=== PATIENT | female | born 1960 | race Caucasian/White ===

== ENCOUNTER 2018-12-15 01:54 | Emergency (ER) | payer MEDICAID ==
[2018-12-15] MEDS ORDERED: oxyCODONE/Acetamin 5/325 MG* TAB PO ONE (02:11)
--- NOTE | 2018-12-15 02:20 | ED ---
Adult Trauma - HPI Summary HPI Summary: A 58 y/o female brought in by [facility] presents to [facility] with a chief complaint of facial injury post fall today. The patient reports that she missed a step when walking with her walker and fell into the gravel. She denies LOC as she was unable to get herself off the ground but able to call for help. At triage she rated her pain as a 9/10 in severity. She notes that her tooth was missing prior to her fall. She takes aspirin and smokes cigarettes. She denies EtOH use. - History of Current Complaint Chief Complaint: EDFacialInjury Stated Complaint: FALL WITH FACIAL INJURIES PER EMS Time Seen by Provider: 12/15/18 02:07 Hx Obtained From: Patient, EMS Mechanism of Injury: Fall Ambulatory at the Scene: No Loss of Consciousness: no loss of consciousness Onset/Duration: Started Minutes Ago, Still Present Onset of Pain: Immediate, Post Accident, Prior to Arrival Onset Severity: Severe Current Severity: Severe Pain Intensity: 9 Pain Scale Used: 0-10 Numeric Location: Head Aggravating Factor(s): Nothing Alleviating Factor(s): Nothing Associated Signs & Symptoms: Negative: Fever, Loss of Consciousness - Additional Pertinent History Primary Care Physician: [id number] - Allergy/Home Medications Allergies/Adverse Reactions: Allergies Allergy/AdvReac Type Severity Reaction Status Date / Time fluphenazine [From Prolixin] Allergy Unknown Verified 12/07/18 09:26 Reaction Details haloperidol [From Haldol] Allergy See Comment Verified 12/07/18 09:26 latex Allergy Rash Verified 12/07/18 09:26 risperidone [From Risperdal] Allergy See Comment Verified 12/07/18 09:26 PMH/Surg Hx/FS Hx/Imm Hx Cardiovascular History: Reports: Hx Cardiomegaly, Hx Hypertension, Other Cardiovascular Problems/Disorders - Valve prolapse Denies: Hx Hypotension Respiratory History: Reports: Hx Chronic Obstructive Pulmonary Disease (COPD) GI History: Reports: Hx Gastroesophageal Reflux Disease Musculoskeletal History: Reports: Hx Back Problems Sensory History: Reports: Hx Contacts or Glasses - Reading glasses Denies: Hx Hearing Aid Opthamlomology History: Reports: Hx Contacts or Glasses - Reading glasses Neurological History: Reports: Other Neuro Impairments/Disorders - Patient reports multiple concussions Psychiatric History: Reports: Hx Anxiety, Hx Attention Deficit Hyperactivity Disorder, Hx Depression, Hx Inpatient Treatment - "Many times", Hx [facility] Pr - Lani Padilla, Hx Schizophrenia, Hx Bipolar Disorder, Hx Suicide Attempt - OD on pills "In the 80's", Hx of Violent Episodes Against Others, Other Psychiatric Issues/Disorders - schizoaffective disorde Denies: Hx Eating Disorder, Hx Panic Disorder, Hx Post Traumatic Stress Disorder, Hx Substance Abuse - Surgical History Surgery Procedure, Year, and Place: Lower back surgery approximately 5 years ago. Laparoscopy Infectious Disease History: Yes Infectious Disease History: Reports: Hx Hepatitis - Hep C "in remission" Denies: Traveled Outside the [place] in Last 30 Days - Family History Known Family History: Negative: Hypertension - Social History Alcohol Use: None Hx Substance Use: No Substance Use Type: Reports: None Substance Use Comment - Amount & Last Used: hx of drug abuse Hx Tobacco Use: Yes Smoking Status (MU): Light Every Day Tobacco Smoker Review of Systems Negative: Fever Skin: Other - positive: facial injury post fall Negative: Syncope All Other Systems Reviewed And Are Negative: Yes Physical Exam - Summary Physical Exam Summary: Appearance: Well-appearing, Well-nourished, lying in bed comfortable Skin: Warm, dry, no obvious rash, face abrasions forehead, abrasions with irregular lacerations on bridge of nose and into the nose itself, dried blood around mouth associated with abrasions and bruising in lower lip. Eyes: sclera anicteric, no conjunctival pallor ENT: mucous membranes moist Neck: deferred Respiratory: No signs of respiratory distress Cardiovascular: Appears well perfused, pulses are nml Abdomen: deferred Musculoskeletal: Moving all 4 extremities without obvious discomfort Neurological: Awake and alert, mentation is normal, speech is fluent and appropriate Psychiatric: affect is normal, does not appear anxious or depressed Triage Information Reviewed: Yes Vital Signs On Initial Exam: Initial Vitals Temp Pulse Resp BP Pulse Ox 97.9 F 89 18 149/98 97 12/15/18 01:59 12/15/18 01:59 12/15/18 01:59 12/15/18 01:59 12/15/18 01:59 Vital Signs Reviewed: Yes Diagnostics - Vital Signs Vital Signs Temp Pulse Resp BP Pulse Ox 12/15/18 01:59 97.9 F 89 18 149/98 97 - Laboratory Lab Statement: Any lab studies that have been ordered have been reviewed, and results considered in the medical decision making process. - CT Maxillofacial CT Interpretation Completed By: Radiologist Summary of CT Findings: Forehead and pre-nasal superficial contusions with upper pre-nasal laceration. No fractures. ED physician has reviewed this imaging report. Adult Trauma Course/Dx - Course Course Of Treatment: A 58 y/o female brought in by [facility] presents to [facility] with a chief complaint of facial injury post fall today. The physical exam revealed face abrasions on forehead, abrasions with irregular lacerations on bridge of nose and into the nose itself, dried blood around mouth associated with abrasions and bruising in lower lip. In the ED course the patient was given Marcaine INJ and Percocet PO. Maxillofacial CT impression: Forehead and pre-nasal superficial contusions with upper pre-nasal laceration. No fractures. Of note, the patient was missing some mandibular teeth prior to this, but appears to have lost a left lower incisor as she has a socket with a fresh clot in it. There is some abrasion and bruising of the lower lip but nothing that requires closing. There is a skin defect on the bridge of the nose with extensive bruising that required lots of cleaning and debridement. I placed two sutures to close the defect; the pt will be put on antibiotic prophylaxis. The patient will be discharged and is agreeable with this plan. - Diagnoses Provider Diagnoses: Facial laceration, Facial abrasion Discharge - Sign-Out/Discharge Documenting (check all that apply): Patient Departure - DC Patient Received Moderate/Deep Sedation with Procedure: No - Discharge Plan Condition: Good Disposition: HOME Prescriptions: Cephalexin CAP* [Keflex CAP*] 500 mg PO QID #28 cap Patient Education Materials: Facial Laceration (ED) Referrals: [facility] [Outside] Additional Instructions: Sutures need to be removed in 5-7 days. Watch for signs of infection. - Billing Disposition and Condition Condition: GOOD Disposition: Home - Attestation Statements Document Initiated by Odalisibe: Yes Documenting Scribe: Amos Alicea Provider For Whom Esteban is Documenting (Include Credential): Tom Eddy MD Scribe Attestation: Amos Asif scribed for Tom Eddy MD on 12/15/18 at 0643. Scribe Documentation Reviewed: Yes Provider Attestation: The documentation as recorded by the scribe, Amos DesRochers accurately reflects the service I personally performed and the decisions made by me, Tom Eddy MD Status of Scribe Document: Viewed
[2018-12-15] MEDS ORDERED: Lidocaine 2% EPI 1:200000 MPF* 10 ML VIAL INJ ONE (02:32)
[2018-12-15] MEDS ORDERED: Bupivacaine 0.5% W/EPI SDV* 10 ML VIAL INJ ONE ×2 (02:32)
[2018-12-15] MEDS ORDERED: BENZOCAINE* 20% LIQUID SWAB 1 EACH MED..SWAB MT ONE (02:48)
[2018-12-15] MEDS ORDERED: Lidocaine 2% EPI 1:200000 MPF*10-20 ML VIAL ONE ×2 (02:54)
[2018-12-15] MEDS ORDERED: Bupivacaine 0.5% W/EPI SDV* 30 ML VIAL ONE ×2 (02:54)
[2018-12-15] MEDS ORDERED: Cephalexin CAP* 500 MG PO ONE (03:48)
[2018-12-15 04:09] VITALS: BP 143/75
== END 2018-12-15 04:08 | disposition home or self-care (01) ==
LOC: ED 01:54
DX: S01.81XA Laceration without foreign body of other part of head, initial encounter (principal); B19.20 Unspecified viral hepatitis C without hepatic coma; F90.9 Attention-deficit hyperactivity disorder, unspecified type; I51.7 Cardiomegaly; I10 Essential (primary) hypertension; K21.9 Gastro-esophageal reflux disease without esophagitis; W19.XXXA Unspecified fall, initial encounter; Y92.9 Unspecified place or not applicable; Z79.82 Long term (current) use of aspirin; F17.210 Nicotine dependence, cigarettes, uncomplicated; F32.9 Major depressive disorder, single episode, unspecified; J44.9 Chronic obstructive pulmonary disease, unspecified
CPT/HCPCS: 12011; 70486; 99283; A9270-GY

== ENCOUNTER 2018-12-20 10:47 | Emergency (ER) | payer MEDICAID ==
[2018-12-20 12:06] VITALS: BP 130/60
--- NOTE | 2018-12-21 10:05 | ED ---
Skin Complaint - HPI Summary HPI Summary: Pt. is a 58 y.o female who presents to the ER for suture removal. Pt. has a hx of schizoaffective d/o and resides at the [facility]. Pt. seen in ED 12/25 after a fall and had 2 sutures placed to nasal bridge. Pt. has no complaints other than stating she has been peeling scabs off of face. On keflex prophylactically. Sxs are mild in severity. No current modifying factors. - History of Current Complaint Chief Complaint: EDLacSutureRecheck Time Seen by Provider: 12/20/18 11:02 Stated Complaint: STITCHES NEED TO BE TAKEN OUT PER PT Hx Obtained From: Patient Pain Intensity: 0 Pain Scale Used: 0-10 Numeric - Additional Pertinent History Primary Care Physician: NATY - Allergy/Home Medications Allergies/Adverse Reactions: Allergies Allergy/AdvReac Type Severity Reaction Status Date / Time black pepper Allergy Eyes Verified 12/20/18 11:02 Itchy/Swollen/Red/Watery fluphenazine [From Prolixin] Allergy Unknown Verified 12/20/18 11:02 Reaction Details haloperidol [From Haldol] Allergy See Comment Verified 12/20/18 11:02 latex Allergy Rash Verified 12/20/18 11:02 risperidone [From Risperdal] Allergy See Comment Verified 12/20/18 11:02 PMH/Surg Hx/FS Hx/Imm Hx Previously Healthy: Yes Cardiovascular History: Reports: Hx Cardiomegaly, Hx Hypertension, Other Cardiovascular Problems/Disorders - Valve prolapse Denies: Hx Hypotension Respiratory History: Reports: Hx Chronic Obstructive Pulmonary Disease (COPD) GI History: Reports: Hx Gastroesophageal Reflux Disease Musculoskeletal History: Reports: Hx Back Problems Sensory History: Reports: Hx Contacts or Glasses - Reading glasses Denies: Hx Hearing Aid Opthamlomology History: Reports: Hx Contacts or Glasses - Reading glasses Neurological History: Reports: Other Neuro Impairments/Disorders - Patient reports multiple concussions Psychiatric History: Reports: Hx Anxiety, Hx Attention Deficit Hyperactivity Disorder, Hx Depression, Hx Inpatient Treatment - "Many times", Hx Community Mental Health Tx - Lani Padilla, Hx Schizophrenia, Hx Bipolar Disorder, Hx Suicide Attempt - OD on pills "In the 80's", Hx of Violent Episodes Against Others, Other Psychiatric Issues/Disorders - schizoaffective disorde Denies: Hx Eating Disorder, Hx Panic Disorder, Hx Post Traumatic Stress Disorder, Hx Substance Abuse - Surgical History Surgery Procedure, Year, and Place: Lower back surgery approximately 5 years ago. Laparoscopy Infectious Disease History: No Infectious Disease History: Reports: Hx Hepatitis - Hep C "in remission" Denies: Traveled Outside the [place] in Last 30 Days - Family History Known Family History: Negative: Hypertension - Social History Occupation: Disabled Lives: Assisted Alcohol Use: None Hx Substance Use: No Substance Use Type: Reports: None Substance Use Comment - Amount & Last Used: hx of drug abuse Hx Tobacco Use: Yes Smoking Status (MU): Light Every Day Tobacco Smoker Review of Systems Positive: Other - Sutures to bridge of nose. All Other Systems Reviewed And Are Negative: Yes Physical Exam Triage Information Reviewed: Yes Vital Signs On Initial Exam: Initial Vitals Temp Pulse Resp BP Pulse Ox 97.7 F 81 16 127/78 99 12/20/18 10:58 12/20/18 10:58 12/20/18 10:58 12/20/18 10:58 12/20/18 10:58 Vital Signs Reviewed: Yes Appearance: Positive: Well-Appearing - Pt. sitting on bed in NAD. Staff member present. Skin: Positive: Warm, Dry Head/Face: Positive: Other - Scabbing noted over mid face. No signs of infection. 2 sutures noted under scabbing to nasal bridge without drainage or redness. Neurological: Positive: Normal, CN Intact II-III Psychiatric: Positive: Anxious Procedures - Procedure Summary Procedure Summary: 2 sutures easily removed from wound to bridge of nose. No signs of infection. Diagnostics - Vital Signs Vital Signs Temp Pulse Resp BP Pulse Ox 12/20/18 12:06 98.3 F 76 16 130/60 98 12/20/18 10:58 97.7 F 81 16 127/78 99 - Laboratory Lab Statement: Any lab studies that have been ordered have been reviewed, and results considered in the medical decision making process. Course/Dx - Course Course Of Treatment: Patient presenting for suture removal. No signs of infection. Continue wound care. Discharged back to [place]. - Differential Diagnoses - Skin Complaint Differential Diagnoses: Abscess, Cellulitis - Diagnoses Provider Diagnoses: Encounter for removal of sutures Discharge - Sign-Out/Discharge Documenting (check all that apply): Patient Departure Patient Received Moderate/Deep Sedation with Procedure: No - Discharge Plan Condition: Good Disposition: HOME Patient Education Materials: Acute Wound Care (ED) Referrals: [facility] [Outside] Additional Instructions: Continue wound care Follow up with PCP Return to ER if symptoms change or worsen - Billing Disposition and Condition Condition: GOOD Disposition: Home
== END 2018-12-20 12:06 | disposition home or self-care (01) ==
LOC: ED 10:47
DX: Z48.02 Encounter for removal of sutures (principal); I11.9 Hypertensive heart disease without heart failure; J44.9 Chronic obstructive pulmonary disease, unspecified; F41.9 Anxiety disorder, unspecified; F32.9 Major depressive disorder, single episode, unspecified; F90.9 Attention-deficit hyperactivity disorder, unspecified type; Z88.8 Allergy status to other drugs, medicaments and biological substances; Z91.040 Latex allergy status; Z86.19 Personal history of other infectious and parasitic diseases
CPT/HCPCS: 99281

== ENCOUNTER 2019-01-13 19:18 | Emergency (ER) | payer BC, MEDICAID ==
--- NOTE | 2019-01-13 19:34 | ED ---
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 The patient states she was walking when her knee buckled and that she believes she might have dislocated her hip and/or broke her leg. She initially rates the pain 10/10 in severity and now rates it 8/10. The patient did not fall and there was no trauma. The patient states she had a cigarette as she waited for EMS. - History of Current Complaint Stated Complaint: LEG PAIN PER EMS Time Seen by Provider: 01/13/19 19:27 Hx Obtained From: Patient Mechanism Of Injury: Twisted Onset/Duration: Minutes Severity Initially: Severe Severity Currently: Moderate Pain Intensity: 8 Pain Scale Used: 0-10 Numeric Timing: Constant Location: Is Diffuse - Allergies/Home Medications Allergies/Adverse Reactions: Allergies Allergy/AdvReac Type Severity Reaction Status Date / Time black pepper Allergy Eyes Verified 12/20/18 11:02 Itchy/Swollen/Red/Watery fluphenazine [From Prolixin] Allergy Unknown Verified 12/20/18 11:02 Reaction Details haloperidol [From Haldol] Allergy See Comment Verified 12/20/18 11:02 latex Allergy Rash Verified 12/20/18 11:02 risperidone [From Risperdal] Allergy See Comment Verified 12/20/18 11:02 Home Medications: Home Medications Tiotropium CAP.INH* [Spiriva CAP.INH*] 2 inh INH Q4H PRN 01/13/19 [History Confirmed 01/13/19] PMH/Surg Hx/FS Hx/Imm Hx Cardiovascular History: Reports: Hx Cardiomegaly, Hx Hypertension, Other Cardiovascular Problems/Disorders - Valve prolapse Denies: Hx Hypotension Respiratory History: Reports: Hx Chronic Obstructive Pulmonary Disease (COPD) GI History: Reports: Hx Gastroesophageal Reflux Disease Musculoskeletal History: Reports: Hx Back Problems Sensory History: Reports: Hx Contacts or Glasses - Reading glasses Denies: Hx Hearing Aid Opthamlomology History: Reports: Hx Contacts or Glasses - Reading glasses Neurological History: Reports: Other Neuro Impairments/Disorders - Patient reports multiple concussions Psychiatric History: Reports: Hx Anxiety, Hx Attention Deficit Hyperactivity Disorder, Hx Depression, Hx Inpatient Treatment - "Many times", Hx Community Mental Health Tx - Lani Padilla, Hx Schizophrenia, Hx Bipolar Disorder, Hx Suicide Attempt - OD on pills "In the 80's", Hx of Violent Episodes Against Others, Other Psychiatric Issues/Disorders - schizoaffective disorde Denies: Hx Eating Disorder, Hx Panic Disorder, Hx Post Traumatic Stress Disorder, Hx Substance Abuse - Surgical History Surgery Procedure, Year, and Place: Lower back surgery approximately 5 years ago. Laparoscopy Infectious Disease History: No Infectious Disease History: Reports: Hx Hepatitis - Hep C "in remission" Denies: Traveled Outside the [place] in Last 30 Days - Family History Known Family History: Negative: Hypertension - Social History Alcohol Use: None Hx Substance Use: No Substance Use Type: Reports: None Substance Use Comment - Amount & Last Used: hx of drug abuse Hx Tobacco Use: Yes Smoking Status (MU): Light Every Day Tobacco Smoker Review of Systems Negative: Fever Positive: Other - RLE pain All Other Systems Reviewed And Are Negative: Yes Physical Exam - Summary Physical Exam Summary: VITAL SIGNS: Reviewed. GENERAL: Patient is a well-developed and nourished FEMALE who is lying comfortable in the stretcher. Patient is not in any acute respiratory distress. HEAD AND FACE: No signs of trauma. No ecchymosis, hematomas or skull depressions. No sinus tenderness. EYES: PERRLA, EOMI x 2, No injected conjunctiva, no nystagmus. EARS: Hearing grossly intact. Ear canals and tympanic membranes are within normal limits. MOUTH: Oropharynx within normal limits. NECK: Supple, trachea is midline, no adenopathy, no JVD, no carotid bruit, no c- spine tenderness, neck with full ROM. CHEST: Symmetric, no tenderness at palpation LUNGS: Clear to auscultation bilaterally. No wheezing or crackles. CVS: Regular rate and rhythm, S1 and S2 present, no murmurs or gallops appreciated. ABDOMEN: Soft, non-tender. No signs of distention. No rebound no guarding, and no masses palpated. Bowel sounds are normal. EXTREMITIES: no edema, no cyanosis or clubbing. Limited ROM in right hip and femur secondary to pain. No DCAPBTLS noted. NEURO: Alert and oriented x 3. No acute neurological deficits. Speech is normal and follows commands. SKIN: Dry and warm IF PSYCHIATRIC/MENTAL HEALTH ADD THE FOLLOWING TO THE GENERAL NML EXAM: PSYCH: Depressed, quiet, and denies any suicidal thoughts or plan. No homicidal thoughts or plan. No signs of psychosis or pressure speech. No tangential speech. Triage Information Reviewed: Yes Vital Signs On Initial Exam: Initial Vitals Temp Pulse Resp BP Pulse Ox 98.6 F 82 16 136/81 91 01/13/19 19:23 01/13/19 19:23 01/13/19 19:23 01/13/19 19:23 01/13/19 19:23 Vital Signs Reviewed: Yes Diagnostics - Vital Signs Vital Signs Temp Pulse Resp BP Pulse Ox 01/13/19 19:23 98.6 F 82 16 136/81 91 - Laboratory Lab Statement: Any lab studies that have been ordered have been reviewed, and results considered in the medical decision making process. - Radiology Femur XR Radiology Interpretation Completed By: ED Physician Summary of Radiographic Findings: No sign of acute dislocation or fracture. Pending official radiologist report. Hip/Pelvis XR Radiology Interpretation Completed By: ED Physician Summary of Radiographic Findings: No sign of acute dislocation or fracture. Pending official radiologist report. Lower Extremity Course/Dx - Course Assessment/Plan: This patient is a 50-year-old female who presents to the emergency department with chief complaint of right hip and right femur pain after the patient twisted . Patient denies any history of trauma or heavy lifting. X-ray of the right femur is negative for acute fracture dislocation. X-ray of the right hip and pelvis negative for acute fracture dislocation. In the ED course the patient was given Toradol for the pain. At this point the patient will be discharged home with follow-up with primary care physician. . I discussed all the findings and test results with the patient. Patient was instructed to return to the emergency room immediately if any of the symptoms return worsens. Plan of care was discussed with the patient and understands and agrees. All questions were answered at patient satisfaction. There were no further complaints or concerns. Lung exam before discharge: CTA B/L. Good air exchange. No wheezing or crackles heard. CVS: S1 and S2 present. No murmurs appreciated. Patient is alert and oriented x 3. Patient is hemodynamically stable. Patient will be discharged home with follow up PCP in the next 2-3 days - Diagnoses Provider Diagnoses: Hip pain, Pain in femur Discharge - Sign-Out/Discharge Documenting (check all that apply): Patient Departure - Discharge Patient Received Moderate/Deep Sedation with Procedure: No - Discharge Plan Condition: Stable Disposition: HOME Patient Education Materials: Hip Pain (ED), Leg Pain (ED) Referrals: [facility] [Outside] Additional Instructions: Return to ED with any new or worsening symptoms. - Billing Disposition and Condition Condition: STABLE Disposition: Home - Attestation Statements Document Initiated by Esteban: Yes Documenting Scribe: Leeroy Milner Provider For Whom Esteban is Documenting (Include Credential): Hussain Rush MD Scribe Attestation: Leeroy Asif, scribed for Hussain Rush MD on 01/13/19 at 2109. Scribe Documentation Reviewed: Yes Provider Attestation: The documentation as recorded by the Leeroy hall accurately reflects the service I personally performed and the decisions made by , Hussain Rush MD Status of Scribe Document: Viewed
[2019-01-13] MEDS ORDERED: Ketorolac INJ* 60 MG/2 ML VIAL IM ONE (20:37)
[2019-01-13 21:21] VITALS: BP 136/88
== END 2019-01-13 21:19 | disposition home or self-care (01) ==
LOC: ED 19:18
DX: M25.551 Pain in right hip (principal); M79.651 Pain in right thigh; I11.9 Hypertensive heart disease without heart failure; J44.9 Chronic obstructive pulmonary disease, unspecified; K21.9 Gastro-esophageal reflux disease without esophagitis; F41.9 Anxiety disorder, unspecified; F32.9 Major depressive disorder, single episode, unspecified; F90.9 Attention-deficit hyperactivity disorder, unspecified type; F17.210 Nicotine dependence, cigarettes, uncomplicated; Z88.8 Allergy status to other drugs, medicaments and biological substances; Z91.040 Latex allergy status; Z91.5 Personal history of self-harm; Z86.19 Personal history of other infectious and parasitic diseases
CPT/HCPCS: 96372; 99282; J1885

== ENCOUNTER 2019-03-06 07:38 | Emergency (ER) | payer BC, MEDICAID ==
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
[2019-03-06 08:23] LABS: ABS Basophils 0.1 10^3/ul (0-0.2); ABS Lymphocytes 1.2 10^3/ul (1.0-4.8); ABS Monocytes 0.6 10^3/ul (0-0.8); ABS Neutrophils 8.2 10^3/ul (1.5-7.7); Eosinophil % 0.3 %; Hematocrit 40 % (35-47); Hemoglobin 13.9 g/dL (12.0-16.0); Lymphocyte % 12.3 %; Mean Corpuscular HGB Conc 35 g/dL (31-36); Mean Corpuscular Hemoglobin 32 pg (27-31); Mean Corpuscular Volume 92 fL (80-97); Mean Platelet Volume 8.4 fL (7.4-10.4); Nucleated Red Blood Cells % 0.1; Platelet Count 255 10^3/uL (150-450); Red Blood Count 4.31 10^6 /uL (3.70-4.87); Red Cell Distribution Width 14 % (10-15); White Blood Count 10.1 10^3/uL (3.5-10.8)
[2019-03-06 08:39] LABS: ALT 15 U/L (7-52); AST 20 U/L (13-39); Albumin 4.5 g/dL (3.2-5.2); Albumin/Globulin Ratio 1.4 (1-3); Alkaline Phosphatase 67 U/L (34-104); Anion Gap 8 mmol/L (2-11); BUN/Creatinine Ratio 18.6 (8-20); Blood Urea Nitrogen 13 mg/dL (6-24); CO2 Carbon Dioxide 32 mmol/L (22-32); Calcium 10.8 mg/dL (8.6-10.3); Chloride 94 mmol/L (101-111); EGFR Non-African American 85.9 (>60); Globulin 3.3 g/dL (2-4); Glucose 143 mg/dL (70-100); Potassium 3.7 mmol/L (3.5-5.0); Sodium 134 mmol/L (135-145); Total Protein 7.8 g/dL (6.4-8.9)
[2019-03-06 09:03] LABS: Urine Benzodiazepine Screen None Detected (None Detect); Urine Opiates Screen None Detected (None Detect)
[2019-03-06 09:10] LABS: Urine Bacteria Absent (Absent); Urine Red Blood Cell Absent (Absent); Urine White Blood Cell Trace(0-5/hpf) (Absent)
[2019-03-06 09:16] LABS: Acetaminophen < 15 mcg/mL; Alcohol < 10 mg/dL (<10); Salicylate < 2.50 mg/dL (<30)
[2019-03-06 09:17] LABS: Urine Appearance Clear; Urine Bilirubin Negative (Negative); Urine Blood Negative (Negative); Urine Color Yellow; Urine Glucose Negative (Negative); Urine Ketones Negative (Negative); Urine Nitrite Negative (Negative); Urine Protein Negative (Negative); Urine Specific Gravity 1.005 (1.010-1.030); Urine Urobilinogen Negative (Negative)
[2019-03-06 09:30] LABS: TSH (Thyroid Stimulating Horm) 0.27 mcIU/mL (0.34-5.60)
[2019-03-06 13:05] VITALS: BP 133/73
== END 2019-03-06 13:09 | disposition home or self-care (01) ==
LOC: ED 07:38
DX: F43.20 Adjustment disorder, unspecified (principal); F17.210 Nicotine dependence, cigarettes, uncomplicated; I10 Essential (primary) hypertension; J44.9 Chronic obstructive pulmonary disease, unspecified; K21.9 Gastro-esophageal reflux disease without esophagitis; Z79.82 Long term (current) use of aspirin; Z79.899 Other long term (current) drug therapy; R45.851 Suicidal ideations
CPT/HCPCS: 36415; 80053; 80307; 80320; 80329; 81003; 84443; 85025; 87086; 99285; G0480

== ENCOUNTER 2019-03-08 18:32 | Inpatient (IN) | payer BC, MEDICAID ==
--- NOTE | 2019-03-08 19:36 | ED ---
Psychiatric Complaint - HPI Summary HPI Summary: This pt is a 58 y/o female presenting to [facility] via assistant chief of police c/o SI thoughts. Pt reports she has been feeling suicidal for the past few days and states she has been wanting to hurt herself. She denies any SI plan. Pt states she is grieving because her godfather . Per triage note, pt "is having visual and auditory hallucinations." Per nurse's note, pt has hx of suicide attempt by overdosing. PMHx includes schizoaffective disorder. - History Of Current Complaint Chief Complaint: EDSuicidal Time Seen by Provider: 03/08/19 19:29 Hx Obtained From: Patient Onset/Duration: Lasting Days, Still Present Timing: Days Severity Currently: Moderate Character: Depressed Aggravating Factor(s): Nothing Alleviating Factor(s): Nothing Associated Signs And Symptoms: Positive: Hallucinating - visual and auditory Related History: Positive For: Prior Psychiatric Issues Has Suicidal: Reports: Thoughts. Denies: With A Plan Has Homicidal: Denies: Thoughts, With A Plan - Allergies/Home Medications Allergies/Adverse Reactions: Allergies Allergy/AdvReac Type Severity Reaction Status Date / Time black pepper Allergy Eyes Verified 12/20/18 11:02 Itchy/Swollen/Red/Watery fluphenazine [From Prolixin] Allergy Unknown Verified 12/20/18 11:02 Reaction Details haloperidol [From Haldol] Allergy See Comment Verified 12/20/18 11:02 latex Allergy Rash Verified 12/20/18 11:02 risperidone [From Risperdal] Allergy See Comment Verified 12/20/18 11:02 Home Medications: Home Medications Duloxetine HCl 60 mg PO BID 03/08/19 [History Confirmed 03/08/19] PMH/Surg Hx/FS Hx/Imm Hx Cardiovascular History: Reports: Hx Cardiomegaly, Hx Hypertension, Other Cardiovascular Problems/Disorders - Valve prolapse Denies: Hx Hypotension Respiratory History: Reports: Hx Chronic Obstructive Pulmonary Disease (COPD) GI History: Reports: Hx Gastroesophageal Reflux Disease Musculoskeletal History: Reports: Hx Back Problems Sensory History: Reports: Hx Contacts or Glasses - Reading glasses Denies: Hx Hearing Aid Opthamlomology History: Reports: Hx Contacts or Glasses - Reading glasses Neurological History: Reports: Other Neuro Impairments/Disorders - Patient reports multiple concussions, myelopathy Psychiatric History: Reports: Hx Anxiety, Hx Attention Deficit Hyperactivity Disorder, Hx Depression, Hx Inpatient Treatment - "Many times", Hx Community Mental Health Tx - Lani Linares, Hx Schizophrenia, Hx Bipolar Disorder, Hx Suicide Attempt - OD on pills "In the 80's", Hx of Violent Episodes Against Others, Other Psychiatric Issues/Disorders - schizoaffective disorde Denies: Hx Eating Disorder, Hx Panic Disorder, Hx Post Traumatic Stress Disorder, Hx Substance Abuse - Surgical History Surgery Procedure, Year, and Place: Lower back surgery approximately 5 years ago. Laparoscopy - Immunization History Date of Tetanus Vaccine: unk Date of Influenza Vaccine: unk Infectious Disease History: No Infectious Disease History: Reports: Hx Hepatitis - Hep C "in remission" Denies: Traveled Outside the [place] in Last 30 Days - Family History Known Family History: Negative: Hypertension - Social History Alcohol Use: None Hx Substance Use: No Substance Use Type: Reports: None Substance Use Comment - Amount & Last Used: hx of drug abuse Hx Tobacco Use: Yes Smoking Status (MU): Light Every Day Tobacco Smoker Review of Systems Negative: Fever Cardiovascular: Negative Respiratory: Negative Gastrointestinal: Negative Psychological: Other - POSITIVE: SI thoughts, visual and auditory hallucinations Positive: Depressed. Negative: Other - NEGATIVE: SI plan All Other Systems Reviewed And Are Negative: Yes Physical Exam - Summary Physical Exam Summary: VITAL SIGNS: Reviewed. GENERAL: Patient is a well-developed and nourished female who is lying comfortable in the stretcher. Patient is not in any acute respiratory distress. HEAD AND FACE: No signs of trauma. No ecchymosis, hematomas or skull depressions. No sinus tenderness. EYES: PERRLA, EOMI x 2, No injected conjunctiva, no nystagmus. EARS: Hearing grossly intact. Ear canals and tympanic membranes are within normal limits. MOUTH: Oropharynx within normal limits. NECK: Supple, trachea is midline, no adenopathy, no JVD, no carotid bruit, no c- spine tenderness, neck with full ROM. CHEST: Symmetric, no tenderness at palpation LUNGS: Clear to auscultation bilaterally. No wheezing or crackles. CVS: Regular rate and rhythm, S1 and S2 present, no murmurs or gallops appreciated. ABDOMEN: Soft, non-tender. No signs of distention. No rebound no guarding, and no masses palpated. Bowel sounds are normal. EXTREMITIES: FROM in all major joints, no edema, no cyanosis or clubbing. NEURO: Alert and oriented x 3. No acute neurological deficits. Speech is normal and follows commands. SKIN: Dry and warm Triage Information Reviewed: Yes Vital Signs On Initial Exam: Initial Vitals Temp Pulse Resp BP Pulse Ox 97.9 F 96 16 146/101 96 03/08/19 18:34 03/08/19 18:34 03/08/19 18:34 03/08/19 18:34 03/08/19 18:34 Vital Signs Reviewed: Yes Diagnostics - Vital Signs Vital Signs Temp Pulse Resp BP Pulse Ox 03/08/19 18:34 97.9 F 96 16 146/101 96 - Laboratory Result Diagrams: 03/08/19 20:12 03/08/19 20:12 Lab Statement: Any lab studies that have been ordered have been reviewed, and results considered in the medical decision making process. Re-Evaluation - Re-Evaluation First Eval Re-Evaluation Time: 21:08 Comment: Pt is medically cleared. Course/Dx - Course Assessment/Plan: Pt is a 58 y/o female presenting to [facility] via assistant chief of police c/ o SI thoughts for the past few days. She denies any SI plan. Pt states she is grieving because her godfather . Per triage note, pt "is having visual and auditory hallucinations.". Pt is medically cleared. She had a mental health evaluation and her case was reviewed by Dr. Bhatia, psychiatrist. Per mental health internet manager, Dr. Bhatia will admit the pt to [facility] psych facility with dx schizoaffective disorder. - Differential Dx/Clinical Impression Provider Diagnosis: Schizoaffective disorder Discharge - Sign-Out/Discharge Documenting (check all that apply): Patient Departure - Admit to [facility] PSYCH Patient Received Moderate/Deep Sedation with Procedure: No - Discharge Plan Condition: Stable Disposition: PSYCHIATRIC FACILITY-[facility] Referrals: Mana PEDRAZA,Hang Brown [Primary Care Provider] - - Attestation Statements Document Initiated by Scribe: Yes Documenting Scribe: Rebecca Alcocer Provider For Whom Scribe is Documenting (Include Credential): Hanna Isbell MD Scribe Attestation: Rebecca Asif, scribed for Hanna Isbell MD on 03/09/19 at 0357. Status of Scribe Document: Ready
[2019-03-08 20:23] LABS: ABS Basophils 0.1 10^3/ul (0-0.2); ABS Eosinophils 0.1 10^3/ul (0-0.6); ABS Lymphocytes 2.3 10^3/ul (1.0-4.8); ABS Monocytes 0.9 10^3/ul (0-0.8); ABS Neutrophils 6.2 10^3/ul (1.5-7.7); Eosinophil % 0.7 %; Hematocrit 36 % (35-47); Hemoglobin 12.7 g/dL (12.0-16.0); Lymphocyte % 24.1 %; Mean Corpuscular HGB Conc 35 g/dL (31-36); Mean Corpuscular Hemoglobin 32 pg (27-31); Mean Corpuscular Volume 93 fL (80-97); Mean Platelet Volume 8.6 fL (7.4-10.4); Nucleated Red Blood Cells % 0.1; Platelet Count 249 10^3/uL (150-450); Red Blood Count 3.92 10^6 /uL (3.70-4.87); Red Cell Distribution Width 13 % (10-15); White Blood Count 9.6 10^3/uL (3.5-10.8)
[2019-03-08 20:39] LABS: ALT 13 U/L (7-52); AST 16 U/L (13-39); Albumin 4.2 g/dL (3.2-5.2); Albumin/Globulin Ratio 1.5 (1-3); Alkaline Phosphatase 58 U/L (34-104); Anion Gap 8 mmol/L (2-11); BUN/Creatinine Ratio 20.8 (8-20); Blood Urea Nitrogen 16 mg/dL (6-24); CO2 Carbon Dioxide 29 mmol/L (22-32); Chloride 95 mmol/L (101-111); EGFR African American 93.2 (>60); Globulin 2.8 g/dL (2-4); Glucose 134 mg/dL (70-100); Potassium 3.8 mmol/L (3.5-5.0); Sodium 132 mmol/L (135-145)
[2019-03-08 20:55] LABS: Acetaminophen < 15 mcg/mL; Alcohol < 10 mg/dL (<10); Salicylate < 2.50 mg/dL (<30)
[2019-03-08 21:18] LABS: TSH (Thyroid Stimulating Horm) 0.87 mcIU/mL (0.34-5.60)
[2019-03-08 22:28] LABS: Urine Appearance Clear; Urine Bacteria Absent (Absent); Urine Bilirubin Negative (Negative); Urine Blood Negative (Negative); Urine Color Yellow; Urine Glucose Negative (Negative); Urine Ketones Negative (Negative); Urine Nitrite Negative (Negative); Urine Protein Negative (Negative); Urine Red Blood Cell Absent (Absent); Urine Specific Gravity 1.005 (1.010-1.030); Urine Squamous Epithelial Cell Present (Absent); Urine Urobilinogen Negative (Negative); Urine White Blood Cell Trace(0-5/hpf) (Absent)
[2019-03-08 22:46] LABS: Urine Benzodiazepine Screen None Detected (None Detect); Urine Opiates Screen None Detected (None Detect)
[2019-03-09] MEDS ORDERED: Al Hydrox/Mg Hydrox/Simet LIQ* 30 ML UDC PO PRN (05:34)
[2019-03-09] MEDS ORDERED: Acetaminophen TAB* 325 MG PO PRN (05:34)
[2019-03-09] MEDS ORDERED: Albuterol HFA INHALER* 8 gm MDI INH PRN (09:42)
[2019-03-09] MEDS ORDERED: TIOTROPIUM RESPIMT 2.5 MCG INH PRN (09:47)
[2019-03-09] MEDS ORDERED: MDI INH PRN (09:47)
[2019-03-09] MEDS: Benztropine TAB* 1 MG PO PRN (10:47)
[2019-03-09] MEDS: Calcium Polycarbophil TAB* 625 MG PO SCH ×2 (10:47→20:37)
[2019-03-09] MEDS: BuPROPion XL* 300 MG TAB.XL PO SCH (10:47)
[2019-03-09] MEDS: Aspirin EC TAB* 81 MG TAB.EC PO SCH (10:47)
[2019-03-09] MEDS: Cholecalciferol TAB* 1000 UNITS PO SCH (10:47)
[2019-03-09] MEDS: DULoxetine DR CAP* 60 MG CAP.DR PO SCH ×2 (10:48→20:37)
[2019-03-09] MEDS: Senna TAB PO SCH ×2 (10:48→20:38)
[2019-03-09] MEDS: LORazepam TAB(*) 0.5 MG PO PRN (10:48)
[2019-03-09] MEDS: Levothyroxine TAB* 75 MCG TAB PO SCH (10:49)
[2019-03-09] MEDS: Gabapentin CAP(*) 300 MG PO SCH ×3 (10:49→20:34)
[2019-03-09] MEDS: Spironolactone TAB* 25 MG PO SCH (10:49)
[2019-03-09] MEDS: Docusate CAP* 100 MG PO SCH ×2 (10:49→20:37)
[2019-03-09] MEDS: Vitamin THERAPEUTIC TAB PO SCH (10:49)
[2019-03-09] MEDS: traMADol TAB* 50 MG PO PRN ×2 (10:50→23:02)
[2019-03-09] MEDS: Polyethylene Glycol 3350* 17 GM PACKET PO SCH (10:51)
[2019-03-09] MEDS: Fluticasone NASAL SPRAY 50MCG* 16 gm SPRAY BTL BOTH NARES SCH (11:28)
[2019-03-09] MEDS: Calcium Carbonate TAB* 1250 MG (CALCIUM 500 MG) PO SCH ×2 (11:28→20:35)
[2019-03-09] MEDS: Diltiazem CD CAP* 240 MG PO SCH (11:28)
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
[2019-03-09] MEDS: Mometasone/Formoter 200/5 MDI INH SCH (20:35)
[2019-03-09] MEDS: Atorvastatin* 40 MG TAB PO SCH (20:36)
[2019-03-09] MEDS: OLANzapine TAB* 10 MG PO SCH (20:38)
[2019-03-09] MEDS: Montelukast Sodium TAB* 10 MG PO SCH (20:39)
[2019-03-09] MEDS: Baclofen TAB* 20 MG PO PRN (20:43)
[2019-03-10 08:15] LABS: HDL Cholesterol 56.2 mg/dL
[2019-03-10] MEDS: Spironolactone TAB* 25 MG PO SCH (08:58)
[2019-03-10] MEDS: Aspirin EC TAB* 81 MG TAB.EC PO SCH (08:58)
[2019-03-10] MEDS: Senna TAB PO SCH ×2 (08:59→20:23)
[2019-03-10] MEDS: Gabapentin CAP(*) 300 MG PO SCH ×3 (08:59→20:21)
[2019-03-10] MEDS: Vitamin THERAPEUTIC TAB PO SCH (08:59)
[2019-03-10] MEDS: Calcium Polycarbophil TAB* 625 MG PO SCH ×2 (09:00→20:25)
[2019-03-10] MEDS: DULoxetine DR CAP* 60 MG CAP.DR PO SCH ×2 (09:00→20:22)
[2019-03-10] MEDS: Diltiazem CD CAP* 240 MG PO SCH (09:00)
[2019-03-10] MEDS: BuPROPion XL* 300 MG TAB.XL PO SCH (09:00)
[2019-03-10] MEDS: Levothyroxine TAB* 75 MCG TAB PO SCH (09:00)
[2019-03-10] MEDS: Docusate CAP* 100 MG PO SCH ×2 (09:00→20:25)
[2019-03-10] MEDS: Cholecalciferol TAB* 1000 UNITS PO SCH (09:01)
[2019-03-10] MEDS: Fluticasone NASAL SPRAY 50MCG* 16 gm SPRAY BTL BOTH NARES SCH (09:02)
[2019-03-10] MEDS: Mometasone/Formoter 200/5 MDI INH SCH ×2 (09:02→20:20)
[2019-03-10] MEDS: Polyethylene Glycol 3350* 17 GM PACKET PO SCH (09:03)
[2019-03-10] MEDS: LORazepam TAB(*) 0.5 MG PO PRN ×2 (11:56→23:59)
[2019-03-10] MEDS: Calcium Carbonate TAB* 1250 MG (CALCIUM 500 MG) PO SCH ×2 (13:06→20:20)
[2019-03-10] MEDS: traMADol TAB* 50 MG PO PRN (20:19)
[2019-03-10] MEDS: Atorvastatin* 40 MG TAB PO SCH (20:21)
[2019-03-10] MEDS: OLANzapine TAB* 10 MG PO SCH (20:21)
[2019-03-10] MEDS: Montelukast Sodium TAB* 10 MG PO SCH (20:22)
[2019-03-11] MEDS: Levothyroxine TAB* 75 MCG TAB PO SCH (05:55)
[2019-03-11] MEDS: Spironolactone TAB* 25 MG PO SCH (10:36)
[2019-03-11] MEDS: Diltiazem CD CAP* 240 MG PO SCH (10:36)
[2019-03-11] MEDS: Senna TAB PO SCH ×2 (10:36→21:19)
[2019-03-11] MEDS: DULoxetine DR CAP* 60 MG CAP.DR PO SCH ×2 (10:36→21:18)
[2019-03-11] MEDS: Gabapentin CAP(*) 300 MG PO SCH ×3 (10:36→21:16)
[2019-03-11] MEDS: Calcium Polycarbophil TAB* 625 MG PO SCH ×2 (10:36→21:18)
[2019-03-11] MEDS: Cholecalciferol TAB* 1000 UNITS PO SCH (10:36)
[2019-03-11] MEDS: Aspirin EC TAB* 81 MG TAB.EC PO SCH (10:37)
[2019-03-11] MEDS: Polyethylene Glycol 3350* 17 GM PACKET PO SCH (10:37)
[2019-03-11] MEDS: BuPROPion XL* 300 MG TAB.XL PO SCH (10:37)
[2019-03-11] MEDS: Vitamin THERAPEUTIC TAB PO SCH (10:37)
[2019-03-11] MEDS: Docusate CAP* 100 MG PO SCH ×2 (10:37→21:18)
[2019-03-11] MEDS: Fluticasone NASAL SPRAY 50MCG* 16 gm SPRAY BTL BOTH NARES SCH (10:37)
[2019-03-11] MEDS: Calcium Carbonate TAB* 1250 MG (CALCIUM 500 MG) PO SCH ×2 (10:55→21:17)
[2019-03-11] MEDS: Mometasone/Formoter 200/5 MDI INH SCH ×2 (10:55→21:20)
--- NOTE | 2019-03-11 12:25 | PN ---
Subjective - Subjective Date of Service: 03/11/19 Service Type: 52518 Hosp care 35 min high complexity Subjective: Patient has had a diminished appetite and did not attend groups. She did attend lunch and was able to get a late tray. Patient seemed slow to respond to questions. She was able to recall the events that led to her admission. Objective - General Observations Appearance: Disheveled Appears Stated Age: Yes Stature: Thin Posture: Slumped Eye Contact: Intense Behavior/Activity: Slowed - Interaction Observations Attitude Towards Examiner: Confused Stated Mood: Dysphoric Affect: Blunted Speech Pattern/Tone: Delayed Thought Process: Impoverished Perception: WNL Thought Content: WNL Thought Process: Lethality: Passive Wish Hallucination Type: None Delusion Type: None - Cognitive Function Orientation: Confused Level of Consciousness: Awake Judgment Within Normal Limits: No Ability to Make Reasonable Decisions: Moderately Impaired - Medication Compliance Cooperative with Inpatient Medication Regimen: Yes - Group Participation Participates in Group Activities: No Assessment - Assessment Merits Inpatient Hospitalization: For Immediate Safety Clinical Impression: 58 year old female with a history of multiple psychiatric hospitalizations was admitted to the [facility] for suicidal ideation Plan - Plan Treatment Plan: Name: SWATI MCDUFFIE Birthdate: 1960 [id number] # Q15 minute observation. # The patient requires psychiatric inpatient admission at this time to assure safety, receive treatment and work toward stabilization. # Collaboration with Power Mule Operator Jas Sanchez #Goals before discharge include: To eliminate/ reduce suicidal ideation. # Hypovolemic Hyponatremia vs. poly-pharmacy will repeat labs Sodium 132 mmol/L (135-145) L 03/08/19 20:12 Potassium 3.8 mmol/L (3.5-5.0) 03/08/19 20:12 BUN 16 mg/dL (6-24) 03/08/19 20:12 Creatinine 0.77 mg/dL (0.51-0.95) 03/08/19 20:12 Hemoglobin A1c 5.6 % (4.0-5.6) 03/10/19 07:28 Calcium 10.0 mg/dL (8.6-10.3) 03/08/19 20:12 AST 16 U/L (13-39) 03/08/19 20:12 ALT 13 U/L (7-52) 03/08/19 20:12 Triglycerides 83 mg/dL 03/10/19 07:28 Cholesterol 136 mg/dL 03/10/19 07:28 LDL Cholesterol 63 mg/dL 03/10/19 07:28 Vital Signs Temp Pulse Resp BP Pulse Ox 98.1 F 76 18 135/77 98 03/09/19 04:05 03/09/19 04:05 03/11/19 13:40 03/09/19 04:05 03/09/19 04:05 Continued Medication Management: Continue Outpt Medication Medications: Current Medications Acetaminophen (Tylenol Tab*) 650 mg PO Q4H PRN PRN Reason: PAIN or TEMP > 101 F Al Hydrox/Mg Hydrox/Simethicone (Maalox Plus*) 30 ml PO Q4H PRN PRN Reason: INDIGESTION Albuterol (Ventolin Hfa Inhaler*) 2 puff INH Q4H PRN PRN Reason: SHORTNESS OF BREATH Aspirin (Aspirin Ec Tab*) 81 mg PO DAILY [facility] Last Admin: 03/11/19 10:37 Dose: 81 mg Atorvastatin Calcium (Lipitor*) 40 mg PO BEDTIME [facility] Last Admin: 03/10/19 20:21 Dose: 40 mg Baclofen (Lioresal Tab*) 20 mg PO QID PRN PRN Reason: SEE COMMENTS Last Admin: 03/09/19 20:43 Dose: 20 mg Benztropine Mesylate (Cogentin Tab*) 1 mg PO DAILY PRN PRN Reason: SEE COMMENTS Last Admin: 03/09/19 10:47 Dose: 1 mg Bupropion HCl (Bupropion Xl*) 300 mg PO DAILY [facility] Last Admin: 03/11/19 10:37 Dose: 300 mg Calcium Carbonate (Calcium Carbonate Tab*) 1,250 mg PO BID [facility] Last Admin: 03/11/19 10:55 Dose: Not Given Calcium Polycarbophil (Fibercon Tab*) 625 mg PO BID [facility] Last Admin: 03/11/19 10:36 Dose: 625 mg Cholecalciferol (Vitamin D Tab*) 2,000 units PO DAILY [facility] Last Admin: 03/11/19 10:36 Dose: 2,000 units Diltiazem HCl (Cardizem Cd Cap*) 240 mg PO DAILY [facility] Last Admin: 03/11/19 10:36 Dose: 240 mg Docusate Sodium (Colace Cap*) 100 mg PO BID [facility] Last Admin: 03/11/19 10:37 Dose: 100 mg Duloxetine HCl (Cymbalta Cap*) 60 mg PO BID [facility] Last Admin: 03/11/19 10:36 Dose: 60 mg Fluticasone Propionate (Flonase Nasal [place] 50mcg*) 2 spray BOTH NARES DAILY [facility] Last Admin: 03/11/19 10:37 Dose: 2 spray Gabapentin (Neurontin Cap(*)) 600 mg PO TID [facility] Last Admin: 03/11/19 10:36 Dose: 600 mg Levothyroxine Sodium (Synthroid Tab*) 75 mcg PO DAILY@0600 [facility] Last Admin: 03/11/19 05:55 Dose: 75 mcg Lorazepam (Ativan Tab(*)) 0.5 mg PO TID PRN PRN Reason: ANXIETY, AGITATION Last Admin: 03/10/19 23:59 Dose: 0.5 mg Mometasone Furoate/Formoterol Fumar (Dulera 200/5 Mdi*) 1 puff INH BID [facility] Last Admin: 03/11/19 10:55 Dose: 1 puff Montelukast Sodium (Singulair Tab*) 10 mg PO BEDTIME [facility] Last Admin: 03/10/19 20:22 Dose: 10 mg Multivitamins (Theragran Tab*) 1 tab PO DAILY [facility] Last Admin: 03/11/19 10:37 Dose: 1 tab Olanzapine (Zyprexa Tab*) 30 mg PO BEDTIME [facility] Last Admin: 03/10/19 20:21 Dose: 30 mg Polyethylene Glycol/Electrolytes (Miralax*) 17 gm PO DAILY [facility] Last Admin: 03/11/19 10:37 Dose: 17 gm Senna (Senokot Tab*) 2 tab PO BID [facility] Last Admin: 03/11/19 10:36 Dose: 2 tab Spironolactone (Aldactone Tab*) 25 mg PO DAILY [facility] Last Admin: 03/11/19 10:36 Dose: 25 mg Tiotropium [place] (Spiriva Respimat 2.5 Mcg(Nf)) 2 puff INH .SEE COMMENTS PRN PRN Reason: SEE COMMENTS Tramadol HCl (Ultram*) 100 mg PO Q6H PRN PRN Reason: PAIN Last Admin: 03/10/19 20:19 Dose: 100 mg - Discharge Plan Discharge Plan: Inpatient Hospitalization
[2019-03-11] MEDS: Atorvastatin* 40 MG TAB PO SCH (21:17)
[2019-03-11] MEDS: Montelukast Sodium TAB* 10 MG PO SCH (21:18)
[2019-03-11] MEDS: OLANzapine TAB* 10 MG PO SCH (21:19)
[2019-03-11] MEDS: traMADol TAB* 50 MG PO PRN (21:22)
[2019-03-12] MEDS: Levothyroxine TAB* 75 MCG TAB PO SCH (06:33)
[2019-03-12 07:40] LABS: Albumin 4.1 g/dL (3.2-5.2); Albumin/Globulin Ratio 1.4 (1-3); BUN/Creatinine Ratio 25.4 (8-20); Calcium 10.1 mg/dL (8.6-10.3); EGFR African American 126.7 (>60); EGFR Non-African American 104.7 (>60); Potassium 4.4 mmol/L (3.5-5.0); Total Bilirubin 0.4 mg/dL (0.2-1.0); Total Protein 7.1 g/dL (6.4-8.9)
[2019-03-12] MEDS: Gabapentin CAP(*) 300 MG PO SCH ×3 (09:20→20:02)
[2019-03-12] MEDS: DULoxetine DR CAP* 60 MG CAP.DR PO SCH ×2 (09:20→20:01)
[2019-03-12] MEDS: Cholecalciferol TAB* 1000 UNITS PO SCH (09:20)
[2019-03-12] MEDS: Calcium Polycarbophil TAB* 625 MG PO SCH ×2 (09:20→20:00)
[2019-03-12] MEDS: BuPROPion XL* 300 MG TAB.XL PO SCH (09:22)
[2019-03-12] MEDS: Senna TAB PO SCH ×2 (09:22→20:01)
[2019-03-12] MEDS: traMADol TAB* 50 MG PO PRN ×2 (09:22→15:28)
[2019-03-12] MEDS: Docusate CAP* 100 MG PO SCH ×2 (09:22→20:03)
[2019-03-12] MEDS: Aspirin EC TAB* 81 MG TAB.EC PO SCH (09:22)
[2019-03-12] MEDS: Vitamin THERAPEUTIC TAB PO SCH (09:23)
[2019-03-12] MEDS: Spironolactone TAB* 25 MG PO SCH (09:23)
[2019-03-12] MEDS: Calcium Carbonate TAB* 1250 MG (CALCIUM 500 MG) PO SCH ×2 (09:24→20:04)
[2019-03-12] MEDS: Diltiazem CD CAP* 240 MG PO SCH (09:24)
[2019-03-12] MEDS: Mometasone/Formoter 200/5 MDI INH SCH ×2 (09:25→20:06)
[2019-03-12] MEDS: Fluticasone NASAL SPRAY 50MCG* 16 gm SPRAY BTL BOTH NARES SCH (09:25)
[2019-03-12] MEDS: Baclofen TAB* 20 MG PO PRN (09:31)
[2019-03-12] MEDS: Benztropine TAB* 1 MG PO PRN (09:31)
[2019-03-12] MEDS: Polyethylene Glycol 3350* 17 GM PACKET PO SCH (09:32)
--- NOTE | 2019-03-12 10:52 | PN ---
Subjective - Subjective Date of Service: 03/12/19 Service Type: 13415 Hosp care 35 min high complexity Subjective: Nursing Report: Patient was visible on unit, no chemical restraints. Slept overnight without incident. Mostly isolates self in room. CC: "I know I am evil Patient was seen and evaluated today in her room. The patient reported that she is the devil and knows it because voices tell her that. She worries throughout the day that she will go to hell if she dies. She expressed that her body changed overnight and that now she is wrinkled and withered. She reported no issues with sleep. She reported drinking fluids but that has no been confirmed. Patient reported that she is tolerating medications without side effects. Objective - General Observations Appearance: Disheveled Appears Stated Age: No - older Stature: Thin Posture: Tense Eye Contact: Avoidant Behavior/Activity: Peculiar - Interaction Observations Attitude Towards Examiner: Mistrustful Stated Mood: Dysphoric Affect: Blunted Speech Pattern/Tone: Perseverating Thought Process: Impoverished Perception: WNL Thought Content: Self-Deprecatory Thought Process: Lethality: Paranoid Ideation Hallucination Type: Auditory Delusion Type: Persecution - Cognitive Function Orientation: A&O x 4 Level of Consciousness: Awake, Responds to Voice - Medication Compliance Cooperative with Inpatient Medication Regimen: Yes - Group Participation Participates in Group Activities: No Assessment - Assessment Merits Inpatient Hospitalization: For Immediate Safety Clinical Impression: 58 year old female with a history of multiple psychiatric hospitalizations was admitted to the [facility] for suicidal ideation Plan - Plan Treatment Plan: Name: SWATI MCDUFFIE Birthdate: 1960 [id number] # Q15 minute observation. # The patient requires psychiatric inpatient admission at this time to assure safety, receive treatment and work toward stabilization. # Collaboration with Physical Scientist Jas Sanchez #Goals before discharge include: To eliminate/ reduce psychotic symptoms # Encourage fluid intake #Ensure with meals #PT consult for gait strengthening # Tardive dyskinesia AIMS unchanged last admission. Will restrict use of first generation anti-psychotic medications # Repeat of sodium levels within normal limits #Patient is not currently at her baseline. She continues to hear voices and is paranoid. No signs of infection. Labs within normal range. Sodium 137 mmol/L (135-145) 03/12/19 07:04 Potassium 4.4 mmol/L (3.5-5.0) 03/12/19 07:04 BUN 15 mg/dL (6-24) 03/12/19 07:04 Creatinine 0.59 mg/dL (0.51-0.95) 03/12/19 07:04 Hemoglobin A1c 5.6 % (4.0-5.6) 03/10/19 07:28 Calcium 10.1 mg/dL (8.6-10.3) 03/12/19 07:04 AST 13 U/L (13-39) 03/12/19 07:04 ALT 11 U/L (7-52) 03/12/19 07:04 Triglycerides 83 mg/dL 03/10/19 07:28 Cholesterol 136 mg/dL 03/10/19 07:28 LDL Cholesterol 63 mg/dL 03/10/19 07:28 Vital Signs Temp Pulse Resp BP Pulse Ox 98.9 F 86 16 131/71 99 03/12/19 08:00 03/12/19 08:00 03/12/19 09:22 03/12/19 08:00 03/12/19 08:00 Continued Medication Management: Continue Outpt Medication Medications: Current Medications Acetaminophen (Tylenol Tab*) 650 mg PO Q4H PRN PRN Reason: PAIN or TEMP > 101 F Al Hydrox/Mg Hydrox/Simethicone (Maalox Plus*) 30 ml PO Q4H PRN PRN Reason: INDIGESTION Albuterol (Ventolin Hfa Inhaler*) 2 puff INH Q4H PRN PRN Reason: SHORTNESS OF BREATH Aspirin (Aspirin Ec Tab*) 81 mg PO DAILY [facility] Last Admin: 03/12/19 09:22 Dose: 81 mg Atorvastatin Calcium (Lipitor*) 40 mg PO BEDTIME [facility] Last Admin: 03/11/19 21:17 Dose: 40 mg Baclofen (Lioresal Tab*) 20 mg PO QID PRN PRN Reason: SEE COMMENTS Last Admin: 03/12/19 09:31 Dose: 20 mg Benztropine Mesylate (Cogentin Tab*) 1 mg PO DAILY PRN PRN Reason: SEE COMMENTS Last Admin: 03/12/19 09:31 Dose: 1 mg Bupropion HCl (Bupropion Xl*) 300 mg PO DAILY [facility] Last Admin: 03/12/19 09:22 Dose: 300 mg Calcium Carbonate (Calcium Carbonate Tab*) 1,250 mg PO BID [facility] Last Admin: 03/12/19 09:24 Dose: 1,250 mg Calcium Polycarbophil (Fibercon Tab*) 625 mg PO BID [facility] Last Admin: 03/12/19 09:20 Dose: 625 mg Cholecalciferol (Vitamin D Tab*) 2,000 units PO DAILY [facility] Last Admin: 03/12/19 09:20 Dose: 2,000 units Diltiazem HCl (Cardizem Cd Cap*) 240 mg PO DAILY [facility] Last Admin: 03/12/19 09:24 Dose: 240 mg Docusate Sodium (Colace Cap*) 100 mg PO BID [facility] Last Admin: 03/12/19 09:22 Dose: 100 mg Duloxetine HCl (Cymbalta Cap*) 60 mg PO BID [facility] Last Admin: 03/12/19 09:20 Dose: 60 mg Fluticasone Propionate (Flonase Nasal [place] 50mcg*) 2 spray BOTH NARES DAILY [facility] Last Admin: 03/12/19 09:25 Dose: 2 spray Gabapentin (Neurontin Cap(*)) 600 mg PO TID [facility] Last Admin: 03/12/19 09:20 Dose: 600 mg Levothyroxine Sodium (Synthroid Tab*) 75 mcg PO DAILY@0600 [facility] Last Admin: 03/12/19 06:33 Dose: 75 mcg Lorazepam (Ativan Tab(*)) 0.5 mg PO TID PRN PRN Reason: ANXIETY, AGITATION Last Admin: 03/10/19 23:59 Dose: 0.5 mg Mometasone Furoate/Formoterol Fumar (Dulera 200/5 Mdi*) 1 puff INH BID [facility] Last Admin: 03/12/19 09:25 Dose: 1 puff Montelukast Sodium (Singulair Tab*) 10 mg PO BEDTIME [facility] Last Admin: 03/11/19 21:18 Dose: 10 mg Multivitamins (Theragran Tab*) 1 tab PO DAILY [facility] Last Admin: 03/12/19 09:23 Dose: 1 tab Olanzapine (Zyprexa Tab*) 30 mg PO BEDTIME [facility] Last Admin: 03/11/19 21:19 Dose: 30 mg Polyethylene Glycol/Electrolytes (Miralax*) 17 gm PO DAILY [facility] Last Admin: 03/12/19 09:32 Dose: Not Given Senna (Senokot Tab*) 2 tab PO BID [facility] Last Admin: 03/12/19 09:22 Dose: 2 tab Spironolactone (Aldactone Tab*) 25 mg PO DAILY [facility] Last Admin: 03/12/19 09:23 Dose: 25 mg Tiotropium [place] (Spiriva Respimat 2.5 Mcg(Nf)) 2 puff INH .SEE COMMENTS PRN PRN Reason: SEE COMMENTS Tramadol HCl (Ultram*) 100 mg PO Q6H PRN PRN Reason: PAIN Last Admin: 03/12/19 09:22 Dose: 100 mg - Discharge Plan Discharge Plan: Inpatient Hospitalization
[2019-03-12] MEDS: LORazepam TAB(*) 0.5 MG PO PRN ×2 (15:28→20:12)
[2019-03-12] MEDS: Montelukast Sodium TAB* 10 MG PO SCH (20:03)
[2019-03-12] MEDS: Atorvastatin* 40 MG TAB PO SCH (20:05)
[2019-03-12] MEDS: OLANzapine TAB* 10 MG PO SCH (20:07)
[2019-03-12] MEDS: Nicotine Patch Removal NOTE FOLLOW UP SCH (22:11)
[2019-03-13] MEDS: traMADol TAB* 50 MG PO PRN (01:55)
[2019-03-13] MEDS: LORazepam TAB(*) 0.5 MG PO PRN (01:55)
[2019-03-13] MEDS: Baclofen TAB* 20 MG PO PRN ×2 (01:55→09:20)
[2019-03-13] MEDS: Levothyroxine TAB* 75 MCG TAB PO SCH (06:25)
[2019-03-13] MEDS: Fluticasone NASAL SPRAY 50MCG* 16 gm SPRAY BTL BOTH NARES SCH (09:14)
[2019-03-13] MEDS: Mometasone/Formoter 200/5 MDI INH SCH ×2 (09:14→20:56)
[2019-03-13] MEDS: Senna TAB PO SCH ×2 (09:15→20:53)
[2019-03-13] MEDS: Calcium Carbonate TAB* 1250 MG (CALCIUM 500 MG) PO SCH ×2 (09:16→22:49)
[2019-03-13] MEDS: Spironolactone TAB* 25 MG PO SCH (09:16)
[2019-03-13] MEDS: Aspirin EC TAB* 81 MG TAB.EC PO SCH (09:16)
[2019-03-13] MEDS: Docusate CAP* 100 MG PO SCH ×2 (09:16→20:54)
[2019-03-13] MEDS: Vitamin THERAPEUTIC TAB PO SCH (09:16)
[2019-03-13] MEDS: Calcium Polycarbophil TAB* 625 MG PO SCH ×2 (09:17→20:53)
[2019-03-13] MEDS: Cholecalciferol TAB* 1000 UNITS PO SCH (09:17)
[2019-03-13] MEDS: DULoxetine DR CAP* 60 MG CAP.DR PO SCH ×2 (09:17→20:54)
[2019-03-13] MEDS: Diltiazem CD CAP* 240 MG PO SCH (09:17)
[2019-03-13] MEDS: BuPROPion XL* 300 MG TAB.XL PO SCH (09:17)
[2019-03-13] MEDS: Nicotine PATCH 14 MG/24 HR* PATCH TRANSDERM SCH ×2 (09:18)
[2019-03-13] MEDS: Polyethylene Glycol 3350* 17 GM PACKET PO SCH (09:22)
[2019-03-13] MEDS: Gabapentin CAP(*) 300 MG PO SCH ×3 (13:17→20:51)
[2019-03-13] MEDS: OLANzapine TAB* 5 MG PO SCH (13:18)
--- NOTE | 2019-03-13 14:52 | PN ---
Subjective - Subjective Date of Service: 03/13/19 Service Type: [id number] Hosp care 35 min high complexity Subjective: Nursing Report: Patient was visible on unit, no chemical restraints. Slept overnight without incident. CC: " Fine Patient was seen and evaluated today in her room. The patient reported that she looks forward to leaving the hospital. She reported getting ensure with meals. She reported no issues with sleep. Patient reported that she is tolerating medications without side effects. Objective - General Observations Appearance: Disheveled Appears Stated Age: Yes Stature: WNL, Thin Posture: WNL Eye Contact: Intense Behavior/Activity: Peculiar - Interaction Observations Attitude Towards Examiner: Cooperative Stated Mood: Anxious Affect: Blunted Speech Pattern/Tone: Clear Thought Process: Loose Associations Perception: WNL Thought Content: Paranoid Hallucination Type: Auditory Delusion Type: Thought Withdrawal - Cognitive Function Orientation: A&O x 4 Level of Consciousness: Awake - Medication Compliance Cooperative with Inpatient Medication Regimen: Yes - Group Participation Participates in Group Activities: No Assessment - Assessment Merits Inpatient Hospitalization: For Immediate Safety Clinical Impression: 58 year old female with a history of multiple psychiatric hospitalizations was admitted to the [facility] for suicidal ideation Plan - Plan Treatment Plan: Name: SWATI MCDUFFIE Birthdate: 1960 [id number] # Q15 minute observation. # The patient requires psychiatric inpatient admission at this time to assure safety, receive treatment and work toward stabilization. # Collaboration with Tub Puller Jas Sanchez #Goals before discharge include: To eliminate/ reduce psychotic symptoms # Encourage fluid intake #Ensure with meals #PT consult for gait strengthening # Tardive dyskinesia AIMS unchanged from last admission. Will restrict use of first generation anti-psychotic medications # Add 5mg zyprexa daily. #Patient is closer to her baseline today. She is less paranoid and thought process is more organized. Tentative Discharge Monday Sodium 137 mmol/L (135-145) 03/12/19 07:04 Potassium 4.4 mmol/L (3.5-5.0) 03/12/19 07:04 BUN 15 mg/dL (6-24) 03/12/19 07:04 Creatinine 0.59 mg/dL (0.51-0.95) 03/12/19 07:04 Hemoglobin A1c 5.6 % (4.0-5.6) 03/10/19 07:28 Calcium 10.1 mg/dL (8.6-10.3) 03/12/19 07:04 AST 13 U/L (13-39) 03/12/19 07:04 ALT 11 U/L (7-52) 03/12/19 07:04 Triglycerides 83 mg/dL 03/10/19 07:28 Cholesterol 136 mg/dL 03/10/19 07:28 LDL Cholesterol 63 mg/dL 03/10/19 07:28 Continued Medication Management: Continue Outpt Medication Medications: Current Medications Acetaminophen (Tylenol Tab*) 650 mg PO Q4H PRN PRN Reason: PAIN or TEMP > 101 F Last Admin: 03/13/19 13:19 Dose: 650 mg Al Hydrox/Mg Hydrox/Simethicone (Maalox Plus*) 30 ml PO Q4H PRN PRN Reason: INDIGESTION Albuterol (Ventolin Hfa Inhaler*) 2 puff INH Q4H PRN PRN Reason: SHORTNESS OF BREATH Aspirin (Aspirin Ec Tab*) 81 mg PO DAILY [facility] Last Admin: 03/13/19 09:16 Dose: 81 mg Atorvastatin Calcium (Lipitor*) 40 mg PO BEDTIME [facility] Last Admin: 03/12/19 20:05 Dose: 40 mg Baclofen (Lioresal Tab*) 20 mg PO QID PRN PRN Reason: SEE COMMENTS Last Admin: 03/13/19 09:20 Dose: 20 mg Benztropine Mesylate (Cogentin Tab*) 1 mg PO DAILY PRN PRN Reason: SEE COMMENTS Last Admin: 03/12/19 09:31 Dose: 1 mg Bupropion HCl (Bupropion Xl*) 300 mg PO DAILY [facility] Last Admin: 03/13/19 09:17 Dose: 300 mg Calcium Carbonate (Calcium Carbonate Tab*) 1,250 mg PO BID [facility] Last Admin: 03/13/19 09:16 Dose: 1,250 mg Calcium Polycarbophil (Fibercon Tab*) 625 mg PO BID [facility] Last Admin: 03/13/19 09:17 Dose: 625 mg Cholecalciferol (Vitamin D Tab*) 2,000 units PO DAILY [facility] Last Admin: 03/13/19 09:17 Dose: 2,000 units Diltiazem HCl (Cardizem Cd Cap*) 240 mg PO DAILY [facility] Last Admin: 03/13/19 09:17 Dose: 240 mg Docusate Sodium (Colace Cap*) 100 mg PO BID [facility] Last Admin: 03/13/19 09:16 Dose: 100 mg Duloxetine HCl (Cymbalta Cap*) 60 mg PO BID [facility] Last Admin: 03/13/19 09:17 Dose: 60 mg Fluticasone Propionate (Flonase Nasal [place] 50mcg*) 2 spray BOTH NARES DAILY [facility] Last Admin: 03/13/19 09:14 Dose: 2 spray Gabapentin (Neurontin Cap(*)) 600 mg PO TID [facility] Last Admin: 03/13/19 13:17 Dose: 600 mg Levothyroxine Sodium (Synthroid Tab*) 75 mcg PO DAILY@0600 [facility] Last Admin: 03/13/19 06:25 Dose: 75 mcg Lorazepam (Ativan Tab(*)) 0.5 mg PO TID PRN PRN Reason: ANXIETY, AGITATION Last Admin: 03/13/19 01:55 Dose: 0.5 mg Mometasone Furoate/Formoterol Fumar (Dulera 200/5 Mdi*) 1 puff INH BID [facility] Last Admin: 03/13/19 09:14 Dose: 1 puff Montelukast Sodium (Singulair Tab*) 10 mg PO BEDTIME [facility] Last Admin: 03/12/19 20:03 Dose: 10 mg Multivitamins (Theragran Tab*) 1 tab PO DAILY [facility] Last Admin: 03/13/19 09:16 Dose: 1 tab Nicotine (Nicotine Patch 14 Mg/24 Hr*) 1 patch TRANSDERM DAILY [facility] Last Admin: 03/13/19 09:18 Dose: 1 patch Olanzapine (Zyprexa Tab*) 30 mg PO BEDTIME [facility] Last Admin: 03/12/19 20:07 Dose: 30 mg Olanzapine (Zyprexa Tab*) 5 mg PO DAILY [facility] Last Admin: 03/13/19 13:18 Dose: 5 mg Pharmacy Profile Note (Nicotine Patch Removal Note*) 1 note FOLLOW UP 2100 [facility] Last Admin: 03/12/19 22:11 Dose: Not Given Polyethylene Glycol/Electrolytes (Miralax*) 17 gm PO DAILY [facility] Last Admin: 03/13/19 09:22 Dose: Not Given Senna (Senokot Tab*) 2 tab PO BID [facility] Last Admin: 03/13/19 09:15 Dose: 2 tab Spironolactone (Aldactone Tab*) 25 mg PO DAILY [facility] Last Admin: 03/13/19 09:16 Dose: 25 mg Tiotropium [place] (Spiriva Respimat 2.5 Mcg(Nf)) 2 puff INH .SEE COMMENTS PRN PRN Reason: SEE COMMENTS Tramadol HCl (Ultram*) 100 mg PO Q6H PRN PRN Reason: PAIN Last Admin: 03/13/19 01:55 Dose: 100 mg - Discharge Plan Discharge Plan: Inpatient Hospitalization
[2019-03-13] MEDS: OLANzapine TAB* 10 MG PO SCH (20:53)
[2019-03-13] MEDS: Montelukast Sodium TAB* 10 MG PO SCH (20:54)
[2019-03-13] MEDS: Atorvastatin* 40 MG TAB PO SCH (20:55)
[2019-03-13] MEDS: Nicotine Patch Removal NOTE FOLLOW UP SCH (21:00)
[2019-03-14] MEDS: LORazepam TAB(*) 0.5 MG PO PRN ×3 (01:38→18:02)
[2019-03-14] MEDS: Baclofen TAB* 20 MG PO PRN ×2 (01:39→09:06)
[2019-03-14 08:56] VITALS: BP 142/59
[2019-03-14] MEDS: Nicotine PATCH 14 MG/24 HR* PATCH TRANSDERM SCH (08:58)
[2019-03-14] MEDS: Polyethylene Glycol 3350* 17 GM PACKET PO SCH (08:59)
[2019-03-14] MEDS: Cholecalciferol TAB* 1000 UNITS PO SCH (09:00)
[2019-03-14] MEDS: Levothyroxine TAB* 75 MCG TAB PO SCH (09:01)
[2019-03-14] MEDS: BuPROPion XL* 300 MG TAB.XL PO SCH (09:01)
[2019-03-14] MEDS: Diltiazem CD CAP* 240 MG PO SCH (09:01)
[2019-03-14] MEDS: Calcium Polycarbophil TAB* 625 MG PO SCH ×2 (09:01→21:05)
[2019-03-14] MEDS: OLANzapine TAB* 5 MG PO SCH (09:02)
[2019-03-14] MEDS: DULoxetine DR CAP* 60 MG CAP.DR PO SCH ×2 (09:02→21:05)
[2019-03-14] MEDS: Docusate CAP* 100 MG PO SCH ×2 (09:02→21:05)
[2019-03-14] MEDS: Senna TAB PO SCH ×2 (09:03→21:04)
[2019-03-14] MEDS: Aspirin EC TAB* 81 MG TAB.EC PO SCH (09:03)
[2019-03-14] MEDS: Vitamin THERAPEUTIC TAB PO SCH (09:03)
[2019-03-14] MEDS: Gabapentin CAP(*) 300 MG PO SCH ×3 (09:04→21:03)
[2019-03-14] MEDS: Spironolactone TAB* 25 MG PO SCH (09:04)
[2019-03-14] MEDS: Calcium Carbonate TAB* 1250 MG (CALCIUM 500 MG) PO SCH ×2 (09:04→21:48)
[2019-03-14] MEDS: Mometasone/Formoter 200/5 MDI INH SCH ×2 (09:05→21:07)
[2019-03-14] MEDS: Fluticasone NASAL SPRAY 50MCG* 16 gm SPRAY BTL BOTH NARES SCH (09:05)
[2019-03-14] MEDS: traMADol TAB* 50 MG PO PRN (12:53)
--- NOTE | 2019-03-14 13:05 | PN ---
Subjective - Subjective Date of Service: 03/14/19 Service Type: [id number] Hosp care 15 min low complexity Subjective: Patient sleeping upon approach in late morning. After lunch, she was sitting on bench near nursing station. She is pleasant upon approach. Patient confused re: medication schedule. She becomes irritable and demanding that she has not been given her morning medications. Nursing notifies her of already receiving them. Patient reports desire to be discharged soon. Objective - General Observations Appearance: Disheveled Appears Stated Age: Yes Stature: WNL, Thin Posture: WNL Eye Contact: Average Behavior/Activity: Peculiar - Interaction Observations Attitude Towards Examiner: Cooperative Stated Mood: Euthymic Affect: Bright Speech Pattern/Tone: Clear Thought Process: Impoverished Perception: WNL Thought Content: Paranoid Hallucination Type: Auditory Delusion Type: Persecution - Cognitive Function Orientation: Person, Place, Situation Level of Consciousness: Alert Cognition: Impaired Attention/Concentration Estimated Intelligence: Normal - Medication Compliance Cooperative with Inpatient Medication Regimen: Yes - Group Participation Participates in Group Activities: Yes Assessment - Assessment Merits Inpatient Hospitalization: For Immediate Safety, For Stabilization, For Discharge Planning Clinical Impression: 58 year old female with a history of multiple psychiatric hospitalizations was admitted to the [facility] for suicidal ideation Plan - Plan Treatment Plan: Name: SWATI MCDUFFIE Birthdate: 1960 [id number] # Q15 minute observation. # The patient requires psychiatric inpatient admission at this time to assure safety, receive treatment and work toward stabilization. # Collaboration with Integrity Analyst aJs Sanchez #Goals before discharge include: To eliminate/ reduce psychotic symptoms # Encourage fluid intake #Ensure with meals #PT consult for gait strengthening # Tardive dyskinesia AIMS unchanged from last admission. Will restrict use of first generation anti-psychotic medications # Add 5mg zyprexa daily. #Patient is closer to her baseline today. She is less paranoid and thought process is more organized. Tentative Discharge Monday Sodium 137 mmol/L (135-145) 03/12/19 07:04 Potassium 4.4 mmol/L (3.5-5.0) 03/12/19 07:04 BUN 15 mg/dL (6-24) 03/12/19 07:04 Creatinine 0.59 mg/dL (0.51-0.95) 03/12/19 07:04 Hemoglobin A1c 5.6 % (4.0-5.6) 03/10/19 07:28 Calcium 10.1 mg/dL (8.6-10.3) 03/12/19 07:04 AST 13 U/L (13-39) 03/12/19 07:04 ALT 11 U/L (7-52) 03/12/19 07:04 Triglycerides 83 mg/dL 03/10/19 07:28 Cholesterol 136 mg/dL 03/10/19 07:28 LDL Cholesterol 63 mg/dL 03/10/19 07:28 Medications: Current Medications Acetaminophen (Tylenol Tab*) 650 mg PO Q4H PRN PRN Reason: PAIN or TEMP > 101 F Last Admin: 03/13/19 13:19 Dose: 650 mg Al Hydrox/Mg Hydrox/Simethicone (Maalox Plus*) 30 ml PO Q4H PRN PRN Reason: INDIGESTION Albuterol (Ventolin Hfa Inhaler*) 2 puff INH Q4H PRN PRN Reason: SHORTNESS OF BREATH Aspirin (Aspirin Ec Tab*) 81 mg PO DAILY [facility] Last Admin: 03/14/19 09:03 Dose: 81 mg Atorvastatin Calcium (Lipitor*) 40 mg PO BEDTIME [facility] Last Admin: 03/13/19 20:55 Dose: 40 mg Baclofen (Lioresal Tab*) 20 mg PO QID PRN PRN Reason: SEE COMMENTS Last Admin: 03/14/19 09:06 Dose: 20 mg Benztropine Mesylate (Cogentin Tab*) 1 mg PO DAILY PRN PRN Reason: SEE COMMENTS Last Admin: 03/12/19 09:31 Dose: 1 mg Bupropion HCl (Bupropion Xl*) 300 mg PO DAILY [facility] Last Admin: 03/14/19 09:01 Dose: 300 mg Calcium Carbonate (Calcium Carbonate Tab*) 1,250 mg PO BID [facility] Last Admin: 03/14/19 09:04 Dose: 1,250 mg Calcium Polycarbophil (Fibercon Tab*) 625 mg PO BID [facility] Last Admin: 03/14/19 09:01 Dose: 625 mg Cholecalciferol (Vitamin D Tab*) 2,000 units PO DAILY [facility] Last Admin: 03/14/19 09:00 Dose: 2,000 units Diltiazem HCl (Cardizem Cd Cap*) 240 mg PO DAILY [facility] Last Admin: 03/14/19 09:01 Dose: 240 mg Docusate Sodium (Colace Cap*) 100 mg PO BID [facility] Last Admin: 03/14/19 09:02 Dose: 100 mg Duloxetine HCl (Cymbalta Cap*) 60 mg PO BID [facility] Last Admin: 03/14/19 09:02 Dose: 60 mg Fluticasone Propionate (Flonase Nasal [place] 50mcg*) 2 spray BOTH NARES DAILY [facility] Last Admin: 03/14/19 09:05 Dose: 2 spray Gabapentin (Neurontin Cap(*)) 600 mg PO TID [facility] Last Admin: 03/14/19 09:04 Dose: 600 mg Levothyroxine Sodium (Synthroid Tab*) 75 mcg PO DAILY@0600 [facility] Last Admin: 03/14/19 09:01 Dose: 75 mcg Lorazepam (Ativan Tab(*)) 0.5 mg PO TID PRN PRN Reason: ANXIETY, AGITATION Last Admin: 03/14/19 01:38 Dose: 0.5 mg Mometasone Furoate/Formoterol Fumar (Dulera 200/5 Mdi*) 1 puff INH BID [facility] Last Admin: 03/14/19 09:05 Dose: 1 puff Montelukast Sodium (Singulair Tab*) 10 mg PO BEDTIME [facility] Last Admin: 03/13/19 20:54 Dose: 10 mg Multivitamins (Theragran Tab*) 1 tab PO DAILY [facility] Last Admin: 03/14/19 09:03 Dose: 1 tab Nicotine (Nicotine Patch 14 Mg/24 Hr*) 1 patch TRANSDERM DAILY [facility] Last Admin: 03/14/19 08:58 Dose: 1 patch Olanzapine (Zyprexa Tab*) 30 mg PO BEDTIME [facility] Last Admin: 03/13/19 20:53 Dose: 30 mg Olanzapine (Zyprexa Tab*) 5 mg PO DAILY [facility] Last Admin: 03/14/19 09:02 Dose: 5 mg Pharmacy Profile Note (Nicotine Patch Removal Note*) 1 note FOLLOW UP 2100 [facility] Last Admin: 03/13/19 21:00 Dose: 1 note Polyethylene Glycol/Electrolytes (Miralax*) 17 gm PO DAILY [facility] Last Admin: 03/14/19 08:59 Dose: Not Given Senna (Senokot Tab*) 2 tab PO BID [facility] Last Admin: 03/14/19 09:03 Dose: 2 tab Spironolactone (Aldactone Tab*) 25 mg PO DAILY [facility] Last Admin: 03/14/19 09:04 Dose: 25 mg Tiotropium [place] (Spiriva Respimat 2.5 Mcg(Nf)) 2 puff INH .SEE COMMENTS PRN PRN Reason: SEE COMMENTS Tramadol HCl (Ultram*) 100 mg PO Q6H PRN PRN Reason: PAIN Last Admin: 03/13/19 01:55 Dose: 100 mg - Discharge Plan Discharge Plan: Inpatient Hospitalization
[2019-03-14] MEDS: OLANzapine TAB* 10 MG PO SCH (21:05)
[2019-03-14] MEDS: Montelukast Sodium TAB* 10 MG PO SCH (21:05)
[2019-03-14] MEDS: Atorvastatin* 40 MG TAB PO SCH (21:06)
[2019-03-14] MEDS: Nicotine Patch Removal NOTE FOLLOW UP SCH (21:48)
[2019-03-15] MEDS: Spironolactone TAB* 25 MG PO SCH (08:34)
[2019-03-15] MEDS: Senna TAB PO SCH (08:34)
[2019-03-15] MEDS: Calcium Polycarbophil TAB* 625 MG PO SCH (08:34)
[2019-03-15] MEDS: BuPROPion XL* 300 MG TAB.XL PO SCH (08:34)
[2019-03-15] MEDS: OLANzapine TAB* 5 MG PO SCH (08:34)
[2019-03-15] MEDS: Cholecalciferol TAB* 1000 UNITS PO SCH (08:34)
[2019-03-15] MEDS: DULoxetine DR CAP* 60 MG CAP.DR PO SCH (08:34)
[2019-03-15] MEDS: Gabapentin CAP(*) 300 MG PO SCH (08:34)
[2019-03-15] MEDS: Aspirin EC TAB* 81 MG TAB.EC PO SCH (08:35)
[2019-03-15] MEDS: Docusate CAP* 100 MG PO SCH (08:35)
[2019-03-15] MEDS: Levothyroxine TAB* 75 MCG TAB PO SCH (08:35)
[2019-03-15] MEDS: Nicotine PATCH 14 MG/24 HR* PATCH TRANSDERM SCH (08:37)
[2019-03-15] MEDS: traMADol TAB* 50 MG PO PRN (08:49)
[2019-03-15] MEDS: Polyethylene Glycol 3350* 17 GM PACKET PO SCH (08:52)
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
[2019-03-15] MEDS: Fluticasone NASAL SPRAY 50MCG* 16 gm SPRAY BTL BOTH NARES SCH (11:12)
[2019-03-15] MEDS: Diltiazem CD CAP* 240 MG PO SCH (11:12)
[2019-03-15] MEDS: Vitamin THERAPEUTIC TAB PO SCH (11:12)
[2019-03-15] MEDS: Mometasone/Formoter 200/5 MDI INH SCH (11:12)
[2019-03-15] MEDS: Calcium Carbonate TAB* 1250 MG (CALCIUM 500 MG) PO SCH (11:12)
[2019-03-15] MEDS ORDERED: BuPROPion XL* 300 MG TAB.XL PO SCH (21:00)
== END 2019-03-15 12:07 | disposition home or self-care (01) | DRG 750 ==
LOC: ED 18:32 → BSU 03-09 03:09
PROVIDERS: ADMIT Psychiatry & Neurology Psychiatry; ATTEND Psychiatry & Neurology Psychiatry
DX: F25.0 Schizoaffective disorder, bipolar type (principal); R45.851 Suicidal ideations; E87.1 Hypo-osmolality and hyponatremia; I10 Essential (primary) hypertension; J44.9 Chronic obstructive pulmonary disease, unspecified; K21.9 Gastro-esophageal reflux disease without esophagitis; F41.9 Anxiety disorder, unspecified; F17.210 Nicotine dependence, cigarettes, uncomplicated; E03.9 Hypothyroidism, unspecified; E78.5 Hyperlipidemia, unspecified; G89.29 Other chronic pain; M54.9 Dorsalgia, unspecified; F60.3 Borderline personality disorder; F90.0 Attention-deficit hyperactivity disorder, predominantly inattentive type; G24.01 Drug induced subacute dyskinesia; T50.995A Adverse effect of other drugs, medicaments and biological substances, initial encounter; Z91.040 Latex allergy status; Z88.8 Allergy status to other drugs, medicaments and biological substances; Z91.018 Allergy to other foods; Z91.5 Personal history of self-harm; Z86.19 Personal history of other infectious and parasitic diseases; Z81.8 Family history of other mental and behavioral disorders; Z81.1 Family history of alcohol abuse and dependence; Y92.009 Unspecified place in unspecified non-institutional (private) residence as the place of occurrence of the external cause
CPT/HCPCS: 36415; 80053; 80061; 80307; 80320; 80329; 81003; 81015; 83036; 84443; 85025; 87086; 99222; 99231; 99233; 99238; 99285; A9270-GY; G0480

== ENCOUNTER 2019-03-24 11:33 | Inpatient (IN) | payer BC, MEDICAID ==
[2019-03-24] MEDS ORDERED: NS 0.9% IV SCH (11:45)
[2019-03-24] MEDS ORDERED: Naloxone* 0.4 MG/ML 1 ML VIAL IV PUSH ONE (11:47)
--- NOTE | 2019-03-24 11:59 | ED ---
Adult Trauma - HPI Summary HPI Summary: LEVEL 5 CAVEAT due to AMS upon arrival. The patient is a 58 y/o F arriving by ambulance to [facility] with a chief complaint of AMS with traumatic bruising occurring all over the body found when she was picked up from the [facility] today 03/24/19. EMS reports vitals en route: HR 100-110, BP 140s/90s, O2 98% on 2L, RR 14 rpm, glucose 177. When being assessed by EMS, the patient was "sluggish but reactive." [facility] reported that the patient seemed to be sick yesterday, but there was no known trauma. EMS additionally reports a "lump" in the LLQ. Medications obtained from records: Olanzapine, Polyethelene glycol, Proair HFA, Racol-rite, Senna, Spiriva hand inhaler, Spironolactone, Tramadol, Vitamin D2. Hx of cardiomegaly, HTN, mitral valve prolapse, COPD, GERD. Surgical hx of lower back surgery. Former smoker, no EtOH, no substance use. Vital signs while in room: HR 107 bpm, BP 154/98, O2 94% breathing on own. Home Medications Medication Instructions Recorded Confirmed Type Aspirin EC TAB* [Ecotrin EC Low 81 mg PO DAILY 12/07/18 03/08/19 History Dose 81 MG*] Baclofen TAB* [Lioresal TAB*] 20 mg PO QID 12/07/18 03/08/19 History Calcium Carbonate [Super Calcium] 600 mg PO BID 12/07/18 03/08/19 History Gabapentin TAB(NF) [Neurontin 600 600 mg PO TID 12/07/18 03/08/19 History mg TAB(NF)] LORazepam TAB(*) [Ativan 0.5 MG 0.5 mg PO QID PRN 12/07/18 03/08/19 History TAB (*)] Levothyroxine TAB* [Synthroid TAB*] 75 mcg PO DAILY 12/07/18 03/08/19 History Mometasone/Formoter 200/5 MDI* 1 puff INH BID 12/07/18 03/08/19 History [Dulera 200/5 MDI*] Tiotropium CAP.INH* [Spiriva 2 inh INH Q4H PRN 01/13/19 03/08/19 History CAP.INH*] Albuterol inh POWDER (NF) [Proair 2 puff INH Q4HR PRN 03/06/19 03/08/19 History Respiclick] Atorvastatin* [Lipitor*] 40 mg PO BEDTIME 03/06/19 03/08/19 History Benztropine TAB* [Cogentin TAB*] 2 mg PO DAILY 03/06/19 03/08/19 History BuPROPion XL* [Bupropion XL*] 300 mg PO DAILY 03/06/19 03/08/19 History Calcium Polycarbophil [Fibercon] 625 mg PO BID 03/06/19 03/08/19 History Docusate CAP* [Colace Cap*] 100 mg PO BID 03/06/19 03/08/19 History Ergocalciferol (Vitamin D2) 2,000 unit PO DAILY 03/06/19 03/08/19 History [Vitamin D2] Fluticasone NASAL SPRAY 50MCG* 2 spray BOTH NARES DAILY 03/06/19 03/08/19 History [Flonase NASAL SPRAY 50MCG*] Montelukast Sodium TAB* [Singulair 10 mg PO BEDTIME 03/06/19 03/08/19 History TAB*] OLANzapine TAB* [Zyprexa 10 MG 30 mg PO BEDTIME 03/06/19 03/08/19 History TAB*] Polyethylene Glycol 3350* 17 gm PO DAILY 03/06/19 03/08/19 History [Miralax*] Senna TAB* [Senokot TAB*] 2 tab PO BID 03/06/19 03/08/19 History Spironolactone TAB* [Aldactone 25 mg PO DAILY 03/06/19 03/08/19 History TAB*] dilTIAZem HCl [Cartia Xt] 240 mg PO DAILY 03/06/19 03/08/19 History traMADol TAB* [Ultram*] 100 mg PO Q6HR 03/06/19 03/08/19 History Duloxetine HCl 60 mg PO BID 03/08/19 03/08/19 History Albuterol HFA INHALER* [Ventolin 2 puff INH Q4H PRN mdi 03/15/19 Rx HFA Inhaler*] Aspirin EC TAB* [Ecotrin EC Low 81 mg PO DAILY tab.ec 03/15/19 Rx Dose 81 MG*] Atorvastatin* [Lipitor 40 MG*] 40 mg PO BEDTIME tab 03/15/19 Rx Baclofen TAB* [Lioresal TAB*] 20 mg PO QID PRN tab 03/15/19 Rx Benztropine TAB* [Cogentin TAB*] 1 mg PO DAILY PRN tab 03/15/19 Rx BuPROPion XL* [Bupropion XL*] 150 mg PO BID 30 Days #60 tab.xl 03/15/19 Rx Calcium Carbonate TAB* 1,250 mg PO BID tab 03/15/19 Rx Calcium Polycarbophil TAB* 625 mg PO BID tab 03/15/19 Rx [Fibercon TAB*] Cholecalciferol TAB* [Vitamin D 2,000 units PO DAILY tab 03/15/19 Rx TAB*] DULoxetine DR CAP* [Cymbalta CAP*] 60 mg PO BID cap.dr 03/15/19 Rx Diltiazem CD CAP* [Cardizem CD 240 mg PO DAILY cap.cd 03/15/19 Rx CAP*] Docusate CAP* [Colace Cap*] 100 mg PO BID cap 03/15/19 Rx Fluticasone NASAL SPRAY 50MCG* 2 spray BOTH NARES DAILY btl 03/15/19 Rx [Flonase NASAL SPRAY 50MCG*] Gabapentin CAP(*) [Neurontin 300 600 mg PO TID cap 03/15/19 Rx CAP(*)] LORazepam TAB(*) [Ativan 0.5 MG 0.5 mg PO TID PRN tab 03/15/19 Rx TAB (*)] Levothyroxine TAB* [Synthroid 75 75 mcg PO DAILY@0600 #30 tab 03/15/19 Rx MCG TAB*] Mometasone/Formoter 200/5 MDI* 1 puff INH BID mdi 03/15/19 Rx [Dulera 200/5 MDI*] Montelukast Sodium TAB* [Singulair 10 mg PO BEDTIME tab 03/15/19 Rx 10 MG TAB*] OLANzapine TAB* [Zyprexa 10 MG 30 mg PO BEDTIME 30 Days #30 tab 03/15/19 Rx TAB*] OLANzapine TAB* [Zyprexa 5 MG TAB*] 5 mg PO DAILY 30 Days #30 tab 03/15/19 Rx Polyethylene Glycol 3350* 17 gm PO DAILY packet 03/15/19 Rx [Miralax*] Senna TAB* [Senokot TAB*] 2 tab PO BID tab 03/15/19 Rx Spironolactone TAB* [Aldactone TAB 25 mg PO DAILY tab 03/15/19 Rx 25 MG*] traMADol TAB* [Ultram*] 100 mg PO Q6H PRN tab 03/15/19 Rx - History of Current Complaint Chief Complaint: EDTraumaMultiple Stated Complaint: "UNRESPONSIVE PER EMS" Hx Obtained From: EMS Hx From Patient Unobtainable Due To: Altered Mental Status - LEVEL 5 CAVEAT Mechanism of Injury: Unknown Onset/Duration: Still Present Pain Intensity: 0 Pain Scale Used: 0-10 Numeric Location: Other - bruising diffusely covering body Associated Signs & Symptoms: Positive: Ecchymosis, Other: - AMS - Additional Pertinent History Primary Care Physician: DANY - Allergy/Home Medications Allergies/Adverse Reactions: Allergies Allergy/AdvReac Type Severity Reaction Status Date / Time black pepper Allergy Eyes Verified 12/20/18 11:02 Itchy/Swollen/Red/Watery fluphenazine [From Prolixin] Allergy Unknown Verified 12/20/18 11:02 Reaction Details haloperidol [From Haldol] Allergy See Comment Verified 12/20/18 11:02 latex Allergy Rash Verified 12/20/18 11:02 risperidone [From Risperdal] Allergy See Comment Verified 12/20/18 11:02 PMH/Surg Hx/FS Hx/Imm Hx Cardiovascular History: Reports: Hx Cardiomegaly, Hx Hypertension, Other Cardiovascular Problems/Disorders - Valve prolapse Denies: Hx Hypotension Respiratory History: Reports: Hx Chronic Obstructive Pulmonary Disease (COPD) GI History: Reports: Hx Gastroesophageal Reflux Disease Musculoskeletal History: Reports: Hx Back Problems Sensory History: Reports: Hx Contacts or Glasses - Reading glasses Denies: Hx Hearing Aid Opthamlomology History: Reports: Hx Contacts or Glasses - Reading glasses Neurological History: Reports: Other Neuro Impairments/Disorders - Patient reports multiple concussions, myelopathy Psychiatric History: Reports: Hx Anxiety, Hx Attention Deficit Hyperactivity Disorder, Hx Depression, Hx Inpatient Treatment - "Many times", Hx Community Mental Health Tx - [facility], Hx Schizophrenia, Hx Bipolar Disorder, Hx Suicide Attempt - OD on pills "In the 80's", Hx of Violent Episodes Against Others, Other Psychiatric Issues/Disorders - schizoaffective disorde Denies: Hx Eating Disorder, Hx Panic Disorder, Hx Post Traumatic Stress Disorder, Hx Substance Abuse - Surgical History Surgery Procedure, Year, and Place: Lower back surgery approximately 5 years ago. Laparoscopy - Immunization History Date of Tetanus Vaccine: unk Date of Influenza Vaccine: unk Infectious Disease History: No Infectious Disease History: Reports: Hx Hepatitis - Hep C "in remission" Denies: Traveled Outside the [place] in Last 30 Days - Family History Known Family History: Negative: Hypertension - Social History Lives: [facility] Alcohol Use: None Hx Substance Use: No Substance Use Type: Reports: None Substance Use Comment - Amount & Last Used: hx of drug abuse Hx Tobacco Use: Yes Smoking Status (MU): Former Smoker Review of Systems Positive: Other - "lump" in LLQ (per EMS) Positive: Bruising - diffusely all over body (per EMS) Neurological: Other - AMS All Other Systems Reviewed And Are Negative: No - Comments Additional Review of Systems Comments: LEVEL 5 CAVEAT Physical Exam - Summary Physical Exam Summary: Appearance: Ill-appearing, moderate pain distress, well-nourished, Moaning incomprehensible sounds Skin: Pale, Cold to touch, Chills with goosebumps, Multiple scratches on the anterior tibia, 5cm bruise on the right anterior shoulder, 10cm hematoma on left lateral flank, 10cm bruise on left lower medial thigh, 7cm bruise below the left patella, Bruises on left sacrum, Bruises on right symphysis pubis, 10cm bruise on right medial ribs, Bruises on anterior and posterior left lower thigh, Large bruise on lower left calf, Bruises on right upper arm, left wrist, and right arch of foot Head: Normal Head/Face inspection, atraumatic Eyes: Conjunctiva clear ENT: Normal inspection Neck: Supple, no nodes, no JVD, Old scars on right neck Respiratory: Lungs clear, normal breath sounds, no respiratory distress Cardio: RRR, No murmur, pulses normal, brisk capillary refill Abdomen: Soft, nontender Bowel sounds: Present, Incontinent with brown stool that is loose and watery Musculoskeletal: Strength Intact/ROM intact, no calf tenderness, 2+ edema on the right leg which is swollen compared to the left Psychological: Normal Neuro: See GCS. Opens eyes to sternal rub. Triage Information Reviewed: Yes Vital Signs On Initial Exam: Initial Vitals Temp Pulse Resp BP Pulse Ox 98.1 F 109 14 154/98 96 03/24/19 11:34 03/24/19 11:34 03/24/19 11:34 03/24/19 11:34 03/24/19 11:34 Vital Signs Reviewed: Yes Completion Of Physical Exam Limited Due To: Level 5 - Ronnie Coma Scale Best Eye Response: 1 - None Best Motor Response: 5 - Purposeful Movement Best Verbal Response: 2 - Incomprehensible Words Coma Scale Total: 8 Diagnostics - Vital Signs Vital Signs Temp Pulse Resp BP Pulse Ox 03/24/19 11:34 98.1 F 109 14 154/98 96 - Laboratory Result Diagrams: 03/24/19 12:05 03/24/19 17:32 Lab Statement: Any lab studies that have been ordered have been reviewed, and results considered in the medical decision making process. - Radiology CXR Radiology Interpretation Completed By: Radiologist Summary of Radiographic Findings: Impression: Elevation of the right hemidiaphragm suggestive of diaphragmatic paralysis. ED physician has reviewed this radiology report. R Humerus XR Radiology Interpretation Completed By: Radiologist Summary of Radiographic Findings: Impression: No acute osseous injury. If symptoms persist, recommend repeat imaging. ED physician has reviewed this radiology report. R Wrist XR Radiology Interpretation Completed By: Radiologist Summary of Radiographic Findings: Impression: No acute osseous injury. If symptoms persist, recommend repeat imaging. ED physician has reviewed this radiology report. R Foot XR Radiology Interpretation Completed By: Radiologist Summary of Radiographic Findings: Impression: No acute osseous injury. If symptoms persist, recommend repeat imaging. ED physician has reviewed this radiology report. - CT Brain CT CT Interpretation Completed By: Radiologist Summary of CT Findings: Impression: No acute intracranial pathology. ED physician has reviewed this radiology report. C-Spine CT CT Interpretation Completed By: Radiologist Summary of CT Findings: Impression: 1. Degenerative disc disease and osteoarthritis. 2. There is moderate narrowing of the central canal at C5-C6 with mild narrowing C4-C5 and C6-C7. 3. There is multilevel neuroforaminal narrowing as described above. 4. Multinodular goiter including a 2.7 cm exophytic nodule of the left inferior thyroid. The [employer] Incidental Thyroid Findings committee recommends thyroid ultrasound for incidental nonsuspicious thyroid nodules greater than or equal to 1.5 cm in size for the patient over the age of 35. 5. No acute osseous injury to the cervical spine. ED physician has reviewed this radiology report. Chest/Abd/Pel CT CT Interpretation Completed By: Radiologist Summary of CT Findings: Impression: 1. Multifocal consolidation involving the dependent lungs bilaterally, greater on the right than on the left. 2. There is distention and mild dilatation of the large bowel with a large amount of solid stool noted within the distal colon and rectum, with large amount of liquid stool noted proximally suggestive of obstipation. 3. Mild biliary dilatation. ED physician has reviewed this radiology report. - EKG 1147 Cardiac Rate: Tachycardia - 106 bpm EKG Rhythm: Sinus Tachycardia Ectopy: None Summary of EKG Findings: Sinus tachycardia at 106 BPM. Nml AV/IV CT. Prolonged QTc (520). Nml axis. Flat STs in II, III, TON, and V4-V6. No ectopy. ST-T wave changes. No previous for comparison. Re-Evaluation - Re-Evaluation First Eval Re-Evaluation Time: 13:10 Comment: Re-examination of the patient: Vital signs of HR 110 bpm, 152/113, O2 95% breathing on own, RR 24 rpm. There is black urine in the schulte bag, but there is yellow urine in the schulte tube; she put out 50ccs of urine. She is still wearing the hard C-spine collar. She flickers her eyes but keeps them closed to sternal rub. Trachea is midline, there are goosebumps on the trunk, she has coughed and sneezed, there is no distension of the abd and the abd is not tympanic. She is crossing her legs with the left over the right; the feet are cold to touch but are normal color, and they are everted. There is a booming femoral pulse bilaterally. She is blinking her eyes on her own and fights when I try to open her eyes; pupils are dilated 5mm. The Zosyn 3.175mg IV bag is hanging. Adult Trauma Course/Dx - Course Course Of Treatment: The patient is a 58 y/o F arriving by ambulance to [facility] with a chief complaint of AMS with traumatic bruising occurring all over the body [facility] Medications obtained from records: Olanzapine, Polyethelene glycol, Proair HFA, Racol-rite, Senna, Spiriva hand inhaler, Spironolactone, Tramadol, Vitamin D2. Hx of cardiomegaly, HTN, mitral valve prolapse, COPD, GERD. Upon physical exam, the patient appears to be pale, cold to touch, chills with goosebumps, multiple scratches on the anterior tibia, 5cm bruise on the right anterior shoulder, 10cm hematoma on left lateral flank, 10cm bruise on left lower medial thigh, 7cm bruise below the left patella, bruises on left sacrum, bruises on right symphysis pubis, 10cm bruise on right medial ribs, bruises on anterior and posterior left lower thigh, large bruise on lower left calf, bruises on right upper arm, left wrist, and right arch of foot. See GCS for neuro exam; opens eyes to sternal rub. Protective hard C-spine collar placed on patient upon arrival. Blood work reveals MCH of 32, abs lymphs of 0.7, abs monos of 1.0, immature gran % of 27.0, band neutrophils of 20.0, metamyelocytes of 7.0, INR of 1.18, chloride of 98, anion gap of 14, BUN of 53, creatinine of 1.17, BUN/ Creatinine of 45.3, glucose of 165, ammonia of 73, lipase of <10. UA reveals trace ketones, 1+ blood, 2+ RBCs, presence of squamous epithelial cells, and presence of hyaline casts. Toxicology reveals presumptive positive amphetamines. At 1249, I was made aware of critical lactic acid of 3.8. EKG reveals sinus tachycardia at 106 BPM, nml AV/IV CT, prolonged QTc (520), nml axis, slat STs in II, III, TON, and V4-V6, no ectopy, ST-T wave changes. CXR Impression: Elevation of the right hemidiaphragm suggestive of diaphragmatic paralysis. R Humerus XR Impression: No acute osseous injury. If symptoms persist , recommend repeat imaging. R Wrist XR Impression: No acute osseous injury. If symptoms persist, recommend repeat imaging. R Foot XR Impression: Osteoarthritis. No acute osseous injury. If symptoms persist, recommend repeat imaging. Brain CT Impression: No acute intracranial pathology. Cervical Spine CT Impression: 1. Degenerative disc disease and osteoarthritis. 2. There is moderate narrowing of the central canal at C5-C6 with mild narrowing C4-C5 and C6-C7. 3. There is multilevel neuroforaminal narrowing as described above. 4. Multinodular goiter including a 2.7 cm exophytic nodule of the left inferior thyroid. The [employer] Incidental Thyroid Findings committee recommends thyroid ultrasound for incidental nonsuspicious thyroid nodules greater than or equal to 1.5 cm in size for the patient over the age of 35. 5. No acute osseous injury to the cervical spine. Chest/Abd/Pel CT Impression: 1. Multifocal consolidation involving the dependent lungs bilaterally, greater on the right than on the left. 2. There is distention and mild dilatation of the large bowel with a large amount of solid stool noted within the distal colon and rectum, with large amount of liquid stool noted proximally suggestive of obstipation. 3. Mild biliary dilatation. In the ED course, the patient was administered NS, Piperacillin Sod/Tazobactam Sod, Narcan , and Visipaque for CTs. At 1300, I discussed the patient's case with Dr. Coley, ICU silk brusher, and he accepts the patient for admission to the ICU. At 1310, I re-evaluated the patient. There is black urine in the schulte bag , but there is yellow urine in the schulte tube; she put out 50ccs of urine. She is still wearing the hard C-spine collar. BP is 152/113. She flickers her eyes but keeps them closed to sternal rub. O2 is at 95%, and she is breathing on her own. HR of 110 bpm. Aspirations of 24. Trachea is midline, there are goosebumps on the trunk, she has coughed and sneezed, there is no distension of the abd and the abd is not tympanic. She is crossing her legs with the left over the right; the feet are cold to touch but are normal color, and they are everted. There is a booming femoral pulse bilaterally. She is blinking her eyes on her own and fights when I try to open her eyes; pupils are dilated 5mm. The Zosyn 3.175mg IV bag is hanging. The patient is diagnosed with AMS and septic shock. - Diagnoses Provider Diagnoses: Altered mental status, Severe sepsis, Pneumonia - Physician Notifications Discussed Care Of Patient With: Patricio Coley - ICU silk brusher Time Discussed With Above Provider: 13:00 Instructed by Provider To: Other - I discussed the patient's case with Dr. Coley; he accepts the patient for admission to the ICU. - Critical Care Time Critical Care Time: 75-104 min - 90 minutes Discharge - Sign-Out/Discharge Documenting (check all that apply): Patient Departure - Patient is accepted for admission to [facility] by Dr. Coley. Patient Received Moderate/Deep Sedation with Procedure: No - Discharge Plan Condition: Stable Disposition: ADMITTED TO [facility] - Billing Disposition and Condition Condition: STABLE Disposition: Admitted to [facility] - Attestation Statements Document Initiated by Scribe: Yes Documenting Scribe: Fabienne Mi Provider For Whom Scribe is Documenting (Include Credential): Dr. Evangelina Steve MD Scribe Attestation: Fabienne Asif, scribed for Dr. Evangelina Steve MD on 03/25/19 at 0128. Status of Scribe Document: Viewed
[2019-03-24] MEDS ORDERED: Iodixanol* (CONTRAST) 320 MG/ML 100 ML SDV IV ONE (12:13)
[2019-03-24 12:15] LABS: Hematocrit 45 % (35-47); Hemoglobin 14.9 g/dL (12.0-16.0); Mean Corpuscular HGB Conc 33 g/dL (31-36); Mean Corpuscular Hemoglobin 32 pg (27-31); Mean Corpuscular Volume 95 fL (80-97); Mean Platelet Volume 8.7 fL (7.4-10.4); Platelet Count 336 10^3/uL (150-450); Red Blood Count 4.71 10^6 /uL (3.70-4.87); Red Cell Distribution Width 14 % (10-15)
[2019-03-24 12:19] LABS: Urine Appearance Clear; Urine Bacteria Absent (Absent); Urine Bilirubin Negative (Negative); Urine Blood 1+ (Negative); Urine Color Amber; Urine Glucose Negative (Negative); Urine Ketones Trace (Negative); Urine Nitrite Negative (Negative); Urine Protein Negative (Negative); Urine Red Blood Cell 2+(6-10/hpf) (Absent); Urine Specific Gravity 1.019 (1.010-1.030); Urine Squamous Epithelial Cell Present (Absent); Urine Urobilinogen Negative (Negative); Urine White Blood Cell Trace(0-5/hpf) (Absent)
[2019-03-24 12:21] LABS: INR 1.18 (0.82-1.09)
[2019-03-24 12:32] LABS: ALT 22 U/L (7-52); AST 21 U/L (13-39); Albumin 3.5 g/dL (3.2-5.2); Albumin/Globulin Ratio 1.1 (1-3); Alkaline Phosphatase 68 U/L (34-104); Amylase 62 U/L (29-103); Anion Gap 14 mmol/L (2-11); BUN/Creatinine Ratio 45.3 (8-20); Blood Urea Nitrogen 53 mg/dL (6-24); CO2 Carbon Dioxide 23 mmol/L (22-32); Calcium 9.6 mg/dL (8.6-10.3); Chloride 98 mmol/L (101-111); Creatine Kinase 121 U/L (10-223); EGFR African American 57.5 (>60); EGFR Non-African American 47.5 (>60); Globulin 3.2 g/dL (2-4); Glucose 165 mg/dL (70-100); Potassium 3.8 mmol/L (3.5-5.0); Sodium 135 mmol/L (135-145); Total Protein 6.7 g/dL (6.4-8.9)
[2019-03-24 12:33] LABS: Troponin I 0.01 ng/mL (<0.04)
[2019-03-24 12:36] LABS: ABS Lymphocytes 0.7 10^3/ul (1.0-4.8); ABS Neutrophils 4.3 10^3/ul (1.5-7.7)
[2019-03-24 12:46] LABS: Urine Benzodiazepine Screen None Detected (None Detect); Urine Opiates Screen None Detected (None Detect)
[2019-03-24 12:47] LABS: Alcohol < 10 mg/dL (<10)
[2019-03-24] MEDS ORDERED: Piperacillin/Tazobac ADVAN(*) 3.375 GM in NS 0.9% 100 ML* 100 ML IVPB ONE (13:01)
[2019-03-24 13:03] LABS: TSH (Thyroid Stimulating Horm) 0.64 mcIU/mL (0.34-5.60)
--- NOTE | 2019-03-24 13:42 | HP ---
History of Present Illness - History of Present Illness Reason for Visit: Found unresponsive per EMS History of Present Illness: Arrives to [facility] via EMS poorly responsive, covered in bruises of varying sizes and ages. Kwon CT in ED with nl Head, no acute cervical abnormality, Chest with pneumonia, abdomen with obstipation. Labs showing lactate at 3.8, heperammonemia and bandemia with EVE. Moans to voice but ROS and further history unobtainable. - Past Medical History Psych: Psychosis - Self harm Review of Systems - Medications/Allergies Allergies/Adverse Reactions: Allergies Allergy/AdvReac Type Severity Reaction Status Date / Time black pepper Allergy Eyes Verified 12/20/18 11:02 Itchy/Swollen/Red/Watery fluphenazine [From Prolixin] Allergy Unknown Verified 12/20/18 11:02 Reaction Details haloperidol [From Haldol] Allergy See Comment Verified 12/20/18 11:02 latex Allergy Rash Verified 12/20/18 11:02 risperidone [From Risperdal] Allergy See Comment Verified 12/20/18 11:02 Medications: Current Medications Sodium Chloride (Ns 0.9% 1000 Ml) 1,837.05 mls @ 0 mls/hr IV WIDE OPEN CHON Last Admin: 03/24/19 11:59 Dose: 999 mls/hr Vancomycin HCl (Vancomycin(*)) 1,000 mg 15 mg/kg (1000 mg) IVPB ONCE CHON; Protocol Exam - Exam Vital Signs: Vital Signs (72 hours) 03/24/19 03/24/19 03/24/19 11:32 11:34 11:46 Temperature 36.7 C Pulse Rate 109 109 108 Respiratory 21 14 12 Rate Blood Pressure 154/98 154/98 (mmHg) O2 Sat by Pulse 91 96 91 Oximetry 03/24/19 03/24/19 03/24/19 11:53 12:00 12:02 Temperature 36.9 C 37.3 C 37.5 C Pulse Rate 104 94 93 Respiratory 13 14 18 Rate Blood Pressure 164/104 156/96 (mmHg) O2 Sat by Pulse 95 96 96 Oximetry 03/24/19 03/24/19 03/24/19 12:50 13:00 13:21 Temperature 37.5 C 37.5 C 37.6 C Pulse Rate 105 108 106 Respiratory 26 30 23 Rate Blood Pressure 152/113 144/86 (mmHg) O2 Sat by Pulse 95 95 92 Oximetry General: Other - Moans to voice, withdraws to pain x 4 HEENT: Mucous membr. 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 CTH OK. CT Neck with no obvious C- spine injury. CT Chest with pneumonia. CT ABD/Pelvis with obstipation. Found to have hyperammonemia, lactic acidosis and bandemia with EVE. I suspect primary self-harm in the bruising, has history of slapping herself. Await LFTs and coags to confirm normal hepatic function. CLearly has pneumonia with infiltrates and bandemia and needs volume for her EVE and lactate which she is receiving though not frankly hypoperfused on exam with solid BP and cap refill. May be under the influence of amphetamines with big pupils and positive urine. Encephalopathy seems to be improving in the last hour. Plan: Encepahlopathy - likley multifactorial but amphetamine and severe sepsis most likely source at current. CTH negative. Neck supple with collar removed but will keep collar until she can participate with exam. Supportive treatment. Severe Sepsis - lactate elevated, pneumonia on CT, bands. Continue Abx, follow cultures. IVF. EVE - follow her CK, may have rhabdo looking at her urine and will then need much more fluid. Psychosis - whether primary or ampetamine induced will need when able to have the discussion Thyroid Nodule - ultrasound ordered Critical care time 60 minutes
[2019-03-24] MEDS ORDERED: Vancomycin(*) 1,000 MG VIAL IVPB SCH (14:00)
[2019-03-24] MEDS ORDERED: Vancomycin per Pharmacy* NOTE FOLLOW UP PRN (14:13)
[2019-03-24] MEDS: NS 0.9% 1000 ML** 1,000 ML IV SCH (16:22)
[2019-03-24] MEDS: Vancomycin(*) 1,000 MG in NS 0.9% 250 ML* 250 ML IVPB SCH ×2 (16:22→23:25)
[2019-03-24] MEDS ORDERED: Piperacillin/Tazobac (*) 3.375 GM BAG IVPB SCH (18:00)
[2019-03-24 18:04] LABS: Albumin 2.9 g/dL (3.2-5.2); Albumin/Globulin Ratio 1.2 (1-3); BUN/Creatinine Ratio 48.8 (8-20); Calcium 8.1 mg/dL (8.6-10.3); EGFR Non-African American 67.8 (>60); Globulin 2.5 g/dL (2-4); Potassium 3.3 mmol/L (3.5-5.0); Total Bilirubin 0.6 mg/dL (0.2-1.0); Total Protein 5.4 g/dL (6.4-8.9)
[2019-03-24 18:05] LABS: Albumin/Globulin Ratio 1.1 (1-3); Globulin 2.7 g/dL (2-4); Indirect Bilirubin 0.3 mg/dL (0.3-1.0); Magnesium 2.3 mg/dL (1.9-2.7); Phosphorus 3.3 mg/dL (2.5-5.0); Total Bilirubin 0.6 mg/dL (0.2-1.0); Total Protein 5.7 g/dL (6.4-8.9)
[2019-03-24] MEDS: ZOSYN 3.375 GM Q6H - Intermittant 30 min Infusion IVPB SCH ×2 (18:18)
[2019-03-24] MEDS ORDERED: Acetaminophen TAB* 325 MG PO PRN (18:43)
[2019-03-24 19:01] LABS: Free T4 0.97 ng/dL (0.61-1.12)
[2019-03-24] MEDS: KCL 20 MEQ/100 ML IVPREMIX* 20 MEQ/100 ML BAG IV SCH (21:50)
[2019-03-25] MEDS: ZOSYN 3.375 GM Q6H - Intermittant 30 min Infusion IVPB SCH ×10 (00:02→23:14)
[2019-03-25] MEDS: NS 0.9% 1000 ML** 1,000 ML IV SCH ×3 (00:13→23:12)
[2019-03-25] MEDS: KCL 20 MEQ/100 ML IVPREMIX* 20 MEQ/100 ML BAG IV SCH (00:48)
[2019-03-25 04:12] LABS: Hematocrit 34 % (35-47); Hemoglobin 11.6 g/dL (12.0-16.0); Mean Corpuscular HGB Conc 35 g/dL (31-36); Mean Corpuscular Hemoglobin 32 pg (27-31); Mean Corpuscular Volume 93 fL (80-97); Mean Platelet Volume 8.7 fL (7.4-10.4); Platelet Count 233 10^3/uL (150-450); Red Blood Count 3.61 10^6 /uL (3.70-4.87); Red Cell Distribution Width 14 % (10-15); White Blood Count 9.9 10^3/uL (3.5-10.8)
[2019-03-25 04:35] LABS: BUN/Creatinine Ratio 58.5 (8-20); Calcium 7.9 mg/dL (8.6-10.3); EGFR African American 113.3 (>60); EGFR Non-African American 93.6 (>60); Magnesium 2.2 mg/dL (1.9-2.7); Potassium 3.6 mmol/L (3.5-5.0)
[2019-03-25 05:12] LABS: ABS Lymphocytes 0.7 10^3/ul (1.0-4.8); ABS Monocytes 0.8 10^3/ul (0-0.8); ABS Neutrophils 8.4 10^3/ul (1.5-7.7); Lymphocyte % 6.9 %
[2019-03-25] MEDS: Vancomycin(*) 1,000 MG in NS 0.9% 250 ML* 250 ML IVPB SCH (08:28)
--- NOTE | 2019-03-25 12:09 | PN ---
Date of Service: 03/25/19 Critical Care Services: Awake and appropriate today. Vital Signs: Temp Pulse Resp BP SpO2 FiO2 38.5 C 116 20 143/100 94 03/25/19 08:00 03/25/19 08:00 03/25/19 08:00 03/25/19 08:00 03/25/19 08:00 Physical Exam: Gen: Disheveled, interactive, asking for orange juice HEENT: NCAT, poor dentition, PERRL and pupils now 3mm from 5 Lungs: decreased basilar entry Cardiac: S1S2 regular Abdomen: full, mildly distended, mildly tender, +BS Extremities: +1 LE edema Neuro: A&O to apparent baseline, C-spine cleared with palpation, passive and active motion and no complaints. Collar removed. Fluid Balance (Past 24 Hours): I= O= Net Intake & Output 03/23/19 03/24/19 03/25/19 03/26/19 06:59 06:59 06:59 06:59 Intake Total 4167 Output Total 3110 Balance 1057 Weight 57 kg Intake: IV Fluids 3562 NS 0.9% 1675 Medicated IV 560 POTASSIUM 200 VANCO 260 ZOSYN 100 Fong Irrigate Amount 45 Output: NG Tube Drainage Amount 100 Fong 3010 Other: Date of Last Bowel 03/24/19 Movement Labs: Laboratory Results - last 24 hr 03/24/19 03/24/19 03/24/19 11:48 11:48 12:05 WBC 6.0 RBC 4.71 Hgb 14.9 Hct 45 MCV 95 MCH 32 H MCHC 33 RDW 14 Plt Count 336 MPV 8.7 Neut % (Auto) 71.6 Lymph % (Auto) 11.0 [place] % (Auto) 17.2 Eos % (Auto) 0.0 Baso % (Auto) 0.2 Absolute Neuts (auto) 4.3 Absolute Lymphs (auto) 0.7 L Absolute Monos (auto) 1.0 H Absolute Eos (auto) 0.0 Absolute Basos (auto) 0.0 Absolute Nucleated RBC 0.0 Immature Gran % 27.0 H Neutrophils % 41.0 Band Neutrophils % 20.0 H Lymphocytes % 15.0 Monocytes % 17.0 Metamyelocytes % 7.0 H Nucleated RBC % 0.0 Toxic Granulation Normal RBC Morphology Normal Hem Pathologist Commnt INR (Anticoag Therapy) VBG pH VBG pCO2 VBG pO2 VBG HCO3 VBG O2 Saturation VBG Base Excess Sodium Potassium Chloride Carbon Dioxide Anion Gap BUN Creatinine Est GFR ( Amer) Est GFR (Non-Af Amer) BUN/Creatinine Ratio Glucose Lactic Acid Calcium Phosphorus Magnesium Total Bilirubin Direct Bilirubin Indirect Bilirubin AST ALT Alkaline Phosphatase Ammonia Total Creatine Kinase Troponin I Total Protein Albumin Globulin Albumin/Globulin Ratio Amylase Lipase TSH Free T4 Urine Color Aleksandra Urine Appearance Clear Urine pH 5.0 Ur Specific [place] 1.019 Urine Protein Negative Urine Ketones Trace A Urine Blood 1+ A Urine Nitrate Negative Urine Bilirubin Negative Urine Urobilinogen Negative Ur Leukocyte Esterase Negative Urine WBC (Auto) Trace(0-5/hpf) Urine RBC (Auto) 2+(6-10/hpf) A Ur Squamous Epith Cells Present A Urine Bacteria Absent Hyaline Casts Present A Urine Glucose Negative Urine Opiates Screen None detected Ur Barbiturates Screen None detected Ur Phencyclidine Scrn None detected Ur Amphetamines Screen Presumptive positive A U Benzodiazepines Scrn None detected Urine Cocaine Screen None detected U Cannabinoids Screen None detected Serum Alcohol Blood Type Antibody Screen 03/24/19 03/24/19 03/24/19 12:05 12:05 12:05 WBC RBC Hgb Hct MCV MCH MCHC RDW Plt Count MPV Neut % (Auto) Lymph % (Auto) [place] % (Auto) Eos % (Auto) Baso % (Auto) Absolute Neuts (auto) Absolute Lymphs (auto) Absolute Monos (auto) Absolute Eos (auto) Absolute Basos (auto) Absolute Nucleated RBC Immature Gran % Neutrophils % Band Neutrophils % Lymphocytes % Monocytes % Metamyelocytes % Nucleated RBC % Toxic Granulation Normal RBC Morphology Hem Pathologist Commnt INR (Anticoag Therapy) 1.18 H VBG pH VBG pCO2 VBG pO2 VBG HCO3 VBG O2 Saturation VBG Base Excess Sodium 135 Potassium 3.8 Chloride 98 L Carbon Dioxide 23 Anion Gap 14 H BUN 53 H Creatinine 1.17 H Est GFR ( Amer) 57.5 Est GFR (Non-Af Amer) 47.5 BUN/Creatinine Ratio 45.3 H Glucose 165 H Lactic Acid 3.8 H* Calcium 9.6 Phosphorus Magnesium Total Bilirubin 0.60 Direct Bilirubin Indirect Bilirubin AST 21 ALT 22 Alkaline Phosphatase 68 Ammonia Total Creatine Kinase 121 Troponin I 0.01 Total Protein 6.7 Albumin 3.5 Globulin 3.2 Albumin/Globulin Ratio 1.1 Amylase 62 Lipase < 10 L TSH Free T4 Urine Color Urine Appearance Urine pH Ur Specific [place] Urine Protein Urine Ketones Urine Blood Urine Nitrate Urine Bilirubin Urine Urobilinogen Ur Leukocyte Esterase Urine WBC (Auto) Urine RBC (Auto) Ur Squamous Epith Cells Urine Bacteria Hyaline Casts Urine Glucose Urine Opiates Screen Ur Barbiturates Screen Ur Phencyclidine Scrn Ur Amphetamines Screen U Benzodiazepines Scrn Urine Cocaine Screen U Cannabinoids Screen Serum Alcohol < 10 Blood Type Antibody Screen 03/24/19 03/24/19 03/24/19 12:05 12:05 12:05 WBC RBC Hgb Hct MCV MCH MCHC RDW Plt Count MPV Neut % (Auto) Lymph % (Auto) [place] % (Auto) Eos % (Auto) Baso % (Auto) Absolute Neuts (auto) Absolute Lymphs (auto) Absolute Monos (auto) Absolute Eos (auto) Absolute Basos (auto) Absolute Nucleated RBC Immature Gran % Neutrophils % Band Neutrophils % Lymphocytes % Monocytes % Metamyelocytes % Nucleated RBC % Toxic Granulation Normal RBC Morphology Hem Pathologist Commnt INR (Anticoag Therapy) VBG pH VBG pCO2 VBG pO2 VBG HCO3 VBG O2 Saturation VBG Base Excess Sodium Potassium Chloride Carbon Dioxide Anion Gap BUN Creatinine Est GFR ( Amer) Est GFR (Non-Af Amer) BUN/Creatinine Ratio Glucose Lactic Acid Calcium Phosphorus Magnesium Total Bilirubin Direct Bilirubin Indirect Bilirubin AST ALT Alkaline Phosphatase Ammonia 73 H Total Creatine Kinase Troponin I Total Protein Albumin Globulin Albumin/Globulin Ratio Amylase Lipase TSH 0.64 Free T4 0.97 Urine Color Urine Appearance Urine pH Ur Specific [place] Urine Protein Urine Ketones Urine Blood Urine Nitrate Urine Bilirubin Urine Urobilinogen Ur Leukocyte Esterase Urine WBC (Auto) Urine RBC (Auto) Ur Squamous Epith Cells Urine Bacteria Hyaline Casts Urine Glucose Urine Opiates Screen Ur Barbiturates Screen Ur Phencyclidine Scrn Ur Amphetamines Screen U Benzodiazepines Scrn Urine Cocaine Screen U Cannabinoids Screen Serum Alcohol Blood Type A Positive Antibody Screen Negative 03/24/19 03/24/19 03/24/19 17:32 17:32 17:32 WBC RBC Hgb Hct MCV MCH MCHC RDW Plt Count MPV Neut % (Auto) Lymph % (Auto) [place] % (Auto) Eos % (Auto) Baso % (Auto) Absolute Neuts (auto) Absolute Lymphs (auto) Absolute Monos (auto) Absolute Eos (auto) Absolute Basos (auto) Absolute Nucleated RBC Immature Gran % Neutrophils % Band Neutrophils % Lymphocytes % Monocytes % Metamyelocytes % Nucleated RBC % Toxic Granulation Normal RBC Morphology Hem Pathologist Commnt INR (Anticoag Therapy) VBG pH 7.31 L VBG pCO2 43 VBG pO2 < 38.0 VBG HCO3 19.9 L VBG O2 Saturation 40.9 L VBG Base Excess -4.5 L Sodium Potassium Chloride Carbon Dioxide Anion Gap BUN Creatinine Est GFR ( Amer) Est GFR (Non-Af Amer) BUN/Creatinine Ratio Glucose Lactic Acid 3.0 H* Calcium Phosphorus 3.3 Magnesium 2.3 Total Bilirubin 0.60 Direct Bilirubin 0.30 H Indirect Bilirubin 0.3 AST 20 ALT 21 Alkaline Phosphatase 53 Ammonia Total Creatine Kinase Troponin I Total Protein 5.7 L Albumin 3.0 L Globulin 2.7 Albumin/Globulin Ratio 1.1 Amylase Lipase TSH Free T4 Cancelled Urine Color Urine Appearance Urine pH Ur Specific [place] Urine Protein Urine Ketones Urine Blood Urine Nitrate Urine Bilirubin Urine Urobilinogen Ur Leukocyte Esterase Urine WBC (Auto) Urine RBC (Auto) Ur Squamous Epith Cells Urine Bacteria Hyaline Casts Urine Glucose Urine Opiates Screen Ur Barbiturates Screen Ur Phencyclidine Scrn Ur Amphetamines Screen U Benzodiazepines Scrn Urine Cocaine Screen U Cannabinoids Screen Serum Alcohol Blood Type Antibody Screen 03/24/19 03/25/19 03/25/19 17:32 04:00 04:00 WBC 9.9 RBC 3.61 L Hgb 11.6 L Hct 34 L MCV 93 MCH 32 H MCHC 35 RDW 14 Plt Count 233 MPV 8.7 Neut % (Auto) 85.2 Lymph % (Auto) 6.9 [place] % (Auto) 7.8 Eos % (Auto) 0.0 Baso % (Auto) 0.1 Absolute Neuts (auto) 8.4 H Absolute Lymphs (auto) 0.7 L Absolute Monos (auto) 0.8 Absolute Eos (auto) 0.0 Absolute Basos (auto) 0.0 Absolute Nucleated RBC 0.0 Immature Gran % 18.0 H Neutrophils % 67.0 Band Neutrophils % 14.0 H Lymphocytes % 9.0 Monocytes % 6.0 Metamyelocytes % 4.0 H Nucleated RBC % 0.0 Toxic Granulation 1+ Normal RBC Morphology Normal Hem Pathologist Commnt INR (Anticoag Therapy) VBG pH VBG pCO2 VBG pO2 VBG HCO3 VBG O2 Saturation VBG Base Excess Sodium 138 140 Potassium 3.3 L 3.6 Chloride 106 112 H Carbon Dioxide 21 L 20 L Anion Gap 11 8 BUN 42 H 38 H Creatinine 0.86 0.65 Est GFR ( Amer) 82.0 113.3 Est GFR (Non-Af Amer) 67.8 93.6 BUN/Creatinine Ratio 48.8 H 58.5 H Glucose 142 H 136 H Lactic Acid Calcium 8.1 L 7.9 L Phosphorus Magnesium 2.2 Total Bilirubin 0.60 Direct Bilirubin Indirect Bilirubin AST 19 ALT 20 Alkaline Phosphatase 49 Ammonia Total Creatine Kinase 90 Troponin I Total Protein 5.4 L Albumin 2.9 L Globulin 2.5 Albumin/Globulin Ratio 1.2 Amylase Lipase TSH Free T4 Urine Color Urine Appearance Urine pH Ur Specific [place] Urine Protein Urine Ketones Urine Blood Urine Nitrate Urine Bilirubin Urine Urobilinogen Ur Leukocyte Esterase Urine WBC (Auto) Urine RBC (Auto) Ur Squamous Epith Cells Urine Bacteria Hyaline Casts Urine Glucose Urine Opiates Screen Ur Barbiturates Screen Ur Phencyclidine Scrn Ur Amphetamines Screen U Benzodiazepines Scrn Urine Cocaine Screen U Cannabinoids Screen Serum Alcohol Blood Type Antibody Screen Nutrition: Regular diet but has some N/V. Impression: Severe sepsis with 2/2 E. COli bacteremia and EVE improving Plan: E. Coli septicemia / Severe Sepsis - metabolic acidosis improved along with renal function with 4 liters of fluid and 3 liters of UO. CXR with right basilar pneumonia. E. Coli not a typical pneumonia bug but patient found lying in her own stool and makes this more plausible. Urine not strongly suggestive of UTI as source. DC Vanco, Continue Zosyn with C&S pending. Bands down from 20 to 14 and WBC apporpriately rising from 6 to 10, which is the pattern of improving sepsis. EVE - improved and resolved with fluid. Obstipation - will prescribe dulcolax NC and will keep NGT for now as she had some N/V with OJ this AM. May yet need some above stim as well but would rather start from below. Medically stable for transfer to the floor. Critical Care Time: 30
[2019-03-25] MEDS ORDERED: Bisacodyl SUPP* 10 MG SUPP PR PRN (13:01)
[2019-03-25] MEDS ORDERED: Vancomycin Trough Check NOTE FOLLOW UP ONE (15:30)
[2019-03-25] MEDS: Acetaminophen TAB* 325 MG PO PRN ×2 (16:45→23:17)
[2019-03-25] MEDS ORDERED: Diltiazem TAB* 30 MG ONE (18:22)
[2019-03-25] MEDS: Diltiazem TAB* 30 MG PO SCH ×2 (18:35→23:14)
[2019-03-26] MEDS: Diltiazem TAB* 30 MG PO SCH ×3 (05:19→17:12)
[2019-03-26] MEDS: ZOSYN 3.375 GM Q6H - Intermittant 30 min Infusion IVPB SCH ×2 (05:20)
[2019-03-26 05:33] LABS: Hematocrit 32 % (35-47); Mean Corpuscular HGB Conc 35 g/dL (31-36); Mean Corpuscular Hemoglobin 32 pg (27-31); Mean Corpuscular Volume 92 fL (80-97); Mean Platelet Volume 8.9 fL (7.4-10.4); Platelet Count 231 10^3/uL (150-450); Red Blood Count 3.47 10^6 /uL (3.70-4.87); Red Cell Distribution Width 14 % (10-15); White Blood Count 6.3 10^3/uL (3.5-10.8)
[2019-03-26 05:46] LABS: Albumin 2.7 g/dL (3.2-5.2); BUN/Creatinine Ratio 44.7 (8-20); Calcium 8.1 mg/dL (8.6-10.3); EGFR African American 164.7 (>60); EGFR Non-African American 136.1 (>60); Globulin 2.6 g/dL (2-4); Total Bilirubin 0.6 mg/dL (0.2-1.0); Total Protein 5.3 g/dL (6.4-8.9)
[2019-03-26 05:52] LABS: Potassium 2.1 mmol/L (3.5-5.0)
[2019-03-26 06:15] LABS: ABS Lymphocytes 0.8 10^3/ul (1.0-4.8); ABS Neutrophils 5.4 10^3/ul (1.5-7.7); Eosinophil % 0.3 %; Lymphocyte % 12.3 %; Nucleated Red Blood Cells % 0.1
[2019-03-26] MEDS: KCL 20 MEQ/100 ML IVPREMIX* 20 MEQ/100 ML BAG IV SCH ×6 (06:15→21:55)
[2019-03-26 07:31] LABS: Magnesium 1.9 mg/dL (1.9-2.7)
[2019-03-26] MEDS ORDERED: Sodium Phosphate ADULT ENEMA* 118 ml bottle PR ONE (07:39)
--- NOTE | 2019-03-26 07:43 | PN ---
Subjective Date of Service: 03/26/19 Interval History: Pt does not initial answer any of my questions. When I am palpating her abdomen she does tell me that it hurts. She then admits to feeling mild nausea. Nursing informs me that the patient continued to have bursts of SVT overnight though sounds to be much less frequent after resuming diltiazem (lower than her home dose). Objective Active Medications: Acetaminophen (Tylenol Tab*) 650 mg PO Q4H PRN PRN Reason: fever >/= to 38C Last Admin: 03/25/19 23:17 Dose: 650 mg Bisacodyl (Dulcolax Supp*) 10 mg MA DAILY PRN PRN Reason: CONSTIPATION Last Admin: 03/25/19 16:45 Dose: 10 mg Diltiazem HCl (Cardizem Tab*) 60 mg PO Q6HR [facility] Heparin Sodium (Porcine) (Heparin Flush Picc/Ml/Cvc(*)) 0 ml FLUSH 0600,1800 [facility] Last Admin: 03/26/19 05:11 Dose: Not Given Sodium Chloride (Ns 0.9% 1000 Ml) 1,000 mls @ 75 mls/hr IV PER RATE [facility] Last Admin: 03/25/19 23:12 Dose: 75 mls/hr Piperacillin Sod/Tazobactam (Sod 3.375 gm/ Sodium Chloride) 100 mls @ 200 mls/ hr IVPB Q6H [facility] Last Admin: 03/26/19 05:20 Dose: 200 mls/hr Potassium Chloride (Potassium Chloride 20 Meq/100 Ml Ivpremix*) 20 meq in 100 mls @ 50 mls/hr IV Q2H [facility] Stop: 03/26/19 11:59 Last Admin: 03/26/19 06:15 Dose: 50 mls/hr Vital Signs - 8 hr 03/26/19 03/26/19 03/26/19 00:00 01:00 02:00 Temperature 100.8 F 100.8 F 100.6 F Pulse Rate 101 100 100 Respiratory 22 27 21 Rate Blood Pressure 147/81 147/83 144/87 (mmHg) O2 Sat by Pulse 94 94 94 Oximetry 03/26/19 03/26/19 03:00 04:00 Temperature 100.2 F 100.2 F Pulse Rate 95 96 Respiratory 20 19 Rate Blood Pressure 145/87 153/93 (mmHg) O2 Sat by Pulse 94 94 Oximetry Oxygen Devices in Use Now: None Appearance: Middle aged female lying in bed awake, initially not answering my questions, NAD Eyes: No Scleral Icterus Ears/Nose/Mouth/Throat: Mucous Membranes Moist Respiratory: Symmetrical Chest Expansion and Respiratory Effort, - - crackles R> L base Cardiovascular: - - slightly tachycardic rate, regular, II/ systolic murmur, tract ankle/foot edema bilaterally Abdominal: - - BS+ soft, mildly distended, mildly tender to palpation periumbilical Extremities: No Clubbing, Cyanosis Skin: No Nodules or Sclerosis Neurological: - - alert Result Diagrams: 03/26/19 05:17 03/26/19 05:17 Microbiology and Other Data: Microbiology 03/25/19 16:45 Stool Occult Blood (MEDARDO) - Final Stool 03/24/19 12:05 Aerobic Blood Culture - Preliminary Blood Venous Escherichia Coli Anaerobic Blood Culture - Preliminary No Growth Day 1 03/24/19 11:48 Urine Culture - Final Urine No Growth (<1,000 CFU/mL) 03/24/19 12:14 Aerobic Blood Culture - Preliminary Blood Venous No Growth Day 1 Anaerobic Blood Culture - Preliminary Escherichia Coli 03/24/19 16:55 Nasal Screen MRSA (PCR) - Final Nasal Mrsa Not Detected Assess/Plan/Problems-Billing Ms Lui is a 58 yo F who has a h/o self injury behaviors, schizoaffective disorder- bipolar type, HTN, hypothyroidism and asthma who was found to be poorly responsive at the [facility] and was brought in to the ER where she was found to be in severe sepsis secondary to pneumonia and now subsequently found to have Ecoli bacteremia. - Patient Problems (1) Severe sepsis Current Visit: Yes Status: Acute Code(s): A41.9 - SEPSIS, UNSPECIFIED ORGANISM; R65.20 - SEVERE SEPSIS WITHOUT SEPTIC SHOCK SNOMED Code(s): 71463352 Comment: Pt remains febrile and tachycardic. Her mental status is improved from admission. She had septic encephalopathy on admission. (2) E. coli pneumonia Current Visit: Yes Status: Acute Code(s): J15.5 - PNEUMONIA DUE TO ESCHERICHIA COLI SNOMED Code(s): 21519890 Comment: Pt remains febrile, she is not needing any supplemental O2. Continue zosyn for now. The patient is also bacteremic with Ecoli. With the persistent fever will repeat blood cultures. Will ask for ID consult. (3) SVT (supraventricular tachycardia) Current Visit: Yes Status: Acute Code(s): I47.1 - SUPRAVENTRICULAR TACHYCARDIA SNOMED Code(s): 9938992 Comment: Since yesterday afternoon the patient has been having bursts of SVT. Restarted diltiazem CD that was held on admission. SVT episodes have decreased. Will resume higher dose of diltiazem. Pt hypokalemic today. IV KCl has been ordered for replacement with follow up BMP at noon today. (4) HTN (hypertension) Current Visit: Yes Status: Acute Code(s): I10 - ESSENTIAL (PRIMARY) HYPERTENSION SNOMED Code(s): 91457270 Comment: BP moderately elevated. Monitor with increased diltiazem dose. (5) Hypothyroidism Current Visit: Yes Status: Acute Code(s): E03.9 - HYPOTHYROIDISM, UNSPECIFIED SNOMED Code(s): 77986673 Comment: Resume home dose of synthroid. (6) Schizoaffective disorder Current Visit: Yes Status: Acute Code(s): F25.9 - SCHIZOAFFECTIVE DISORDER, UNSPECIFIED SNOMED Code(s): 73597717 Comment: Resume home olanzapine, wellbutrin XL, cymbalta. (7) DVT prophylaxis Current Visit: Yes Status: Acute Code(s): Z29.9 - ENCOUNTER FOR PROPHYLACTIC MEASURES, UNSPECIFIED SNOMED Code(s): 210818608 Comment: start SQ heparin (8) Full code status Current Visit: Yes Status: Acute Code(s): Z78.9 - OTHER SPECIFIED HEALTH STATUS SNOMED Code(s): 048744125
[2019-03-26] MEDS ORDERED: Albuterol HFA INHALER* 8 gm MDI INH PRN (08:58)
[2019-03-26] MEDS: Levothyroxine TAB* 75 MCG TAB PO SCH (10:47)
[2019-03-26] MEDS: BuPROPion XL* 150 MG TAB.XL PO SCH ×2 (10:47→21:58)
[2019-03-26] MEDS: Aspirin EC TAB* 81 MG TAB.EC PO SCH (10:47)
[2019-03-26] MEDS: OLANzapine TAB* 5 MG PO SCH (10:47)
[2019-03-26] MEDS: Spironolactone TAB* 25 MG PO SCH (10:47)
[2019-03-26] MEDS: Benztropine TAB* 1 MG PO PRN (10:47)
[2019-03-26] MEDS: Tiotropium CAP.INH* CAP.INH/18 MCG (USE ORDER SET !) INH SCH (11:28)
[2019-03-26] MEDS: Mometasone/Formoter 200/5 MDI INH SCH ×2 (11:28→19:35)
[2019-03-26] MEDS ORDERED: ZOSYN 3.375 GM Q6H - Intermittant 30 min Infusion IVPB SCH ×2 (12:00)
[2019-03-26] MEDS: DULoxetine DR CAP* 60 MG CAP.DR PO SCH ×2 (13:03→21:56)
[2019-03-26] MEDS: Heparin VIAL(*) 5000 UNITS/ML VIAL (FIVE THOUSAND) SUBCUT SCH ×2 (13:03→21:59)
[2019-03-26] MEDS: NS 0.9% 1000 ML** 1,000 ML IV SCH (13:34)
[2019-03-26] MEDS ORDERED: Ondansetron INJ* 2 MG/ML VIAL IV PRN (14:03)
[2019-03-26 14:55] LABS: BUN/Creatinine Ratio 32.2 (8-20); Calcium 8.1 mg/dL (8.6-10.3); EGFR African American 126.7 (>60); EGFR Non-African American 104.7 (>60); Magnesium 1.8 mg/dL (1.9-2.7)
[2019-03-26 14:56] LABS: Potassium 2.3 mmol/L (3.5-5.0)
[2019-03-26] MEDS ORDERED: Potassium Chloride* LIQUID 20 MEQ/15 ML UDC PO ONE (14:58)
[2019-03-26] MEDS: Acetaminophen TAB* 325 MG PO PRN ×2 (17:11→21:58)
[2019-03-26] MEDS: cefTRIAXone(*) 1 GM in NS 0.9% 50 ML* 50 ML IVPB SCH (17:20)
--- NOTE | 2019-03-26 18:01 | CONS ---
CONSULTATION REPORT: DATE OF CONSULT: 03/26/19 REQUESTING PHYSICIAN: Dr. Garcia. CONSULTING SERVICE: Infectious Disease. REASON FOR CONSULTATION: E. coli bacteremia. IMPRESSION: 1. Admitted unresponsive with a small right basilar infiltrate, question of aspiration pneumonia. She had an accompanying acute kidney injury initially, which is improved. Her mental status has resolved. She was found to have E. coli in 2/4 blood culture bottles, with a negative urine culture. She did have a CT chest, abdomen and pelvis, did not show any obstructing stones in the kidneys. So, this seems to be less likely a urinary tract source. She may have an E. coli pneumonia. She does have low-back pain, but that is chronic. So, I think it is less likely that she has a spine infection. She does not have right upper quadrant tenderness and her gallbladder was benign on a CT imaging. 2. Amphetamine use and possible overdose. RECOMMENDATIONS: I will change Zosyn to ceftriaxone 1 g a day. Make sure that her blood cultures have cleared. If not, I would obtain an MRI of the lumbar spine. HISTORY OF PRESENT ILLNESS: This is a 58-year-old woman who arrived unresponsive on 03/24/19. She cannot provide any history of her illness, which was obtained instead from review of the medical record and discussion with Dr. Garcia. Initially she was hodges scanned. CT showed an infiltrate at the right base. She was treated for pneumonia initially with vancomycin and Zosyn. She initially had an acute kidney injury, which has improved. She was found to have amphetamines in the urine. She had a lactic acidosis, which has improved. She has had fever fairly persistently since she has been here, though none this morning or afternoon. She has E. coli in 2/4 bottles that is sensitive to cephalosporins and Zosyn. She has pain in her low back, which she feels she always has it, at the site of her previous spine surgery. She has no weakness or trouble moving her legs. PAST MEDICAL HISTORY: 1. Depression. 2. COPD. 3. Anxiety. 4. Hyperlipidemia. MEDICATIONS: 1. Tylenol. 2. Albuterol inhaler. 3. Aspirin. 4. Lipitor. 5. Benztropine as needed. 6. Bupropion XL. 7. Diltiazem. 8. Duloxetine. 9. Heparin subcutaneous injection. 10. Levothyroxine. 11. Olanzapine. 12. Zosyn 3.375 g every 8 hours. 13. Spiriva. 14. Spironolactone. ALLERGIES: HALDOL, LATEX, RISPERDAL, FLUPHENAZINE. FAMILY HISTORY: No recurrent infections. SOCIAL HISTORY: She lives at [facility]. Does not use injection drugs. Has no travel. REVIEW OF SYSTEMS: All negative, except as noted above, to 12-point review. PHYSICAL EXAM: Vital Signs: Temperature 37.4, heart rate 100, respiratory rate 20, blood pressure 150/90, oxygen saturation 96% on room air. In general, she is awake, not in distress. Neurologic: She is oriented x3. Follows commands, answers questions, moves all extremities. HEENT: There is no conjunctival hemorrhage. Oropharynx without lesions. Neck is supple. Heart is regular and tachycardic, without murmurs. Lungs are clear to auscultation bilaterally. Abdomen: Soft, nontender, nondistended. There are bowel sounds present. Skin: There is no rash or splinter hemorrhage. She has a healed lumbar spine incision scar. Musculoskeletal: There is no spine tenderness to palpation or joint synovitis. LABORATORY DATA: White blood cell count 6, hemoglobin 11, and platelets 231. Creatinine 0.6. Please see impression and recommendations outlined above. Thanks for asking me to see Ms. Lui in consultation. [id number]/MAYTE #: [id number] [place]
[2019-03-26] MEDS: Montelukast Sodium TAB* 10 MG PO SCH (21:58)
[2019-03-26] MEDS: Atorvastatin* 40 MG TAB PO SCH (21:58)
[2019-03-26] MEDS: OLANzapine TAB* 10 MG PO SCH (22:03)
[2019-03-27] MEDS: Diltiazem TAB* 30 MG PO SCH ×3 (00:14→12:34)
[2019-03-27 01:30] LABS: Urine Appearance Clear; Urine Bacteria Absent (Absent); Urine Bilirubin Negative (Negative); Urine Blood 1+ (Negative); Urine Color Amber; Urine Glucose Negative (Negative); Urine Ketones Trace (Negative); Urine Nitrite Negative (Negative); Urine Protein 1+(30 mg/dL) (Negative); Urine Red Blood Cell 1+(3-5/hpf) (Absent); Urine Specific Gravity 1.023 (1.010-1.030); Urine Urobilinogen Negative (Negative); Urine White Blood Cell Trace(0-5/hpf) (Absent)
[2019-03-27] MEDS: Acetaminophen TAB* 325 MG PO PRN ×3 (05:30→22:14)
[2019-03-27] MEDS: Levothyroxine TAB* 75 MCG TAB PO SCH (05:35)
[2019-03-27] MEDS: Heparin VIAL(*) 5000 UNITS/ML VIAL (FIVE THOUSAND) SUBCUT SCH ×3 (05:35→22:14)
[2019-03-27] MEDS: Tiotropium CAP.INH* CAP.INH/18 MCG (USE ORDER SET !) INH SCH (07:37)
[2019-03-27] MEDS: Mometasone/Formoter 200/5 MDI INH SCH ×3 (07:37→19:24)
[2019-03-27] MEDS ORDERED: Spiriva Inhaler DEVICE* 1 EACH DEVICE INH ONE (09:00)
[2019-03-27] MEDS: Aspirin EC TAB* 81 MG TAB.EC PO SCH (09:50)
[2019-03-27] MEDS: Spironolactone TAB* 25 MG PO SCH (09:50)
[2019-03-27] MEDS: OLANzapine TAB* 5 MG PO SCH (09:50)
[2019-03-27] MEDS: DULoxetine DR CAP* 60 MG CAP.DR PO SCH ×2 (09:50→22:13)
[2019-03-27] MEDS: BuPROPion XL* 150 MG TAB.XL PO SCH ×2 (09:50→22:13)
[2019-03-27] MEDS: NS 0.9% 1000 ML** 1,000 ML IV SCH ×2 (10:00→22:05)
[2019-03-27 12:35] LABS: BUN/Creatinine Ratio 35.7 (8-20); Calcium 8.1 mg/dL (8.6-10.3); EGFR African American 187.5 (>60)
[2019-03-27 12:40] LABS: Hematocrit 31 % (35-47); Hemoglobin 10.5 g/dL (12.0-16.0); Mean Corpuscular HGB Conc 34 g/dL (31-36); Mean Corpuscular Hemoglobin 32 pg (27-31); Mean Corpuscular Volume 92 fL (80-97); Mean Platelet Volume 8.6 fL (7.4-10.4); Platelet Count 239 10^3/uL (150-450); Red Blood Count 3.32 10^6 /uL (3.70-4.87); Red Cell Distribution Width 14 % (10-15); White Blood Count 9.2 10^3/uL (3.5-10.8)
[2019-03-27] MEDS ORDERED: Potassium Chloride* LIQUID 20 MEQ/15 ML UDC PO ONE (12:43)
[2019-03-27 13:30] LABS: ABS Eosinophils 0.1 10^3/ul (0-0.6); ABS Lymphocytes 1.3 10^3/ul (1.0-4.8); ABS Monocytes 0.6 10^3/ul (0-0.8); ABS Neutrophils 7.2 10^3/ul (1.5-7.7); Eosinophil % 1.3 %; Lymphocyte % 14.4 %
[2019-03-27] MEDS: KCL 20 MEQ/100 ML IVPREMIX* 20 MEQ/100 ML BAG IV SCH ×3 (13:43→17:40)
[2019-03-27] MEDS: cefTRIAXone(*) 1 GM in NS 0.9% 50 ML* 50 ML IVPB SCH (15:55)
[2019-03-27] MEDS: Diltiazem TAB* 60 MG PO SCH ×2 (17:39→23:07)
[2019-03-27 18:39] LABS: Potassium 2.6 mmol/L (3.5-5.0)
[2019-03-27] MEDS ORDERED: Potassium Chlor TAB* 20 MEQ TAB.ER PO ONE (18:46)
--- NOTE | 2019-03-27 18:57 | PN ---
Subjective Date of Service: 03/27/19 Interval History: Patient lying in bed on assessment. Patient is awake and alert, but not engaging completely in ROS as she will answer some questions, but not others. Patient reports sob and cough. She denies cp, palpitations, nausea, vomiting. Patient answers all questions yes or no and does not provide any more information even when prompted. Objective Active Medications: Acetaminophen (Tylenol Tab*) 650 mg PO Q4H PRN PRN Reason: fever >/= to 38C Last Admin: 03/27/19 16:41 Dose: 650 mg Albuterol (Ventolin Hfa Inhaler*) 2 puff INH Q4H PRN PRN Reason: SHORTNESS OF BREATH Aspirin (Aspirin Ec Tab*) 81 mg PO DAILY [facility] Last Admin: 03/27/19 09:50 Dose: 81 mg Atorvastatin Calcium (Lipitor*) 40 mg PO BEDTIME [facility] Last Admin: 03/26/19 21:58 Dose: 40 mg Benztropine Mesylate (Cogentin Tab*) 1 mg PO DAILY PRN PRN Reason: extrapyrimidal side effects Last Admin: 03/26/19 10:47 Dose: 1 mg Bisacodyl (Dulcolax Supp*) 10 mg MN DAILY PRN PRN Reason: CONSTIPATION Last Admin: 03/25/19 16:45 Dose: 10 mg Bupropion HCl (Wellbutrin Xl *) 150 mg PO BID [facility] Last Admin: 03/27/19 09:50 Dose: 150 mg Diltiazem HCl (Cardizem Tab*) 60 mg PO Q6HR [facility] Last Admin: 03/27/19 17:39 Dose: 60 mg Duloxetine HCl (Cymbalta Cap*) 60 mg PO BID [facility] Last Admin: 03/27/19 09:50 Dose: 60 mg Heparin Sodium (Porcine) (Heparin Flush Picc/Ml/Cvc(*)) 0 ml FLUSH 0600,1800 [facility] Last Admin: 03/27/19 17:53 Dose: Not Given Heparin Sodium (Porcine) (Heparin Vial(*)) 5,000 units SUBCUT Q8HR [facility] Last Admin: 03/27/19 12:35 Dose: 5,000 units Sodium Chloride (Ns 0.9% 1000 Ml) 1,000 mls @ 75 mls/hr IV PER RATE [facility] Last Admin: 03/27/19 10:00 Dose: 75 mls/hr Ceftriaxone Sodium 1 gm/ (Sodium Chloride) 50 mls @ 100 mls/hr IVPB Q24H [facility] Last Admin: 03/27/19 15:55 Dose: 100 mls/hr Potassium Chloride (Potassium Chloride 20 Meq/100 Ml Ivpremix*) 20 meq in 100 mls @ 50 mls/hr IV Q2H CHON Stop: 03/27/19 18:59 Last Admin: 03/27/19 17:40 Dose: 50 mls/hr Potassium Chloride (Potassium Chloride 10 Meq/50 Ml Ivpremix*) 10 meq in 50 mls @ 50 mls/hr IV Q2H [facility] Stop: 03/27/19 21:59 Levothyroxine Sodium (Synthroid Tab*) 75 mcg PO DAILY@0600 [facility] Last Admin: 03/27/19 05:35 Dose: 75 mcg Mometasone Furoate/Formoterol Fumar (Dulera 200/5 Mdi*) 1 puff INH BID [facility] Last Admin: 03/27/19 07:37 Dose: 1 puff Montelukast Sodium (Singulair Tab*) 10 mg PO BEDTIME [facility] Last Admin: 03/26/19 21:58 Dose: 10 mg Olanzapine (Zyprexa Tab*) 5 mg PO DAILY [facility] Last Admin: 03/27/19 09:50 Dose: 5 mg Olanzapine (Zyprexa Tab*) 30 mg PO BEDTIME [facility] Last Admin: 03/26/19 22:03 Dose: 30 mg Ondansetron HCl (Zofran Inj*) 4 mg IV Q6H PRN PRN Reason: NAUSEA Last Admin: 03/26/19 19:45 Dose: 4 mg Potassium Chloride (Klor Con Er Tab*) 40 meq PO ONCE ONE Stop: 03/27/19 18:47 Spironolactone (Aldactone Tab*) 25 mg PO DAILY [facility] Last Admin: 03/27/19 09:50 Dose: 25 mg Tiotropium [place] (Spiriva Cap.Inh*) 1 cap INH DAILY [facility] Last Admin: 03/27/19 07:37 Dose: 1 cap Vital Signs - 8 hr 03/27/19 03/27/19 03/27/19 11:15 16:13 16:45 Temperature 99.7 F 101.1 F Pulse Rate 95 109 84 Respiratory 18 26 21 Rate Blood Pressure 122/70 112/74 (mmHg) O2 Sat by Pulse 94 95 Oximetry Oxygen Devices in Use Now: None Appearance: Comfortable, NAD Eyes: No Scleral Icterus, PERRLA Ears/Nose/Mouth/Throat: Clear Oropharnyx, Mucous Membranes Moist Neck: NL Appearance and Movements; NL JVP Respiratory: Symmetrical Chest Expansion and Respiratory Effort, Clear to Auscultation Cardiovascular: NL Sounds; No Murmurs; No JVD, RRR, No Edema Abdominal: NL Sounds; No Tenderness; No Distention Lymphatic: No Cervical Adenopathy Extremities: No Clubbing, Cyanosis Skin: - - Multiple superficial abrasion to right lower extremity Neurological: - - Alert and oriented to self. Does not answer remainder of orientation questions Nutrition: Taking PO's Result Diagrams: 03/27/19 12:13 03/27/19 17:55 Additional Lab and Data: Laboratory Results - last 24 hr 03/26/19 03/27/19 03/27/19 05:17 01:04 01:10 WBC RBC Hgb Hct MCV MCH MCHC RDW Plt Count MPV Neut % (Auto) Lymph % (Auto) [place] % (Auto) Eos % (Auto) Baso % (Auto) Absolute Neuts (auto) Absolute Lymphs (auto) Absolute Monos (auto) Absolute Eos (auto) Absolute Basos (auto) Absolute Nucleated RBC Immature Gran % Neutrophils % Band Neutrophils % Lymphocytes % Monocytes % Eosinophils % Nucleated RBC % Normal RBC Morphology Hem Pathologist Commnt Sodium Potassium TNP Chloride Carbon Dioxide Anion Gap BUN Creatinine Est GFR ( Amer) Est GFR (Non-Af Amer) BUN/Creatinine Ratio Glucose Lactic Acid Calcium Urine Color Aleksandra Urine Appearance Clear Urine pH 5.0 Ur Specific [place] 1.023 Urine Protein 1+(30 mg/dl) A Urine Ketones Trace A Urine Blood 1+ A Urine Nitrate Negative Urine Bilirubin Negative Urine Urobilinogen Negative Ur Leukocyte Esterase Negative Urine WBC (Auto) Trace(0-5/hpf) Urine RBC (Auto) 1+(3-5/hpf) A Urine Bacteria Absent Urine Glucose Negative 03/27/19 03/27/19 03/27/19 02:00 12:13 12:13 WBC 9.2 RBC 3.32 L Hgb 10.5 L Hct 31 L MCV 92 MCH 32 H MCHC 34 RDW 14 Plt Count 239 MPV 8.6 Neut % (Auto) 77.8 Lymph % (Auto) 14.4 [place] % (Auto) 6.4 Eos % (Auto) 1.3 Baso % (Auto) 0.1 Absolute Neuts (auto) 7.2 Absolute Lymphs (auto) 1.3 Absolute Monos (auto) 0.6 Absolute Eos (auto) 0.1 Absolute Basos (auto) 0.0 Absolute Nucleated RBC 0.0 Immature Gran % 23.0 H Neutrophils % 50.0 Band Neutrophils % 23.0 H Lymphocytes % 18.0 Monocytes % 6.0 Eosinophils % 3.0 Nucleated RBC % 0.0 Normal RBC Morphology Normal Hem Pathologist Commnt Sodium 139 Potassium 3.0 L 2.6 L* Chloride 108 Carbon Dioxide 23 Anion Gap 8 BUN 15 Creatinine 0.42 L Est GFR ( Amer) 187.5 Est GFR (Non-Af Amer) 155.0 BUN/Creatinine Ratio 35.7 H Glucose 130 H Lactic Acid Calcium 8.1 L Urine Color Urine Appearance Urine pH Ur Specific [place] Urine Protein Urine Ketones Urine Blood Urine Nitrate Urine Bilirubin Urine Urobilinogen Ur Leukocyte Esterase Urine WBC (Auto) Urine RBC (Auto) Urine Bacteria Urine Glucose 03/27/19 03/27/19 17:55 17:55 WBC RBC Hgb Hct MCV MCH MCHC RDW Plt Count MPV Neut % (Auto) Lymph % (Auto) [place] % (Auto) Eos % (Auto) Baso % (Auto) Absolute Neuts (auto) Absolute Lymphs (auto) Absolute Monos (auto) Absolute Eos (auto) Absolute Basos (auto) Absolute Nucleated RBC Immature Gran % Neutrophils % Band Neutrophils % Lymphocytes % Monocytes % Eosinophils % Nucleated RBC % Normal RBC Morphology Hem Pathologist Commnt Sodium Potassium TNP Chloride Carbon Dioxide Anion Gap BUN Creatinine Est GFR ( Amer) Est GFR (Non-Af Amer) BUN/Creatinine Ratio Glucose Lactic Acid 2.0 Calcium Urine Color Urine Appearance Urine pH Ur Specific [place] Urine Protein Urine Ketones Urine Blood Urine Nitrate Urine Bilirubin Urine Urobilinogen Ur Leukocyte Esterase Urine WBC (Auto) Urine RBC (Auto) Urine Bacteria Urine Glucose Microbiology and Other Data: Microbiology 03/26/19 14:27 Blood Venous Aerobic Blood Culture - Preliminary No Growth Day 1 03/26/19 14:27 Blood Venous Anaerobic Blood Culture - Preliminary No Growth Day 1 03/24/19 12:14 Blood Venous Aerobic Blood Culture - Preliminary No Growth Day 3 03/24/19 12:14 Blood Venous Anaerobic Blood Culture - Final Escherichia Coli 03/24/19 12:05 Blood Venous Aerobic Blood Culture - Final Escherichia Coli 03/24/19 12:05 Blood Venous Anaerobic Blood Culture - Preliminary No Growth Day 3 03/25/19 16:45 Stool Stool Occult Blood (MEDARDO) - Final 03/24/19 11:48 Urine Urine Culture - Final No Growth (<1,000 CFU/mL) 03/24/19 16:55 Nasal Nasal Screen MRSA (PCR) - Final Mrsa Not Detected Assess/Plan/Problems-Billing Ms Lui is a 58 yo F who has a h/o self injury behaviors, schizoaffective disorder- bipolar type, HTN, hypothyroidism and asthma who was found to be poorly responsive at the [facility] and was brought in to the ER where she was found to be in severe sepsis secondary to pneumonia and now subsequently found to have Ecoli bacteremia. - Patient Problems (1) Hypokalemia Comment: - Noted to be hypokalemic today, therefore, replacement ordered by Dr Garcia. - Recheck at 1999 - Tele (2) E. coli pneumonia Comment: - Had another fever this afternoon of 101.1 and she was noted to be tachycardic therefore lactic acid and blood cultures ordered. - Not needing any supplemental O2. - ID consulting and zosyn changed to Ceftriaxone. (3) Thyroid nodule Comment: - FNA completed of thyroid nodule on 03/25/19 (4) HTN (hypertension) Comment: - Normotensive - BP moderately elevated yesterday and diltiazem dose increased (5) Hypothyroidism Comment: - Cont home dose of synthroid. (6) SVT (supraventricular tachycardia) Comment: - Tele ordered as she is now on medical floor and not in ICU - Yesterday afternoon the patient has been having bursts of SVT. Restarted diltiazem CD that was held on admission. SVT episodes have decreased. Will resume higher dose of diltiazem. (7) Schizoaffective disorder Comment: - Supportive care - Cont home olanzapine, wellbutrin XL, cymbalta. (8) Severe sepsis Comment: - Patient remains intermittently febrile and tachycardic. - Had septic encephalopathy on admission (9) DVT prophylaxis Comment: - SQ heparin (10) Full code status Status and Disposition: Inpatient. Attending: Preston Smith
[2019-03-27] MEDS ORDERED: KCL 10 MEQ/50 ML IVPREMIX* 10 MEQ/50 ML BAG IV SCH (19:00)
[2019-03-27 19:58] LABS: BUN/Creatinine Ratio 34.9 (8-20); Calcium 7.9 mg/dL (8.6-10.3); EGFR African American 182.5 (>60); EGFR Non-African American 150.8 (>60)
[2019-03-27] MEDS: Atorvastatin* 40 MG TAB PO SCH (22:13)
[2019-03-27] MEDS: OLANzapine TAB* 10 MG PO SCH (22:14)
[2019-03-27] MEDS: Montelukast Sodium TAB* 10 MG PO SCH (22:14)
[2019-03-27 23:08] LABS: Urine Appearance Clear; Urine Bacteria Absent (Absent); Urine Bilirubin Negative (Negative); Urine Blood 2+ (Negative); Urine Color Yellow; Urine Glucose Negative (Negative); Urine Ketones Negative (Negative); Urine Nitrite Negative (Negative); Urine Protein 1+(30 mg/dL) (Negative); Urine Red Blood Cell 3+(>10/hpf) (Absent); Urine Specific Gravity 1.018 (1.010-1.030); Urine Urobilinogen Negative (Negative); Urine White Blood Cell Trace(0-5/hpf) (Absent)
[2019-03-28] MEDS: Levothyroxine TAB* 75 MCG TAB PO SCH (05:35)
[2019-03-28] MEDS: Acetaminophen TAB* 325 MG PO PRN ×2 (05:35→16:24)
[2019-03-28] MEDS: Diltiazem TAB* 60 MG PO SCH ×4 (05:36→23:51)
[2019-03-28] MEDS: Heparin VIAL(*) 5000 UNITS/ML VIAL (FIVE THOUSAND) SUBCUT SCH ×3 (05:37→21:31)
[2019-03-28] MEDS: Tiotropium CAP.INH* CAP.INH/18 MCG (USE ORDER SET !) INH SCH (07:38)
[2019-03-28] MEDS: Mometasone/Formoter 200/5 MDI INH SCH ×2 (07:38→19:04)
[2019-03-28 09:01] LABS: Hematocrit 30 % (35-47); Hemoglobin 10.2 g/dL (12.0-16.0); Mean Corpuscular HGB Conc 34 g/dL (31-36); Mean Corpuscular Hemoglobin 32 pg (27-31); Mean Corpuscular Volume 93 fL (80-97); Red Blood Count 3.21 10^6 /uL (3.70-4.87); Red Cell Distribution Width 15 % (10-15); White Blood Count 10.3 10^3/uL (3.5-10.8)
[2019-03-28 09:17] LABS: Albumin 2.4 g/dL (3.2-5.2); BUN/Creatinine Ratio 38.2 (8-20); Calcium 7.7 mg/dL (8.6-10.3); EGFR African American 239.3 (>60); EGFR Non-African American 197.8 (>60); Globulin 2.5 g/dL (2-4); Potassium 3.4 mmol/L (3.5-5.0); Total Bilirubin 0.6 mg/dL (0.2-1.0); Total Protein 4.9 g/dL (6.4-8.9)
[2019-03-28] MEDS: Spironolactone TAB* 25 MG PO SCH (09:56)
[2019-03-28] MEDS: Aspirin EC TAB* 81 MG TAB.EC PO SCH (09:57)
[2019-03-28] MEDS: OLANzapine TAB* 5 MG PO SCH (09:57)
[2019-03-28] MEDS: DULoxetine DR CAP* 60 MG CAP.DR PO SCH ×2 (09:57→21:28)
[2019-03-28] MEDS ORDERED: Potassium Chloride* LIQUID 20 MEQ/15 ML UDC PO ONE (10:03)
[2019-03-28 10:07] LABS: Mean Platelet Volume 9.3 fL (7.4-10.4); Platelet Count 192 10^3/uL (150-450)
--- NOTE | 2019-03-28 10:08 | PN ---
Progress Note - Progress Note Date of Service: 03/28/19 SOAP: Subjective: CC: bacteremia HPI: 58 year old woman with sepsis due to Ecoli bacteremia, had a fever yesterday. Has pain everywhere, worst in low back. No rash or diarrhea. Objective: Vital Signs Temp 37.3 C 03/27/19 23:15 Pulse 92 03/28/19 07:41 Resp 16 03/28/19 07:41 BP 122/64 03/28/19 03:15 Pulse Ox 92 03/28/19 07:41 Intake & Output 03/27/19 03/28/19 03/28/19 18:59 06:59 18:59 Intake Total 2636 1300 Output Total 300 1525 Balance 2336 -225 Intake: IV Fluids 1100 NS 0.9% 1100 IVPB 216 Potassium Chloride 216 Oral 1320 1300 Output: Fong 300 1525 Other: # Bowel Movements 4 1 Estimated Stool Amount Medium Small # Voids 0 Gen:awake, no distress HEENT: no thrush Heart:no murmur Lungs:CTA BL ABD:+bs NTND soft Skin: no rash Laboratory Results - last 24 hr 03/26/19 03/27/19 03/27/19 05:17 12:13 12:13 WBC 9.2 RBC 3.32 L Hgb 10.5 L Hct 31 L MCV 92 MCH 32 H MCHC 34 RDW 14 Plt Count 239 MPV 8.6 Neut % (Auto) 77.8 Lymph % (Auto) 14.4 [place] % (Auto) 6.4 Eos % (Auto) 1.3 Baso % (Auto) 0.1 Absolute Neuts (auto) 7.2 Absolute Lymphs (auto) 1.3 Absolute Monos (auto) 0.6 Absolute Eos (auto) 0.1 Absolute Basos (auto) 0.0 Absolute Nucleated RBC 0.0 Immature Gran % 23.0 H Neutrophils % 50.0 Band Neutrophils % 23.0 H Lymphocytes % 18.0 Monocytes % 6.0 Eosinophils % 3.0 Nucleated RBC % 0.0 Normal RBC Morphology Normal Hem Pathologist Commnt Sodium 139 Potassium 2.6 L* Chloride 108 Carbon Dioxide 23 Anion Gap 8 BUN 15 Creatinine 0.42 L Est GFR ( Amer) 187.5 Est GFR (Non-Af Amer) 155.0 BUN/Creatinine Ratio 35.7 H Glucose 130 H Lactic Acid Calcium 8.1 L Total Bilirubin AST ALT Alkaline Phosphatase Total Protein Albumin Globulin Albumin/Globulin Ratio Urine Color Urine Appearance Urine pH Ur Specific [place] Urine Protein Urine Ketones Urine Blood Urine Nitrate Urine Bilirubin Urine Urobilinogen Ur Leukocyte Esterase Urine WBC (Auto) Urine RBC (Auto) Urine Bacteria Urine Glucose 03/27/19 03/27/19 03/27/19 17:55 17:55 19:30 WBC RBC Hgb Hct MCV MCH MCHC RDW Plt Count MPV Neut % (Auto) Lymph % (Auto) [place] % (Auto) Eos % (Auto) Baso % (Auto) Absolute Neuts (auto) Absolute Lymphs (auto) Absolute Monos (auto) Absolute Eos (auto) Absolute Basos (auto) Absolute Nucleated RBC Immature Gran % Neutrophils % Band Neutrophils % Lymphocytes % Monocytes % Eosinophils % Nucleated RBC % Normal RBC Morphology Hem Pathologist Commnt Sodium Potassium TNP 3.9 Chloride Carbon Dioxide Anion Gap BUN Creatinine Est GFR ( Amer) Est GFR (Non-Af Amer) BUN/Creatinine Ratio Glucose Lactic Acid 2.0 Calcium Total Bilirubin AST ALT Alkaline Phosphatase Total Protein Albumin Globulin Albumin/Globulin Ratio Urine Color Urine Appearance Urine pH Ur Specific [place] Urine Protein Urine Ketones Urine Blood Urine Nitrate Urine Bilirubin Urine Urobilinogen Ur Leukocyte Esterase Urine WBC (Auto) Urine RBC (Auto) Urine Bacteria Urine Glucose 03/27/19 03/27/19 03/28/19 19:30 19:50 08:35 WBC 10.3 RBC 3.21 L Hgb 10.2 L Hct 30 L MCV 93 MCH 32 H MCHC 34 RDW 15 Plt Count MPV Neut % (Auto) Lymph % (Auto) [place] % (Auto) Eos % (Auto) Baso % (Auto) Absolute Neuts (auto) Absolute Lymphs (auto) Absolute Monos (auto) Absolute Eos (auto) Absolute Basos (auto) Absolute Nucleated RBC Immature Gran % Neutrophils % Band Neutrophils % Lymphocytes % Monocytes % Eosinophils % Nucleated RBC % Normal RBC Morphology Hem Pathologist Commnt Sodium 137 Potassium 4.0 Chloride 106 Carbon Dioxide 24 Anion Gap 7 BUN 15 Creatinine 0.43 L Est GFR ( Amer) 182.5 Est GFR (Non-Af Amer) 150.8 BUN/Creatinine Ratio 34.9 H Glucose 154 H Lactic Acid Calcium 7.9 L Total Bilirubin AST ALT Alkaline Phosphatase Total Protein Albumin Globulin Albumin/Globulin Ratio Urine Color Yellow Urine Appearance Clear Urine pH 6.0 Ur Specific [place] 1.018 Urine Protein 1+(30 mg/dl) A Urine Ketones Negative Urine Blood 2+ A Urine Nitrate Negative Urine Bilirubin Negative Urine Urobilinogen Negative Ur Leukocyte Esterase Negative Urine WBC (Auto) Trace(0-5/hpf) Urine RBC (Auto) 3+(>10/hpf) A Urine Bacteria Absent Urine Glucose Negative 03/28/19 08:35 WBC RBC Hgb Hct MCV MCH MCHC RDW Plt Count MPV Neut % (Auto) Lymph % (Auto) [place] % (Auto) Eos % (Auto) Baso % (Auto) Absolute Neuts (auto) Absolute Lymphs (auto) Absolute Monos (auto) Absolute Eos (auto) Absolute Basos (auto) Absolute Nucleated RBC Immature Gran % Neutrophils % Band Neutrophils % Lymphocytes % Monocytes % Eosinophils % Nucleated RBC % Normal RBC Morphology Hem Pathologist Commnt Sodium 138 Potassium 3.4 L Chloride 106 Carbon Dioxide 25 Anion Gap 7 BUN 13 Creatinine 0.34 L Est GFR ( Amer) 239.3 Est GFR (Non-Af Amer) 197.8 BUN/Creatinine Ratio 38.2 H Glucose 108 H Lactic Acid Calcium 7.7 L Total Bilirubin 0.60 AST 50 H ALT 45 Alkaline Phosphatase 79 Total Protein 4.9 L Albumin 2.4 L Globulin 2.5 Albumin/Globulin Ratio 1.0 Urine Color Urine Appearance Urine pH Ur Specific [place] Urine Protein Urine Ketones Urine Blood Urine Nitrate Urine Bilirubin Urine Urobilinogen Ur Leukocyte Esterase Urine WBC (Auto) Urine RBC (Auto) Urine Bacteria Urine Glucose Assessment: 1. Ecoli bacteremia, UC negative, ongoing low back pain, spine infection on differential 2. Depression 3. transaminitis Plan: 1. continue ceftriaxone, MRI L spine with contrast; discussed with Amisha Centeno NP
[2019-03-28 10:14] LABS: ABS Eosinophils 0.1 10^3/ul (0-0.6)
[2019-03-28] MEDS: BuPROPion XL* 150 MG TAB.XL PO SCH ×2 (10:35→21:28)
[2019-03-28] MEDS: NS 0.9% 1000 ML** 1,000 ML IV SCH (11:47)
--- NOTE | 2019-03-28 13:21 | PN ---
Subjective Date of Service: 03/28/19 Interval History: Resting in bed on assessment. More engaging today. Reports she is experiencing low back pain. She denies cp, sob, palpitations, fever, chills. Objective Active Medications: Acetaminophen (Tylenol Tab*) 650 mg PO Q4H PRN PRN Reason: fever >/= to 38C Last Admin: 03/28/19 05:35 Dose: 650 mg Albuterol (Ventolin Hfa Inhaler*) 2 puff INH Q4H PRN PRN Reason: SHORTNESS OF BREATH Aspirin (Aspirin Ec Tab*) 81 mg PO DAILY [facility] Last Admin: 03/28/19 09:57 Dose: 81 mg Atorvastatin Calcium (Lipitor*) 40 mg PO BEDTIME [facility] Last Admin: 03/27/19 22:13 Dose: 40 mg Benztropine Mesylate (Cogentin Tab*) 1 mg PO DAILY PRN PRN Reason: extrapyrimidal side effects Last Admin: 03/26/19 10:47 Dose: 1 mg Bisacodyl (Dulcolax Supp*) 10 mg TN DAILY PRN PRN Reason: CONSTIPATION Last Admin: 03/25/19 16:45 Dose: 10 mg Bupropion HCl (Wellbutrin Xl *) 150 mg PO BID [facility] Last Admin: 03/28/19 10:35 Dose: 150 mg Diltiazem HCl (Cardizem Tab*) 60 mg PO Q6HR [facility] Last Admin: 03/28/19 12:50 Dose: 60 mg Duloxetine HCl (Cymbalta Cap*) 60 mg PO BID [facility] Last Admin: 03/28/19 09:57 Dose: 60 mg Heparin Sodium (Porcine) (Heparin Flush Picc/Ml/Cvc(*)) 0 ml FLUSH 0600,1800 [facility] Last Admin: 03/28/19 05:36 Dose: 5 ml Heparin Sodium (Porcine) (Heparin Vial(*)) 5,000 units SUBCUT Q8HR [facility] Last Admin: 03/28/19 05:37 Dose: 5,000 units Sodium Chloride (Ns 0.9% 1000 Ml) 1,000 mls @ 75 mls/hr IV PER RATE [facility] Last Admin: 03/28/19 11:47 Dose: 75 mls/hr Ceftriaxone Sodium 1 gm/ (Sodium Chloride) 50 mls @ 100 mls/hr IVPB Q24H [facility] Last Admin: 03/27/19 15:55 Dose: 100 mls/hr Levothyroxine Sodium (Synthroid Tab*) 75 mcg PO DAILY@0600 [facility] Last Admin: 03/28/19 05:35 Dose: 75 mcg Mometasone Furoate/Formoterol Fumar (Dulera 200/5 Mdi*) 1 puff INH BID [facility] Last Admin: 03/28/19 07:38 Dose: 1 puff Montelukast Sodium (Singulair Tab*) 10 mg PO BEDTIME [facility] Last Admin: 03/27/19 22:14 Dose: 10 mg Olanzapine (Zyprexa Tab*) 5 mg PO DAILY [facility] Last Admin: 03/28/19 09:57 Dose: 5 mg Olanzapine (Zyprexa Tab*) 30 mg PO BEDTIME [facility] Last Admin: 03/27/19 22:14 Dose: 30 mg Ondansetron HCl (Zofran Inj*) 4 mg IV Q6H PRN PRN Reason: NAUSEA Last Admin: 03/26/19 19:45 Dose: 4 mg Spironolactone (Aldactone Tab*) 25 mg PO DAILY [facility] Last Admin: 03/28/19 09:56 Dose: 25 mg Tiotropium [place] (Spiriva Cap.Inh*) 1 cap INH DAILY [facility] Last Admin: 03/28/19 07:38 Dose: 1 cap Vital Signs - 8 hr 03/28/19 03/28/19 03/28/19 07:15 07:41 11:15 Temperature 98.8 F 99.5 F Pulse Rate 94 92 105 Respiratory 20 16 20 Rate Blood Pressure 123/63 116/59 (mmHg) O2 Sat by Pulse 92 92 94 Oximetry Oxygen Devices in Use Now: None Appearance: Comfortable, NAD Eyes: No Scleral Icterus Ears/Nose/Mouth/Throat: Clear Oropharnyx, Mucous Membranes Moist Neck: NL Appearance and Movements; NL JVP Respiratory: Symmetrical Chest Expansion and Respiratory Effort, Clear to Auscultation Cardiovascular: NL Sounds; No Murmurs; No JVD, RRR, No Edema Abdominal: NL Sounds; No Tenderness; No Distention Lymphatic: No Cervical Adenopathy Extremities: - - Superficial healed abrasion to LLE. RLE cooler to touch compared to LLE Neurological: NL Muscle Strength and Tone, - - Alert to self and place. Strength is equal, but overall weak. Patient takes significant prompting to engage in neuro exam. Nutrition: Taking PO's Result Diagrams: 03/28/19 08:35 03/28/19 08:35 Additional Lab and Data: Laboratory Results - last 24 hr 03/27/19 03/27/19 03/27/19 12:13 12:13 17:55 WBC 9.2 RBC 3.32 L Hgb 10.5 L Hct 31 L MCV 92 MCH 32 H MCHC 34 RDW 14 Plt Count 239 MPV 8.6 Neut % (Auto) 77.8 Lymph % (Auto) 14.4 [place] % (Auto) 6.4 Eos % (Auto) 1.3 Baso % (Auto) 0.1 Absolute Neuts (auto) 7.2 Absolute Lymphs (auto) 1.3 Absolute Monos (auto) 0.6 Absolute Eos (auto) 0.1 Absolute Basos (auto) 0.0 Absolute Nucleated RBC 0.0 Immature Gran % 23.0 H Neutrophils % 50.0 Band Neutrophils % 23.0 H Lymphocytes % 18.0 Monocytes % 6.0 Eosinophils % 3.0 Metamyelocytes % Nucleated RBC % 0.0 Abs Neuts (Manual) Abs Lymphs (Manual) Abs Monocytes (Manual) Absolute Eos (Manual) Normal RBC Morphology Normal Sodium 139 Potassium 2.6 L* TNP Chloride 108 Carbon Dioxide 23 Anion Gap 8 BUN 15 Creatinine 0.42 L Est GFR ( Amer) 187.5 Est GFR (Non-Af Amer) 155.0 BUN/Creatinine Ratio 35.7 H Glucose 130 H Lactic Acid Calcium 8.1 L Total Bilirubin AST ALT Alkaline Phosphatase Total Protein Albumin Globulin Albumin/Globulin Ratio Urine Color Urine Appearance Urine pH Ur Specific [place] Urine Protein Urine Ketones Urine Blood Urine Nitrate Urine Bilirubin Urine Urobilinogen Ur Leukocyte Esterase Urine WBC (Auto) Urine RBC (Auto) Urine Bacteria Urine Glucose 03/27/19 03/27/19 03/27/19 17:55 19:30 19:30 WBC RBC Hgb Hct MCV MCH MCHC RDW Plt Count MPV Neut % (Auto) Lymph % (Auto) [place] % (Auto) Eos % (Auto) Baso % (Auto) Absolute Neuts (auto) Absolute Lymphs (auto) Absolute Monos (auto) Absolute Eos (auto) Absolute Basos (auto) Absolute Nucleated RBC Immature Gran % Neutrophils % Band Neutrophils % Lymphocytes % Monocytes % Eosinophils % Metamyelocytes % Nucleated RBC % Abs Neuts (Manual) Abs Lymphs (Manual) Abs Monocytes (Manual) Absolute Eos (Manual) Normal RBC Morphology Sodium 137 Potassium 3.9 4.0 Chloride 106 Carbon Dioxide 24 Anion Gap 7 BUN 15 Creatinine 0.43 L Est GFR ( Amer) 182.5 Est GFR (Non-Af Amer) 150.8 BUN/Creatinine Ratio 34.9 H Glucose 154 H Lactic Acid 2.0 Calcium 7.9 L Total Bilirubin AST ALT Alkaline Phosphatase Total Protein Albumin Globulin Albumin/Globulin Ratio Urine Color Urine Appearance Urine pH Ur Specific [place] Urine Protein Urine Ketones Urine Blood Urine Nitrate Urine Bilirubin Urine Urobilinogen Ur Leukocyte Esterase Urine WBC (Auto) Urine RBC (Auto) Urine Bacteria Urine Glucose 03/27/19 03/28/19 03/28/19 19:50 08:35 08:35 WBC 10.3 RBC 3.21 L Hgb 10.2 L Hct 30 L MCV 93 MCH 32 H MCHC 34 RDW 15 Plt Count 192 MPV 9.3 Neut % (Auto) Not Reportable Lymph % (Auto) Not Reportable [place] % (Auto) Not Reportable Eos % (Auto) Not Reportable Baso % (Auto) Not Reportable Absolute Neuts (auto) Not Reportable Absolute Lymphs (auto) Not Reportable Absolute Monos (auto) Not Reportable Absolute Eos (auto) Not Reportable Absolute Basos (auto) Not Reportable Absolute Nucleated RBC Not Reportable Immature Gran % 4.0 Neutrophils % 80.0 Band Neutrophils % 3.0 Lymphocytes % 9.0 Monocytes % 6.0 Eosinophils % 1.0 Metamyelocytes % 1.0 Nucleated RBC % Not Reportable Abs Neuts (Manual) 8.7 H Abs Lymphs (Manual) 0.9 L Abs Monocytes (Manual) 0.6 Absolute Eos (Manual) 0.1 Normal RBC Morphology Normal Sodium 138 Potassium 3.4 L Chloride 106 Carbon Dioxide 25 Anion Gap 7 BUN 13 Creatinine 0.34 L Est GFR ( Amer) 239.3 Est GFR (Non-Af Amer) 197.8 BUN/Creatinine Ratio 38.2 H Glucose 108 H Lactic Acid Calcium 7.7 L Total Bilirubin 0.60 AST 50 H ALT 45 Alkaline Phosphatase 79 Total Protein 4.9 L Albumin 2.4 L Globulin 2.5 Albumin/Globulin Ratio 1.0 Urine Color Yellow Urine Appearance Clear Urine pH 6.0 Ur Specific [place] 1.018 Urine Protein 1+(30 mg/dl) A Urine Ketones Negative Urine Blood 2+ A Urine Nitrate Negative Urine Bilirubin Negative Urine Urobilinogen Negative Ur Leukocyte Esterase Negative Urine WBC (Auto) Trace(0-5/hpf) Urine RBC (Auto) 3+(>10/hpf) A Urine Bacteria Absent Urine Glucose Negative Microbiology and Other Data: Microbiology 03/24/19 12:14 Blood Venous Aerobic Blood Culture - Preliminary No Growth Day 4 03/24/19 12:14 Blood Venous Anaerobic Blood Culture - Final Escherichia Coli 03/24/19 12:05 Blood Venous Aerobic Blood Culture - Final Escherichia Coli 03/24/19 12:05 Blood Venous Anaerobic Blood Culture - Preliminary No Growth Day 4 03/27/19 01:04 Urine Urine Culture - Final No Growth (<1,000 CFU/mL) 03/26/19 14:27 Blood Venous Aerobic Blood Culture - Preliminary No Growth Day 1 03/26/19 14:27 Blood Venous Anaerobic Blood Culture - Preliminary No Growth Day 1 03/25/19 16:45 Stool Stool Occult Blood (MEDARDO) - Final 03/24/19 11:48 Urine Urine Culture - Final No Growth (<1,000 CFU/mL) 03/24/19 16:55 Nasal Nasal Screen MRSA (PCR) - Final Mrsa Not Detected Assess/Plan/Problems-Billing Ms Lui is a 58 yo F who has a h/o self injury behaviors, schizoaffective disorder- bipolar type, HTN, hypothyroidism and asthma who was found to be poorly responsive at the [facility] and was brought in to the ER where she was found to be in severe sepsis secondary to pneumonia and now subsequently found to have Ecoli bacteremia. - Patient Problems (1) Bacteremia Comment: - Discussed case with Dr Bravo. Given UC negative and patient's c/o back pain MRI Lumbar Spine with Contrast ordered. - Temp 101.1 and tachycardic yesterday. Repeat Lactic 2.0. Repeat BC pending. - Cont Ceftriaxone. (2) Hypokalemia Comment: - Hypokalemic improved yesterday with replacement. Was 2.6 and today 3.4 - Given 3.4. PO Potassium ordered - Cont Tele - Cont to monitor BMP (3) Thyroid nodule Comment: - FNA completed of thyroid nodule on 03/25/19 - Awaiting results. (4) HTN (hypertension) Comment: - Normotensive - BP moderately elevated earlier on admission and diltiazem dose increased - Cont increased dose (5) Hypothyroidism Comment: - Cont home dose of synthroid. (6) SVT (supraventricular tachycardia) Comment: - Patient has been sinus to sinus tach on tele. No episodes of SVT - 03/25 patient reported to have bursts of SVT. Restarted diltiazem CD that was held on admission. SVT episodes have decreased, therefore, higher dose of diltiazem ordered. - Cont tele - Cont to monitor vital signs (7) Schizoaffective disorder Comment: - Supportive care - Cont home olanzapine, wellbutrin XL, cymbalta. (8) Severe sepsis Comment: - Last fever yesterday - Continues to be intermittently tachycardic. - Had septic encephalopathy on admission (9) DVT prophylaxis Comment: - SQ heparin (10) Full code status Status and Disposition: Inpatient. Will most likely need TEE when medically stable. Attending: Preston Smith
[2019-03-28] MEDS: cefTRIAXone(*) 1 GM in NS 0.9% 50 ML* 50 ML IVPB SCH (16:24)
[2019-03-28] MEDS ORDERED: Gadoteridol* (CONTRAST) 279.3 MG/ML 10 ML IV ONE (20:21)
[2019-03-28] MEDS: Montelukast Sodium TAB* 10 MG PO SCH (21:28)
[2019-03-28] MEDS: Atorvastatin* 40 MG TAB PO SCH (21:28)
[2019-03-28] MEDS: OLANzapine TAB* 10 MG PO SCH (21:29)
[2019-03-29] MEDS: Heparin VIAL(*) 5000 UNITS/ML VIAL (FIVE THOUSAND) SUBCUT SCH ×3 (06:15→22:34)
[2019-03-29] MEDS: Diltiazem TAB* 60 MG PO SCH ×4 (06:15→22:33)
[2019-03-29] MEDS: Levothyroxine TAB* 75 MCG TAB PO SCH (06:15)
[2019-03-29] MEDS: Mometasone/Formoter 200/5 MDI INH SCH ×2 (07:18→19:27)
[2019-03-29] MEDS: Tiotropium CAP.INH* CAP.INH/18 MCG (USE ORDER SET !) INH SCH (07:18)
[2019-03-29] MEDS: Aspirin EC TAB* 81 MG TAB.EC PO SCH ×2 (08:46→09:58)
[2019-03-29] MEDS: OLANzapine TAB* 5 MG PO SCH ×2 (08:46→09:57)
[2019-03-29] MEDS: Spironolactone TAB* 25 MG PO SCH ×3 (08:46→11:53)
[2019-03-29] MEDS: DULoxetine DR CAP* 60 MG CAP.DR PO SCH ×3 (08:47→22:33)
[2019-03-29] MEDS: BuPROPion XL* 150 MG TAB.XL PO SCH ×2 (08:47→09:57)
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
--- NOTE | 2019-03-29 09:51 | PN ---
Progress Note - Progress Note Date of Service: 03/29/19 SOAP: Subjective: CC: bacteremia HPI: 58 year old woman with sepsis due to Ecoli bacteremia. She has long standing lower extemity disability requiring a walker to walk. No fever, rash, or diarrhea, ongoing low back pain. Objective: Vital Signs Temp 37.8 C 03/29/19 04:02 Pulse 105 03/29/19 07:20 Resp 16 03/29/19 07:20 BP 130/68 03/29/19 04:02 Pulse Ox 94 03/29/19 07:20 Intake & Output 03/28/19 03/29/19 03/29/19 18:59 06:59 18:59 Intake Total 920 0 Output Total 2200 3500 Balance -1280 -3500 Weight 132 lb 15.02 oz Intake: Oral 920 0 Output: Fong 2200 3500 Other: Date of Last Bowel [id number] Movement # Bowel Movements 1 1 Estimated Stool Amount Medium Large Gen:awake, no distress HEENT: no thrush Heart:no murmur Lungs:CTA BL ABD:+bs NTND soft Skin: no rash MSK: L spine tender to palpation Laboratory Results - last 24 hr 03/28/19 08:35 WBC 10.3 RBC 3.21 L Hgb 10.2 L Hct 30 L MCV 93 MCH 32 H MCHC 34 RDW 15 Plt Count 192 MPV 9.3 Neut % (Auto) Not Reportable Lymph % (Auto) Not Reportable [place] % (Auto) Not Reportable Eos % (Auto) Not Reportable Baso % (Auto) Not Reportable Absolute Neuts (auto) Not Reportable Absolute Lymphs (auto) Not Reportable Absolute Monos (auto) Not Reportable Absolute Eos (auto) Not Reportable Absolute Basos (auto) Not Reportable Absolute Nucleated RBC Not Reportable Immature Gran % 4.0 Neutrophils % 80.0 Band Neutrophils % 3.0 Lymphocytes % 9.0 Monocytes % 6.0 Eosinophils % 1.0 Metamyelocytes % 1.0 Nucleated RBC % Not Reportable Abs Neuts (Manual) 8.7 H Abs Lymphs (Manual) 0.9 L Abs Monocytes (Manual) 0.6 Absolute Eos (Manual) 0.1 Normal RBC Morphology Normal Assessment: 1. Ecoli bacteremia, UC negative, ongoing low back pain due to vertebral osteodiskitis L spine, no epidural abscess 2. Depression 3. transaminitis Plan: 1. continue ceftriaxone 1 gm daily, day 5/56 w weekly cbc, cmp, crp, PICC when able Discussed bee Centeno NP
--- NOTE | 2019-03-29 15:56 | PN ---
Subjective Date of Service: 03/29/19 Interval History: Received call from RN that patient was refusing medications, kicked physical therapy out of her room, threatening to pull out central line, and demanding to leave. Later when checking back with RN she reports patient did take her medications and is more cooperative then previously. Given outbursts, concern for safety (patient pulling out central line or leaving), and hx of psychosis; consult requested from psych. On assessment patient is lying in bed. She has just had ADLs completed with RN and aide. She reports she continues to have low back pain, but it is tolerable. Denies fever, chills, cp, sob. Objective Active Medications: Acetaminophen (Tylenol Tab*) 650 mg PO Q4H PRN PRN Reason: fever >/= to 38C Last Admin: 03/28/19 16:24 Dose: 650 mg Albuterol (Ventolin Hfa Inhaler*) 2 puff INH Q4H PRN PRN Reason: SHORTNESS OF BREATH Aspirin (Aspirin Ec Tab*) 81 mg PO DAILY [facility] Last Admin: 03/29/19 09:58 Dose: Not Given Atorvastatin Calcium (Lipitor*) 40 mg PO BEDTIME [facility] Last Admin: 03/28/19 21:28 Dose: 40 mg Benztropine Mesylate (Cogentin Tab*) 1 mg PO DAILY PRN PRN Reason: extrapyrimidal side effects Last Admin: 03/26/19 10:47 Dose: 1 mg Bisacodyl (Dulcolax Supp*) 10 mg [place] DAILY PRN PRN Reason: CONSTIPATION Last Admin: 03/25/19 16:45 Dose: 10 mg Diltiazem HCl (Cardizem Tab*) 60 mg PO Q6HR [facility] Last Admin: 03/29/19 11:53 Dose: 60 mg Duloxetine HCl (Cymbalta Cap*) 60 mg PO BID [facility] Last Admin: 03/29/19 09:57 Dose: Not Given Heparin Sodium (Porcine) (Heparin Flush Picc/Ml/Cvc(*)) 0 ml FLUSH 0600,1800 [facility] Last Admin: 03/29/19 06:15 Dose: 1 ml Heparin Sodium (Porcine) (Heparin Vial(*)) 5,000 units SUBCUT Q8HR [facility] Last Admin: 03/29/19 13:44 Dose: Not Given Sodium Chloride (Ns 0.9% 1000 Ml) 1,000 mls @ 75 mls/hr IV PER RATE [facility] Last Admin: 03/28/19 11:47 Dose: 75 mls/hr Ceftriaxone Sodium 1 gm/ (Sodium Chloride) 50 mls @ 100 mls/hr IVPB Q24H [facility] Last Admin: 03/28/19 16:24 Dose: 100 mls/hr Levothyroxine Sodium (Synthroid Tab*) 75 mcg PO DAILY@0600 [facility] Last Admin: 03/29/19 06:15 Dose: 75 mcg Mometasone Furoate/Formoterol Fumar (Dulera 200/5 Mdi*) 1 puff INH BID [facility] Last Admin: 03/29/19 07:18 Dose: 1 puff Montelukast Sodium (Singulair Tab*) 10 mg PO BEDTIME [facility] Last Admin: 03/28/19 21:28 Dose: 10 mg Olanzapine (Zyprexa Tab*) 5 mg PO DAILY [facility] Last Admin: 03/29/19 09:57 Dose: Not Given Olanzapine (Zyprexa Tab*) 30 mg PO BEDTIME [facility] Last Admin: 03/28/19 21:29 Dose: 20 mg Ondansetron HCl (Zofran Inj*) 4 mg IV Q6H PRN PRN Reason: NAUSEA Last Admin: 03/26/19 19:45 Dose: 4 mg Spironolactone (Aldactone Tab*) 25 mg PO DAILY [facility] Last Admin: 03/29/19 11:53 Dose: 25 mg Tiotropium [place] (Spiriva Cap.Inh*) 1 cap INH DAILY [facility] Last Admin: 03/29/19 07:18 Dose: 1 cap Vital Signs - 8 hr 03/29/19 03/29/19 08:00 11:15 Temperature 98.4 F Pulse Rate 97 Respiratory 18 19 Rate Blood Pressure 126/66 (mmHg) O2 Sat by Pulse 96 Oximetry Oxygen Devices in Use Now: None Appearance: Comfortable, NAD Eyes: No Scleral Icterus Ears/Nose/Mouth/Throat: Clear Oropharnyx, Mucous Membranes Moist Neck: NL Appearance and Movements; NL JVP Respiratory: Symmetrical Chest Expansion and Respiratory Effort, Clear to Auscultation Cardiovascular: NL Sounds; No Murmurs; No JVD, RRR, No Edema Lymphatic: No Cervical Adenopathy Extremities: No Clubbing, Cyanosis Skin: - - Superficial abrasion to lle. Neurological: - - Alert to self and place. UE and LE strength equal, but overall weak Nutrition: Taking PO's Result Diagrams: 03/28/19 08:35 03/28/19 08:35 Additional Lab and Data: Refused lab draw today. Microbiology and Other Data: Microbiology 03/26/19 14:27 Aerobic Blood Culture - Preliminary Blood Venous No Growth Day 3 Anaerobic Blood Culture - Preliminary No Growth Day 3 03/24/19 12:14 Aerobic Blood Culture - Final Blood Venous No Growth Day 5 Anaerobic Blood Culture - Final Escherichia Coli 03/24/19 12:05 Aerobic Blood Culture - Final Blood Venous Escherichia Coli Anaerobic Blood Culture - Final No Growth Day 5 03/27/19 19:30 Aerobic Blood Culture - Preliminary Blood Venous No Growth Day 1 Anaerobic Blood Culture - Preliminary No Growth Day 1 03/27/19 17:55 Aerobic Blood Culture - Preliminary Blood Venous No Growth Day 1 Anaerobic Blood Culture - Preliminary No Growth Day 1 03/27/19 01:04 Urine Culture - Final Urine No Growth (<1,000 CFU/mL) 03/25/19 16:45 Stool Occult Blood (MEDARDO) - Final Stool 03/24/19 11:48 Urine Culture - Final Urine No Growth (<1,000 CFU/mL) 03/24/19 16:55 Nasal Screen MRSA (PCR) - Final Nasal Mrsa Not Detected Assess/Plan/Problems-Billing Ms Lui is a 58 yo F who has a h/o self injury behaviors, schizoaffective disorder- bipolar type, HTN, hypothyroidism and asthma who was found to be poorly responsive at the [facility] and was brought in to the ER where she was found to be in severe sepsis secondary to pneumonia and now subsequently found to have Ecoli bacteremia. 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 No epidural abscess - Per ID plan for Ceftraixone 1 gram daily for 56 days. Today . Will also need weekly cbc, cmp, crp. - PICC ordered. (2) Hypokalemia Comment: - No labs today as patient refused. - On admission K was 2.6 and replacement given. - Yesterday 3.4 and PO replacement ordered - Patient also on Aldactone - Cont Tele - Cont to monitor BMP (3) Thyroid nodule Comment: - FNA completed of thyroid nodule on 03/25/19 - Awaiting results. (4) HTN (hypertension) Comment: - Normotensive - Cont Cardizem and Aldactone (5) Hypothyroidism Comment: - Cont home dose of synthroid. (6) SVT (supraventricular tachycardia) Comment: - Patient has been sinus to sinus tach on tele. No episodes of SVT - 03/25 patient reported to have bursts of SVT and patient was restarted on diltiazem CD that was held on admission. - Cont tele - Cont to monitor vital signs (7) Schizoaffective disorder Comment: - Psych consulting and we appreciate their assistance - Wellbutrin discontinued by psych - Psych also recommends avoiding anti-cholinergic medications and benzos - Patient does not have capacity per psych - Supportive care - Cont home olanzapine and cymbalta. (8) Severe sepsis Comment: - Last fever 03/27 - Continues to be intermittently tachycardic. - Had septic encephalopathy on admission (9) DVT prophylaxis Comment: - SQ heparin (10) Full code status Status and Disposition: Inpatient. Will most likely need TEE when medically stable. Does not have capacity per psych Attending: Preston Smith
[2019-03-29] MEDS: cefTRIAXone(*) 1 GM in NS 0.9% 50 ML* 50 ML IVPB SCH (16:51)
[2019-03-29] MEDS: Montelukast Sodium TAB* 10 MG PO SCH (22:33)
[2019-03-29] MEDS: OLANzapine TAB* 10 MG PO SCH (22:33)
[2019-03-29] MEDS: Atorvastatin* 40 MG TAB PO SCH (22:33)
[2019-03-30] MEDS: Diltiazem TAB* 60 MG PO SCH ×3 (06:52→17:27)
[2019-03-30] MEDS: Levothyroxine TAB* 75 MCG TAB PO SCH (06:52)
[2019-03-30] MEDS: Heparin VIAL(*) 5000 UNITS/ML VIAL (FIVE THOUSAND) SUBCUT SCH ×3 (06:53→21:37)
[2019-03-30 07:13] LABS: Hematocrit 27 % (35-47); Hemoglobin 9.5 g/dL (12.0-16.0); Mean Corpuscular HGB Conc 35 g/dL (31-36); Mean Corpuscular Hemoglobin 32 pg (27-31); Mean Corpuscular Volume 91 fL (80-97); Mean Platelet Volume 8.2 fL (7.4-10.4); Platelet Count 298 10^3/uL (150-450); Red Blood Count 2.96 10^6 /uL (3.70-4.87); Red Cell Distribution Width 14 % (10-15); White Blood Count 8.6 10^3/uL (3.5-10.8)
[2019-03-30 07:29] LABS: Calcium 7.3 mg/dL (8.6-10.3); EGFR Non-African American 179.4 (>60); Magnesium 1.7 mg/dL (1.9-2.7); Potassium 3.1 mmol/L (3.5-5.0)
[2019-03-30] MEDS: Tiotropium CAP.INH* CAP.INH/18 MCG (USE ORDER SET !) INH SCH (07:54)
[2019-03-30] MEDS: Mometasone/Formoter 200/5 MDI INH SCH ×2 (07:54→19:15)
[2019-03-30 08:03] LABS: ABS Eosinophils 0.1 10^3/ul (0-0.6); ABS Lymphocytes 1.5 10^3/ul (1.0-4.8); ABS Monocytes 1.1 10^3/ul (0-0.8); ABS Neutrophils 5.8 10^3/ul (1.5-7.7); Eosinophil % 1.7 %; Lymphocyte % 17.9 %; Nucleated Red Blood Cells % 0.1
[2019-03-30] MEDS: DULoxetine DR CAP* 60 MG CAP.DR PO SCH ×2 (08:42→21:38)
[2019-03-30] MEDS: Aspirin EC TAB* 81 MG TAB.EC PO SCH (08:42)
[2019-03-30] MEDS: OLANzapine TAB* 5 MG PO SCH (08:43)
[2019-03-30] MEDS: Spironolactone TAB* 25 MG PO SCH (08:43)
[2019-03-30] MEDS ORDERED: KCL 10 MEQ/50 ML IVPREMIX* 10 MEQ/50 ML BAG IV ONE (09:11)
[2019-03-30] MEDS ORDERED: Potassium Chlor TAB* 20 MEQ TAB.ER PO ONE ×2 (09:11→09:51)
[2019-03-30] MEDS ORDERED: Magnesium Sulfate 2 GM IV* 2 GM/50 ML BAG IVPB ONE (09:12)
[2019-03-30] MEDS ORDERED: Magnesium Oxide TAB* 400 MG PO SCH (10:00)
--- NOTE | 2019-03-30 11:55 | PN ---
Subjective Date of Service: 03/30/19 Interval History: Resting in recliner on assessment. Patient is more alert and conversing more today. Reports concern that her feet are "puffy". Continues to have low back pain. Denies cp, sob, palpitations, fever, chills. Objective Active Medications: Acetaminophen (Tylenol Tab*) 650 mg PO Q4H PRN PRN Reason: fever >/= to 38C Last Admin: 03/28/19 16:24 Dose: 650 mg Albuterol (Ventolin Hfa Inhaler*) 2 puff INH Q4H PRN PRN Reason: SHORTNESS OF BREATH Aspirin (Aspirin Ec Tab*) 81 mg PO DAILY [facility] Last Admin: 03/30/19 08:42 Dose: 81 mg Atorvastatin Calcium (Lipitor*) 40 mg PO BEDTIME [facility] Last Admin: 03/29/19 22:33 Dose: 40 mg Benztropine Mesylate (Cogentin Tab*) 1 mg PO DAILY PRN PRN Reason: extrapyrimidal side effects Last Admin: 03/26/19 10:47 Dose: 1 mg Bisacodyl (Dulcolax Supp*) 10 mg [place] DAILY PRN PRN Reason: CONSTIPATION Last Admin: 03/25/19 16:45 Dose: 10 mg Diltiazem HCl (Cardizem Tab*) 60 mg PO Q6HR [facility] Last Admin: 03/30/19 06:52 Dose: 60 mg Duloxetine HCl (Cymbalta Cap*) 60 mg PO BID [facility] Last Admin: 03/30/19 08:42 Dose: 60 mg Heparin Sodium (Porcine) (Heparin Flush Picc/Ml/Cvc(*)) 0 ml FLUSH 0600,1800 [facility] Last Admin: 03/30/19 06:53 Dose: 1 ml Heparin Sodium (Porcine) (Heparin Vial(*)) 5,000 units SUBCUT Q8HR [facility] Last Admin: 03/30/19 06:53 Dose: 5,000 units Ceftriaxone Sodium 1 gm/ (Sodium Chloride) 50 mls @ 100 mls/hr IVPB Q24H [facility] Last Admin: 03/29/19 16:51 Dose: 100 mls/hr Levothyroxine Sodium (Synthroid Tab*) 75 mcg PO DAILY@0600 [facility] Last Admin: 03/30/19 06:52 Dose: 75 mcg Magnesium Oxide (Magox 400 Tab*) 400 mg PO DAILY [facility] Mometasone Furoate/Formoterol Fumar (Dulera 200/5 Mdi*) 1 puff INH BID [facility] Last Admin: 03/30/19 07:54 Dose: 1 puff Montelukast Sodium (Singulair Tab*) 10 mg PO BEDTIME [facility] Last Admin: 03/29/19 22:33 Dose: 10 mg Olanzapine (Zyprexa Tab*) 5 mg PO DAILY [facility] Last Admin: 03/30/19 08:43 Dose: 5 mg Olanzapine (Zyprexa Tab*) 30 mg PO BEDTIME [facility] Last Admin: 03/29/19 22:33 Dose: 30 mg Ondansetron HCl (Zofran Inj*) 4 mg IV Q6H PRN PRN Reason: NAUSEA Last Admin: 03/26/19 19:45 Dose: 4 mg Spironolactone (Aldactone Tab*) 25 mg PO DAILY [facility] Last Admin: 03/30/19 08:43 Dose: 25 mg Tiotropium [place] (Spiriva Cap.Inh*) 1 cap INH DAILY [facility] Last Admin: 03/30/19 07:54 Dose: 1 cap Vital Signs - 8 hr 03/30/19 03/30/19 03/30/19 07:09 07:29 07:57 Temperature 98.8 F 98.8 F Pulse Rate 92 92 64 Respiratory 18 18 18 Rate Blood Pressure 132/71 132/71 (mmHg) O2 Sat by Pulse 97 97 99 Oximetry 03/30/19 10:43 Temperature 99 F Pulse Rate 86 Respiratory 18 Rate Blood Pressure 133/69 (mmHg) O2 Sat by Pulse 96 Oximetry Oxygen Devices in Use Now: None Appearance: Comfortable, NAD Eyes: No Scleral Icterus Ears/Nose/Mouth/Throat: Clear Oropharnyx, Mucous Membranes Moist Neck: NL Appearance and Movements; NL JVP Respiratory: Symmetrical Chest Expansion and Respiratory Effort, Clear to Auscultation Cardiovascular: NL Sounds; No Murmurs; No JVD, RRR, - - Bilateral +1 pedal edema Abdominal: NL Sounds; No Tenderness; No Distention Lymphatic: No Cervical Adenopathy Extremities: No Clubbing, Cyanosis Skin: - - Healed superficial abrasion to RLE Neurological: - - Alert to self. Initially thought she was in ED but was easily reoriented. Generalized weakness, but equal Nutrition: Taking PO's Result Diagrams: 03/30/19 06:50 03/30/19 06:50 Additional Lab and Data: Laboratory Results - last 24 hr 03/30/19 03/30/19 06:50 06:50 WBC 8.6 RBC 2.96 L Hgb 9.5 L Hct 27 L MCV 91 MCH 32 H MCHC 35 RDW 14 Plt Count 298 MPV 8.2 Neut % (Auto) 67.7 Lymph % (Auto) 17.9 [place] % (Auto) 12.4 Eos % (Auto) 1.7 Baso % (Auto) 0.3 Absolute Neuts (auto) 5.8 Absolute Lymphs (auto) 1.5 Absolute Monos (auto) 1.1 H Absolute Eos (auto) 0.1 Absolute Basos (auto) 0.0 Absolute Nucleated RBC 0.0 Immature Gran % 9.0 Neutrophils % 59.0 Band Neutrophils % 7.0 Lymphocytes % 23.0 Monocytes % 7.0 Eosinophils % 2.0 Metamyelocytes % 2.0 Nucleated RBC % 0.1 Normal RBC Morphology Normal Sodium 136 Potassium 3.1 L Chloride 103 Carbon Dioxide 27 Anion Gap 6 BUN 10 Creatinine 0.37 L Est GFR ( Amer) 217.0 Est GFR (Non-Af Amer) 179.4 BUN/Creatinine Ratio 27.0 H Glucose 90 Calcium 7.3 L Magnesium 1.7 L Microbiology and Other Data: Microbiology 03/27/19 19:30 Blood Venous Aerobic Blood Culture - Preliminary No Growth Day 2 03/27/19 19:30 Blood Venous Anaerobic Blood Culture - Preliminary No Growth Day 2 03/27/19 17:55 Blood Venous Aerobic Blood Culture - Preliminary No Growth Day 2 03/27/19 17:55 Blood Venous Anaerobic Blood Culture - Preliminary No Growth Day 2 03/26/19 14:27 Blood Venous Aerobic Blood Culture - Preliminary No Growth Day 3 03/26/19 14:27 Blood Venous Anaerobic Blood Culture - Preliminary No Growth Day 3 03/24/19 12:14 Blood Venous Aerobic Blood Culture - Final No Growth Day 5 03/24/19 12:14 Blood Venous Anaerobic Blood Culture - Final Escherichia Coli 03/24/19 12:05 Blood Venous Aerobic Blood Culture - Final Escherichia Coli 03/24/19 12:05 Blood Venous Anaerobic Blood Culture - Final No Growth Day 5 03/27/19 01:04 Urine Urine Culture - Final No Growth (<1,000 CFU/mL) 03/25/19 16:45 Stool Stool Occult Blood (MEDARDO) - Final 03/24/19 11:48 Urine Urine Culture - Final No Growth (<1,000 CFU/mL) 03/24/19 16:55 Nasal Nasal Screen MRSA (PCR) - Final Mrsa Not Detected Assess/Plan/Problems-Billing Ms Lui is a 58 yo F who has a h/o self injury behaviors, schizoaffective disorder- bipolar type, HTN, hypothyroidism and asthma who was found to be poorly responsive at the [facility] and was brought in to the ER where she was found to be in severe sepsis secondary to pneumonia and now subsequently found to have Ecoli bacteremia. - Patient Problems (1) Bacteremia Comment: - Per ID plan for Ceftraixone 1 gram daily for 56 days. Today . 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 No epidural abscess - Weekly cbc, cmp, crp. - PICC ordered. (2) Hypokalemia Comment: - K 3.1 today - On admission K was 2.6 and replacement given. - PO replacement ordered - Patient also on Aldactone - Cont Tele - Cont to monitor BMP (3) Thyroid nodule Comment: - Thyroid nodule found and recommend FNA be completed. - Has NOT been completed during this visit. (4) HTN (hypertension) Comment: - Normotensive - Cont Cardizem and Aldactone (5) Hypothyroidism Comment: - Cont home dose of synthroid. (6) SVT (supraventricular tachycardia) Comment: - Patient has been sinus to sinus tach on tele. No episodes of SVT - 03/25 patient reported to have bursts of SVT and patient was restarted on diltiazem CD that was held on admission. - Cont tele - Cont to monitor vital signs (7) Schizoaffective disorder Comment: - Psych consulting and we appreciate their assistance - Wellbutrin discontinued by psych - Psych also recommends avoiding anti-cholinergic medications and benzos - Patient does not have capacity per psych - Supportive care - Cont home olanzapine and cymbalta. (8) Severe sepsis Comment: - Last fever 03/27 - Continues to be intermittently tachycardic. - Had septic encephalopathy on admission (9) DVT prophylaxis Comment: - SQ heparin (10) Full code status Status and Disposition: Inpatient. Will most likely need TEE when medically stable. Does not have capacity per psych Attending: Preston Smith
[2019-03-30] MEDS: cefTRIAXone(*) 1 GM in NS 0.9% 50 ML* 50 ML IVPB SCH (17:27)
[2019-03-30] MEDS: Acetaminophen TAB* 325 MG PO PRN (17:32)
[2019-03-30] MEDS: Atorvastatin* 40 MG TAB PO SCH (21:38)
[2019-03-30] MEDS: OLANzapine TAB* 10 MG PO SCH (21:38)
[2019-03-30] MEDS: Montelukast Sodium TAB* 10 MG PO SCH (21:39)
[2019-03-31] MEDS: Diltiazem TAB* 60 MG PO SCH ×4 (01:06→17:34)
[2019-03-31] MEDS: Heparin VIAL(*) 5000 UNITS/ML VIAL (FIVE THOUSAND) SUBCUT SCH ×3 (06:22→21:24)
[2019-03-31] MEDS: Levothyroxine TAB* 75 MCG TAB PO SCH (06:26)
[2019-03-31 06:45] LABS: Hematocrit 27 % (35-47); Hemoglobin 9.4 g/dL (12.0-16.0); Mean Corpuscular HGB Conc 35 g/dL (31-36); Mean Corpuscular Hemoglobin 32 pg (27-31); Mean Corpuscular Volume 92 fL (80-97); Platelet Count 376 10^3/uL (150-450); Red Blood Count 2.94 10^6 /uL (3.70-4.87); Red Cell Distribution Width 14 % (10-15); White Blood Count 10.5 10^3/uL (3.5-10.8)
[2019-03-31 06:59] LABS: BUN/Creatinine Ratio 26.3 (8-20); Calcium 7.8 mg/dL (8.6-10.3); EGFR African American 210.5 (>60); EGFR Non-African American 173.9 (>60); Magnesium 1.9 mg/dL (1.9-2.7); Potassium 3.2 mmol/L (3.5-5.0)
[2019-03-31 07:36] LABS: ABS Eosinophils 0.1 10^3/ul (0-0.6); ABS Lymphocytes 1.6 10^3/ul (1.0-4.8); ABS Monocytes 1.3 10^3/ul (0-0.8); ABS Neutrophils 7.4 10^3/ul (1.5-7.7); Eosinophil % 1.1 %; Lymphocyte % 15.4 %
[2019-03-31] MEDS: Mometasone/Formoter 200/5 MDI INH SCH ×2 (08:15→19:12)
[2019-03-31] MEDS: Tiotropium CAP.INH* CAP.INH/18 MCG (USE ORDER SET !) INH SCH (08:15)
[2019-03-31] MEDS: Spironolactone TAB* 25 MG PO SCH (08:46)
[2019-03-31] MEDS: Magnesium Oxide TAB* 400 MG PO SCH (08:46)
[2019-03-31] MEDS: DULoxetine DR CAP* 60 MG CAP.DR PO SCH ×2 (08:47→21:21)
[2019-03-31] MEDS: Aspirin EC TAB* 81 MG TAB.EC PO SCH (08:47)
[2019-03-31] MEDS: OLANzapine TAB* 5 MG PO SCH (08:47)
[2019-03-31] MEDS: Acetaminophen TAB* 325 MG PO PRN ×2 (08:47→18:49)
[2019-03-31] MEDS: Potassium Chlor TAB* 20 MEQ TAB.ER PO SCH ×4 (10:08→16:29)
[2019-03-31] MEDS: cefTRIAXone(*) 1 GM in NS 0.9% 50 ML* 50 ML IVPB SCH (16:28)
--- NOTE | 2019-03-31 16:36 | CONSULT ---
Identification - Patient Identification Reason for Psychiatric Consultation: Patient Distress -: Patient is a 58 year old, F admitted on 03/24/19. - MHU Identification Employment Status: Disabled Hx Psychiatric Hospitalization: Yes Prior Psychiatric Diagnosis: Schizoaffectve D/O, Bipolar type. Arrived to Hospital Via: Ambulatory History - Objective HPI: Patient is admitted to medical floor due to pneumonia and possible delirium. Please see Dr. Reyna's consult note for details. Today patient at first didn't want to talk because she feels upset. Says someone stole her walker and she now has to use the hospital provided walker. Also want to go home. She need lot of prompting to talk but when did she appeared to be illogical as she doesn't know why she needed to be in the hospital as if no one ever told her why. She reported of hearing voices but wouldn't describe any further and gets irritated. Denies paranoia. Also denies SI and HI. She was alwrt and oriented to day, time year but thought the month was FEBRUARY. Exam Appearance: Thin Framed Hygiene: Normal Grooming: Fairly Well Kept Psychomotor Activities: Normal Exhibits Abnormal Movement: No Attitude and Relatedness: Superficially Cooperative Eye Contact: Poor - Speech Quality: Unpressured Latencies: Normal Quantity: Appropriate Patient's Decription of Mood: "Terrible" Observed Affect: Tense Patient's Thought Process: Coherent, Circumstantial Thought Content: No Passive Wish, No Suicidal Planning, No Homicidal Ideation, No Paranoid Ideation Experiencing Hallucinations: Yes Type of Hallucinations: Visual: No, Auditory: Yes, Command: No Level of Consciousness: Alert Orientation: Yes Orientated to Time - Except for month, Yes Orientated to Place , Yes Orientated to Person Impulse Control: Tenuous Insight and Judgement: Impaired Impression - Impression Merits Inpatient Hospitalization: No Plan - Treatment Plan Continued Medication Management: Continue Outpt Medication Medications: Current Medications Acetaminophen (Tylenol Tab*) 650 mg PO Q4H PRN PRN Reason: fever >/= to 38C Last Admin: 03/31/19 08:47 Dose: 650 mg Albuterol (Ventolin Hfa Inhaler*) 2 puff INH Q4H PRN PRN Reason: SHORTNESS OF BREATH Aspirin (Aspirin Ec Tab*) 81 mg PO DAILY [facility] Last Admin: 03/31/19 08:47 Dose: 81 mg Atorvastatin Calcium (Lipitor*) 40 mg PO BEDTIME [facility] Last Admin: 03/30/19 21:38 Dose: 40 mg Benztropine Mesylate (Cogentin Tab*) 1 mg PO DAILY PRN PRN Reason: extrapyrimidal side effects Last Admin: 03/26/19 10:47 Dose: 1 mg Bisacodyl (Dulcolax Supp*) 10 mg [place] DAILY PRN PRN Reason: CONSTIPATION Last Admin: 03/25/19 16:45 Dose: 10 mg Cholecalciferol (Vitamin D Tab*) 2,000 units PO DAILY [facility] Diltiazem HCl (Cardizem Tab*) 60 mg PO Q6HR [facility] Last Admin: 03/31/19 12:25 Dose: 60 mg Duloxetine HCl (Cymbalta Cap*) 60 mg PO BID [facility] Last Admin: 03/31/19 08:47 Dose: 60 mg Heparin Sodium (Porcine) (Heparin Flush Picc/Ml/Cvc(*)) 0 ml FLUSH 0600,1800 [facility] Last Admin: 03/31/19 06:21 Dose: Not Given Heparin Sodium (Porcine) (Heparin Vial(*)) 5,000 units SUBCUT Q8HR [facility] Last Admin: 03/31/19 15:21 Dose: Not Given Ceftriaxone Sodium 1 gm/ (Sodium Chloride) 50 mls @ 100 mls/hr IVPB Q24H [facility] Last Admin: 03/30/19 17:27 Dose: 100 mls/hr Levothyroxine Sodium (Synthroid Tab*) 75 mcg PO DAILY@0600 [facility] Last Admin: 03/31/19 06:26 Dose: 75 mcg Magnesium Oxide (Magox 400 Tab*) 400 mg PO DAILY [facility] Last Admin: 03/31/19 08:46 Dose: 400 mg Mometasone Furoate/Formoterol Fumar (Dulera 200/5 Mdi*) 1 puff INH BID [facility] Last Admin: 03/31/19 08:15 Dose: 1 puff Montelukast Sodium (Singulair Tab*) 10 mg PO BEDTIME [facility] Last Admin: 03/30/19 21:39 Dose: 10 mg Olanzapine (Zyprexa Tab*) 5 mg PO DAILY [facility] Last Admin: 03/31/19 08:47 Dose: 5 mg Olanzapine (Zyprexa Tab*) 30 mg PO BEDTIME [facility] Last Admin: 03/30/19 21:38 Dose: 30 mg Ondansetron HCl (Zofran Inj*) 4 mg IV Q6H PRN PRN Reason: NAUSEA Last Admin: 03/26/19 19:45 Dose: 4 mg Spironolactone (Aldactone Tab*) 25 mg PO DAILY [facility] Last Admin: 03/31/19 08:46 Dose: 25 mg Tiotropium [place] (Spiriva Cap.Inh*) 1 cap INH DAILY [facility] Last Admin: 03/31/19 08:15 Dose: 1 cap - Discharge Plan Discharge Plan: Outpatient Follow Up - I don't think patient will need inpatient psychiatric care at this time rather [facility]
--- NOTE | 2019-03-31 17:31 | PN ---
Subjective Date of Service: 03/31/19 Interval History: Pt states she doesn't feel good, but is unable to be more specific. She states she is anxious. She denies fever, chills, sweats, cough, SOB, abd pain, n/v/d. She notes that she feels bloated, but denies pain in the abdomen. She appears agitated and is disinterested in talking with me today. Objective Active Medications: Acetaminophen (Tylenol Tab*) 650 mg PO Q4H PRN Albuterol (Ventolin Hfa Inhaler*) 2 puff INH Q4H PRN Aspirin (Aspirin Ec Tab*) 81 mg PO DAILY CHON Atorvastatin Calcium (Lipitor*) 40 mg PO BEDTIME CHON Benztropine Mesylate (Cogentin Tab*) 1 mg PO DAILY PRN Bisacodyl (Dulcolax Supp*) 10 mg NE DAILY PRN Cholecalciferol (Vitamin D Tab*) 2,000 units PO DAILY CHON Diltiazem HCl (Cardizem Tab*) 60 mg PO Q6HR CHON Duloxetine HCl (Cymbalta Cap*) 60 mg PO BID CHON Heparin Sodium (Porcine) (Heparin Flush Picc/Ml/Cvc(*)) 0 ml FLUSH 0600,1800 CHON Heparin Sodium (Porcine) (Heparin Vial(*)) 5,000 units SUBCUT Q8HR CHON Ceftriaxone Sodium 1 gm/ (Sodium Chloride) 50 mls @ 100 mls/hr IVPB Q24H CHON Levothyroxine Sodium (Synthroid Tab*) 75 mcg PO DAILY@0600 CHON Magnesium Oxide (Magox 400 Tab*) 400 mg PO DAILY CHON Mometasone Furoate/Formoterol Fumar (Dulera 200/5 Mdi*) 1 puff INH BID CHON Montelukast Sodium (Singulair Tab*) 10 mg PO BEDTIME CHON Olanzapine (Zyprexa Tab*) 5 mg PO DAILY CHON Olanzapine (Zyprexa Tab*) 30 mg PO BEDTIME CHON Ondansetron HCl (Zofran Inj*) 4 mg IV Q6H PRN Spironolactone (Aldactone Tab*) 25 mg PO DAILY CHON Tiotropium [place] (Spiriva Cap.Inh*) 1 cap INH DAILY CHON Vital Signs: Temp Pulse Resp BP Pulse Ox 99.1 F 91 20 109/65 97 03/31/19 11:07 03/31/19 11:07 03/31/19 11:07 03/31/19 11:07 03/31/19 11:07 Oxygen Devices in Use Now: None Appearance: Pt is sitting up in bed, grimacing. She appears agitated. She is a difficult historian, short in responses, disinterested in talking, and unable to provide details when asked questions. Eyes: No Scleral Icterus Ears/Nose/Mouth/Throat: Clear Oropharnyx, Mucous Membranes Moist Neck: NL Appearance and Movements; NL JVP, Trachea Midline, - - Palpable thyroid without nodules Respiratory: Symmetrical Chest Expansion and Respiratory Effort, Clear to Auscultation Cardiovascular: NL Sounds; No Murmurs; No JVD, RRR Abdominal: No Hepatosplenomegaly, - - BS in all quadrants; TTP Extremities: No Clubbing, Cyanosis Skin: - - RLE with multiple linear scratches anteriorly; small chronic wound anterolateral on RLE without drainage, erythema, signs of infection. B/l pedal edema. Neurological: Alert and Oriented x 3 Result Diagrams: 03/31/19 06:23 03/31/19 06:23 Additional Lab and Data: Laboratory Results - last 24 hr 03/30/19 03/30/19 06:50 06:50 WBC 8.6 RBC 2.96 L Hgb 9.5 L Hct 27 L MCV 91 MCH 32 H MCHC 35 RDW 14 Plt Count 298 MPV 8.2 Neut % (Auto) 67.7 Lymph % (Auto) 17.9 [place] % (Auto) 12.4 Eos % (Auto) 1.7 Baso % (Auto) 0.3 Absolute Neuts (auto) 5.8 Absolute Lymphs (auto) 1.5 Absolute Monos (auto) 1.1 H Absolute Eos (auto) 0.1 Absolute Basos (auto) 0.0 Absolute Nucleated RBC 0.0 Immature Gran % 9.0 Neutrophils % 59.0 Band Neutrophils % 7.0 Lymphocytes % 23.0 Monocytes % 7.0 Eosinophils % 2.0 Metamyelocytes % 2.0 Nucleated RBC % 0.1 Normal RBC Morphology Normal Sodium 136 Potassium 3.1 L Chloride 103 Carbon Dioxide 27 Anion Gap 6 BUN 10 Creatinine 0.37 L Est GFR ( Amer) 217.0 Est GFR (Non-Af Amer) 179.4 BUN/Creatinine Ratio 27.0 H Glucose 90 Calcium 7.3 L Magnesium 1.7 L Microbiology and Other Data: Microbiology 03/27/19 19:30 Blood Venous Aerobic Blood Culture - Preliminary No Growth Day 2 03/27/19 19:30 Blood Venous Anaerobic Blood Culture - Preliminary No Growth Day 2 03/27/19 17:55 Blood Venous Aerobic Blood Culture - Preliminary No Growth Day 2 03/27/19 17:55 Blood Venous Anaerobic Blood Culture - Preliminary No Growth Day 2 03/26/19 14:27 Blood Venous Aerobic Blood Culture - Preliminary No Growth Day 3 03/26/19 14:27 Blood Venous Anaerobic Blood Culture - Preliminary No Growth Day 3 03/24/19 12:14 Blood Venous Aerobic Blood Culture - Final No Growth Day 5 03/24/19 12:14 Blood Venous Anaerobic Blood Culture - Final Escherichia Coli 03/24/19 12:05 Blood Venous Aerobic Blood Culture - Final Escherichia Coli 03/24/19 12:05 Blood Venous Anaerobic Blood Culture - Final No Growth Day 5 03/27/19 01:04 Urine Urine Culture - Final No Growth (<1,000 CFU/mL) 03/25/19 16:45 Stool Stool Occult Blood (MEDARDO) - Final 03/24/19 11:48 Urine Urine Culture - Final No Growth (<1,000 CFU/mL) 03/24/19 16:55 Nasal Nasal Screen MRSA (PCR) - Final Mrsa Not Detected Assess/Plan/Problems-Billing Ms Lui is a 58 yo F who has a h/o self injury behaviors, schizoaffective disorder- bipolar type, HTN, hypothyroidism and asthma who was found to be poorly responsive at the [facility] and was brought in to the ER where she was found to be in severe sepsis secondary to pneumonia and now subsequently found to have Ecoli bacteremia. - Patient Problems (1) Bacteremia Comment: - Per ID plan for Ceftraixone 1 gram daily for 56 days. Today . 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 No epidural abscess - Weekly cbc, cmp, crp. - PICC ordered. (2) Hypokalemia Comment: - K 3.2 today - On admission K was 2.6 and replacement given. - PO replacement ordered - Patient also on Aldactone - Cont Tele - Cont to monitor BMP (3) Severe sepsis Comment: - Last fever 7/17 - Continues to be intermittently tachycardic. - Had septic encephalopathy on admission (4) Thyroid nodule Comment: - Thyroid nodule found and recommend FNA be completed. - Has NOT been completed during this visit. (5) SVT (supraventricular tachycardia) Comment: - Patient has been sinus to sinus tach on tele. No episodes of SVT. - 03/25 patient reported to have bursts of SVT and patient was restarted on diltiazem CD that was held on admission. - Cont tele - Cont to monitor vital signs (6) Schizoaffective disorder Comment: - Psych consulting and we appreciate their assistance - Wellbutrin discontinued by psych - Psych also recommends avoiding anti-cholinergic medications and benzos - Patient does not have capacity per psych - Supportive care - Cont home olanzapine and cymbalta. (7) HTN (hypertension) Comment: - Normotensive - Cont Cardizem and Aldactone (8) Hypothyroidism Comment: - Cont home dose of synthroid. (9) DVT prophylaxis Comment: - SQ heparin (10) Full code status Status and Disposition: Inpatient. Will most likely need TEE when medically stable. Does not have capacity per psych.
[2019-03-31] MEDS: Montelukast Sodium TAB* 10 MG PO SCH (21:22)
[2019-03-31] MEDS: Atorvastatin* 40 MG TAB PO SCH (21:22)
[2019-03-31] MEDS: OLANzapine TAB* 10 MG PO SCH (21:23)
[2019-04-01] MEDS: Diltiazem TAB* 60 MG PO SCH ×5 (00:17→23:33)
[2019-04-01] MEDS ORDERED: traMADol TAB* 50 MG PO ONE (01:30)
[2019-04-01] MEDS ORDERED: LORazepam TAB(*) 0.5 MG PO ONE (01:30)
[2019-04-01] MEDS: Levothyroxine TAB* 75 MCG TAB PO SCH (07:25)
[2019-04-01] MEDS: Heparin VIAL(*) 5000 UNITS/ML VIAL (FIVE THOUSAND) SUBCUT SCH ×3 (07:26→21:36)
[2019-04-01] MEDS: Tiotropium CAP.INH* CAP.INH/18 MCG (USE ORDER SET !) INH SCH (07:30)
[2019-04-01] MEDS: Mometasone/Formoter 200/5 MDI INH SCH ×2 (07:30→19:06)
[2019-04-01] MEDS: Cholecalciferol TAB* 1000 UNITS PO SCH (08:25)
[2019-04-01] MEDS: OLANzapine TAB* 5 MG PO SCH (08:26)
[2019-04-01] MEDS: Aspirin EC TAB* 81 MG TAB.EC PO SCH (08:26)
[2019-04-01] MEDS: Spironolactone TAB* 25 MG PO SCH (08:26)
[2019-04-01] MEDS: DULoxetine DR CAP* 60 MG CAP.DR PO SCH ×2 (08:26→20:18)
[2019-04-01] MEDS: Magnesium Oxide TAB* 400 MG PO SCH (08:26)
--- NOTE | 2019-04-01 10:46 | CONSULT ---
Consult Consult: MIGNON " I am alright" The patient reported improvement of sleep over the weekend. She was observed talking to herself before the encounter. Patient apologized about being upset with this fiction writer on Monday. Patient is looking forward to returning home and hanging a picture on her wall in her room. She denied access to firearms or stockpiles of medications. The patient denied suicidal and or homicidal ideation intent or plan. The patient reported hearing voices of her friend telling her about her day and how things have been going. Mental Status Exam on Admission APPEARANCE : 58 year old who appears stated age. She appears to have poor dentition and fair hygiene and grooming. BEHAVIOR: cooperative EYE CONTACT: Fair PSYCHOMOTOR ACTIVITY: No psychomotor agitation or retardation. MOVEMENTS: No abnormal movements observed. SPEECH : normal volume MOOD : "okay " AFFECT : blunted THOUGHT PROCESS: somewhat linear in direction THOUGHT CONTENT: paranoid delusions PERCEPTION: current auditory hallucinations. SUICIDALITY Denied suicidal ideation, intent or plan. HOMICIDALITY Denied homicidal ideation, intent or plan. Insight/judgment: Poor insight and judgment ORIENTATION: Oriented to self, location, month, day, season. ( Referenced the patient information board) Diagnosis: Delirium. Schizoaffective disorder, bipolar type. Borderline personality disorder. Tobacco use disorder. Tardive Dyskinesia Assessment: 58 year old female with history of Schizoaffective disorder, bipolar type. Borderline personality disorder. Tobacco use disorder. came to the hospital and was admitted to the medical unit for stabilization. Plan # Psychiatry will sign off. The patient appears closer to her baseline. She is less agitated and more lucid. # The patient doesn't require admission to the psychiatric unit at this time. # Patient lacks the capacity to make medical decisions on her own behalf. She can not leave AMA. She is unable to make a choice, and lacks the ability to appreciate the benefits and or risks of making medical related decisions on her own behalf. # Discontinue wellbutrin as this can cause mild agitation and weight loss. # Continue cymbalta 60mg BID and zyprexa 5mg daily and 30mg at night. # Medical stabilization per primary team. # Delirium - Treatment of infection and correction of electrolyses. Limit anti- anticholinergic medications and benzodiazepines as these can be precipitants # Implement fall precautions. # Continue PT per primary team recommendations # Recommendations communicated with primary team. Please contact the Psychiatry unit for any questions. Terry Reyna MD # [id number] VBG pH 7.31 (7.32-7.43) L 03/24/19 17:32 Sodium 135 mmol/L (135-145) 03/31/19 06:23 Potassium 3.2 mmol/L (3.5-5.0) L 03/31/19 06:23 BUN 10 mg/dL (6-24) 03/31/19 06:23 Creatinine 0.38 mg/dL (0.51-0.95) L 03/31/19 06:23 Calcium 7.8 mg/dL (8.6-10.3) L 03/31/19 06:23 Magnesium 1.9 mg/dL (1.9-2.7) 03/31/19 06:23 AST 50 U/L (13-39) H 03/28/19 08:35 ALT 45 U/L (7-52) 03/28/19 08:35 Vital Signs Temp Pulse Resp BP Pulse Ox 98.3 F 94 18 134/71 98 04/01/19 07:52 04/01/19 07:52 04/01/19 08:20 04/01/19 07:52 04/01/19 07:52
--- NOTE | 2019-04-01 11:44 | PN ---
Subjective Date of Service: 04/01/19 Interval History: Pt states she is feeling better today. She states she is hearing voices, but denies visual hallucinations, HI/SI. She c/o slight cough. She notes she has been up and OOB today, which she is pleased about. She c/o lower abd pain, but notes that this is chronic and has not changed. Denies n/v, had 1 episode of loose stools today. Pt is asking for ativan, which was recommended to be avoided by psych. This was discussed with patient, and she is agreeable. She is asking for continuation of home medication tramadol, due to low back pain. She has no other complaints today. Objective Active Medications: Acetaminophen (Tylenol Tab*) 650 mg PO Q4H PRN Albuterol (Ventolin Hfa Inhaler*) 2 puff INH Q4H PRN Aspirin (Aspirin Ec Tab*) 81 mg PO DAILY CHON Atorvastatin Calcium (Lipitor*) 40 mg PO BEDTIME CHON Benztropine Mesylate (Cogentin Tab*) 1 mg PO DAILY PRN Bisacodyl (Dulcolax Supp*) 10 mg [place] DAILY PRN Cholecalciferol (Vitamin D Tab*) 2,000 units PO DAILY CHON Diltiazem HCl (Cardizem Tab*) 60 mg PO Q6HR CHON Duloxetine HCl (Cymbalta Cap*) 60 mg PO BID CHON Heparin Sodium (Porcine) (Heparin Flush Picc/Ml/Cvc(*)) 0 ml FLUSH 0600,1800 CHON Heparin Sodium (Porcine) (Heparin Vial(*)) 5,000 units SUBCUT Q8HR CHON Ceftriaxone Sodium 1 gm/ (Sodium Chloride) 50 mls @ 100 mls/hr IVPB Q24H CHON Levothyroxine Sodium (Synthroid Tab*) 75 mcg PO DAILY@0600 CHON Magnesium Oxide (Magox 400 Tab*) 400 mg PO DAILY CHON Mometasone Furoate/Formoterol Fumar (Dulera 200/5 Mdi*) 1 puff INH BID CHON Montelukast Sodium (Singulair Tab*) 10 mg PO BEDTIME CHON Olanzapine (Zyprexa Tab*) 5 mg PO DAILY CHON Olanzapine (Zyprexa Tab*) 30 mg PO BEDTIME CHON Ondansetron HCl (Zofran Inj*) 4 mg IV Q6H PRN Spironolactone (Aldactone Tab*) 25 mg PO DAILY CHON Tiotropium [place] (Spiriva Cap.Inh*) 1 cap INH DAILY CHON Vital Signs: Temp Pulse Resp BP Pulse Ox 97.2 F 98 19 124/66 95 04/01/19 19:14 04/01/19 19:14 04/01/19 19:42 04/01/19 19:14 04/01/19 19:14 Oxygen Devices in Use Now: None Appearance: Pt is sitting up in bed. She appears comfortable; she is pleasant, cooperative, soft spoken. She is in no acute distress. Appears somewhat unkempt. Eyes: No Scleral Icterus, PERRLA Ears/Nose/Mouth/Throat: NL Teeth, Lips, Gums, Clear Oropharnyx Neck: NL Appearance and Movements; NL JVP, Trachea Midline Respiratory: Symmetrical Chest Expansion and Respiratory Effort, Clear to Auscultation Cardiovascular: NL Sounds; No Murmurs; No JVD, RRR Abdominal: No Hepatosplenomegaly, - - TTP mild Extremities: No Clubbing, Cyanosis, - - Multiple healing liner scratch to RLE with small chronic unopened wound to ant brooks without erythema, exudate. B/l pedal edema Neurological: Alert and Oriented x 3 Result Diagrams: 03/31/19 06:23 03/31/19 06:23 Additional Lab and Data: Laboratory Results - last 24 hr 03/30/19 03/30/19 06:50 06:50 WBC 8.6 RBC 2.96 L Hgb 9.5 L Hct 27 L MCV 91 MCH 32 H MCHC 35 RDW 14 Plt Count 298 MPV 8.2 Neut % (Auto) 67.7 Lymph % (Auto) 17.9 [place] % (Auto) 12.4 Eos % (Auto) 1.7 Baso % (Auto) 0.3 Absolute Neuts (auto) 5.8 Absolute Lymphs (auto) 1.5 Absolute Monos (auto) 1.1 H Absolute Eos (auto) 0.1 Absolute Basos (auto) 0.0 Absolute Nucleated RBC 0.0 Immature Gran % 9.0 Neutrophils % 59.0 Band Neutrophils % 7.0 Lymphocytes % 23.0 Monocytes % 7.0 Eosinophils % 2.0 Metamyelocytes % 2.0 Nucleated RBC % 0.1 Normal RBC Morphology Normal Sodium 136 Potassium 3.1 L Chloride 103 Carbon Dioxide 27 Anion Gap 6 BUN 10 Creatinine 0.37 L Est GFR ( Amer) 217.0 Est GFR (Non-Af Amer) 179.4 BUN/Creatinine Ratio 27.0 H Glucose 90 Calcium 7.3 L Magnesium 1.7 L Microbiology and Other Data: Microbiology 03/27/19 19:30 Blood Venous Aerobic Blood Culture - Preliminary No Growth Day 2 03/27/19 19:30 Blood Venous Anaerobic Blood Culture - Preliminary No Growth Day 2 03/27/19 17:55 Blood Venous Aerobic Blood Culture - Preliminary No Growth Day 2 03/27/19 17:55 Blood Venous Anaerobic Blood Culture - Preliminary No Growth Day 2 03/26/19 14:27 Blood Venous Aerobic Blood Culture - Preliminary No Growth Day 3 03/26/19 14:27 Blood Venous Anaerobic Blood Culture - Preliminary No Growth Day 3 03/24/19 12:14 Blood Venous Aerobic Blood Culture - Final No Growth Day 5 03/24/19 12:14 Blood Venous Anaerobic Blood Culture - Final Escherichia Coli 03/24/19 12:05 Blood Venous Aerobic Blood Culture - Final Escherichia Coli 03/24/19 12:05 Blood Venous Anaerobic Blood Culture - Final No Growth Day 5 03/27/19 01:04 Urine Urine Culture - Final No Growth (<1,000 CFU/mL) 03/25/19 16:45 Stool Stool Occult Blood (MEDARDO) - Final 03/24/19 11:48 Urine Urine Culture - Final No Growth (<1,000 CFU/mL) 03/24/19 16:55 Nasal Nasal Screen MRSA (PCR) - Final Mrsa Not Detected Assess/Plan/Problems-Billing Ms Lui is a 58 yo F who has a h/o self injury behaviors, schizoaffective disorder- bipolar type, HTN, hypothyroidism and asthma who was found to be poorly responsive at the [facility] and was brought in to the ER where she was found to be in severe sepsis secondary to pneumonia and now subsequently found to have Ecoli bacteremia. - Patient Problems (1) Bacteremia Comment: - Per ID plan for Ceftraixone 1 gram daily for 56 days. Today . 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 - PICC ordered; will order IR PICC in hopes of placement before Monday (2) Hypokalemia Comment: - Patient refused blood draw today - On admission K was 2.6 and replacement given. - PO replacement ordered - Patient also on Aldactone - Cont Tele - Cont to monitor BMP (3) Severe sepsis Comment: - Last fever 03/27 - Continues to be intermittently tachycardic. - Had septic encephalopathy on admission (4) Thyroid nodule Comment: - Thyroid nodule found and recommend FNA be completed. - Has NOT been completed during this visit. (5) SVT (supraventricular tachycardia) Comment: - Patient has been sinus to sinus tach on tele. No episodes of SVT. - 03/25 patient reported to have bursts of SVT and patient was restarted on diltiazem CD that was held on admission. - Cont tele - Cont to monitor vital signs (6) Schizoaffective disorder Comment: - Psych consulting and we appreciate their assistance - Wellbutrin discontinued by psych - Psych also recommends avoiding anti-cholinergic medications and benzos - Patient does not have capacity per psych - Supportive care - Cont home olanzapine and cymbalta. (7) HTN (hypertension) Comment: - Normotensive - Cont Cardizem and Aldactone (8) Hypothyroidism Comment: - Cont home dose of synthroid. (9) DVT prophylaxis Comment: - SQ heparin (10) Full code status Status and Disposition: Inpatient. Will most likely need TEE when medically stable. Does not have capacity per psych.
[2019-04-01] MEDS: cefTRIAXone(*) 1 GM in NS 0.9% 50 ML* 50 ML IVPB SCH (15:54)
[2019-04-01] MEDS: OLANzapine TAB* 10 MG PO SCH (20:18)
[2019-04-01] MEDS: Montelukast Sodium TAB* 10 MG PO SCH (20:18)
[2019-04-01] MEDS: Atorvastatin* 40 MG TAB PO SCH (20:18)
[2019-04-02] MEDS: Acetaminophen TAB* 325 MG PO PRN ×2 (01:06→08:05)
[2019-04-02] MEDS: Diltiazem TAB* 60 MG PO SCH ×3 (05:32→18:33)
[2019-04-02] MEDS: Levothyroxine TAB* 75 MCG TAB PO SCH (05:32)
[2019-04-02] MEDS: Heparin VIAL(*) 5000 UNITS/ML VIAL (FIVE THOUSAND) SUBCUT SCH ×3 (05:33→21:19)
[2019-04-02 06:06] LABS: BUN/Creatinine Ratio 21.3 (8-20); C Reactive Protein 39.17 mg/L (<8.01); Calcium 8.9 mg/dL (8.6-10.3); EGFR African American 164.7 (>60); EGFR Non-African American 136.1 (>60); Potassium 4.3 mmol/L (3.5-5.0)
[2019-04-02 06:30] LABS: ABS Eosinophils 0.1 10^3/ul (0-0.6); ABS Monocytes 1.3 10^3/ul (0-0.8); ABS Neutrophils 11.2 10^3/ul (1.5-7.7); Eosinophil % 0.7 %
[2019-04-02] MEDS: OLANzapine TAB* 5 MG PO SCH (07:59)
[2019-04-02] MEDS: Spironolactone TAB* 25 MG PO SCH (07:59)
[2019-04-02] MEDS: Aspirin EC TAB* 81 MG TAB.EC PO SCH (07:59)
[2019-04-02] MEDS: Cholecalciferol TAB* 1000 UNITS PO SCH (07:59)
[2019-04-02] MEDS: Magnesium Oxide TAB* 400 MG PO SCH (07:59)
[2019-04-02] MEDS: DULoxetine DR CAP* 60 MG CAP.DR PO SCH ×2 (07:59→19:54)
[2019-04-02] MEDS: Mometasone/Formoter 200/5 MDI INH SCH ×2 (07:59→19:10)
[2019-04-02] MEDS: Tiotropium CAP.INH* CAP.INH/18 MCG (USE ORDER SET !) INH SCH (08:00)
[2019-04-02 08:27] LABS: Hematocrit 32 % (35-47); Hemoglobin 10.6 g/dL (12.0-16.0); Mean Corpuscular HGB Conc 33 g/dL (31-36); Mean Corpuscular Hemoglobin 32 pg (27-31); Mean Corpuscular Volume 95 fL (80-97); Mean Platelet Volume 7.9 fL (7.4-10.4); Platelet Count 631 10^3/uL (150-450); Red Blood Count 3.36 10^6 /uL (3.70-4.87); Red Cell Distribution Width 15 % (10-15); White Blood Count 14.9 10^3/uL (3.5-10.8)
--- NOTE | 2019-04-02 10:29 | PN ---
Subjective Date of Service: 04/02/19 Interval History: Patient states she is doing well today. She continues to have low back pain and states she is anxious. She denies CP, SOB, but notes she has occasional cough. She is eager to take a shower today. Nursing reports that patient is pleasant, cooperative during day, but agitated overnight. Objective Active Medications: Acetaminophen (Tylenol Tab*) 650 mg PO Q4H PRN Albuterol (Ventolin Hfa Inhaler*) 2 puff INH Q4H PRN Aspirin (Aspirin Ec Tab*) 81 mg PO DAILY CHON Atorvastatin Calcium (Lipitor*) 40 mg PO BEDTIME CHON Benztropine Mesylate (Cogentin Tab*) 1 mg PO DAILY PRN Bisacodyl (Dulcolax Supp*) 10 mg [place] DAILY PRN Cholecalciferol (Vitamin D Tab*) 2,000 units PO DAILY CHON Diltiazem HCl (Cardizem Tab*) 60 mg PO Q6HR CHON Duloxetine HCl (Cymbalta Cap*) 60 mg PO BID CHON Heparin Sodium (Porcine) (Heparin Flush Picc/Ml/Cvc(*)) 0 ml FLUSH 0600,1800 CHON Heparin Sodium (Porcine) (Heparin Vial(*)) 5,000 units SUBCUT Q8HR CHON Heparin Sodium (Porcine) (Heparin Flush Picc/Ml/Cvc(*)) 0 ml FLUSH 0600,1800 CHON; Protocol Ceftriaxone Sodium 1 gm/ (Sodium Chloride) 50 mls @ 100 mls/hr IVPB Q24H CHON Levothyroxine Sodium (Synthroid Tab*) 75 mcg PO DAILY@0600 CHON Magnesium Oxide (Magox 400 Tab*) 400 mg PO DAILY CHON Mometasone Furoate/Formoterol Fumar (Dulera 200/5 Mdi*) 1 puff INH BID CHON Montelukast Sodium (Singulair Tab*) 10 mg PO BEDTIME CHON Olanzapine (Zyprexa Tab*) 5 mg PO DAILY CHON Olanzapine (Zyprexa Tab*) 30 mg PO BEDTIME CHON Ondansetron HCl (Zofran Inj*) 4 mg IV Q6H PRN Spironolactone (Aldactone Tab*) 25 mg PO DAILY CHON Tiotropium [place] (Spiriva Cap.Inh*) 1 cap INH DAILY CHON Tramadol HCl (Ultram*) 50 mg PO Q8H PRN Vital Signs: Temp Pulse Resp BP Pulse Ox 97.5 F 89 15 112/73 98 04/02/19 07:59 04/02/19 08:00 04/02/19 08:00 04/02/19 07:59 04/02/19 08:00 Oxygen Devices in Use Now: None Appearance: Pt is layin in bed on R side. She wakes easily, is talkative, cooperative. She is somewhat dissheveled. She is in no acute distress. Eyes: No Scleral Icterus, PERRLA Ears/Nose/Mouth/Throat: Clear Oropharnyx, - - Somewhat dry mucous membranes Neck: NL Appearance and Movements; NL JVP, Trachea Midline Respiratory: Symmetrical Chest Expansion and Respiratory Effort, Clear to Auscultation Cardiovascular: NL Sounds; No Murmurs; No JVD, RRR, - - b/l pedal edema, nonpitting Abdominal: NL Sounds; No Tenderness; No Distention, No Hepatosplenomegaly Extremities: No Clubbing, Cyanosis, - - Linear scratches on anterior R brooks with chronic unopened wound. Neurological: Alert and Oriented x 3 Result Diagrams: 04/02/19 05:30 04/02/19 06:00 Additional Lab and Data: Laboratory Results - last 24 hr 03/30/19 03/30/19 06:50 06:50 WBC 8.6 RBC 2.96 L Hgb 9.5 L Hct 27 L MCV 91 MCH 32 H MCHC 35 RDW 14 Plt Count 298 MPV 8.2 Neut % (Auto) 67.7 Lymph % (Auto) 17.9 [place] % (Auto) 12.4 Eos % (Auto) 1.7 Baso % (Auto) 0.3 Absolute Neuts (auto) 5.8 Absolute Lymphs (auto) 1.5 Absolute Monos (auto) 1.1 H Absolute Eos (auto) 0.1 Absolute Basos (auto) 0.0 Absolute Nucleated RBC 0.0 Immature Gran % 9.0 Neutrophils % 59.0 Band Neutrophils % 7.0 Lymphocytes % 23.0 Monocytes % 7.0 Eosinophils % 2.0 Metamyelocytes % 2.0 Nucleated RBC % 0.1 Normal RBC Morphology Normal Sodium 136 Potassium 3.1 L Chloride 103 Carbon Dioxide 27 Anion Gap 6 BUN 10 Creatinine 0.37 L Est GFR ( Amer) 217.0 Est GFR (Non-Af Amer) 179.4 BUN/Creatinine Ratio 27.0 H Glucose 90 Calcium 7.3 L Magnesium 1.7 L Microbiology and Other Data: Microbiology 03/27/19 19:30 Blood Venous Aerobic Blood Culture - Preliminary No Growth Day 2 03/27/19 19:30 Blood Venous Anaerobic Blood Culture - Preliminary No Growth Day 2 03/27/19 17:55 Blood Venous Aerobic Blood Culture - Preliminary No Growth Day 2 03/27/19 17:55 Blood Venous Anaerobic Blood Culture - Preliminary No Growth Day 2 03/26/19 14:27 Blood Venous Aerobic Blood Culture - Preliminary No Growth Day 3 03/26/19 14:27 Blood Venous Anaerobic Blood Culture - Preliminary No Growth Day 3 03/24/19 12:14 Blood Venous Aerobic Blood Culture - Final No Growth Day 5 03/24/19 12:14 Blood Venous Anaerobic Blood Culture - Final Escherichia Coli 03/24/19 12:05 Blood Venous Aerobic Blood Culture - Final Escherichia Coli 03/24/19 12:05 Blood Venous Anaerobic Blood Culture - Final No Growth Day 5 03/27/19 01:04 Urine Urine Culture - Final No Growth (<1,000 CFU/mL) 03/25/19 16:45 Stool Stool Occult Blood (MEDARDO) - Final 03/24/19 11:48 Urine Urine Culture - Final No Growth (<1,000 CFU/mL) 03/24/19 16:55 Nasal Nasal Screen MRSA (PCR) - Final Mrsa Not Detected Assess/Plan/Problems-Billing Ms Lui is a 58 yo F who has a h/o self injury behaviors, schizoaffective disorder- bipolar type, HTN, hypothyroidism and asthma who was found to be poorly responsive at the [facility] and was brought in to the ER where she was found to be in severe sepsis secondary to pneumonia and now subsequently found to have Ecoli bacteremia. - Patient Problems (1) Bacteremia Comment: - Per ID plan for Ceftraixone 1 gram daily for 56 days; today . 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 No episodes of SVT. - 03/25 patient reported to have bursts of SVT and patient was restarted on diltiazem CD that was held on admission. - Patient will be transition from diltiazem 60mg q6 to home diltiazem dose of 240mg qd in a.m. - Cont tele - Cont to monitor vital signs (3) Hypokalemia Comment: - K WNL today - On admission K was 2.6 and replacement given. - Patient also on Aldactone - Cont Tele - Cont to monitor BMP (4) Severe sepsis Comment: - Last fever 03/27 - Continues to be intermittently tachycardic. - Had septic encephalopathy on admission - Continue ceftriaxone (5) Thyroid nodule Comment: - Thyroid nodule found and recommend FNA be completed. - Has NOT been completed during this visit. (6) Schizoaffective disorder Comment: - Psych consulting and we appreciate their assistance - Wellbutrin discontinued by psych - Psych also recommends avoiding anti-cholinergic medications and benzos - Patient does not have capacity per psych - Supportive care - Cont home olanzapine and cymbalta. (7) HTN (hypertension) Comment: - Normotensive - Cont Cardizem and Aldactone (8) Hypothyroidism Comment: - Cont home dose of synthroid. (9) DVT prophylaxis Comment: - SQ heparin (10) Full code status Status and Disposition: Inpatient. Will most likely need TEE when medically stable. Does not have capacity per psych.
[2019-04-02] MEDS: cefTRIAXone(*) 1 GM in NS 0.9% 50 ML* 50 ML IVPB SCH (16:31)
[2019-04-02] MEDS: Montelukast Sodium TAB* 10 MG PO SCH (19:53)
[2019-04-02] MEDS: traMADol TAB* 50 MG PO PRN (19:53)
[2019-04-02] MEDS: Atorvastatin* 40 MG TAB PO SCH (19:53)
[2019-04-02] MEDS: OLANzapine TAB* 10 MG PO SCH (19:53)
[2019-04-03] MEDS: Diltiazem TAB* 60 MG PO SCH (00:11)
[2019-04-03] MEDS: traMADol TAB* 50 MG PO PRN ×2 (04:38→12:38)
[2019-04-03 04:51] LABS: Hematocrit 31 % (35-47); Hemoglobin 10.7 g/dL (12.0-16.0); Mean Corpuscular HGB Conc 35 g/dL (31-36); Mean Corpuscular Hemoglobin 32 pg (27-31); Mean Corpuscular Volume 93 fL (80-97); Platelet Count 735 10^3/uL (150-450); Red Blood Count 3.34 10^6 /uL (3.70-4.87); Red Cell Distribution Width 14 % (10-15); White Blood Count 14.5 10^3/uL (3.5-10.8)
[2019-04-03 05:27] LABS: BUN/Creatinine Ratio 22.4 (8-20); Calcium 8.8 mg/dL (8.6-10.3); EGFR Non-African American 129.7 (>60); Potassium 4.6 mmol/L (3.5-5.0)
[2019-04-03] MEDS: Heparin VIAL(*) 5000 UNITS/ML VIAL (FIVE THOUSAND) SUBCUT SCH ×3 (05:34→21:50)
[2019-04-03 05:35] LABS: ABS Basophils 0.1 10^3/ul (0-0.2); ABS Eosinophils 0.1 10^3/ul (0-0.6); ABS Lymphocytes 2.1 10^3/ul (1.0-4.8); ABS Monocytes 1.3 10^3/ul (0-0.8); ABS Neutrophils 10.8 10^3/ul (1.5-7.7); Eosinophil % 0.8 %; Lymphocyte % 14.5 %; Nucleated Red Blood Cells % 0.1
[2019-04-03] MEDS: Levothyroxine TAB* 75 MCG TAB PO SCH (05:37)
[2019-04-03] MEDS: Tiotropium CAP.INH* CAP.INH/18 MCG (USE ORDER SET !) INH SCH (08:02)
[2019-04-03] MEDS: Mometasone/Formoter 200/5 MDI INH SCH ×2 (08:02→19:34)
[2019-04-03] MEDS: Magnesium Oxide TAB* 400 MG PO SCH (08:13)
[2019-04-03] MEDS: Acetaminophen TAB* 325 MG PO PRN ×3 (08:13→21:48)
[2019-04-03] MEDS: OLANzapine TAB* 5 MG PO SCH (08:14)
[2019-04-03] MEDS: Cholecalciferol TAB* 1000 UNITS PO SCH (08:14)
[2019-04-03] MEDS: Aspirin EC TAB* 81 MG TAB.EC PO SCH (08:14)
[2019-04-03] MEDS: Spironolactone TAB* 25 MG PO SCH (08:14)
[2019-04-03] MEDS: Diltiazem CD CAP* 240 MG PO SCH (08:14)
[2019-04-03] MEDS: DULoxetine DR CAP* 60 MG CAP.DR PO SCH ×2 (08:14→21:48)
[2019-04-03] MEDS: NS 0.9% 1000 ML** 1,000 ML IV SCH (09:30)
--- NOTE | 2019-04-03 09:36 | PN ---
Progress Note - Progress Note Date of Service: 04/03/19 SOAP: Subjective: CC: E coli bactermia and osteodiskitis. HPI: Ms. Lui is a 58 yo female with PMH significant for depression, history of self harm, COPD, anxiety, and HLD; who presented to the hospital unresponsive. Denies fever, chills, urinary symptoms, ABD pain. Reports lower back pain. Unwilling to answer anymore questions. Objective: Vital Signs 04/03/19 04/03/19 08:03 08:30 Temperature 99.4 F Pulse Rate 100 95 Respiratory 20 16 Rate Blood Pressure 102/62 (mmHg) O2 Sat by Pulse 98 96 Oximetry Physical Exam: General: NAD, laying in bed Neurological: Alert and Oriented HEENT: Moist MM, no thrush Cardiovascular: Heart rate regular Respiratory: Lung sound clear bilateral Abdominal: Bowel sounds present; ABD soft, non tender and non distended MSK: No tenderness with palpation of the neck, back or spine. No LE neurological deficits Skin: No rash Laboratory Results - last 24 hr 04/03/19 04/03/19 04:42 04:42 WBC 14.5 H RBC 3.34 L Hgb 10.7 L Hct 31 L MCV 93 MCH 32 H MCHC 35 RDW 14 Plt Count 735 H D MPV 7.0 L Neut % (Auto) 74.6 Lymph % (Auto) 14.5 [place] % (Auto) 9.2 Eos % (Auto) 0.8 Baso % (Auto) 0.9 Absolute Neuts (auto) 10.8 H Absolute Lymphs (auto) 2.1 Absolute Monos (auto) 1.3 H Absolute Eos (auto) 0.1 Absolute Basos (auto) 0.1 Absolute Nucleated RBC 0.0 Nucleated RBC % 0.1 Sodium 132 L Potassium 4.6 Chloride 99 L Carbon Dioxide 25 Anion Gap 8 BUN 11 Creatinine 0.49 L Est GFR ( Amer) 157.0 Est GFR (Non-Af Amer) 129.7 BUN/Creatinine Ratio 22.4 H Glucose 120 H Calcium 8.8 Microbiology 03/27/19 19:30 Aerobic Blood Culture - Final Blood Venous No Growth Day 5 Anaerobic Blood Culture - Final No Growth Day 5 03/27/19 17:55 Aerobic Blood Culture - Final Blood Venous No Growth Day 5 Anaerobic Blood Culture - Final No Growth Day 5 03/26/19 14:27 Aerobic Blood Culture - Final Blood Venous No Growth Day 5 Anaerobic Blood Culture - Final No Growth Day 5 03/24/19 12:14 Aerobic Blood Culture - Final Blood Venous No Growth Day 5 Anaerobic Blood Culture - Final Escherichia Coli 03/24/19 12:05 Aerobic Blood Culture - Final Blood Venous Escherichia Coli Anaerobic Blood Culture - Final No Growth Day 5 03/27/19 01:04 Urine Culture - Final Urine No Growth (<1,000 CFU/mL) 03/25/19 16:45 Stool Occult Blood (MEDARDO) - Final Stool 03/24/19 11:48 Urine Culture - Final Urine No Growth (<1,000 CFU/mL) 03/24/19 16:55 Nasal Screen MRSA (PCR) - Final Nasal Mrsa Not Detected Assessment: 1. Ecoli bacteremia. Urine culture with no growth. Repeat blood cultures with no growth on day 5. 2. Vertebral osteodiskitis of the lumbar spine. No epidural abscess seen on imaging. Continues to have low back pain, no LE neurological deficits. Afebrile. Leukocytosis. 3. Leukocytosis while on ABX. Denies fever, chills, ABD pain, urinary symptoms or diarrhea. Diff Dx: C-diff, worsening infection, new infection. Unclear cause at this time. Plan: Continue ceftriaxone, will increase to 2 gm daily, day . Recheck CBC in AM. PICC line has been placed. Weekly labs while on ABX: CMP, CBC, and CRP.
--- NOTE | 2019-04-03 12:04 | PN ---
Subjective Date of Service: 04/03/19 Interval History: Pt is very irritable today. She states she is agitated. She denies cough, SOB. She has loose stools x1 daily for 3 days without melena or hematochezia. She denies urinary symptoms. She has a catheter in place. She c/o sweats, stating she is hot, denies chills, fever. She is refusing physical exam at this time. Seen later in the afternoon, and patient is more agitated, and disinterested in talking. She is continuing to refuse physical exam. Psych recommends Zyprexa 5 PO x1 dose and continue to avoid benzos. Objective Active Medications: Acetaminophen (Tylenol Tab*) 650 mg PO Q4H PRN Albuterol (Ventolin Hfa Inhaler*) 2 puff INH Q4H PRN Aspirin (Aspirin Ec Tab*) 81 mg PO DAILY [facility] Atorvastatin Calcium (Lipitor*) 40 mg PO BEDTIME [facility] Benztropine Mesylate (Cogentin Tab*) 1 mg PO DAILY PRN Bisacodyl (Dulcolax Supp*) 10 mg OK DAILY PRN Cholecalciferol (Vitamin D Tab*) 2,000 units PO DAILY [facility] Diltiazem HCl (Cardizem Cd Cap*) 240 mg PO DAILY [facility] Duloxetine HCl (Cymbalta Cap*) 60 mg PO BID [facility] Heparin Sodium (Porcine) (Heparin Flush Picc/Ml/Cvc(*)) 0 ml FLUSH 0600,1800 [facility] Heparin Sodium (Porcine) (Heparin Vial(*)) 5,000 units SUBCUT Q8HR [facility] Ceftriaxone Sodium 1 gm/ (Sodium Chloride) 50 mls @ 100 mls/hr IVPB Q24H [facility] Sodium Chloride (Ns 0.9% 1000 Ml) 1,000 mls @ 125 mls/hr IV PER RATE [facility] Levothyroxine Sodium (Synthroid Tab*) 75 mcg PO DAILY@0600 [facility] Magnesium Oxide (Magox 400 Tab*) 400 mg PO DAILY [facility] Mometasone Furoate/Formoterol Fumar (Dulera 200/5 Mdi*) 1 puff INH BID [facility] Montelukast Sodium (Singulair Tab*) 10 mg PO BEDTIME [facility] Olanzapine (Zyprexa Tab*) 5 mg PO DAILY [facility] Olanzapine (Zyprexa Tab*) 30 mg PO BEDTIME [facility] Ondansetron HCl (Zofran Inj*) 4 mg IV Q6H PRN Spironolactone (Aldactone Tab*) 25 mg PO DAILY [facility] Tiotropium [place] (Spiriva Cap.Inh*) 1 cap INH DAILY [facility] Tramadol HCl (Ultram*) 50 mg PO Q8H PRN Vital Signs: Temp Pulse Resp BP Pulse Ox 98.5 F 94 20 100/49 97 04/03/19 15:15 04/03/19 15:15 04/03/19 15:15 04/03/19 15:15 04/03/19 15:15 Oxygen Devices in Use Now: None Appearance: Patient is laying on R side in bed. She is awake and responds to questioning, but refused physical exam. She appears agitated. Eyes: No Scleral Icterus Ears/Nose/Mouth/Throat: Mucous Membranes Moist Neck: Trachea Midline Respiratory: Symmetrical Chest Expansion and Respiratory Effort, - - Refusing auscultation Cardiovascular: - - Refused exam Abdominal: - - Refused exam Extremities: No Clubbing, Cyanosis Neurological: Alert and Oriented x 3 Result Diagrams: 04/03/19 04:42 04/03/19 04:42 Additional Lab and Data: Laboratory Results - last 24 hr 03/30/19 03/30/19 06:50 06:50 WBC 8.6 RBC 2.96 L Hgb 9.5 L Hct 27 L MCV 91 MCH 32 H MCHC 35 RDW 14 Plt Count 298 MPV 8.2 Neut % (Auto) 67.7 Lymph % (Auto) 17.9 [place] % (Auto) 12.4 Eos % (Auto) 1.7 Baso % (Auto) 0.3 Absolute Neuts (auto) 5.8 Absolute Lymphs (auto) 1.5 Absolute Monos (auto) 1.1 H Absolute Eos (auto) 0.1 Absolute Basos (auto) 0.0 Absolute Nucleated RBC 0.0 Immature Gran % 9.0 Neutrophils % 59.0 Band Neutrophils % 7.0 Lymphocytes % 23.0 Monocytes % 7.0 Eosinophils % 2.0 Metamyelocytes % 2.0 Nucleated RBC % 0.1 Normal RBC Morphology Normal Sodium 136 Potassium 3.1 L Chloride 103 Carbon Dioxide 27 Anion Gap 6 BUN 10 Creatinine 0.37 L Est GFR ( Amer) 217.0 Est GFR (Non-Af Amer) 179.4 BUN/Creatinine Ratio 27.0 H Glucose 90 Calcium 7.3 L Magnesium 1.7 L Microbiology and Other Data: Microbiology 03/27/19 19:30 Blood Venous Aerobic Blood Culture - Preliminary No Growth Day 2 03/27/19 19:30 Blood Venous Anaerobic Blood Culture - Preliminary No Growth Day 2 03/27/19 17:55 Blood Venous Aerobic Blood Culture - Preliminary No Growth Day 2 03/27/19 17:55 Blood Venous Anaerobic Blood Culture - Preliminary No Growth Day 2 03/26/19 14:27 Blood Venous Aerobic Blood Culture - Preliminary No Growth Day 3 03/26/19 14:27 Blood Venous Anaerobic Blood Culture - Preliminary No Growth Day 3 03/24/19 12:14 Blood Venous Aerobic Blood Culture - Final No Growth Day 5 03/24/19 12:14 Blood Venous Anaerobic Blood Culture - Final Escherichia Coli 03/24/19 12:05 Blood Venous Aerobic Blood Culture - Final Escherichia Coli 03/24/19 12:05 Blood Venous Anaerobic Blood Culture - Final No Growth Day 5 03/27/19 01:04 Urine Urine Culture - Final No Growth (<1,000 CFU/mL) 03/25/19 16:45 Stool Stool Occult Blood (MEDARDO) - Final 03/24/19 11:48 Urine Urine Culture - Final No Growth (<1,000 CFU/mL) 03/24/19 16:55 Nasal Nasal Screen MRSA (PCR) - Final Mrsa Not Detected Assess/Plan/Problems-Billing Ms Lui is a 58 yo F who has a h/o self injury behaviors, schizoaffective disorder- bipolar type, HTN, hypothyroidism and asthma who was found to be poorly responsive at the [facility] and was brought in to the ER where she was found to be in severe sepsis secondary to pneumonia and now subsequently found to have Ecoli bacteremia. - Patient Problems (1) Bacteremia Comment: - Per ID plan for Ceftraixone 1 gram daily for 56 days; today . - Ecoli Bacteremia - Lumbar spine MRI consistent with vertebral osteodiskitis; no epidural abscess - CBC shows leukocytosis, thrombocytosis; CRP elevated; continue to monitor - PICC in place 03/24 (2) Leukocytosis Comment: -Leukocytosis despite treatment with IV ceftriaxone -UA, CXR ordered; awaiting results -Pt with chronic abd pain, 1 loose stool daily- not concerned for C. diff at this point -Continue ceftriaxone -Continue to monitor (3) SVT (supraventricular tachycardia) Comment: - Patient has been sinus to sinus tach on tele. No episodes of SVT. - 03/25 patient reported to have bursts of SVT and patient was restarted on diltiazem CD that was held on admission. - Patient transitioned from diltiazem 60mg q6 to home diltiazem dose of 240mg qd 04/03 - Cont tele - Cont to monitor vital signs (4) HTN (hypertension) Comment: - Low normal - Cont Cardizem and Aldactone - 1L IVF today (5) Hypokalemia Comment: - K WNL today - On admission K was 2.6 and replacement given. - Patient also on Aldactone - Cont Tele - Cont to monitor BMP (6) Severe sepsis Comment: - Last fever 03/27 - Continues to be intermittently tachycardic. - Had septic encephalopathy on admission - Continue ceftriaxone (7) Thyroid nodule Comment: - Thyroid nodule found and recommend FNA be completed. - Has NOT been completed during this visit. (8) Schizoaffective disorder Comment: - Psych consulting and we appreciate their assistance - Wellbutrin discontinued by psych - Psych also recommends avoiding anti-cholinergic medications and benzos - Patient does not have capacity per psych - Supportive care - Cont home olanzapine and cymbalta. (9) Hypothyroidism Comment: - Cont home dose of synthroid. (10) DVT prophylaxis Comment: - SQ heparin (11) Full code status Status and Disposition: Inpatient. Will most likely need TEE when medically stable. Does not have capacity per psych.
[2019-04-03] MEDS ORDERED: OLANzapine TAB* 5 MG PO ONE (14:44)
[2019-04-03] MEDS: cefTRIAXone(*) 2 GM in NS 0.9% 100 ML* 100 ML IVPB SCH (16:17)
[2019-04-03 18:31] LABS: Urine Appearance Cloudy; Urine Bacteria Absent (Absent); Urine Bilirubin Negative (Negative); Urine Blood 1+ (Negative); Urine Color Yellow; Urine Glucose Negative (Negative); Urine Ketones Negative (Negative); Urine Nitrite Negative (Negative); Urine Protein Negative (Negative); Urine Red Blood Cell 1+(3-5/hpf) (Absent); Urine Specific Gravity 1.009 (1.010-1.030); Urine Urobilinogen Negative (Negative); Urine White Blood Cell 1+(6-10/hpf) (Absent)
[2019-04-03] MEDS: OLANzapine TAB* 10 MG PO SCH (21:48)
[2019-04-03] MEDS: Atorvastatin* 40 MG TAB PO SCH (21:48)
[2019-04-03] MEDS: Montelukast Sodium TAB* 10 MG PO SCH (21:48)
[2019-04-04] MEDS: NS 0.9% 1000 ML** 1,000 ML IV SCH ×2 (02:38→11:26)
[2019-04-04] MEDS: traMADol TAB* 50 MG PO PRN ×2 (06:03→16:27)
[2019-04-04] MEDS: Levothyroxine TAB* 75 MCG TAB PO SCH (06:03)
[2019-04-04] MEDS: Heparin VIAL(*) 5000 UNITS/ML VIAL (FIVE THOUSAND) SUBCUT SCH ×3 (06:04→20:51)
[2019-04-04 08:18] LABS: Hematocrit 30 % (35-47); Hemoglobin 10.4 g/dL (12.0-16.0); Mean Corpuscular HGB Conc 34 g/dL (31-36); Mean Corpuscular Hemoglobin 32 pg (27-31); Mean Corpuscular Volume 95 fL (80-97); Platelet Count 778 10^3/uL (150-450); Red Blood Count 3.21 10^6 /uL (3.70-4.87); Red Cell Distribution Width 15 % (10-15); White Blood Count 13.9 10^3/uL (3.5-10.8)
[2019-04-04 08:25] LABS: Albumin 2.8 g/dL (3.2-5.2); Albumin/Globulin Ratio 0.8 (1-3); Calcium 8.6 mg/dL (8.6-10.3); EGFR African American 153.3 (>60); EGFR Non-African American 126.7 (>60); Globulin 3.5 g/dL (2-4); Potassium 4.7 mmol/L (3.5-5.0); Total Bilirubin 0.3 mg/dL (0.2-1.0); Total Protein 6.3 g/dL (6.4-8.9)
[2019-04-04] MEDS: DULoxetine DR CAP* 60 MG CAP.DR PO SCH ×2 (08:26→20:47)
[2019-04-04] MEDS: Magnesium Oxide TAB* 400 MG PO SCH (08:26)
[2019-04-04] MEDS: Cholecalciferol TAB* 1000 UNITS PO SCH (08:26)
[2019-04-04] MEDS: OLANzapine TAB* 5 MG PO SCH (08:26)
[2019-04-04] MEDS: Diltiazem CD CAP* 240 MG PO SCH (08:26)
[2019-04-04] MEDS: Spironolactone TAB* 25 MG PO SCH (08:26)
[2019-04-04] MEDS: Aspirin EC TAB* 81 MG TAB.EC PO SCH (08:26)
[2019-04-04] MEDS: Mometasone/Formoter 200/5 MDI INH SCH ×2 (08:32→20:04)
[2019-04-04] MEDS: Tiotropium CAP.INH* CAP.INH/18 MCG (USE ORDER SET !) INH SCH (08:33)
[2019-04-04 10:59] LABS: ABS Basophils 0.1 10^3/ul (0-0.2); ABS Eosinophils 0.1 10^3/ul (0-0.6); ABS Lymphocytes 1.8 10^3/ul (1.0-4.8); ABS Monocytes 1.3 10^3/ul (0-0.8); ABS Neutrophils 10.6 10^3/ul (1.5-7.7); Eosinophil % 0.5 %; Lymphocyte % 13.3 %
--- NOTE | 2019-04-04 12:18 | PN ---
Subjective Date of Service: 04/04/19 Interval History: Resting in bed on assessment. Reports she continues to have "pain all over", but specifically in her back. Reports Tramadol is helping. Remainder of 14 point ROS negative. Patient irritable as evidence by stating she is sick of being in the hospital and everyone coming and and "doing the same". Objective Active Medications: Acetaminophen (Tylenol Tab*) 650 mg PO Q4H PRN PRN Reason: fever >/= to 38C Last Admin: 04/03/19 21:48 Dose: 650 mg Albuterol (Ventolin Hfa Inhaler*) 2 puff INH Q4H PRN PRN Reason: SHORTNESS OF BREATH Aspirin (Aspirin Ec Tab*) 81 mg PO DAILY [facility] Last Admin: 04/04/19 08:26 Dose: 81 mg Atorvastatin Calcium (Lipitor*) 40 mg PO BEDTIME [facility] Last Admin: 04/03/19 21:48 Dose: 40 mg Benztropine Mesylate (Cogentin Tab*) 1 mg PO DAILY PRN PRN Reason: extrapyrimidal side effects Last Admin: 03/26/19 10:47 Dose: 1 mg Bisacodyl (Dulcolax Supp*) 10 mg ND DAILY PRN PRN Reason: CONSTIPATION Last Admin: 03/25/19 16:45 Dose: 10 mg Cholecalciferol (Vitamin D Tab*) 2,000 units PO DAILY [facility] Last Admin: 04/04/19 08:26 Dose: 2,000 units Diltiazem HCl (Cardizem Cd Cap*) 240 mg PO DAILY [facility] Last Admin: 04/04/19 08:26 Dose: 240 mg Duloxetine HCl (Cymbalta Cap*) 60 mg PO BID [facility] Last Admin: 04/04/19 08:26 Dose: 60 mg Heparin Sodium (Porcine) (Heparin Flush Picc/Ml/Cvc(*)) 0 ml FLUSH 0600,1800 [facility] Last Admin: 04/04/19 06:32 Dose: Not Given Heparin Sodium (Porcine) (Heparin Vial(*)) 5,000 units SUBCUT Q8HR [facility] Last Admin: 04/04/19 06:04 Dose: 5,000 units Ceftriaxone Sodium 2 gm/ (Sodium Chloride) 100 mls @ 200 mls/hr IVPB Q24H [facility] Last Admin: 04/03/19 16:17 Dose: 200 mls/hr Levothyroxine Sodium (Synthroid Tab*) 75 mcg PO DAILY@0600 [facility] Last Admin: 04/04/19 06:03 Dose: 75 mcg Magnesium Oxide (Magox 400 Tab*) 400 mg PO DAILY [facility] Last Admin: 04/04/19 08:26 Dose: 400 mg Mometasone Furoate/Formoterol Fumar (Dulera 200/5 Mdi*) 1 puff INH BID [facility] Last Admin: 04/04/19 08:32 Dose: 1 puff Montelukast Sodium (Singulair Tab*) 10 mg PO BEDTIME [facility] Last Admin: 04/03/19 21:48 Dose: 10 mg Olanzapine (Zyprexa Tab*) 5 mg PO DAILY [facility] Last Admin: 04/04/19 08:26 Dose: 5 mg Olanzapine (Zyprexa Tab*) 30 mg PO BEDTIME [facility] Last Admin: 04/03/19 21:48 Dose: 30 mg Ondansetron HCl (Zofran Inj*) 4 mg IV Q6H PRN PRN Reason: NAUSEA Last Admin: 03/26/19 19:45 Dose: 4 mg Spironolactone (Aldactone Tab*) 25 mg PO DAILY [facility] Last Admin: 04/04/19 08:26 Dose: 25 mg Tiotropium [place] (Spiriva Cap.Inh*) 1 cap INH DAILY [facility] Last Admin: 04/04/19 08:33 Dose: 1 cap Tramadol HCl (Ultram*) 50 mg PO Q8H PRN PRN Reason: PAIN Last Admin: 04/04/19 06:03 Dose: 50 mg Vital Signs - 8 hr 04/04/19 04/04/19 04/04/19 06:03 07:15 08:00 Temperature 98.2 F Pulse Rate 94 Respiratory 20 16 16 Rate Blood Pressure 112/61 (mmHg) O2 Sat by Pulse 98 Oximetry 04/04/19 04/04/19 08:31 08:35 Temperature Pulse Rate 104 Respiratory 16 16 Rate Blood Pressure (mmHg) O2 Sat by Pulse 98 Oximetry Oxygen Devices in Use Now: None Appearance: Comfortable, NAD Eyes: No Scleral Icterus Ears/Nose/Mouth/Throat: Clear Oropharnyx, Mucous Membranes Moist Neck: NL Appearance and Movements; NL JVP Respiratory: Symmetrical Chest Expansion and Respiratory Effort, Clear to Auscultation Cardiovascular: NL Sounds; No Murmurs; No JVD, RRR, No Edema Abdominal: - - Refused abd exam Lymphatic: No Cervical Adenopathy Extremities: No Edema Neurological: - - Alert to self, place and situation Nutrition: Taking PO's Result Diagrams: 04/04/19 07:55 04/04/19 07:55 Additional Lab and Data: Laboratory Results - last 24 hr 04/03/19 04/04/19 04/04/19 18:05 07:55 07:55 WBC 13.9 H RBC 3.21 L Hgb 10.4 L Hct 30 L MCV 95 MCH 32 H MCHC 34 RDW 15 Plt Count 778 H MPV 7.0 L Neut % (Auto) 76.4 Lymph % (Auto) 13.3 [place] % (Auto) 9.1 Eos % (Auto) 0.5 Baso % (Auto) 0.7 Absolute Neuts (auto) 10.6 H Absolute Lymphs (auto) 1.8 Absolute Monos (auto) 1.3 H Absolute Eos (auto) 0.1 Absolute Basos (auto) 0.1 Absolute Nucleated RBC 0.0 Immature Gran % 7.0 Neutrophils % 64.0 Band Neutrophils % 4.0 Lymphocytes % 14.0 Monocytes % 13.0 Eosinophils % 1.0 Basophils % 1.0 Metamyelocytes % 1.0 Myelocytes % 2.0 H Nucleated RBC % 0.0 Normal RBC Morphology Normal Sodium 134 L Potassium 4.7 Chloride 102 Carbon Dioxide 27 Anion Gap 5 BUN 10 Creatinine 0.50 L Est GFR ( Amer) 153.3 Est GFR (Non-Af Amer) 126.7 BUN/Creatinine Ratio 20.0 Glucose 94 Calcium 8.6 Total Bilirubin 0.30 AST 21 ALT 41 Alkaline Phosphatase 131 H Total Protein 6.3 L Albumin 2.8 L Globulin 3.5 Albumin/Globulin Ratio 0.8 L Urine Color Yellow Urine Appearance Cloudy Urine pH 7.0 Ur Specific [place] 1.009 L Urine Protein Negative Urine Ketones Negative Urine Blood 1+ A Urine Nitrate Negative Urine Bilirubin Negative Urine Urobilinogen Negative Ur Leukocyte Esterase Negative Urine WBC (Auto) 1+(6-10/hpf) A Urine RBC (Auto) 1+(3-5/hpf) A Urine Bacteria Absent Urine Yeast Present A Urine Glucose Negative Urine Ascorbic Acid * A Microbiology and Other Data: Microbiology 04/03/19 18:05 Urine Culture - Preliminary Urine Enterococcus Faecalis 03/27/19 19:30 Aerobic Blood Culture - Final Blood Venous No Growth Day 5 Anaerobic Blood Culture - Final No Growth Day 5 03/27/19 17:55 Aerobic Blood Culture - Final Blood Venous No Growth Day 5 Anaerobic Blood Culture - Final No Growth Day 5 03/26/19 14:27 Aerobic Blood Culture - Final Blood Venous No Growth Day 5 Anaerobic Blood Culture - Final No Growth Day 5 03/24/19 12:14 Aerobic Blood Culture - Final Blood Venous No Growth Day 5 Anaerobic Blood Culture - Final Escherichia Coli 03/24/19 12:05 Aerobic Blood Culture - Final Blood Venous Escherichia Coli Anaerobic Blood Culture - Final No Growth Day 5 03/27/19 01:04 Urine Culture - Final Urine No Growth (<1,000 CFU/mL) 03/25/19 16:45 Stool Occult Blood (MEDARDO) - Final Stool 03/24/19 11:48 Urine Culture - Final Urine No Growth (<1,000 CFU/mL) 03/24/19 16:55 Nasal Screen MRSA (PCR) - Final Nasal Mrsa Not Detected Assess/Plan/Problems-Billing Ms Lui is a 58 yo F who has a h/o self injury behaviors, schizoaffective disorder- bipolar type, HTN, hypothyroidism and asthma who was found to be poorly responsive at the [facility] and was brought in to the ER where she was found to be in severe sepsis secondary to pneumonia and now subsequently found to have Ecoli bacteremia. - Patient Problems (1) Chest x-ray abnormality Comment: - Chest xray obtained yesterday afternoon revealed patchy density in right upper and right lower lobes and radiology reports differentials include multifocal pneumonia, pulmonary edema, or early ARDS. - Patient wbc is trending down and she is afebrile. She also does not c/o of respiratory symptoms. No coughing or issues eating noted. - Cont Rocephin - Cont to monitor (2) Back pain Comment: - Reports improvement in back pain with addition of Tramadol to medication regime (3) Urine culture positive Comment: - Enterococcus Faecalis > 100,000 noted in urine culture. - Patient has had schulte since admission therefore order placed to remove. - Could be colonization on schulte? - Cont to monitor (4) Bacteremia Comment: - Per ID plan for Ceftraixone 1 gram daily for 56 days; today . - Ecoli Bacteremia - Lumbar spine MRI consistent with vertebral osteodiskitis; no epidural abscess - CBC shows leukocytosis, thrombocytosis; CRP elevated; continue to monitor - PICC in place 03/24 (5) Hypokalemia Comment: - K WNL today - On admission K was 2.6 and replacement given. - Patient also on Aldactone - Cont Tele - Cont to monitor BMP (6) Thyroid nodule Comment: - Thyroid nodule found and recommend FNA be completed. - Has NOT been completed during this visit. (7) HTN (hypertension) Comment: - Cont Cardizem and Aldactone (8) Hypothyroidism Comment: - Cont home dose of synthroid. (9) SVT (supraventricular tachycardia) Comment: - Patient has been sinus to sinus tach on tele. No episodes of SVT. - 03/25 patient reported to have bursts of SVT and patient was restarted on diltiazem CD that was held on admission. - Patient transitioned from diltiazem 60mg q6 to home diltiazem dose of 240mg qd 04/03 - Cont tele - Cont to monitor vital signs (10) Schizoaffective disorder Comment: - Psych consulting and we appreciate their assistance - Wellbutrin discontinued by psych - Psych also recommends avoiding anti-cholinergic medications and benzos - Patient does not have capacity per psych - Supportive care - Cont home olanzapine and cymbalta. (11) Severe sepsis Comment: - Last fever 03/27 - Continues to be intermittently tachycardic. - Had septic encephalopathy on admission - Continue ceftriaxone (12) DVT prophylaxis Comment: - SQ heparin (13) Full code status Status and Disposition: Inpatient. Will most likely need TEE when medically stable. Does not have capacity per psych. Attending: Shonda Ku
[2019-04-04] MEDS: cefTRIAXone(*) 2 GM in NS 0.9% 100 ML* 100 ML IVPB SCH (16:28)
[2019-04-04] MEDS: Montelukast Sodium TAB* 10 MG PO SCH (20:47)
[2019-04-04] MEDS: OLANzapine TAB* 10 MG PO SCH (20:47)
[2019-04-04] MEDS: Atorvastatin* 40 MG TAB PO SCH (20:47)
[2019-04-05] MEDS: traMADol TAB* 50 MG PO PRN ×3 (01:53→19:56)
[2019-04-05] MEDS: Heparin VIAL(*) 5000 UNITS/ML VIAL (FIVE THOUSAND) SUBCUT SCH ×3 (06:23→23:11)
[2019-04-05] MEDS: Levothyroxine TAB* 75 MCG TAB PO SCH (06:24)
[2019-04-05] MEDS: OLANzapine TAB* 5 MG PO SCH (08:54)
[2019-04-05] MEDS: Aspirin EC TAB* 81 MG TAB.EC PO SCH (08:54)
[2019-04-05] MEDS: Magnesium Oxide TAB* 400 MG PO SCH (08:54)
[2019-04-05] MEDS: Spironolactone TAB* 25 MG PO SCH (08:54)
[2019-04-05] MEDS: Cholecalciferol TAB* 1000 UNITS PO SCH (08:54)
[2019-04-05] MEDS: DULoxetine DR CAP* 60 MG CAP.DR PO SCH ×2 (08:54→22:40)
[2019-04-05] MEDS: Diltiazem CD CAP* 240 MG PO SCH (08:54)
[2019-04-05] MEDS: Acetaminophen TAB* 325 MG PO PRN ×2 (08:56→22:43)
[2019-04-05] MEDS: Mometasone/Formoter 200/5 MDI INH SCH ×2 (11:10→19:51)
[2019-04-05] MEDS: Tiotropium CAP.INH* CAP.INH/18 MCG (USE ORDER SET !) INH SCH (11:10)
[2019-04-05 11:14] LABS: Hematocrit 32 % (35-47); Hemoglobin 10.8 g/dL (12.0-16.0); Mean Corpuscular HGB Conc 34 g/dL (31-36); Mean Corpuscular Hemoglobin 32 pg (27-31); Mean Corpuscular Volume 94 fL (80-97); Mean Platelet Volume 6.7 fL (7.4-10.4); Platelet Count 871 10^3/uL (150-450); Red Blood Count 3.37 10^6 /uL (3.70-4.87); Red Cell Distribution Width 15 % (10-15)
[2019-04-05 11:32] LABS: Albumin/Globulin Ratio 0.8 (1-3); BUN/Creatinine Ratio 23.9 (8-20); Calcium 9.2 mg/dL (8.6-10.3); EGFR African American 168.8 (>60); EGFR Non-African American 139.5 (>60); Globulin 3.7 g/dL (2-4); Potassium 4.3 mmol/L (3.5-5.0); Total Bilirubin 0.2 mg/dL (0.2-1.0); Total Protein 6.7 g/dL (6.4-8.9)
[2019-04-05 12:15] LABS: ABS Basophils 0.1 10^3/ul (0-0.2); ABS Eosinophils 0.1 10^3/ul (0-0.6); ABS Lymphocytes 2.4 10^3/ul (1.0-4.8); ABS Monocytes 1.4 10^3/ul (0-0.8); ABS Neutrophils 9.1 10^3/ul (1.5-7.7); Eosinophil % 0.4 %; Lymphocyte % 18.5 %
[2019-04-05] MEDS: cefTRIAXone(*) 2 GM in NS 0.9% 100 ML* 100 ML IVPB SCH (16:24)
--- NOTE | 2019-04-05 16:28 | PN ---
Subjective Date of Service: 04/05/19 Interval History: Patient refused assessment by this singer songwriter twice today demanding that I leave the room because she is watching TV Objective Active Medications: Acetaminophen (Tylenol Tab*) 650 mg PO Q4H PRN PRN Reason: fever >/= to 38C Last Admin: 04/05/19 08:56 Dose: 650 mg Albuterol (Ventolin Hfa Inhaler*) 2 puff INH Q4H PRN PRN Reason: SHORTNESS OF BREATH Aspirin (Aspirin Ec Tab*) 81 mg PO DAILY [facility] Last Admin: 04/05/19 08:54 Dose: 81 mg Atorvastatin Calcium (Lipitor*) 40 mg PO BEDTIME [facility] Last Admin: 04/04/19 20:47 Dose: 40 mg Benztropine Mesylate (Cogentin Tab*) 1 mg PO DAILY PRN PRN Reason: extrapyrimidal side effects Last Admin: 03/26/19 10:47 Dose: 1 mg Bisacodyl (Dulcolax Supp*) 10 mg PA DAILY PRN PRN Reason: CONSTIPATION Last Admin: 03/25/19 16:45 Dose: 10 mg Cholecalciferol (Vitamin D Tab*) 2,000 units PO DAILY [facility] Last Admin: 04/05/19 08:54 Dose: 2,000 units Diltiazem HCl (Cardizem Cd Cap*) 240 mg PO DAILY [facility] Last Admin: 04/05/19 08:54 Dose: 240 mg Duloxetine HCl (Cymbalta Cap*) 60 mg PO BID [facility] Last Admin: 04/05/19 08:54 Dose: 60 mg Heparin Sodium (Porcine) (Heparin Flush Picc/Ml/Cvc(*)) 0 ml FLUSH 0600,1800 [facility] Last Admin: 04/05/19 06:24 Dose: 1 ml Heparin Sodium (Porcine) (Heparin Vial(*)) 5,000 units SUBCUT Q8HR [facility] Last Admin: 04/05/19 15:10 Dose: 5,000 units Ceftriaxone Sodium 2 gm/ (Sodium Chloride) 100 mls @ 200 mls/hr IVPB Q24H [facility] Last Admin: 04/04/19 16:28 Dose: 200 mls/hr Levothyroxine Sodium (Synthroid Tab*) 75 mcg PO DAILY@0600 [facility] Last Admin: 04/05/19 06:24 Dose: 75 mcg Magnesium Oxide (Magox 400 Tab*) 400 mg PO DAILY [facility] Last Admin: 04/05/19 08:54 Dose: 400 mg Mometasone Furoate/Formoterol Fumar (Dulera 200/5 Mdi*) 1 puff INH BID [facility] Last Admin: 04/05/19 11:10 Dose: 1 puff Montelukast Sodium (Singulair Tab*) 10 mg PO BEDTIME [facility] Last Admin: 04/04/19 20:47 Dose: 10 mg Olanzapine (Zyprexa Tab*) 5 mg PO DAILY [facility] Last Admin: 04/05/19 08:54 Dose: 5 mg Olanzapine (Zyprexa Tab*) 30 mg PO BEDTIME [facility] Last Admin: 04/04/19 20:47 Dose: 30 mg Ondansetron HCl (Zofran Inj*) 4 mg IV Q6H PRN PRN Reason: NAUSEA Last Admin: 03/26/19 19:45 Dose: 4 mg Spironolactone (Aldactone Tab*) 25 mg PO DAILY [facility] Last Admin: 04/05/19 08:54 Dose: 25 mg Tiotropium [place] (Spiriva Cap.Inh*) 1 cap INH DAILY [facility] Last Admin: 04/05/19 11:10 Dose: 1 cap Tramadol HCl (Ultram*) 50 mg PO Q8H PRN PRN Reason: PAIN Last Admin: 04/05/19 11:23 Dose: 50 mg Vital Signs - 8 hr 04/05/19 04/05/19 04/05/19 11:02 11:13 11:23 Temperature 98.4 F Pulse Rate 98 99 Respiratory 16 13 15 Rate Blood Pressure 109/70 (mmHg) O2 Sat by Pulse 98 99 Oximetry 04/05/19 13:20 Temperature Pulse Rate Respiratory 15 Rate Blood Pressure (mmHg) O2 Sat by Pulse Oximetry Oxygen Devices in Use Now: None Result Diagrams: 04/05/19 10:50 04/05/19 10:50 Additional Lab and Data: Laboratory Results - last 24 hr 04/05/19 04/05/19 10:50 10:50 WBC 13.0 H RBC 3.37 L Hgb 10.8 L Hct 32 L MCV 94 MCH 32 H MCHC 34 RDW 15 Plt Count 871 H D MPV 6.7 L Neut % (Auto) 70.2 Lymph % (Auto) 18.5 [place] % (Auto) 10.4 Eos % (Auto) 0.4 Baso % (Auto) 0.5 Absolute Neuts (auto) 9.1 H Absolute Lymphs (auto) 2.4 Absolute Monos (auto) 1.4 H Absolute Eos (auto) 0.1 Absolute Basos (auto) 0.1 Absolute Nucleated RBC 0.0 Nucleated RBC % 0.0 Sodium 134 L Potassium 4.3 Chloride 98 L Carbon Dioxide 29 Anion Gap 7 BUN 11 Creatinine 0.46 L Est GFR ( Amer) 168.8 Est GFR (Non-Af Amer) 139.5 BUN/Creatinine Ratio 23.9 H Glucose 126 H Calcium 9.2 Total Bilirubin 0.20 AST 17 ALT 34 Alkaline Phosphatase 117 H Total Protein 6.7 Albumin 3.0 L Globulin 3.7 Albumin/Globulin Ratio 0.8 L Microbiology and Other Data: Microbiology 04/03/19 18:05 Urine Culture - Preliminary Urine Venecia Tropicalis Enterococcus Faecalis 03/27/19 19:30 Aerobic Blood Culture - Final Blood Venous No Growth Day 5 Anaerobic Blood Culture - Final No Growth Day 5 03/27/19 17:55 Aerobic Blood Culture - Final Blood Venous No Growth Day 5 Anaerobic Blood Culture - Final No Growth Day 5 03/26/19 14:27 Aerobic Blood Culture - Final Blood Venous No Growth Day 5 Anaerobic Blood Culture - Final No Growth Day 5 03/24/19 12:14 Aerobic Blood Culture - Final Blood Venous No Growth Day 5 Anaerobic Blood Culture - Final Escherichia Coli 03/24/19 12:05 Aerobic Blood Culture - Final Blood Venous Escherichia Coli Anaerobic Blood Culture - Final No Growth Day 5 03/27/19 01:04 Urine Culture - Final Urine No Growth (<1,000 CFU/mL) 03/25/19 16:45 Stool Occult Blood (MEDARDO) - Final Stool 03/24/19 11:48 Urine Culture - Final Urine No Growth (<1,000 CFU/mL) 03/24/19 16:55 Nasal Screen MRSA (PCR) - Final Nasal Mrsa Not Detected Assess/Plan/Problems-Billing Ms Lui is a 58 yo F who has a h/o self injury behaviors, schizoaffective disorder- bipolar type, HTN, hypothyroidism and asthma who was found to be poorly responsive at the [facility] and was brought in to the ER where she was found to be in severe sepsis secondary to pneumonia and now subsequently found to have Ecoli bacteremia. - Patient Problems (1) Thrombocytosis Comment: - PLT elevated - Iron studies ordered as patient is mildly anemic - Could also be secondary to infection and/or side affect of medication? - Cont to monitor. (2) Chest x-ray abnormality Comment: - Cont to have no s/s of resp infection - Chest xray obtained yesterday afternoon revealed patchy density in right upper and right lower lobes and radiology reports differentials include multifocal pneumonia, pulmonary edema, or early ARDS. - Patient wbc is trending down and she is afebrile. She also does not c/o of respiratory symptoms. No coughing or issues eating noted. - Cont Rocephin - Cont to monitor (3) Back pain Comment: - Cont Tramadol (4) Urine culture positive Comment: - Voiding without difficulty. No reports of urinary symptoms - Enterococcus Faecalis > 100,000 noted in urine culture. - Patient has had schulte since admission therefore order placed to remove. - Could be colonization on schulte? - Cont to monitor (5) Bacteremia Comment: - Per ID plan for Ceftraixone 1 gram daily for 56 days; today . - Ecoli Bacteremia - Lumbar spine MRI consistent with vertebral osteodiskitis; no epidural abscess - CBC shows leukocytosis, thrombocytosis; CRP elevated; continue to monitor - PICC in place 03/24 (6) Hypokalemia Comment: - K WNL today - On admission K was 2.6 and replacement given. - Patient also on Aldactone - Cont Tele - Cont to monitor BMP (7) Thyroid nodule Comment: - Thyroid nodule found and recommend FNA be completed. - Has NOT been completed during this visit. (8) HTN (hypertension) Comment: - Cont Cardizem and Aldactone (9) Hypothyroidism Comment: - Cont home dose of synthroid. (10) SVT (supraventricular tachycardia) Comment: - Patient has been sinus to sinus tach on tele. No episodes of SVT. - 03/25 patient reported to have bursts of SVT and patient was restarted on diltiazem CD that was held on admission. - Patient transitioned from diltiazem 60mg q6 to home diltiazem dose of 240mg qd 04/03 - Cont tele - Cont to monitor vital signs (11) Schizoaffective disorder Comment: - Psych consulted and has signed off. We appreciate their assistance - Wellbutrin discontinued by psych - Psych also recommends avoiding anti-cholinergic medications and benzos - Patient does not have capacity per psych - Supportive care - Cont home olanzapine and cymbalta. (12) Severe sepsis Comment: - Resolved - Last fever 03/27 - Continues to be intermittently tachycardic. - Had septic encephalopathy on admission - Continue ceftriaxone (13) DVT prophylaxis Comment: - SQ heparin (14) Full code status Status and Disposition: Inpatient. Will most likely need TEE when medically stable. Does not have capacity per psych. Attending: Alden Sanchez
[2019-04-05] MEDS: Atorvastatin* 40 MG TAB PO SCH (22:40)
[2019-04-05] MEDS: OLANzapine TAB* 10 MG PO SCH (22:40)
[2019-04-05] MEDS: Montelukast Sodium TAB* 10 MG PO SCH (22:40)
[2019-04-06] MEDS: Levothyroxine TAB* 75 MCG TAB PO SCH (05:31)
[2019-04-06] MEDS: traMADol TAB* 50 MG PO PRN ×3 (05:34→23:05)
[2019-04-06] MEDS: Heparin VIAL(*) 5000 UNITS/ML VIAL (FIVE THOUSAND) SUBCUT SCH ×3 (05:34→21:04)
[2019-04-06 06:31] LABS: Total Iron Binding Capacity 337 mcg/dL (250-450); Transferrin 241 mg/dL (203-362)
[2019-04-06 06:50] LABS: Ferritin 60.9 ng/mL (11-307)
[2019-04-06 06:54] LABS: Folate > 20.00 ng/mL (>3.99)
[2019-04-06 07:09] LABS: % Iron Saturation 14 % (15-55); Iron 46 ug/dL (50-212)
[2019-04-06] MEDS: Tiotropium CAP.INH* CAP.INH/18 MCG (USE ORDER SET !) INH SCH (07:57)
[2019-04-06] MEDS: Mometasone/Formoter 200/5 MDI INH SCH ×2 (07:57→19:11)
[2019-04-06] MEDS: OLANzapine TAB* 5 MG PO SCH (09:14)
[2019-04-06] MEDS: Aspirin EC TAB* 81 MG TAB.EC PO SCH (09:14)
[2019-04-06] MEDS: Diltiazem CD CAP* 240 MG PO SCH (09:14)
[2019-04-06] MEDS: Spironolactone TAB* 25 MG PO SCH (09:14)
[2019-04-06] MEDS: Cholecalciferol TAB* 1000 UNITS PO SCH (09:14)
[2019-04-06] MEDS: DULoxetine DR CAP* 60 MG CAP.DR PO SCH ×2 (09:14→21:03)
[2019-04-06] MEDS: Magnesium Oxide TAB* 400 MG PO SCH (09:14)
--- NOTE | 2019-04-06 12:45 | PN ---
Subjective Date of Service: 04/06/19 Interval History: Pt is feeling ok today. She does c/o pain in her back but it is no worse than usual. She denies any diarrhea. No SOB. Objective Active Medications: Acetaminophen (Tylenol Tab*) 650 mg PO Q4H PRN PRN Reason: fever >/= to 38C Last Admin: 04/05/19 22:43 Dose: 650 mg Albuterol (Ventolin Hfa Inhaler*) 2 puff INH Q4H PRN PRN Reason: SHORTNESS OF BREATH Aspirin (Aspirin Ec Tab*) 81 mg PO DAILY [facility] Last Admin: 04/06/19 09:14 Dose: 81 mg Atorvastatin Calcium (Lipitor*) 40 mg PO BEDTIME [facility] Last Admin: 04/05/19 22:40 Dose: 40 mg Benztropine Mesylate (Cogentin Tab*) 1 mg PO DAILY PRN PRN Reason: extrapyrimidal side effects Last Admin: 03/26/19 10:47 Dose: 1 mg Bisacodyl (Dulcolax Supp*) 10 mg IN DAILY PRN PRN Reason: CONSTIPATION Last Admin: 03/25/19 16:45 Dose: 10 mg Cholecalciferol (Vitamin D Tab*) 2,000 units PO DAILY [facility] Last Admin: 04/06/19 09:14 Dose: 2,000 units Diltiazem HCl (Cardizem Cd Cap*) 240 mg PO DAILY [facility] Last Admin: 04/06/19 09:14 Dose: 240 mg Duloxetine HCl (Cymbalta Cap*) 60 mg PO BID [facility] Last Admin: 04/06/19 09:14 Dose: 60 mg Heparin Sodium (Porcine) (Heparin Flush Picc/Ml/Cvc(*)) 0 ml FLUSH 0600,1800 [facility] Last Admin: 04/06/19 05:45 Dose: 1 ml Heparin Sodium (Porcine) (Heparin Vial(*)) 5,000 units SUBCUT Q8HR [facility] Last Admin: 04/06/19 05:34 Dose: 5,000 units Ceftriaxone Sodium 2 gm/ (Sodium Chloride) 100 mls @ 200 mls/hr IVPB Q24H [facility] Last Admin: 04/05/19 16:24 Dose: 200 mls/hr Levothyroxine Sodium (Synthroid Tab*) 75 mcg PO DAILY@0600 [facility] Last Admin: 04/06/19 05:31 Dose: 75 mcg Magnesium Oxide (Magox 400 Tab*) 400 mg PO DAILY [facility] Last Admin: 04/06/19 09:14 Dose: 400 mg Mometasone Furoate/Formoterol Fumar (Dulera 200/5 Mdi*) 1 puff INH BID [facility] Last Admin: 04/06/19 07:57 Dose: 1 puff Montelukast Sodium (Singulair Tab*) 10 mg PO BEDTIME [facility] Last Admin: 04/05/19 22:40 Dose: 10 mg Olanzapine (Zyprexa Tab*) 5 mg PO DAILY [facility] Last Admin: 04/06/19 09:14 Dose: 5 mg Olanzapine (Zyprexa Tab*) 30 mg PO BEDTIME [facility] Last Admin: 04/05/19 22:40 Dose: 30 mg Ondansetron HCl (Zofran Inj*) 4 mg IV Q6H PRN PRN Reason: NAUSEA Last Admin: 03/26/19 19:45 Dose: 4 mg Spironolactone (Aldactone Tab*) 25 mg PO DAILY [facility] Last Admin: 04/06/19 09:14 Dose: 25 mg Tiotropium [place] (Spiriva Cap.Inh*) 1 cap INH DAILY [facility] Last Admin: 04/06/19 07:57 Dose: 1 cap Tramadol HCl (Ultram*) 50 mg PO Q8H PRN PRN Reason: PAIN Last Admin: 04/06/19 05:34 Dose: 50 mg Vital Signs - 8 hr 04/06/19 04/06/19 04/06/19 05:34 07:09 07:35 Temperature 98.4 F Pulse Rate 99 Respiratory 16 16 16 Rate Blood Pressure 122/75 (mmHg) O2 Sat by Pulse 97 Oximetry 04/06/19 04/06/19 04/06/19 07:58 08:00 11:17 Temperature Pulse Rate 91 100 Respiratory 16 16 18 Rate Blood Pressure 101/58 (mmHg) O2 Sat by Pulse 95 99 Oximetry Oxygen Devices in Use Now: None Appearance: Middle aged female lying in bed, NAD Eyes: No Scleral Icterus Ears/Nose/Mouth/Throat: Mucous Membranes Moist Respiratory: Symmetrical Chest Expansion and Respiratory Effort, Clear to Auscultation Cardiovascular: NL Sounds; No Murmurs; No JVD, RRR, No Edema Abdominal: NL Sounds; No Tenderness; No Distention Extremities: No Clubbing, Cyanosis Skin: No Nodules or Sclerosis Neurological: Alert and Oriented x 3 Result Diagrams: 04/05/19 10:50 04/05/19 10:50 Additional Lab and Data: Laboratory Results - last 24 hr 04/05/19 04/05/19 10:50 10:50 WBC 13.0 H RBC 3.37 L Hgb 10.8 L Hct 32 L MCV 94 MCH 32 H MCHC 34 RDW 15 Plt Count 871 H D MPV 6.7 L Neut % (Auto) 70.2 Lymph % (Auto) 18.5 [place] % (Auto) 10.4 Eos % (Auto) 0.4 Baso % (Auto) 0.5 Absolute Neuts (auto) 9.1 H Absolute Lymphs (auto) 2.4 Absolute Monos (auto) 1.4 H Absolute Eos (auto) 0.1 Absolute Basos (auto) 0.1 Absolute Nucleated RBC 0.0 Nucleated RBC % 0.0 Sodium 134 L Potassium 4.3 Chloride 98 L Carbon Dioxide 29 Anion Gap 7 BUN 11 Creatinine 0.46 L Est GFR ( Amer) 168.8 Est GFR (Non-Af Amer) 139.5 BUN/Creatinine Ratio 23.9 H Glucose 126 H Calcium 9.2 Total Bilirubin 0.20 AST 17 ALT 34 Alkaline Phosphatase 117 H Total Protein 6.7 Albumin 3.0 L Globulin 3.7 Albumin/Globulin Ratio 0.8 L Microbiology and Other Data: Microbiology 04/03/19 18:05 Urine Culture - Preliminary Urine Venecia Tropicalis Enterococcus Faecalis 03/27/19 19:30 Aerobic Blood Culture - Final Blood Venous No Growth Day 5 Anaerobic Blood Culture - Final No Growth Day 5 03/27/19 17:55 Aerobic Blood Culture - Final Blood Venous No Growth Day 5 Anaerobic Blood Culture - Final No Growth Day 5 03/26/19 14:27 Aerobic Blood Culture - Final Blood Venous No Growth Day 5 Anaerobic Blood Culture - Final No Growth Day 5 03/24/19 12:14 Aerobic Blood Culture - Final Blood Venous No Growth Day 5 Anaerobic Blood Culture - Final Escherichia Coli 03/24/19 12:05 Aerobic Blood Culture - Final Blood Venous Escherichia Coli Anaerobic Blood Culture - Final No Growth Day 5 03/27/19 01:04 Urine Culture - Final Urine No Growth (<1,000 CFU/mL) 03/25/19 16:45 Stool Occult Blood (MEDARDO) - Final Stool 03/24/19 11:48 Urine Culture - Final Urine No Growth (<1,000 CFU/mL) 03/24/19 16:55 Nasal Screen MRSA (PCR) - Final Nasal Mrsa Not Detected Assess/Plan/Problems-Billing Ms Lui is a 58 yo F who has a h/o self injury behaviors, schizoaffective disorder- bipolar type, HTN, hypothyroidism and asthma who was found to be poorly responsive at the [facility] and was brought in to the ER where she was found to be in severe sepsis secondary to pneumonia and now subsequently found to have Ecoli bacteremia. - Patient Problems (1) Bacteremia Current Visit: Yes Status: Acute Code(s): R78.81 - BACTEREMIA SNOMED Code( s): 5440893 Comment: Pt with Ecoli bacteremia and resultant osteodiskitis, needs 8 weeks of IV Abx. Today is D#13/56. (2) Thrombocytosis Current Visit: Yes Status: Acute Comment: Likely reactive related to her underlying infection. Continue to monitor. (3) Severe sepsis Current Visit: Yes Status: Acute Code(s): A41.9 - SEPSIS, UNSPECIFIED ORGANISM; R65.20 - SEVERE SEPSIS WITHOUT SEPTIC SHOCK SNOMED Code(s): 91468051 Comment: Resolved. (4) E. coli pneumonia Current Visit: Yes Status: Acute Code(s): J15.5 - PNEUMONIA DUE TO ESCHERICHIA COLI SNOMED Code(s): 84765302 Comment: Resolved. (5) Thyroid nodule Current Visit: Yes Status: Acute Code(s): E04.1 - NONTOXIC SINGLE THYROID NODULE SNOMED Code(s): 668621274 Comment: Pt with large thyroid nodule. FNA recommended. (6) SVT (supraventricular tachycardia) Current Visit: Yes Status: Acute Code(s): I47.1 - SUPRAVENTRICULAR TACHYCARDIA SNOMED Code(s): 7499455 Comment: Resolved. (7) HTN (hypertension) Current Visit: Yes Status: Acute Code(s): I10 - ESSENTIAL (PRIMARY) HYPERTENSION SNOMED Code(s): 22346809 Comment: Under very good control on cardizem and spironolactone. (8) Hypothyroidism Current Visit: Yes Status: Acute Code(s): E03.9 - HYPOTHYROIDISM, UNSPECIFIED SNOMED Code(s): 25915495 Comment: Continue home dose of synthroid. (9) Schizoaffective disorder Current Visit: Yes Status: Acute Code(s): F25.9 - SCHIZOAFFECTIVE DISORDER, UNSPECIFIED SNOMED Code(s): 36791748 Comment: Continue cymbalta and olanzapine. (10) DVT prophylaxis Current Visit: Yes Status: Acute Code(s): Z29.9 - ENCOUNTER FOR PROPHYLACTIC MEASURES, UNSPECIFIED SNOMED Code(s): 641302625 Comment: SQ heparin (11) Full code status Current Visit: Yes Status: Acute Code(s): Z78.9 - OTHER SPECIFIED HEALTH STATUS SNOMED Code(s): 479597196 Status and Disposition: .
[2019-04-06] MEDS: cefTRIAXone(*) 2 GM in NS 0.9% 100 ML* 100 ML IVPB SCH (16:23)
[2019-04-06] MEDS: Atorvastatin* 40 MG TAB PO SCH (21:03)
[2019-04-06] MEDS: OLANzapine TAB* 10 MG PO SCH (21:04)
[2019-04-06] MEDS: Montelukast Sodium TAB* 10 MG PO SCH (21:04)
[2019-04-07] MEDS: Heparin VIAL(*) 5000 UNITS/ML VIAL (FIVE THOUSAND) SUBCUT SCH ×3 (05:33→21:00)
[2019-04-07] MEDS: Levothyroxine TAB* 75 MCG TAB PO SCH (05:33)
[2019-04-07] MEDS: Tiotropium CAP.INH* CAP.INH/18 MCG (USE ORDER SET !) INH SCH (08:42)
[2019-04-07] MEDS: Mometasone/Formoter 200/5 MDI INH SCH ×2 (08:43→21:59)
[2019-04-07] MEDS: Diltiazem CD CAP* 240 MG PO SCH (10:01)
[2019-04-07] MEDS: Aspirin EC TAB* 81 MG TAB.EC PO SCH (10:01)
[2019-04-07] MEDS: DULoxetine DR CAP* 60 MG CAP.DR PO SCH ×2 (10:01→20:49)
[2019-04-07] MEDS: traMADol TAB* 50 MG PO PRN ×2 (10:01→20:49)
[2019-04-07] MEDS: Cholecalciferol TAB* 1000 UNITS PO SCH (10:01)
[2019-04-07] MEDS: OLANzapine TAB* 5 MG PO SCH (10:02)
[2019-04-07] MEDS: Spironolactone TAB* 25 MG PO SCH (10:02)
[2019-04-07] MEDS: Magnesium Oxide TAB* 400 MG PO SCH (10:02)
--- NOTE | 2019-04-07 11:08 | PN ---
Subjective Date of Service: 04/07/19 Interval History: Patient states she is doing ok today. She states she has a cough, but that it is chronic and there is no change. She denies abdominal pain, n/v/d; denies fevers/chills/sweats. She denies changes in urination. She has no complaints today. Objective Active Medications: Acetaminophen (Tylenol Tab*) 650 mg PO Q4H PRN Albuterol (Ventolin Hfa Inhaler*) 2 puff INH Q4H PRN Aspirin (Aspirin Ec Tab*) 81 mg PO DAILY [facility] Atorvastatin Calcium (Lipitor*) 40 mg PO BEDTIME [facility] Benztropine Mesylate (Cogentin Tab*) 1 mg PO DAILY PRN Bisacodyl (Dulcolax Supp*) 10 mg ND DAILY PRN Cholecalciferol (Vitamin D Tab*) 2,000 units PO DAILY [facility] Diltiazem HCl (Cardizem Cd Cap*) 240 mg PO DAILY [facility] Duloxetine HCl (Cymbalta Cap*) 60 mg PO BID [facility] Heparin Sodium (Porcine) (Heparin Flush Picc/Ml/Cvc(*)) 0 ml FLUSH 0600,1800 [facility] Heparin Sodium (Porcine) (Heparin Vial(*)) 5,000 units SUBCUT Q8HR [facility] Ceftriaxone Sodium 2 gm/ (Sodium Chloride) 100 mls @ 200 mls/hr IVPB Q24H [facility] Levothyroxine Sodium (Synthroid Tab*) 75 mcg PO DAILY@0600 [facility] Magnesium Oxide (Magox 400 Tab*) 400 mg PO DAILY [facility] Mometasone Furoate/Formoterol Fumar (Dulera 200/5 Mdi*) 1 puff INH BID [facility] Montelukast Sodium (Singulair Tab*) 10 mg PO BEDTIME [facility] Olanzapine (Zyprexa Tab*) 5 mg PO DAILY [facility] Olanzapine (Zyprexa Tab*) 30 mg PO BEDTIME [facility] Ondansetron HCl (Zofran Inj*) 4 mg IV Q6H PRN Spironolactone (Aldactone Tab*) 25 mg PO DAILY [facility] Tiotropium [place] (Spiriva Cap.Inh*) 1 cap INH DAILY [facility] Tramadol HCl (Ultram*) 50 mg PO Q8H PRN Vital Signs: Temp Pulse Resp BP Pulse Ox 97.6 F 64 12 116/68 98 04/07/19 07:30 07/28/19 08:45 04/07/19 10:01 04/07/19 07:30 04/07/19 08:45 Oxygen Devices in Use Now: None Appearance: Pt is laying lfat in bed. She is in no acute distress. She is cooperative and appropriate. Eyes: PERRLA Neck: NL Appearance and Movements; NL JVP, Trachea Midline Respiratory: Symmetrical Chest Expansion and Respiratory Effort, Clear to Auscultation Cardiovascular: NL Sounds; No Murmurs; No JVD, RRR, No Edema Abdominal: NL Sounds; No Tenderness; No Distention, No Hepatosplenomegaly Extremities: No Edema, No Clubbing, Cyanosis, - - Chronic scratches to anterior RLE without erythema, discharge. Result Diagrams: 04/05/19 10:50 04/05/19 10:50 Additional Lab and Data: Laboratory Results - last 24 hr 04/05/19 04/05/19 10:50 10:50 WBC 13.0 H RBC 3.37 L Hgb 10.8 L Hct 32 L MCV 94 MCH 32 H MCHC 34 RDW 15 Plt Count 871 H D MPV 6.7 L Neut % (Auto) 70.2 Lymph % (Auto) 18.5 [place] % (Auto) 10.4 Eos % (Auto) 0.4 Baso % (Auto) 0.5 Absolute Neuts (auto) 9.1 H Absolute Lymphs (auto) 2.4 Absolute Monos (auto) 1.4 H Absolute Eos (auto) 0.1 Absolute Basos (auto) 0.1 Absolute Nucleated RBC 0.0 Nucleated RBC % 0.0 Sodium 134 L Potassium 4.3 Chloride 98 L Carbon Dioxide 29 Anion Gap 7 BUN 11 Creatinine 0.46 L Est GFR ( Amer) 168.8 Est GFR (Non-Af Amer) 139.5 BUN/Creatinine Ratio 23.9 H Glucose 126 H Calcium 9.2 Total Bilirubin 0.20 AST 17 ALT 34 Alkaline Phosphatase 117 H Total Protein 6.7 Albumin 3.0 L Globulin 3.7 Albumin/Globulin Ratio 0.8 L Microbiology and Other Data: Microbiology 04/03/19 18:05 Urine Culture - Preliminary Urine Venecia Tropicalis Enterococcus Faecalis 03/27/19 19:30 Aerobic Blood Culture - Final Blood Venous No Growth Day 5 Anaerobic Blood Culture - Final No Growth Day 5 03/27/19 17:55 Aerobic Blood Culture - Final Blood Venous No Growth Day 5 Anaerobic Blood Culture - Final No Growth Day 5 03/26/19 14:27 Aerobic Blood Culture - Final Blood Venous No Growth Day 5 Anaerobic Blood Culture - Final No Growth Day 5 03/24/19 12:14 Aerobic Blood Culture - Final Blood Venous No Growth Day 5 Anaerobic Blood Culture - Final Escherichia Coli 03/24/19 12:05 Aerobic Blood Culture - Final Blood Venous Escherichia Coli Anaerobic Blood Culture - Final No Growth Day 5 03/27/19 01:04 Urine Culture - Final Urine No Growth (<1,000 CFU/mL) 03/25/19 16:45 Stool Occult Blood (MEDARDO) - Final Stool 03/24/19 11:48 Urine Culture - Final Urine No Growth (<1,000 CFU/mL) 03/24/19 16:55 Nasal Screen MRSA (PCR) - Final Nasal Mrsa Not Detected Assess/Plan/Problems-Billing Ms Lui is a 58 yo F who has a h/o self injury behaviors, schizoaffective disorder- bipolar type, HTN, hypothyroidism and asthma who was found to be poorly responsive at the [facility] and was brought in to the ER where she was found to be in severe sepsis secondary to pneumonia and now subsequently found to have Ecoli bacteremia. - Patient Problems (1) Bacteremia Comment: Pt with Ecoli bacteremia and resultant osteodiskitis, needs 8 weeks of IV Abx. Today is D#14/56 Ceftriaxone. (2) Thrombocytosis Comment: Likely reactive related to her underlying infection. Continue to monitor. (3) HTN (hypertension) Comment: Under very good control on cardizem and spironolactone. (4) Thyroid nodule Comment: Pt with large thyroid nodule. FNA recommended. (5) Schizoaffective disorder Comment: Continue cymbalta and olanzapine. (6) Hypothyroidism Comment: Continue home dose of synthroid. (7) Severe sepsis Comment: Resolved. (8) E. coli pneumonia Current Visit: Yes Status: Acute Code(s): J15.5 - PNEUMONIA DUE TO ESCHERICHIA COLI SNOMED Code(s): 30106652 Comment: Resolved. (9) SVT (supraventricular tachycardia) Comment: Resolved. (10) DVT prophylaxis Comment: SQ heparin (11) Full code status Status and Disposition: .
[2019-04-07] MEDS: cefTRIAXone(*) 2 GM in NS 0.9% 100 ML* 100 ML IVPB SCH (17:10)
[2019-04-07] MEDS: OLANzapine TAB* 10 MG PO SCH (20:48)
[2019-04-07] MEDS: Atorvastatin* 40 MG TAB PO SCH (20:48)
[2019-04-07] MEDS: Montelukast Sodium TAB* 10 MG PO SCH (20:49)
[2019-04-07] MEDS: Benztropine TAB* 1 MG PO PRN (20:59)
[2019-04-08] MEDS: Levothyroxine TAB* 75 MCG TAB PO SCH (06:10)
[2019-04-08] MEDS: Heparin VIAL(*) 5000 UNITS/ML VIAL (FIVE THOUSAND) SUBCUT SCH ×3 (06:12→21:29)
[2019-04-08 06:36] LABS: Hematocrit 33 % (35-47); Mean Corpuscular HGB Conc 34 g/dL (31-36); Mean Corpuscular Hemoglobin 32 pg (27-31); Mean Corpuscular Volume 95 fL (80-97); Mean Platelet Volume 6.5 fL (7.4-10.4); Platelet Count 905 10^3/uL (150-450); Red Blood Count 3.45 10^6 /uL (3.70-4.87); Red Cell Distribution Width 15 % (10-15); White Blood Count 11.3 10^3/uL (3.5-10.8)
[2019-04-08 06:42] LABS: ABS Basophils 0.1 10^3/ul (0-0.2); ABS Eosinophils 0.1 10^3/ul (0-0.6); ABS Lymphocytes 2.2 10^3/ul (1.0-4.8); ABS Monocytes 1.1 10^3/ul (0-0.8); ABS Neutrophils 7.8 10^3/ul (1.5-7.7); Eosinophil % 0.7 %; Lymphocyte % 19.5 %
[2019-04-08 06:58] LABS: Albumin 3.2 g/dL (3.2-5.2); Albumin/Globulin Ratio 0.8 (1-3); BUN/Creatinine Ratio 18.9 (8-20); Calcium 9.5 mg/dL (8.6-10.3); EGFR African American 143.4 (>60); EGFR Non-African American 118.5 (>60); Globulin 3.8 g/dL (2-4); Potassium 4.7 mmol/L (3.5-5.0); Total Bilirubin 0.2 mg/dL (0.2-1.0)
[2019-04-08] MEDS: Tiotropium CAP.INH* CAP.INH/18 MCG (USE ORDER SET !) INH SCH (07:40)
[2019-04-08] MEDS: Mometasone/Formoter 200/5 MDI INH SCH ×2 (07:40→20:36)
[2019-04-08] MEDS: Aspirin EC TAB* 81 MG TAB.EC PO SCH (08:50)
[2019-04-08] MEDS: Cholecalciferol TAB* 1000 UNITS PO SCH (08:51)
[2019-04-08] MEDS: DULoxetine DR CAP* 60 MG CAP.DR PO SCH ×2 (08:51→20:18)
[2019-04-08] MEDS: Diltiazem CD CAP* 240 MG PO SCH (08:51)
[2019-04-08] MEDS: OLANzapine TAB* 5 MG PO SCH (08:51)
[2019-04-08] MEDS: Magnesium Oxide TAB* 400 MG PO SCH (08:51)
[2019-04-08] MEDS: Spironolactone TAB* 25 MG PO SCH (08:51)
[2019-04-08] MEDS: traMADol TAB* 50 MG PO PRN ×2 (09:02→20:18)
--- NOTE | 2019-04-08 10:41 | PN ---
Subjective Date of Service: 04/08/19 Interval History: Pt c/o chronic cough, without fever/chills/sweats. She denies abd pain, n/v/d. She denies CP, SOB. She is not very talkative this morning, but responds to yes/no questions and is appropriate, cooperative. Objective Active Medications: Acetaminophen (Tylenol Tab*) 650 mg PO Q4H PRN Albuterol (Ventolin Hfa Inhaler*) 2 puff INH Q4H PRN Aspirin (Aspirin Ec Tab*) 81 mg PO DAILY [facility] Atorvastatin Calcium (Lipitor*) 40 mg PO BEDTIME [facility] Benztropine Mesylate (Cogentin Tab*) 1 mg PO DAILY PRN Bisacodyl (Dulcolax Supp*) [address] DAILY PRN Cholecalciferol (Vitamin D Tab*) 2,000 units PO DAILY [facility] Diltiazem HCl (Cardizem Cd Cap*) 240 mg PO DAILY [facility] Duloxetine HCl (Cymbalta Cap*) 60 mg PO BID [facility] Heparin Sodium (Porcine) (Heparin Flush Picc/Ml/Cvc(*)) 0 ml FLUSH 0600,1800 [facility] Heparin Sodium (Porcine) (Heparin Vial(*)) 5,000 units SUBCUT Q8HR [facility] Ceftriaxone Sodium 2 gm/ (Sodium Chloride) 100 mls @ 200 mls/hr IVPB Q24H [facility] Levothyroxine Sodium (Synthroid Tab*) 75 mcg PO DAILY@0600 [facility] Magnesium Oxide (Magox 400 Tab*) 400 mg PO DAILY [facility] Mometasone Furoate/Formoterol Fumar (Dulera 200/5 Mdi*) 1 puff INH BID [facility] Montelukast Sodium (Singulair Tab*) 10 mg PO BEDTIME [facility] Olanzapine (Zyprexa Tab*) 5 mg PO DAILY [facility] Olanzapine (Zyprexa Tab*) 30 mg PO BEDTIME [facility] Ondansetron HCl (Zofran Inj*) 4 mg IV Q6H PRN Spironolactone (Aldactone Tab*) 25 mg PO DAILY [facility] Tiotropium [place] (Spiriva Cap.Inh*) 1 cap INH DAILY [facility] Tramadol HCl (Ultram*) 50 mg PO Q8H PRN Vital Signs: Temp Pulse Resp BP Pulse Ox 98.0 F 104 16 115/77 98 04/08/19 07:15 04/08/19 07:40 04/08/19 09:02 04/08/19 07:15 04/08/19 07:40 Oxygen Devices in Use Now: None Appearance: Pt is laying flat in bed, asleep upon entering. She wakes easily, answers yes/no questions. She is in no acute distress. Neck: NL Appearance and Movements; NL JVP, Trachea Midline Respiratory: Symmetrical Chest Expansion and Respiratory Effort, Clear to Auscultation - Anteriorly; pt refused position change for posterior auscultation. Cardiovascular: NL Sounds; No Murmurs; No JVD, RRR, No Edema Abdominal: NL Sounds; No Tenderness; No Distention, No Hepatosplenomegaly Extremities: No Edema, No Clubbing, Cyanosis Neurological: Alert and Oriented x 3 Result Diagrams: 04/08/19 06:16 04/08/19 06:16 Additional Lab and Data: Laboratory Results - last 24 hr 04/05/19 04/05/19 10:50 10:50 WBC 13.0 H RBC 3.37 L Hgb 10.8 L Hct 32 L MCV 94 MCH 32 H MCHC 34 RDW 15 Plt Count 871 H D MPV 6.7 L Neut % (Auto) 70.2 Lymph % (Auto) 18.5 [place] % (Auto) 10.4 Eos % (Auto) 0.4 Baso % (Auto) 0.5 Absolute Neuts (auto) 9.1 H Absolute Lymphs (auto) 2.4 Absolute Monos (auto) 1.4 H Absolute Eos (auto) 0.1 Absolute Basos (auto) 0.1 Absolute Nucleated RBC 0.0 Nucleated RBC % 0.0 Sodium 134 L Potassium 4.3 Chloride 98 L Carbon Dioxide 29 Anion Gap 7 BUN 11 Creatinine 0.46 L Est GFR ( Amer) 168.8 Est GFR (Non-Af Amer) 139.5 BUN/Creatinine Ratio 23.9 H Glucose 126 H Calcium 9.2 Total Bilirubin 0.20 AST 17 ALT 34 Alkaline Phosphatase 117 H Total Protein 6.7 Albumin 3.0 L Globulin 3.7 Albumin/Globulin Ratio 0.8 L Microbiology and Other Data: Microbiology 04/03/19 18:05 Urine Culture - Preliminary Urine Venecia Tropicalis Enterococcus Faecalis 03/27/19 19:30 Aerobic Blood Culture - Final Blood Venous No Growth Day 5 Anaerobic Blood Culture - Final No Growth Day 5 03/27/19 17:55 Aerobic Blood Culture - Final Blood Venous No Growth Day 5 Anaerobic Blood Culture - Final No Growth Day 5 03/26/19 14:27 Aerobic Blood Culture - Final Blood Venous No Growth Day 5 Anaerobic Blood Culture - Final No Growth Day 5 03/24/19 12:14 Aerobic Blood Culture - Final Blood Venous No Growth Day 5 Anaerobic Blood Culture - Final Escherichia Coli 03/24/19 12:05 Aerobic Blood Culture - Final Blood Venous Escherichia Coli Anaerobic Blood Culture - Final No Growth Day 5 03/27/19 01:04 Urine Culture - Final Urine No Growth (<1,000 CFU/mL) 03/25/19 16:45 Stool Occult Blood (MEDARDO) - Final Stool 03/24/19 11:48 Urine Culture - Final Urine No Growth (<1,000 CFU/mL) 03/24/19 16:55 Nasal Screen MRSA (PCR) - Final Nasal Mrsa Not Detected Assess/Plan/Problems-Billing Ms Lui is a 58 yo F who has a h/o self injury behaviors, schizoaffective disorder- bipolar type, HTN, hypothyroidism and asthma who was found to be poorly responsive at the [facility] and was brought in to the ER where she was found to be in severe sepsis secondary to pneumonia and now subsequently found to have Ecoli bacteremia. - Patient Problems (1) Bacteremia Comment: Pt with Ecoli bacteremia and resultant osteodiskitis, needs 8 weeks of IV Abx. Today is D#15/56 Ceftriaxone. (2) Thrombocytosis Comment: Likely reactive related to her underlying infection. Continue to monitor. (3) HTN (hypertension) Comment: Under very good control on cardizem and spironolactone. (4) Thyroid nodule Comment: Pt with large thyroid nodule. FNA recommended. (5) Schizoaffective disorder Comment: Continue cymbalta and olanzapine. (6) Hypothyroidism Comment: Continue home dose of synthroid. (7) Severe sepsis Comment: Resolved. (8) E. coli pneumonia Current Visit: Yes Status: Acute Code(s): J15.5 - PNEUMONIA DUE TO ESCHERICHIA COLI SNOMED Code(s): 55160391 Comment: Resolved. (9) SVT (supraventricular tachycardia) Comment: Resolved. (10) DVT prophylaxis Comment: SQ heparin (11) Full code status Status and Disposition: .
[2019-04-08] MEDS: cefTRIAXone(*) 2 GM in NS 0.9% 100 ML* 100 ML IVPB SCH (16:13)
[2019-04-08] MEDS: Montelukast Sodium TAB* 10 MG PO SCH (20:18)
[2019-04-08] MEDS: OLANzapine TAB* 10 MG PO SCH (20:18)
[2019-04-08] MEDS: Atorvastatin* 40 MG TAB PO SCH (20:18)
[2019-04-09] MEDS: Heparin VIAL(*) 5000 UNITS/ML VIAL (FIVE THOUSAND) SUBCUT SCH ×3 (05:10→21:07)
[2019-04-09] MEDS: Levothyroxine TAB* 75 MCG TAB PO SCH (05:11)
[2019-04-09] MEDS: Mometasone/Formoter 200/5 MDI INH SCH ×2 (07:32→20:58)
[2019-04-09] MEDS: Tiotropium CAP.INH* CAP.INH/18 MCG (USE ORDER SET !) INH SCH (07:32)
[2019-04-09] MEDS: Cholecalciferol TAB* 1000 UNITS PO SCH (08:45)
[2019-04-09] MEDS: DULoxetine DR CAP* 60 MG CAP.DR PO SCH ×2 (08:45→21:08)
[2019-04-09] MEDS: Ferrous Sulfate TAB* 325 MG PO SCH (08:45)
[2019-04-09] MEDS: Aspirin EC TAB* 81 MG TAB.EC PO SCH (08:45)
[2019-04-09] MEDS: Magnesium Oxide TAB* 400 MG PO SCH (08:45)
[2019-04-09] MEDS: Spironolactone TAB* 25 MG PO SCH (08:45)
[2019-04-09] MEDS: OLANzapine TAB* 5 MG PO SCH (08:45)
[2019-04-09] MEDS: Diltiazem CD CAP* 240 MG PO SCH (08:45)
--- NOTE | 2019-04-09 10:06 | PN ---
Subjective Date of Service: 04/09/19 Interval History: Lying in bed on exam. Patient upset that people keep waking her and she is trying to sleep. Patient reports back pain. Denies cp, sob, abd pain, urinary symptoms, fever, chills Objective Active Medications: Acetaminophen (Tylenol Tab*) 650 mg PO Q4H PRN PRN Reason: fever >/= to 38C Last Admin: 04/05/19 22:43 Dose: 650 mg Albuterol (Ventolin Hfa Inhaler*) 2 puff INH Q4H PRN PRN Reason: SHORTNESS OF BREATH Aspirin (Aspirin Ec Tab*) 81 mg PO DAILY [facility] Last Admin: 04/09/19 08:45 Dose: 81 mg Atorvastatin Calcium (Lipitor*) 40 mg PO BEDTIME [facility] Last Admin: 04/08/19 20:18 Dose: 40 mg Benztropine Mesylate (Cogentin Tab*) 1 mg PO DAILY PRN PRN Reason: extrapyrimidal side effects Last Admin: 04/07/19 20:59 Dose: 1 mg Bisacodyl (Dulcolax Supp*) 10 mg [place] DAILY PRN PRN Reason: CONSTIPATION Last Admin: 03/25/19 16:45 Dose: 10 mg Cholecalciferol (Vitamin D Tab*) 2,000 units PO DAILY [facility] Last Admin: 04/09/19 08:45 Dose: 2,000 units Diltiazem HCl (Cardizem Cd Cap*) 240 mg PO DAILY [facility] Last Admin: 04/09/19 08:45 Dose: 240 mg Duloxetine HCl (Cymbalta Cap*) 60 mg PO BID [facility] Last Admin: 04/09/19 08:45 Dose: 60 mg Ferrous Sulfate (Ferrous Sulfate Tab*) 325 mg PO DAILY [facility] Last Admin: 04/09/19 08:45 Dose: 325 mg Heparin Sodium (Porcine) (Heparin Flush Picc/Ml/Cvc(*)) 0 ml FLUSH 0600,1800 [facility] Last Admin: 04/09/19 05:11 Dose: 1 ml Heparin Sodium (Porcine) (Heparin Vial(*)) 5,000 units SUBCUT Q8HR [facility] Last Admin: 04/09/19 05:10 Dose: 5,000 units Ceftriaxone Sodium 2 gm/ (Sodium Chloride) 100 mls @ 200 mls/hr IVPB Q24H [facility] Last Admin: 04/08/19 16:13 Dose: 200 mls/hr Levothyroxine Sodium (Synthroid Tab*) 75 mcg PO DAILY@0600 [facility] Last Admin: 04/09/19 05:11 Dose: 75 mcg Magnesium Oxide (Magox 400 Tab*) 400 mg PO DAILY [facility] Last Admin: 04/09/19 08:45 Dose: 400 mg Mometasone Furoate/Formoterol Fumar (Dulera 200/5 Mdi*) 1 puff INH BID [facility] Last Admin: 04/09/19 07:32 Dose: 1 puff Montelukast Sodium (Singulair Tab*) 10 mg PO BEDTIME [facility] Last Admin: 04/08/19 20:18 Dose: 10 mg Olanzapine (Zyprexa Tab*) 5 mg PO DAILY [facility] Last Admin: 04/09/19 08:45 Dose: 5 mg Olanzapine (Zyprexa Tab*) 30 mg PO BEDTIME [facility] Last Admin: 04/08/19 20:18 Dose: 30 mg Ondansetron HCl (Zofran Inj*) 4 mg IV Q6H PRN PRN Reason: NAUSEA Last Admin: 03/26/19 19:45 Dose: 4 mg Spironolactone (Aldactone Tab*) 25 mg PO DAILY [facility] Last Admin: 04/09/19 08:45 Dose: 25 mg Tiotropium [place] (Spiriva Cap.Inh*) 1 cap INH DAILY [facility] Last Admin: 04/09/19 07:32 Dose: 1 cap Vital Signs - 8 hr 04/09/19 04/09/19 04/09/19 03:15 07:15 07:35 Temperature 98.5 F 98.4 F Pulse Rate 94 96 89 Respiratory 16 16 18 Rate Blood Pressure 124/68 103/74 (mmHg) O2 Sat by Pulse 98 99 96 Oximetry Oxygen Devices in Use Now: None Appearance: Comfortable, NAD Eyes: No Scleral Icterus Ears/Nose/Mouth/Throat: Clear Oropharnyx, Mucous Membranes Moist Neck: NL Appearance and Movements; NL JVP Respiratory: Symmetrical Chest Expansion and Respiratory Effort, Clear to Auscultation Cardiovascular: NL Sounds; No Murmurs; No JVD, RRR, No Edema Abdominal: NL Sounds; No Tenderness; No Distention Lymphatic: No Cervical Adenopathy Extremities: No Clubbing, Cyanosis Skin: No Rash or Ulcers Neurological: Alert and Oriented x 3 Nutrition: Taking PO's Result Diagrams: 04/08/19 06:16 04/08/19 06:16 Additional Lab and Data: . Microbiology and Other Data: Microbiology 04/03/19 18:05 Urine Urine Culture - Final Venecia Tropicalis Enterococcus Faecalis 03/27/19 19:30 Blood Venous Aerobic Blood Culture - Final No Growth Day 5 03/27/19 19:30 Blood Venous Anaerobic Blood Culture - Final No Growth Day 5 03/27/19 17:55 Blood Venous Aerobic Blood Culture - Final No Growth Day 5 03/27/19 17:55 Blood Venous Anaerobic Blood Culture - Final No Growth Day 5 03/26/19 14:27 Blood Venous Aerobic Blood Culture - Final No Growth Day 5 03/26/19 14:27 Blood Venous Anaerobic Blood Culture - Final No Growth Day 5 03/24/19 12:14 Blood Venous Aerobic Blood Culture - Final No Growth Day 5 03/24/19 12:14 Blood Venous Anaerobic Blood Culture - Final Escherichia Coli 03/24/19 12:05 Blood Venous Aerobic Blood Culture - Final Escherichia Coli 03/24/19 12:05 Blood Venous Anaerobic Blood Culture - Final No Growth Day 5 03/27/19 01:04 Urine Urine Culture - Final No Growth (<1,000 CFU/mL) 03/25/19 16:45 Stool Stool Occult Blood (MEDARDO) - Final 03/24/19 11:48 Urine Urine Culture - Final No Growth (<1,000 CFU/mL) 03/24/19 16:55 Nasal Nasal Screen MRSA (PCR) - Final Mrsa Not Detected Assess/Plan/Problems-Billing Ms Lui is a 58 yo F who has a h/o self injury behaviors, schizoaffective disorder- bipolar type, HTN, hypothyroidism and asthma who was found to be poorly responsive at the [facility] and was brought in to the ER where she was found to be in severe sepsis secondary to pneumonia and now subsequently found to have Ecoli bacteremia. - Patient Problems (1) Bacteremia Comment: - ID consulting - Awaiting placement for exterminator helper antibiotic administration - Pt with Ecoli bacteremia and resultant osteodiskitis, needs 8 weeks of IV Abx. - Today is D#16/56 Ceftriaxone. (2) Thrombocytosis Comment: - Did not have lab work today as trying to reduce frequency. Recheck PLTs tomorrow - Likely reactive related to her underlying infection, but if increased on tomorrows labs I will be contacting hematology - Continue to monitor. (3) HTN (hypertension) Comment: - Normotensivie - Cont cardizem and spironolactone. (4) Thyroid nodule Comment: - Will need outpatient referral to thyroid clinic upon discharge - Large thyroid nodule found on imaging - FNA recommended. (5) Schizoaffective disorder Comment: - Continue cymbalta and olanzapine. (6) Hypothyroidism Comment: Continue home dose of synthroid. (7) SVT (supraventricular tachycardia) Comment: - Resolved - Sinus to Sinus Tach on tele (8) Severe sepsis Comment: - Resolved. (9) E. coli pneumonia Comment: - Resolved. (10) DVT prophylaxis Comment: - SQ heparin (11) Full code status Status and Disposition: Inpatient. Awaiting placement. Attending: Preston Smith
[2019-04-09] MEDS: traMADol TAB* 50 MG PO PRN ×2 (16:06→23:00)
[2019-04-09] MEDS: cefTRIAXone(*) 2 GM in NS 0.9% 100 ML* 100 ML IVPB SCH (16:06)
[2019-04-09] MEDS: Atorvastatin* 40 MG TAB PO SCH (21:07)
[2019-04-09] MEDS: OLANzapine TAB* 10 MG PO SCH (21:08)
[2019-04-09] MEDS: Montelukast Sodium TAB* 10 MG PO SCH (21:08)
[2019-04-10] MEDS: Heparin VIAL(*) 5000 UNITS/ML VIAL (FIVE THOUSAND) SUBCUT SCH ×3 (05:30→22:40)
[2019-04-10] MEDS: Levothyroxine TAB* 75 MCG TAB PO SCH (05:32)
[2019-04-10] MEDS: traMADol TAB* 50 MG PO PRN ×2 (08:14→19:50)
[2019-04-10] MEDS: Magnesium Oxide TAB* 400 MG PO SCH (08:15)
[2019-04-10] MEDS: Spironolactone TAB* 25 MG PO SCH (08:15)
[2019-04-10] MEDS: Aspirin EC TAB* 81 MG TAB.EC PO SCH (08:15)
[2019-04-10] MEDS: OLANzapine TAB* 5 MG PO SCH (08:15)
[2019-04-10] MEDS: DULoxetine DR CAP* 60 MG CAP.DR PO SCH ×2 (08:15→19:49)
[2019-04-10] MEDS: Cholecalciferol TAB* 1000 UNITS PO SCH (08:15)
[2019-04-10] MEDS: Ferrous Sulfate TAB* 325 MG PO SCH (08:15)
[2019-04-10] MEDS: Diltiazem CD CAP* 240 MG PO SCH (08:15)
[2019-04-10] MEDS: Tiotropium CAP.INH* CAP.INH/18 MCG (USE ORDER SET !) INH SCH (08:22)
[2019-04-10] MEDS: Mometasone/Formoter 200/5 MDI INH SCH ×2 (08:22→19:26)
[2019-04-10 09:10] LABS: Hematocrit 35 % (35-47); Hemoglobin 11.9 g/dL (12.0-16.0); Mean Corpuscular HGB Conc 34 g/dL (31-36); Mean Corpuscular Hemoglobin 32 pg (27-31); Mean Corpuscular Volume 94 fL (80-97); Mean Platelet Volume 6.2 fL (7.4-10.4); Platelet Count 815 10^3/uL (150-450); Red Cell Distribution Width 15 % (10-15); White Blood Count 12.3 10^3/uL (3.5-10.8)
[2019-04-10 09:31] LABS: BUN/Creatinine Ratio 29.5 (8-20); Calcium 10.2 mg/dL (8.6-10.3); EGFR African American 177.7 (>60); EGFR Non-African American 146.9 (>60); Potassium 4.6 mmol/L (3.5-5.0)
[2019-04-10 09:56] LABS: ABS Basophils 0.1 10^3/ul (0-0.2); ABS Lymphocytes 2.2 10^3/ul (1.0-4.8); ABS Monocytes 1.2 10^3/ul (0-0.8); ABS Neutrophils 8.8 10^3/ul (1.5-7.7); Eosinophil % 0.4 %
--- NOTE | 2019-04-10 15:12 | PN ---
Subjective Date of Service: 04/10/19 Interval History: Patient refused to participate in ROS or allow assessment today. Reports she is "tired of being woken up". Objective Active Medications: Acetaminophen (Tylenol Tab*) 650 mg PO Q4H PRN PRN Reason: fever >/= to 38C Last Admin: 04/05/19 22:43 Dose: 650 mg Albuterol (Ventolin Hfa Inhaler*) 2 puff INH Q4H PRN PRN Reason: SHORTNESS OF BREATH Aspirin (Aspirin Ec Tab*) 81 mg PO DAILY [facility] Last Admin: 04/10/19 08:15 Dose: 81 mg Atorvastatin Calcium (Lipitor*) 40 mg PO BEDTIME [facility] Last Admin: 04/09/19 21:07 Dose: 40 mg Benztropine Mesylate (Cogentin Tab*) 1 mg PO DAILY PRN PRN Reason: extrapyrimidal side effects Last Admin: 04/07/19 20:59 Dose: 1 mg Bisacodyl (Dulcolax Supp*) 10 mg [place] DAILY PRN PRN Reason: CONSTIPATION Last Admin: 03/25/19 16:45 Dose: 10 mg Cholecalciferol (Vitamin D Tab*) 2,000 units PO DAILY [facility] Last Admin: 04/10/19 08:15 Dose: 2,000 units Diltiazem HCl (Cardizem Cd Cap*) 240 mg PO DAILY [facility] Last Admin: 04/10/19 08:15 Dose: 240 mg Duloxetine HCl (Cymbalta Cap*) 60 mg PO BID [facility] Last Admin: 04/10/19 08:15 Dose: 60 mg Ferrous Sulfate (Ferrous Sulfate Tab*) 325 mg PO DAILY [facility] Last Admin: 04/10/19 08:15 Dose: 325 mg Heparin Sodium (Porcine) (Heparin Flush Picc/Ml/Cvc(*)) 0 ml FLUSH 0600,1800 [facility] Last Admin: 04/10/19 05:31 Dose: 1 ml Heparin Sodium (Porcine) (Heparin Vial(*)) 5,000 units SUBCUT Q8HR [facility] Last Admin: 04/10/19 13:22 Dose: 5,000 units Ceftriaxone Sodium 2 gm/ (Sodium Chloride) 100 mls @ 200 mls/hr IVPB Q24H [facility] Last Admin: 04/09/19 16:06 Dose: 200 mls/hr Levothyroxine Sodium (Synthroid Tab*) 75 mcg PO DAILY@0600 [facility] Last Admin: 04/10/19 05:32 Dose: 75 mcg Magnesium Oxide (Magox 400 Tab*) 400 mg PO DAILY [facility] Last Admin: 04/10/19 08:15 Dose: 400 mg Mometasone Furoate/Formoterol Fumar (Dulera 200/5 Mdi*) 1 puff INH BID [facility] Last Admin: 04/10/19 08:22 Dose: 1 puff Montelukast Sodium (Singulair Tab*) 10 mg PO BEDTIME [facility] Last Admin: 04/09/19 21:08 Dose: 10 mg Olanzapine (Zyprexa Tab*) 5 mg PO DAILY [facility] Last Admin: 04/10/19 08:15 Dose: 5 mg Olanzapine (Zyprexa Tab*) 30 mg PO BEDTIME [facility] Last Admin: 04/09/19 21:08 Dose: 30 mg Ondansetron HCl (Zofran Inj*) 4 mg IV Q6H PRN PRN Reason: NAUSEA Last Admin: 03/26/19 19:45 Dose: 4 mg Spironolactone (Aldactone Tab*) 25 mg PO DAILY [facility] Last Admin: 04/10/19 08:15 Dose: 25 mg Tiotropium [place] (Spiriva Cap.Inh*) 1 cap INH DAILY [facility] Last Admin: 04/10/19 08:22 Dose: 1 cap Tramadol HCl (Ultram*) 50 mg PO Q8H PRN PRN Reason: PAIN Last Admin: 04/10/19 08:14 Dose: 50 mg Vital Signs - 8 hr 04/10/19 04/10/19 04/10/19 07:30 08:14 08:22 Temperature 97.9 F Pulse Rate 96 97 Respiratory 16 18 16 Rate Blood Pressure 119/77 (mmHg) O2 Sat by Pulse 97 96 Oximetry 04/10/19 04/10/19 04/10/19 09:12 10:54 11:15 Temperature 97.2 F Pulse Rate 109 Respiratory 16 18 20 Rate Blood Pressure 109/63 (mmHg) O2 Sat by Pulse 98 Oximetry Oxygen Devices in Use Now: None Result Diagrams: 04/10/19 08:47 04/10/19 08:47 Additional Lab and Data: Laboratory Results - last 24 hr 04/10/19 04/10/19 08:47 08:47 WBC 12.3 H RBC 3.70 Hgb 11.9 L Hct 35 MCV 94 MCH 32 H MCHC 34 RDW 15 Plt Count 815 H D MPV 6.2 L Neut % (Auto) 71.6 Lymph % (Auto) 18.0 [place] % (Auto) 9.5 Eos % (Auto) 0.4 Baso % (Auto) 0.5 Absolute Neuts (auto) 8.8 H Absolute Lymphs (auto) 2.2 Absolute Monos (auto) 1.2 H Absolute Eos (auto) 0.0 Absolute Basos (auto) 0.1 Absolute Nucleated RBC 0.0 Nucleated RBC % 0.0 Sodium 132 L Potassium 4.6 Chloride 97 L Carbon Dioxide 24 Anion Gap 11 BUN 13 Creatinine 0.44 L Est GFR ( Amer) 177.7 Est GFR (Non-Af Amer) 146.9 BUN/Creatinine Ratio 29.5 H Glucose 122 H Calcium 10.2 Microbiology and Other Data: Microbiology 04/03/19 18:05 Urine Urine Culture - Final Venecia Tropicalis Enterococcus Faecalis 03/27/19 19:30 Blood Venous Aerobic Blood Culture - Final No Growth Day 5 03/27/19 19:30 Blood Venous Anaerobic Blood Culture - Final No Growth Day 5 03/27/19 17:55 Blood Venous Aerobic Blood Culture - Final No Growth Day 5 03/27/19 17:55 Blood Venous Anaerobic Blood Culture - Final No Growth Day 5 03/26/19 14:27 Blood Venous Aerobic Blood Culture - Final No Growth Day 5 03/26/19 14:27 Blood Venous Anaerobic Blood Culture - Final No Growth Day 5 03/24/19 12:14 Blood Venous Aerobic Blood Culture - Final No Growth Day 5 03/24/19 12:14 Blood Venous Anaerobic Blood Culture - Final Escherichia Coli 03/24/19 12:05 Blood Venous Aerobic Blood Culture - Final Escherichia Coli 03/24/19 12:05 Blood Venous Anaerobic Blood Culture - Final No Growth Day 5 03/27/19 01:04 Urine Urine Culture - Final No Growth (<1,000 CFU/mL) 03/25/19 16:45 Stool Stool Occult Blood (MEDARDO) - Final 03/24/19 11:48 Urine Urine Culture - Final No Growth (<1,000 CFU/mL) 03/24/19 16:55 Nasal Nasal Screen MRSA (PCR) - Final Mrsa Not Detected Assess/Plan/Problems-Billing Ms Lui is a 58 yo F who has a h/o self injury behaviors, schizoaffective disorder- bipolar type, HTN, hypothyroidism and asthma who was found to be poorly responsive at the [facility] and was brought in to the ER where she was found to be in severe sepsis secondary to pneumonia and now subsequently found to have Ecoli bacteremia. - Patient Problems (1) Bacteremia Comment: - ID consulting - Awaiting placement for superintendent terminal antibiotic administration - Pt with Ecoli bacteremia and resultant osteodiskitis, needs 8 weeks of IV Abx. - Today is D#17/56 Ceftriaxone. (2) Thrombocytosis Comment: - PLTs trending down slightly today - Likely reactive related to her underlying infection, but PLTs start to increase again I will be contacting hematology - Continue to monitor. (3) HTN (hypertension) Comment: - Normotensivie - Cont cardizem and spironolactone. (4) Thyroid nodule Comment: - Will need outpatient referral to thyroid clinic upon discharge - Large thyroid nodule found on imaging - FNA recommended. (5) Schizoaffective disorder Comment: - Continue cymbalta and olanzapine. (6) Hypothyroidism Comment: Continue home dose of synthroid. (7) SVT (supraventricular tachycardia) Comment: - Resolved - Sinus to Sinus Tach on tele (8) Severe sepsis Comment: - Resolved. (9) E. coli pneumonia Comment: - Resolved. (10) DVT prophylaxis Comment: - SQ heparin (11) Full code status Status and Disposition: Inpatient. Awaiting placement. Attending: Preston Smith
[2019-04-10] MEDS: cefTRIAXone(*) 2 GM in NS 0.9% 100 ML* 100 ML IVPB SCH (16:42)
[2019-04-10] MEDS ORDERED: Magnesium Hydroxide LIQ* 30 ML UDC PO PRN (19:06)
[2019-04-10] MEDS ORDERED: Docusate CAP* 100 MG PO PRN (19:06)
[2019-04-10] MEDS ORDERED: Senna TAB 8.6 mg* TAB PO PRN (19:06)
[2019-04-10] MEDS: Atorvastatin* 40 MG TAB PO SCH (19:48)
[2019-04-10] MEDS: Montelukast Sodium TAB* 10 MG PO SCH (19:49)
[2019-04-10] MEDS: OLANzapine TAB* 10 MG PO SCH (19:49)
[2019-04-11] MEDS: Heparin VIAL(*) 5000 UNITS/ML VIAL (FIVE THOUSAND) SUBCUT SCH ×3 (06:39→20:25)
[2019-04-11] MEDS: Levothyroxine TAB* 75 MCG TAB PO SCH (06:42)
[2019-04-11] MEDS: traMADol TAB* 50 MG PO PRN ×2 (06:43→20:29)
[2019-04-11] MEDS: Tiotropium CAP.INH* CAP.INH/18 MCG (USE ORDER SET !) INH SCH (07:29)
[2019-04-11] MEDS: Mometasone/Formoter 200/5 MDI INH SCH ×2 (07:30→19:55)
[2019-04-11] MEDS: Spironolactone TAB* 25 MG PO SCH (08:09)
[2019-04-11] MEDS: DULoxetine DR CAP* 60 MG CAP.DR PO SCH ×2 (08:10→20:25)
[2019-04-11] MEDS: Cholecalciferol TAB* 1000 UNITS PO SCH (08:10)
[2019-04-11] MEDS: Diltiazem CD CAP* 240 MG PO SCH (08:10)
[2019-04-11] MEDS: Aspirin EC TAB* 81 MG TAB.EC PO SCH (08:10)
[2019-04-11] MEDS: Magnesium Oxide TAB* 400 MG PO SCH (08:11)
[2019-04-11] MEDS: OLANzapine TAB* 5 MG PO SCH (08:11)
[2019-04-11] MEDS: Ferrous Sulfate TAB* 325 MG PO SCH (08:11)
[2019-04-11] MEDS: cefTRIAXone(*) 2 GM in NS 0.9% 100 ML* 100 ML IVPB SCH (16:24)
--- NOTE | 2019-04-11 19:04 | PN ---
Subjective Date of Service: 04/11/19 Interval History: Patient continues to refuse assessment by this contract technical writer. Attempted x 3 today. Was willing to engage in ROS. Reports back pain has mildly improved. Reports she occasionally feels "achy all over". Denies cp, sob, fever, chills, nausea, vomiting, diarrhea, urinary symptoms. Objective Active Medications: Acetaminophen (Tylenol Tab*) 650 mg PO Q4H PRN PRN Reason: fever >/= to 38C Last Admin: 04/05/19 22:43 Dose: 650 mg Albuterol (Ventolin Hfa Inhaler*) 2 puff INH Q4H PRN PRN Reason: SHORTNESS OF BREATH Aspirin (Aspirin Ec Tab*) 81 mg PO DAILY [facility] Last Admin: 04/11/19 08:10 Dose: 81 mg Atorvastatin Calcium (Lipitor*) 40 mg PO BEDTIME [facility] Last Admin: 04/10/19 19:48 Dose: 40 mg Benztropine Mesylate (Cogentin Tab*) 1 mg PO DAILY PRN PRN Reason: extrapyrimidal side effects Last Admin: 04/07/19 20:59 Dose: 1 mg Bisacodyl (Dulcolax Supp*) 10 mg SD DAILY PRN PRN Reason: CONSTIPATION Last Admin: 03/25/19 16:45 Dose: 10 mg Cholecalciferol (Vitamin D Tab*) 2,000 units PO DAILY [facility] Last Admin: 04/11/19 08:10 Dose: 2,000 units Diltiazem HCl (Cardizem Cd Cap*) 240 mg PO DAILY [facility] Last Admin: 04/11/19 08:10 Dose: 240 mg Docusate Sodium (Colace Cap*) 200 mg PO DAILY PRN PRN Reason: CONSTIPATION Duloxetine HCl (Cymbalta Cap*) 60 mg PO BID [facility] Last Admin: 04/11/19 08:10 Dose: 60 mg Ferrous Sulfate (Ferrous Sulfate Tab*) 325 mg PO DAILY [facility] Last Admin: 04/11/19 08:11 Dose: 325 mg Heparin Sodium (Porcine) (Heparin Flush Picc/Ml/Cvc(*)) 0 ml FLUSH 0600,1800 [facility] Last Admin: 04/11/19 17:54 Dose: 1 ml Heparin Sodium (Porcine) (Heparin Vial(*)) 5,000 units SUBCUT Q8HR [facility] Last Admin: 04/11/19 15:00 Dose: 5,000 units Ceftriaxone Sodium 2 gm/ (Sodium Chloride) 100 mls @ 200 mls/hr IVPB Q24H [facility] Last Admin: 04/11/19 16:24 Dose: 200 mls/hr Levothyroxine Sodium (Synthroid Tab*) 75 mcg PO DAILY@0600 [facility] Last Admin: 04/11/19 06:42 Dose: 75 mcg Magnesium Hydroxide (Milk Of Magnesia Liq*) 30 ml PO Q6H PRN PRN Reason: CONSTIPATION Magnesium Oxide (Magox 400 Tab*) 400 mg PO DAILY [facility] Last Admin: 04/11/19 08:11 Dose: 400 mg Mometasone Furoate/Formoterol Fumar (Dulera 200/5 Mdi*) 1 puff INH BID [facility] Last Admin: 04/11/19 07:30 Dose: 1 puff Montelukast Sodium (Singulair Tab*) 10 mg PO BEDTIME [facility] Last Admin: 04/10/19 19:49 Dose: 10 mg Olanzapine (Zyprexa Tab*) 5 mg PO DAILY [facility] Last Admin: 04/11/19 08:11 Dose: 5 mg Olanzapine (Zyprexa Tab*) 30 mg PO BEDTIME [facility] Last Admin: 04/10/19 19:49 Dose: 30 mg Ondansetron HCl (Zofran Inj*) 4 mg IV Q6H PRN PRN Reason: NAUSEA Last Admin: 03/26/19 19:45 Dose: 4 mg Senna (Senokot Tab*) 2 tab PO BEDTIME PRN PRN Reason: CONSTIPATION Last Admin: 04/10/19 19:51 Dose: 2 tab Spironolactone (Aldactone Tab*) 25 mg PO DAILY [facility] Last Admin: 04/11/19 08:09 Dose: 25 mg Tiotropium Elizabeth (Spiriva Cap.Inh*) 1 cap INH DAILY [facility] Last Admin: 04/11/19 07:29 Dose: 1 cap Tramadol HCl (Ultram*) 50 mg PO Q8H PRN PRN Reason: PAIN Last Admin: 04/11/19 06:43 Dose: 50 mg Vital Signs - 8 hr 04/11/19 04/11/19 11:15 15:15 Temperature 98.1 F 98.2 F Pulse Rate 106 92 Respiratory 16 16 Rate Blood Pressure 114/79 115/71 (mmHg) O2 Sat by Pulse 97 98 Oximetry Oxygen Devices in Use Now: None Appearance: Comfortable, NAD Result Diagrams: 04/10/19 08:47 04/10/19 08:47 Additional Lab and Data: Laboratory Results - last 24 hr 04/10/19 04/10/19 08:47 08:47 WBC 12.3 H RBC 3.70 Hgb 11.9 L Hct 35 MCV 94 MCH 32 H MCHC 34 RDW 15 Plt Count 815 H D MPV 6.2 L Neut % (Auto) 71.6 Lymph % (Auto) 18.0 [place] % (Auto) 9.5 Eos % (Auto) 0.4 Baso % (Auto) 0.5 Absolute Neuts (auto) 8.8 H Absolute Lymphs (auto) 2.2 Absolute Monos (auto) 1.2 H Absolute Eos (auto) 0.0 Absolute Basos (auto) 0.1 Absolute Nucleated RBC 0.0 Nucleated RBC % 0.0 Sodium 132 L Potassium 4.6 Chloride 97 L Carbon Dioxide 24 Anion Gap 11 BUN 13 Creatinine 0.44 L Est GFR ( Amer) 177.7 Est GFR (Non-Af Amer) 146.9 BUN/Creatinine Ratio 29.5 H Glucose 122 H Calcium 10.2 Microbiology and Other Data: Microbiology 04/03/19 18:05 Urine Urine Culture - Final Venecia Tropicalis Enterococcus Faecalis 03/27/19 19:30 Blood Venous Aerobic Blood Culture - Final No Growth Day 03/27/19 19:30 Blood Venous Anaerobic Blood Culture - Final No Growth Day 03/27/19 17:55 Blood Venous Aerobic Blood Culture - Final No Growth Day 03/27/19 17:55 Blood Venous Anaerobic Blood Culture - Final No Growth Day 03/26/19 14:27 Blood Venous Aerobic Blood Culture - Final No Growth Day 03/26/19 14:27 Blood Venous Anaerobic Blood Culture - Final No Growth Day 03/24/19 12:14 Blood Venous Aerobic Blood Culture - Final No Growth Day 03/24/19 12:14 Blood Venous Anaerobic Blood Culture - Final Escherichia Coli 03/24/19 12:05 Blood Venous Aerobic Blood Culture - Final Escherichia Coli 03/24/19 12:05 Blood Venous Anaerobic Blood Culture - Final No Growth Day 03/27/19 01:04 Urine Urine Culture - Final No Growth (<1,000 CFU/mL) 03/25/19 16:45 Stool Stool Occult Blood (MEDARDO) - Final 03/24/19 11:48 Urine Urine Culture - Final No Growth (<1,000 CFU/mL) 03/24/19 16:55 Nasal Nasal Screen MRSA (PCR) - Final Mrsa Not Detected Assess/Plan/Problems-Billing Ms Lui is a 58 yo F who has a h/o self injury behaviors, schizoaffective disorder- bipolar type, HTN, hypothyroidism and asthma who was found to be poorly responsive at the [facility] and was brought in to the ER where she was found to be in severe sepsis secondary to pneumonia and now subsequently found to have Ecoli bacteremia. - Patient Problems (1) Bacteremia Comment: - ID consulting - Awaiting placement for skilled nursing antibiotic administration - Pt with Ecoli bacteremia and resultant osteodiskitis, needs 8 weeks of IV Abx. - Today is D#18/ Ceftriaxone. (2) Thrombocytosis Comment: - Gave patient a break from lab draws today, but will repeat PLTs tomorrow - PLTs trending down slightly on last check - Likely reactive related to her underlying infection, but PLTs start to increase again I will be contacting hematology - Continue to monitor. (3) HTN (hypertension) Comment: - Normotensivie - Cont cardizem and spironolactone. (4) Thyroid nodule Comment: - Will need outpatient referral to thyroid clinic upon discharge - Large thyroid nodule found on imaging - FNA recommended. (5) Schizoaffective disorder Comment: - Continue cymbalta and olanzapine. (6) Hypothyroidism Comment: Continue home dose of synthroid. (7) SVT (supraventricular tachycardia) Comment: - Remainded in sinus to sinus Tach on tele, therefore, tele discontinued yesterday (8) Severe sepsis Comment: - Resolved. (9) E. coli pneumonia Comment: - Resolved. (10) DVT prophylaxis Comment: - SQ heparin (11) Full code status Status and Disposition: Inpatient. Awaiting placement. Attending: Preston Smith
[2019-04-11] MEDS: OLANzapine TAB* 10 MG PO SCH (20:24)
[2019-04-11] MEDS: Atorvastatin* 40 MG TAB PO SCH (20:25)
[2019-04-11] MEDS: Montelukast Sodium TAB* 10 MG PO SCH (20:25)
[2019-04-12 04:26] VITALS: BP 106/62
[2019-04-12] MEDS: Heparin VIAL(*) 5000 UNITS/ML VIAL (FIVE THOUSAND) SUBCUT SCH ×2 (04:43→14:44)
[2019-04-12] MEDS: Levothyroxine TAB* 75 MCG TAB PO SCH (04:43)
[2019-04-12] MEDS: traMADol TAB* 50 MG PO PRN (06:51)
[2019-04-12] MEDS: Mometasone/Formoter 200/5 MDI INH SCH (07:54)
[2019-04-12] MEDS: Tiotropium CAP.INH* CAP.INH/18 MCG (USE ORDER SET !) INH SCH (07:54)
[2019-04-12 08:51] LABS: Hematocrit 34 % (35-47); Mean Corpuscular HGB Conc 35 g/dL (31-36); Mean Corpuscular Hemoglobin 33 pg (27-31); Mean Corpuscular Volume 94 fL (80-97); Mean Platelet Volume 6.3 fL (7.4-10.4); Platelet Count 636 10^3/uL (150-450); Red Blood Count 3.66 10^6 /uL (3.70-4.87); Red Cell Distribution Width 15 % (10-15); White Blood Count 8.8 10^3/uL (3.5-10.8)
[2019-04-12 09:00] LABS: BUN/Creatinine Ratio 20.4 (8-20); Calcium 10.1 mg/dL (8.6-10.3); EGFR Non-African American 129.7 (>60); Potassium 4.5 mmol/L (3.5-5.0)
[2019-04-12 09:20] LABS: ABS Basophils 0.1 10^3/ul (0-0.2); ABS Eosinophils 0.1 10^3/ul (0-0.6); ABS Lymphocytes 1.8 10^3/ul (1.0-4.8); ABS Monocytes 1.1 10^3/ul (0-0.8); ABS Neutrophils 5.8 10^3/ul (1.5-7.7); Eosinophil % 0.7 %; Lymphocyte % 20.8 %; Nucleated Red Blood Cells % 0.1
[2019-04-12] MEDS: Spironolactone TAB* 25 MG PO SCH (09:33)
[2019-04-12] MEDS: Cholecalciferol TAB* 1000 UNITS PO SCH (09:33)
[2019-04-12] MEDS: Magnesium Oxide TAB* 400 MG PO SCH (09:33)
[2019-04-12] MEDS: Diltiazem CD CAP* 240 MG PO SCH (09:33)
[2019-04-12] MEDS: DULoxetine DR CAP* 60 MG CAP.DR PO SCH (09:33)
[2019-04-12] MEDS: OLANzapine TAB* 5 MG PO SCH (09:33)
[2019-04-12] MEDS: Aspirin EC TAB* 81 MG TAB.EC PO SCH (09:33)
[2019-04-12] MEDS: Ferrous Sulfate TAB* 325 MG PO SCH (09:33)
--- NOTE | 2019-04-12 11:04 | PN ---
Progress Note - Progress Note Date of Service: 04/12/19 SOAP: Subjective: CC: E coli bactermia and osteodiskitis. HPI: Ms. Lui is a 58 yo female with PMH significant for depression, history of self harm, COPD, anxiety, and HLD; who presented to the hospital unresponsive. Uncooperative for ROS. Reports lower back pain. Unwilling to answer anymore questions. Objective: Vital Signs - 8 hr 04/12/19 04/12/19 04/12/19 04:07 06:51 07:55 Temperature 98.4 F Pulse Rate 93 90 Respiratory 20 16 16 Rate Blood Pressure 106/62 (mmHg) O2 Sat by Pulse 96 96 Oximetry Physical Exam: Patient declined most of the physical exam MSK: No tenderness with palpation of the neck, spine or back. Able to move bilateral legs Laboratory Results - last 24 hr 04/12/19 04/12/19 08:35 08:35 WBC 8.8 RBC 3.66 L Hgb 12.0 Hct 34 L MCV 94 MCH 33 H MCHC 35 RDW 15 Plt Count 636 H D MPV 6.3 L Neut % (Auto) 65.7 Lymph % (Auto) 20.8 [place] % (Auto) 12.2 Eos % (Auto) 0.7 Baso % (Auto) 0.6 Absolute Neuts (auto) 5.8 Absolute Lymphs (auto) 1.8 Absolute Monos (auto) 1.1 H Absolute Eos (auto) 0.1 Absolute Basos (auto) 0.1 Absolute Nucleated RBC 0.0 Nucleated RBC % 0.1 Sodium 131 L Potassium 4.5 Chloride 96 L Carbon Dioxide 26 Anion Gap 9 BUN 10 Creatinine 0.49 L Est GFR ( Amer) 157.0 Est GFR (Non-Af Amer) 129.7 BUN/Creatinine Ratio 20.4 H Glucose 146 H Calcium 10.1 Microbiology 04/03/19 18:05 Urine Culture - Final Urine Venecia Tropicalis Enterococcus Faecalis 03/27/19 19:30 Aerobic Blood Culture - Final Blood Venous No Growth Day 5 Anaerobic Blood Culture - Final No Growth Day 5 03/27/19 17:55 Aerobic Blood Culture - Final Blood Venous No Growth Day 5 Anaerobic Blood Culture - Final No Growth Day 5 03/26/19 14:27 Aerobic Blood Culture - Final Blood Venous No Growth Day 5 Anaerobic Blood Culture - Final No Growth Day 5 03/24/19 12:14 Aerobic Blood Culture - Final Blood Venous No Growth Day 5 Anaerobic Blood Culture - Final Escherichia Coli 03/24/19 12:05 Aerobic Blood Culture - Final Blood Venous Escherichia Coli Anaerobic Blood Culture - Final No Growth Day 5 03/27/19 01:04 Urine Culture - Final Urine No Growth (<1,000 CFU/mL) 03/25/19 16:45 Stool Occult Blood (MEDARDO) - Final Stool 03/24/19 11:48 Urine Culture - Final Urine No Growth (<1,000 CFU/mL) 03/24/19 16:55 Nasal Screen MRSA (PCR) - Final Nasal Mrsa Not Detected Assessment: 1. Ecoli bacteremia. Inital urine culture with no growth. Repeat urine culture with Enterococcus Faecalis and Venecia Tropicalis. Repeat blood cultures with no growth on day 5. 2. Vertebral osteodiskitis of the lumbar spine. No epidural abscess seen on imaging. Continues to have low back pain, no LE neurological deficits. Afebrile and no leukocytosis. CRP is trending down. 3. Leukocytosis while on ABX. Resolved Plan: Continue ceftriaxone 2 gm daily, day . PICC line has been placed. Weekly labs while on ABX: CMP, CBC, and CRP.
[2019-04-12] MEDS ORDERED: traMADol TAB* 50 MG PO PRN (12:58)
[2019-04-12] MEDS: cefTRIAXone(*) 2 GM in NS 0.9% 100 ML* 100 ML IVPB SCH (16:19)
--- NOTE | 2019-04-12 21:28 | DS ---
CC: Dr. Hang Adair * DISCHARGE SUMMARY/HISTORY AND PHYSICAL: DATE OF ADMISSION: 03/24/19 DATE OF DISCHARGE: To swing status, 04/12/19. PRIMARY CARE PROVIDER: Dr. Hang Adair. ATTENDING PHYSICIAN: Dr. Smith.* (DICTATED BY MALORIE MAURICE NP) PRIMARY DIAGNOSES: 1. Bacteremia. 2. Thrombocytosis. 3. Hypertension. 4. Thyroid nodule. 5. Schizoaffective disorder. 6. Hypothyroidism. 7. Supraventricular tachycardia. 8. Severe sepsis. 9. Escherichia coli pneumonia. SECONDARY DIAGNOSES: Psychosis/self-harm. PROCEDURES WHILE IN THE HOSPITAL: No procedures. STUDIES WHILE IN THE HOSPITAL: 1. Brain CT, impression: No acute intracranial pathology. 2. Cervical spine CT, impression: Degenerative disk disease and osteoarthritis. There is moderate narrowing of the central canal at C5 through C6 with mild narrowing at C4 through C5 and C6 through C7. There is multilevel neural foraminal narrowing as described above. Multinodular goiter including a 2.7 cm exophytic nodule of the left inferior thyroid. 3. Chest/abdomen/pelvis CT, impression: Multifocal consolidation involving the dependent lungs bilaterally, greater on the right than left. There is distention and mild dilatation of the large bowel with a large amount of stool noted within the distal colon and rectum, with large amount of liquid stool noted proximal suggestive of obstipation. Mild biliary distention. 4. EKG, impression: Sinus tachycardia. 5. Chest x-ray, impression: Elevation of right hemidiaphragm suggestive of diaphragmatic paralysis. 6. Humerus x-ray, impression: No acute osseous injury of right humerus. 7. Wrist x-ray, left, impression: No acute osseous injury. 8. Foot x-ray, impression: Osteoarthritis. No acute osseous injury of right foot. 9. Chest x-ray: Status post nasogastric tube placement. Low lung volumes, small right basilar infiltrate. 10. Thyroid ultrasound: Ultrasound-guided fine needle aspiration of the exophytic 0.6 cm maximum dimension intermediate suspicion nodule at the inferior aspect of the left thyroid lobe suggested for pathological assessment. None of the remaining identified nodules warrant tissue sampling. 11. Abdominal x-ray, impression: Persistent severe rectal distention with stool. 12. Extremity arterial study: Unremarkable ankle-brachial indexes. 13. MRI, lumbar spine, impression: Disk edema involving L1 through L3, L3 through L5, L4 through L5 with associated endplate edema predominantly at L2- L3. Consider degenerative disk disease with inflammatory response versus diskitis/osteomyelitis. 14. Chest x-ray: Interval appearance of patchy densities overlying the right lower and upper lobes posteriorly. Multifocal pneumonia, pulmonary edema or early stages of ARDS are diagnostic considerations. 15. Bladder ultrasound, impression: Normal study of the urinary bladder with catheter in place. DISCHARGE MEDICATIONS: The patient is being discharged to [facility] status and should continue the following medications: 1. Tylenol 650 mg p.o. q.4 hours p.r.n. 2. Albuterol HFA 2 puffs inhalation q.4 hours p.r.n. 3. Aspirin 81 mg p.o. daily. 4. Lipitor 40 mg p.o. at 2100. 5. Cogentin 1 mg p.o. daily p.r.n. 6. Dulcolax suppository 10 mg p.r. daily p.r.n. 7. Rocephin 2 g q.24 hours IV. 8. Vitamin D 2000 units p.o. daily. 9. Diltiazem CD cap 240 mg p.o. daily. 10. Colace 200 mg p.o. daily p.r.n. 11. Duloxetine 60 mg p.o. b.i.d. 12. Ferrous sulfate 325 mg p.o. daily. 13. Heparin flush for PICC. 14. Heparin vial subcu 5000 units q.8 hours DVT prophylaxis. 15. Levothyroxine 75 mcg p.o. daily. 16. Magnesium hydroxide 30 mL p.o. q.6 hours p.r.n. 17. Magnesium oxide 400 mg p.o. daily. 18. Dulera 200/5 MDI 2 puffs inhalation b.i.d. 19. Singulair 10 mg p.o. at bedtime. 20. Zyprexa 5 mg p.o. daily. 21. Zyprexa 30 mg p.o. at bedtime. 22. Zofran 4 mg IV q.6 hours p.r.n. 23. Senna 2 tabs p.o. at bedtime p.r.n. 24. Spiriva 1 inhalation daily. 25. Spironolactone 25 mg p.o. daily. 26. Tramadol 50 mg p.o. q.8 hours p.r.n. pain. HISTORY OF PRESENT ILLNESS/HOSPITAL COURSE: Ms. Lui is a 58-year-old female with a past medical history significant for psychosis, hypertension, hypothyroid ; who presented to the emergency room via EMS due to being poorly responsive, covered in bruises of varying sizes and stages. Please see history and physical dictated by Patricio Coley MD, for complete summary of events leading up to hospitalization, but in short, the patient was picked up from the [facility] where she resides, due to unresponsiveness. While in the emergency room, the patient was noted to have altered mental status, meeting criteria for severe sepsis and suspected to have pneumonia. Given these findings and the patient's level of consciousness, the patient was admitted to the ICU by Dr. Coley for further evaluation and treatment. While in the ICU, the patient received antibiotics and IV fluids. She also had further evaluation as she was pancultured. The patient was found to have E. coli septicemia with severe sepsis in addition to metabolic acidosis. It was suspected that the patient's right basilar pneumonia and E. coli septicemia were correlated given she was found lying in her own stool. The patient's urine was not strongly suggestive of UTI; therefore, she was continued on Zosyn. The patient did require an NG tube temporarily given obstipation and required p.r.n. bowel regimen. The patient was then stabilized and transferred to the medical floor. Given her severe sepsis and bacteremia in addition to septic encephalopathy, Dr. Lyle Bravo was consulted. The patient's hospital stay was further complicated as she did have a short burst of SVT and we suspect that this was secondary to holding her diltiazem given her septic state. Her diltiazem was restarted and she has been free from any SVT. Dr. Bravo consulted and recommended changing Zosyn to ceftriaxone and repeating blood cultures. MRI was recommended given her bacteremia and complaints of low back pain. MRI revealed osteodiskitis, but no epidural abscess. Decision was made to continue ceftriaxone 1 g daily. Rocephin 2 g daily recommended. Given the findings of osteodiskitis, Dr. Bravo recommended a total of 56 days of antibiotics with weekly CMP, CBC, and CRPs. The patient has been stable while on the medical floor. Given her history of psychosis and concern for the patient's safety, Dr. Reyna from Psychology was consulted. Dr. Reyna is familiar with this patient and determined that she does not have capacity to make her medical decisions. He also discontinued her Wellbutrin as this could cause mild agitation and weight loss. He continued the patient's other medications and recommended that we limit anticholinergic medications and benzodiazepines. As of today, the patient has received 18 of 56 days of ceftriaxone. It was determined that the patient was not safe for discharge home and we continue to await placement; therefore, the patient will be placed on swing status here at [facility]. The patient is stable to be discharged to swing status. REVIEW OF SYSTEMS: The patient reports back pain. The patient denies fever, chills, nausea, vomiting, chest pain, shortness of breath. A 14-point review of systems was completed and all others were negative. PHYSICAL EXAMINATION: Vital Signs: Temp 97.7, HR 98, RR 20, O2 saturation 100 % on room air, BP 115/72. General: Ms. Lui is a 58-year-old female, who is lying in bed. Appears to be in no acute distress. Appears stated age. HEENT: EOMs intact. PERRLA. Oral mucosa is moist without lesion. Posterior pharynx is clear. Neck: Supple. No lymphadenopathy. Respiratory: Lungs are clear to auscultation. No wheezes, rhonchi, or rales. No accessory muscle use. Cardiac: S1, S2 present. Regular rate and rhythm. No murmurs, rubs, or gallops. Abdomen: Soft, nontender. Bowel sounds normoactive. Extremities: No edema. No clubbing or cyanosis. Pedal pulses 2+ bilaterally. Musculoskeletal: No pain or deformities. Skin: The patient has superficial abrasions to lower extremities. Otherwise, skin is clean, dry, and intact. Neuro: Neuro exam is grossly intact. The patient's affect is flat. LABORATORY DATA: WBC 8.8, hemoglobin 12, hematocrit 34, platelets 636. Sodium 131, potassium 4.5, chloride 96, carbon dioxide 26, BUN 10, creatinine 0.49, glucose 146. DISCHARGE PLAN/FOLLOWUP: The patient will be discharged to swing status. 1. Bacteremia: Per ID's recommendation, the patient will complete 56 days of ceftriaxone 2 g IV q.24 hours. The patient has a PICC in place for antibiotic administration. The patient's initial blood cultures grew E. coli and repeat blood cultures have been clear. The patient was noted to have osteodiskitis on MRI. While on antibiotics, the patient should have weekly CMP, CBC, CRP. 2. Thrombocytosis: It should be noted that during this hospital stay, the patient's platelets did trend up significantly and peak at 905. The patient's platelets have been trended back down and are currently 636. We suspect this is secondary to reactive process given her bacteremia and osteodiskitis. I would encourage a repeat lab work weekly as recommended by Dr. Bravo. 3. Hypertension: The patient is currently normotensive. She will continue her home medications of Cardizem and spironolactone. 4. Thyroid nodule: As mentioned above, the patient did have an incidental finding on her imaging of a thyroid nodule that is recommended to have an FNA. An FNA has not been completed while she has been inpatient. I would recommend that the patient is referred as an outpatient for this procedure. 5. Schizoaffective disorder: The patient was seen by Dr. Reyna while inpatient. The patient's Wellbutrin was stopped as this can cause agitation and weight loss. The patient will be continued on her home medications of Cymbalta and Zyprexa. 6. Hypothyroidism. The patient's TSH during her admission was 0.64. The patient should continue her Synthroid. 7. SVT: The patient's hospitalization was complicated as she did have a short run of SVT. The patient remained on tele for several days and was noted to be in sinus to sinus tachycardia. Given the patient was stable with no other arrhythmias and/or repeat of SVT, tele was discontinued. 8. Severe sepsis: The patient met severe sepsis on her admission to the hospital given elevated temp of 102, elevated heart rate greater than 90, elevated respiratory rate greater than 20, and end organ dysfunction with an elevated creatinine at 1.17. In addition, the patient was noted to have a source. The patient was pancultured, received IV fluids and antibiotics. The patient's severe sepsis has resolved. 9. E. coli pneumonia: As mentioned in HPI, during the patient's stay in the ICU, it was suspected given imaging and severe sepsis that the patient's source was E. coli pneumonia. The patient was treated with antibiotics. This has since resolved. 10. DVT prophylaxis: Given the patient is staying inpatient and will be swing status, we will continue subcu heparin. 11. Physical therapy/occupational therapy: Given the patient's significant deconditioning, I have reordered physical therapy and occupational therapy to occur while she is swing status as I believe she would very much benefit from this. 12. Code status: The patient is a full code. 13. Disposition: The patient will be placed on swing status awaiting further placement. The patient is being placed on swing status to receive IV antibiotics for bacteremia. This is a summarized report of a complex medical history and hospital stay. For further details, please see entire medical record. TIME SPENT: Approximately 45 minutes was spent on this discharge/transfer to swing status, greater than half that time was spent [id number] with the patient discussing discharge plans and instructions. Plan: This plan was discussed with my attending, Dr. Smith, who is in agreement with my plan of care. MALORIE MAURICE, GAL [id number]/CPS #: [id number] [place]
== END 2019-04-12 16:16 | disposition swing bed (61) | DRG 720 ==
LOC: ED 11:33 → ICU 13:31 → MED 03-26 16:39
PROVIDERS: ADMIT Internal Medicine Critical Care Medicine; ATTEND Internal Medicine
DX: A41.51 Sepsis due to Escherichia coli [E. coli] (principal); J15.5 Pneumonia due to Escherichia coli; R40.2222 Coma scale, best verbal response, incomprehensible words, at arrival to emergency department; R40.2112 Coma scale, eyes open, never, at arrival to emergency department; G93.41 Metabolic encephalopathy; I47.1 Supraventricular tachycardia; N17.9 Acute kidney failure, unspecified; J44.0 Chronic obstructive pulmonary disease with (acute) lower respiratory infection; E72.20 Disorder of urea cycle metabolism, unspecified; E87.2 Acidosis; R65.20 Severe sepsis without septic shock; D47.3 Essential (hemorrhagic) thrombocythemia; I10 Essential (primary) hypertension; E03.9 Hypothyroidism, unspecified; E04.1 Nontoxic single thyroid nodule; F25.9 Schizoaffective disorder, unspecified; K21.9 Gastro-esophageal reflux disease without esophagitis; F41.9 Anxiety disorder, unspecified; F90.9 Attention-deficit hyperactivity disorder, unspecified type; R40.2432 Glasgow coma scale score 3-8, at arrival to emergency department; E87.6 Hypokalemia; M46.46 Discitis, unspecified, lumbar region; Z79.82 Long term (current) use of aspirin; Z79.01 Long term (current) use of anticoagulants; Z91.040 Latex allergy status; Z91.018 Allergy to other foods; Z88.8 Allergy status to other drugs, medicaments and biological substances; Z91.5 Personal history of self-harm; Z86.19 Personal history of other infectious and parasitic diseases; Z87.891 Personal history of nicotine dependence
CPT/HCPCS: 36415; 70450; 71045; 71046; 71260; 72125; 72158; 74018; 74177; 76536; 76857; 80048; 80053; 80076; 80307; 80320; 81003; 81015; 82140; 82150; 82272; 82550; 82607; 82728; 82746; 82803; 83540; 83550; 83605; 83690; 83735; 84100; 84439; 84443; 84484; 85025; 85060; 85610; 86140; 86850; 86900; 86901; 87040; 87077; 87086; 87106; 87186; 87205; 87641; 93005; 93922; 94640; 99285; A9270-GY; A9579; G0480; G8978-GP-CK; G8979-GP-CI; J0696; J1644; J2310; J2405; J2543; J3370; J3475; J3480; Q9967

== ENCOUNTER 2019-04-12 16:17 | Inpatient (IN) | payer BC, MEDICAID ==
[2019-04-12] MEDS ORDERED: Spiriva HANDIHALER DEVICE (NF) 1 EACH DEVICE INH SCH (17:00)
[2019-04-12] MEDS ORDERED: Benztropine TAB* 1 MG PO PRN (17:02)
[2019-04-12] MEDS ORDERED: Bisacodyl SUPP* 10 MG SUPP PR PRN (17:02)
[2019-04-12] MEDS ORDERED: Albuterol HFA INHALER* 8 gm MDI INH PRN (17:05)
[2019-04-12] MEDS ORDERED: Magnesium Hydroxide LIQ* 30 ML UDC PO PRN (17:05)
[2019-04-12] MEDS ORDERED: Ondansetron INJ* 2 MG/ML VIAL IV PRN (17:05)
[2019-04-12] MEDS ORDERED: Senna TAB 8.6 mg* TAB PO PRN (17:05)
[2019-04-12] MEDS ORDERED: traMADol TAB* 50 MG PO PRN (17:05)
[2019-04-12] MEDS ORDERED: cefTRIAXone(*) 2 GM in NS 0.9% 100 ML* 100 ML IVPB SCH (18:00)
[2019-04-12] MEDS: Mometasone/Formoter 200/5 MDI INH SCH (20:12)
[2019-04-12] MEDS: Atorvastatin* 40 MG TAB PO SCH (20:21)
[2019-04-12] MEDS: DULoxetine DR CAP* 60 MG CAP.DR PO SCH (20:21)
[2019-04-12] MEDS: Montelukast Sodium TAB* 10 MG PO SCH (20:21)
[2019-04-12] MEDS: OLANzapine TAB* 10 MG PO SCH (20:21)
[2019-04-12] MEDS: Docusate CAP* 100 MG PO PRN (20:21)
[2019-04-12] MEDS: Heparin VIAL(*) 5000 UNITS/ML VIAL (FIVE THOUSAND) SUBCUT SCH (21:31)
[2019-04-13] MEDS: Levothyroxine TAB* 75 MCG TAB PO SCH (06:00)
[2019-04-13] MEDS: Heparin VIAL(*) 5000 UNITS/ML VIAL (FIVE THOUSAND) SUBCUT SCH ×3 (06:00→23:30)
[2019-04-13] MEDS: Mometasone/Formoter 200/5 MDI INH SCH ×2 (07:08→20:27)
[2019-04-13] MEDS: TIOTROPIUM 18 MCG INH SCH (07:08)
[2019-04-13] MEDS: traMADol TAB* 50 MG PO PRN ×2 (07:56→19:45)
[2019-04-13] MEDS: Diltiazem CD CAP* 240 MG PO SCH (07:57)
[2019-04-13] MEDS: OLANzapine TAB* 5 MG PO SCH (07:57)
[2019-04-13] MEDS: Docusate CAP* 100 MG PO PRN (07:57)
[2019-04-13] MEDS: Aspirin EC TAB* 81 MG TAB.EC PO SCH (07:57)
[2019-04-13] MEDS: Ferrous Sulfate TAB* 325 MG PO SCH (07:57)
[2019-04-13] MEDS: DULoxetine DR CAP* 60 MG CAP.DR PO SCH ×2 (07:57→19:46)
[2019-04-13] MEDS: Spironolactone TAB* 25 MG PO SCH (07:57)
[2019-04-13] MEDS: Cholecalciferol TAB* 1000 UNITS PO SCH (07:57)
[2019-04-13] MEDS: Magnesium Oxide TAB* 400 MG PO SCH (08:09)
[2019-04-13] MEDS: cefTRIAXone(*) 2 GM in NS 0.9% 100 ML* 100 ML IVPB SCH (16:34)
[2019-04-13] MEDS: Atorvastatin* 40 MG TAB PO SCH (19:46)
[2019-04-13] MEDS: OLANzapine TAB* 10 MG PO SCH (19:46)
[2019-04-13] MEDS: Montelukast Sodium TAB* 10 MG PO SCH (19:46)
[2019-04-14] MEDS: traMADol TAB* 50 MG PO PRN ×2 (06:00→15:10)
[2019-04-14] MEDS: Levothyroxine TAB* 75 MCG TAB PO SCH (06:00)
[2019-04-14] MEDS: Heparin VIAL(*) 5000 UNITS/ML VIAL (FIVE THOUSAND) SUBCUT SCH ×2 (06:04→15:06)
[2019-04-14] MEDS: TIOTROPIUM 18 MCG INH SCH (07:09)
[2019-04-14] MEDS: Mometasone/Formoter 200/5 MDI INH SCH ×2 (07:11→20:29)
[2019-04-14] MEDS: DULoxetine DR CAP* 60 MG CAP.DR PO SCH (07:32)
[2019-04-14] MEDS: Aspirin EC TAB* 81 MG TAB.EC PO SCH (07:32)
[2019-04-14] MEDS: Ferrous Sulfate TAB* 325 MG PO SCH (07:32)
[2019-04-14] MEDS: Cholecalciferol TAB* 1000 UNITS PO SCH (07:32)
[2019-04-14] MEDS: Diltiazem CD CAP* 240 MG PO SCH (07:32)
[2019-04-14] MEDS: Spironolactone TAB* 25 MG PO SCH (07:32)
[2019-04-14] MEDS: Magnesium Oxide TAB* 400 MG PO SCH (07:32)
[2019-04-14] MEDS: OLANzapine TAB* 5 MG PO SCH (07:32)
[2019-04-14] MEDS: cefTRIAXone(*) 2 GM in NS 0.9% 100 ML* 100 ML IVPB SCH (16:02)
[2019-04-15] MEDS: Montelukast Sodium TAB* 10 MG PO SCH ×2 (00:17→21:02)
[2019-04-15] MEDS: DULoxetine DR CAP* 60 MG CAP.DR PO SCH ×3 (00:17→21:02)
[2019-04-15] MEDS: Atorvastatin* 40 MG TAB PO SCH ×2 (00:17→21:02)
[2019-04-15] MEDS: traMADol TAB* 50 MG PO PRN ×3 (00:18→21:01)
[2019-04-15] MEDS: OLANzapine TAB* 10 MG PO SCH ×2 (00:18→21:03)
[2019-04-15] MEDS: Heparin VIAL(*) 5000 UNITS/ML VIAL (FIVE THOUSAND) SUBCUT SCH ×4 (00:18→21:07)
[2019-04-15] MEDS: Levothyroxine TAB* 75 MCG TAB PO SCH (05:31)
[2019-04-15] MEDS: Mometasone/Formoter 200/5 MDI INH SCH ×2 (07:49→19:16)
[2019-04-15] MEDS: TIOTROPIUM 18 MCG INH SCH (07:49)
[2019-04-15] MEDS: Ferrous Sulfate TAB* 325 MG PO SCH (09:45)
[2019-04-15] MEDS: Aspirin EC TAB* 81 MG TAB.EC PO SCH (09:45)
[2019-04-15] MEDS: Cholecalciferol TAB* 1000 UNITS PO SCH (09:45)
[2019-04-15] MEDS: Diltiazem CD CAP* 240 MG PO SCH (09:45)
[2019-04-15] MEDS: Magnesium Oxide TAB* 400 MG PO SCH (09:45)
[2019-04-15] MEDS: Spironolactone TAB* 25 MG PO SCH (09:45)
[2019-04-15] MEDS: OLANzapine TAB* 5 MG PO SCH (09:46)
[2019-04-15] MEDS: cefTRIAXone(*) 2 GM in NS 0.9% 100 ML* 100 ML IVPB SCH (15:14)
[2019-04-16] MEDS: Levothyroxine TAB* 75 MCG TAB PO SCH (05:37)
[2019-04-16] MEDS: Heparin VIAL(*) 5000 UNITS/ML VIAL (FIVE THOUSAND) SUBCUT SCH ×3 (05:41→20:53)
[2019-04-16] MEDS: TIOTROPIUM 18 MCG INH SCH (08:37)
[2019-04-16] MEDS: Mometasone/Formoter 200/5 MDI INH SCH ×2 (08:38→20:40)
[2019-04-16] MEDS: Magnesium Oxide TAB* 400 MG PO SCH (09:50)
[2019-04-16] MEDS: Diltiazem CD CAP* 240 MG PO SCH (09:50)
[2019-04-16] MEDS: Ferrous Sulfate TAB* 325 MG PO SCH (09:50)
[2019-04-16] MEDS: Spironolactone TAB* 25 MG PO SCH (09:51)
[2019-04-16] MEDS: Aspirin EC TAB* 81 MG TAB.EC PO SCH (09:51)
[2019-04-16] MEDS: traMADol TAB* 50 MG PO PRN ×2 (09:51→18:31)
[2019-04-16] MEDS: OLANzapine TAB* 5 MG PO SCH (09:52)
[2019-04-16] MEDS: DULoxetine DR CAP* 60 MG CAP.DR PO SCH ×2 (09:56→20:34)
[2019-04-16] MEDS: Cholecalciferol TAB* 1000 UNITS PO SCH (11:32)
[2019-04-16] MEDS: cefTRIAXone(*) 2 GM in NS 0.9% 100 ML* 100 ML IVPB SCH (16:32)
[2019-04-16] MEDS: OLANzapine TAB* 10 MG PO SCH (20:33)
[2019-04-16] MEDS: Montelukast Sodium TAB* 10 MG PO SCH (20:34)
[2019-04-16] MEDS: Atorvastatin* 40 MG TAB PO SCH (20:34)
[2019-04-17] MEDS: Heparin VIAL(*) 5000 UNITS/ML VIAL (FIVE THOUSAND) SUBCUT SCH ×3 (05:42→22:03)
[2019-04-17] MEDS: Levothyroxine TAB* 75 MCG TAB PO SCH (06:19)
[2019-04-17] MEDS: TIOTROPIUM 18 MCG INH SCH (07:36)
[2019-04-17] MEDS: Mometasone/Formoter 200/5 MDI INH SCH ×2 (07:36→19:03)
[2019-04-17] MEDS: Magnesium Oxide TAB* 400 MG PO SCH (10:11)
[2019-04-17] MEDS: traMADol TAB* 50 MG PO PRN ×2 (10:11→21:52)
[2019-04-17] MEDS: Diltiazem CD CAP* 240 MG PO SCH (10:11)
[2019-04-17] MEDS: DULoxetine DR CAP* 60 MG CAP.DR PO SCH ×2 (10:11→21:44)
[2019-04-17] MEDS: Cholecalciferol TAB* 1000 UNITS PO SCH (10:12)
[2019-04-17] MEDS: OLANzapine TAB* 5 MG PO SCH (10:12)
[2019-04-17] MEDS: Aspirin EC TAB* 81 MG TAB.EC PO SCH (10:12)
[2019-04-17] MEDS: Ferrous Sulfate TAB* 325 MG PO SCH (10:12)
[2019-04-17] MEDS: Spironolactone TAB* 25 MG PO SCH (10:12)
[2019-04-17] MEDS: cefTRIAXone(*) 2 GM in NS 0.9% 100 ML* 100 ML IVPB SCH (16:11)
[2019-04-17] MEDS: Montelukast Sodium TAB* 10 MG PO SCH (21:44)
[2019-04-17] MEDS: OLANzapine TAB* 10 MG PO SCH (21:44)
[2019-04-17] MEDS: Atorvastatin* 40 MG TAB PO SCH (21:44)
[2019-04-18] MEDS: Heparin VIAL(*) 5000 UNITS/ML VIAL (FIVE THOUSAND) SUBCUT SCH ×3 (05:43→22:00)
[2019-04-18] MEDS: Levothyroxine TAB* 75 MCG TAB PO SCH (05:54)
[2019-04-18] MEDS: Diltiazem CD CAP* 240 MG PO SCH (08:35)
[2019-04-18] MEDS: Spironolactone TAB* 25 MG PO SCH (08:35)
[2019-04-18] MEDS: Ferrous Sulfate TAB* 325 MG PO SCH (08:35)
[2019-04-18] MEDS: Magnesium Oxide TAB* 400 MG PO SCH (08:36)
[2019-04-18] MEDS: Cholecalciferol TAB* 1000 UNITS PO SCH (08:36)
[2019-04-18] MEDS: OLANzapine TAB* 5 MG PO SCH (08:36)
[2019-04-18] MEDS: Aspirin EC TAB* 81 MG TAB.EC PO SCH (08:36)
[2019-04-18] MEDS: traMADol TAB* 50 MG PO PRN ×2 (08:36→19:57)
[2019-04-18] MEDS: DULoxetine DR CAP* 60 MG CAP.DR PO SCH ×2 (08:36→21:00)
[2019-04-18] MEDS: TIOTROPIUM 18 MCG INH SCH (09:24)
[2019-04-18] MEDS: Mometasone/Formoter 200/5 MDI INH SCH ×2 (09:24→19:27)
[2019-04-18] MEDS: cefTRIAXone(*) 2 GM in NS 0.9% 100 ML* 100 ML IVPB SCH (16:16)
[2019-04-18] MEDS: Montelukast Sodium TAB* 10 MG PO SCH (21:00)
[2019-04-18] MEDS: OLANzapine TAB* 10 MG PO SCH (21:00)
[2019-04-18] MEDS: Atorvastatin* 40 MG TAB PO SCH (21:00)
[2019-04-19] MEDS: Levothyroxine TAB* 75 MCG TAB PO SCH (06:09)
[2019-04-19] MEDS: Heparin VIAL(*) 5000 UNITS/ML VIAL (FIVE THOUSAND) SUBCUT SCH ×3 (06:13→22:42)
[2019-04-19] MEDS: Mometasone/Formoter 200/5 MDI INH SCH ×2 (08:03→19:04)
[2019-04-19] MEDS: TIOTROPIUM 18 MCG INH SCH (08:04)
[2019-04-19] MEDS: Cholecalciferol TAB* 1000 UNITS PO SCH (09:53)
[2019-04-19] MEDS: Spironolactone TAB* 25 MG PO SCH (09:53)
[2019-04-19] MEDS: OLANzapine TAB* 5 MG PO SCH (09:53)
[2019-04-19] MEDS: Diltiazem CD CAP* 240 MG PO SCH (09:53)
[2019-04-19] MEDS: Aspirin EC TAB* 81 MG TAB.EC PO SCH (09:53)
[2019-04-19] MEDS: Ferrous Sulfate TAB* 325 MG PO SCH (09:54)
[2019-04-19] MEDS: DULoxetine DR CAP* 60 MG CAP.DR PO SCH ×2 (09:54→19:36)
[2019-04-19] MEDS: Magnesium Oxide TAB* 400 MG PO SCH (09:54)
[2019-04-19 12:20] LABS: ABS Basophils 0.1 10^3/ul (0-0.2); ABS Eosinophils 0.1 10^3/ul (0-0.6); ABS Lymphocytes 2.4 10^3/ul (1.0-4.8); ABS Monocytes 1.4 10^3/ul (0-0.8); ABS Neutrophils 8.1 10^3/ul (1.5-7.7); Hematocrit 35 % (35-47); Hemoglobin 12.2 g/dL (12.0-16.0); Lymphocyte % 19.5 %; Mean Corpuscular HGB Conc 35 g/dL (31-36); Mean Corpuscular Hemoglobin 33 pg (27-31); Mean Corpuscular Volume 94 fL (80-97); Platelet Count 667 10^3/uL (150-450); Red Blood Count 3.68 10^6 /uL (3.70-4.87); Red Cell Distribution Width 15 % (10-15); White Blood Count 12.1 10^3/uL (3.5-10.8)
[2019-04-19 12:36] LABS: Albumin 3.5 g/dL (3.2-5.2); Albumin/Globulin Ratio 0.9 (1-3); BUN/Creatinine Ratio 21.7 (8-20); CRP High Sensitivity 32.29 mg/L (<2.00); Calcium 9.9 mg/dL (8.6-10.3); EGFR African American 168.8 (>60); EGFR Non-African American 139.5 (>60); Globulin 3.7 g/dL (2-4); Potassium 4.4 mmol/L (3.5-5.0); Total Bilirubin 0.2 mg/dL (0.2-1.0); Total Protein 7.2 g/dL (6.4-8.9)
[2019-04-19] MEDS: traMADol TAB* 50 MG PO PRN (16:25)
[2019-04-19] MEDS: cefTRIAXone(*) 2 GM in NS 0.9% 100 ML* 100 ML IVPB SCH (16:26)
--- NOTE | 2019-04-19 16:36 | PN ---
Subjective Date of Service: 04/19/19 Interval History: Attempted to see patient today and she refused to engage in conversation, ROS, and physical exam. She demanding I leave the room and leave her alone. Discussed with RN who reports patient also refused RN's physical exam. In addition patient is refusing Heparin SubQ and SCDs, but she is taking her other medications without difficulty. Objective Active Medications: Acetaminophen (Tylenol Tab*) 650 mg PO Q4H PRN PRN Reason: PAIN - MILD Albuterol (Ventolin Hfa Inhaler*) 2 puff INH Q4H PRN PRN Reason: SOB/WHEEZING Aspirin (Aspirin Ec Tab*) 81 mg PO DAILY [facility] Last Admin: 04/19/19 09:53 Dose: 81 mg Atorvastatin Calcium (Lipitor*) 40 mg PO 2100 [facility] Last Admin: 04/18/19 21:00 Dose: 40 mg Benztropine Mesylate (Cogentin Tab*) 1 mg PO DAILY PRN PRN Reason: Extrapyrimidal side effects Last Admin: 04/12/19 20:21 Dose: 1 mg Bisacodyl (Dulcolax Supp*) 10 mg [place] DAILY PRN PRN Reason: CONSTIPATION Cholecalciferol (Vitamin D Tab*) 2,000 units PO DAILY [facility] Last Admin: 04/19/19 09:53 Dose: 2,000 units Device (Tiotropium Inhaler Device*) 1 each INH .USE w/ SPIRIVA CAPS [facility] Diltiazem HCl (Cardizem Cd Cap*) 240 mg PO DAILY [facility] Last Admin: 04/19/19 09:53 Dose: 240 mg Docusate Sodium (Colace Cap*) 200 mg PO DAILY PRN PRN Reason: CONSTIPATION Last Admin: 04/13/19 07:57 Dose: 200 mg Duloxetine HCl (Cymbalta Cap*) 60 mg PO BID [facility] Last Admin: 04/19/19 09:54 Dose: 60 mg Ferrous Sulfate (Ferrous Sulfate Tab*) 325 mg PO DAILY [facility] Last Admin: 04/19/19 09:54 Dose: 325 mg Heparin Sodium (Porcine) (Heparin Flush Picc/Ml/Cvc(*)) 1 ml FLUSH 0600,1800 [facility]; Protocol Last Admin: 04/19/19 06:09 Dose: 1 ml Heparin Sodium (Porcine) (Heparin Vial(*)) 5,000 units SUBCUT Q8HR [facility] Last Admin: 04/19/19 14:46 Dose: Not Given Ceftriaxone Sodium 2 gm/ (Sodium Chloride) 100 mls @ 200 mls/hr IVPB Q24HR@ 1600 [facility] Last Admin: 04/19/19 16:26 Dose: 200 mls/hr Levothyroxine Sodium (Synthroid Tab*) 75 mcg PO DAILY@0600 [facility] Last Admin: 04/19/19 06:09 Dose: 75 mcg Magnesium Hydroxide (Milk Of Magnesia Liq*) 30 ml PO Q6H PRN PRN Reason: CONSTIPATION Last Admin: 04/13/19 07:57 Dose: 30 ml Magnesium Oxide (Magox 400 Tab*) 400 mg PO DAILY [facility] Last Admin: 04/19/19 09:54 Dose: 400 mg Mometasone Furoate/Formoterol Fumar (Dulera 200/5 Mdi*) 2 puff INH BID [facility] Last Admin: 04/19/19 08:03 Dose: Not Given Montelukast Sodium (Singulair Tab*) 10 mg PO BEDTIME [facility] Last Admin: 04/18/19 21:00 Dose: 10 mg Olanzapine (Zyprexa Tab*) 5 mg PO DAILY [facility] Last Admin: 04/19/19 09:53 Dose: 5 mg Olanzapine (Zyprexa Tab*) 30 mg PO BEDTIME [facility] Last Admin: 04/18/19 21:00 Dose: 30 mg Ondansetron HCl (Zofran Inj*) 4 mg IV Q6H PRN PRN Reason: NAUSEA Senna (Senokot Tab*) 2 tab PO BEDTIME PRN PRN Reason: CONSTIPATION Last Admin: 04/12/19 20:21 Dose: 2 tab Spironolactone (Aldactone Tab*) 25 mg PO DAILY [facility] Last Admin: 04/19/19 09:53 Dose: 25 mg Tiotropium [place] (Spiriva Cap.Inh*) 1 cap INH DAILY [facility] Last Admin: 04/19/19 08:04 Dose: Not Given Tramadol HCl (Ultram*) 100 mg PO Q8H PRN PRN Reason: PAIN - MODERATE Last Admin: 04/19/19 16:25 Dose: 100 mg Vital Signs - 8 hr 04/19/19 16:25 Respiratory 15 Rate Oxygen Devices in Use Now: None Appearance: Comfortable, NAD Result Diagrams: 04/19/19 12:06 04/19/19 12:06 Assess/Plan/Problems-Billing Assessment: Ms Lui is a 58 yo F who has a h/o self injury behaviors, schizoaffective disorder- bipolar type, HTN, hypothyroidism and asthma who was found to be poorly responsive at the [facility] and was brought in to the ER where she was found to be in severe sepsis secondary to pneumonia and now subsequently found to have Ecoli bacteremia and diskitis. Now on swing status for IV antibiotics - Patient Problems (1) Bacteremia Comment: - Swing status for IV antibiotics - Pt with Ecoli bacteremia and resultant osteodiskitis, needs 56 days of Ceftriaxone. - Also needs weekly CBC, CMP, and CRP (2) HTN (hypertension) Comment: - Normotensivie - Cont cardizem and spironolactone. (3) Hypothyroidism Comment: - Continue home dose of synthroid. (4) Schizoaffective disorder Comment: - Not engaging in exam or ROS, but is compliant with most medications and lab draws. - Consider psych consult for medications adjustment if needed. They saw her before she became Swing status and are very familiar with her - Continue cymbalta and olanzapine. (5) Thrombocytosis Comment: - Had elevated PLTS on admission which was suspected to be reactive related to her underlying infection - Trending down - Monitor with weekly labs (6) Thyroid nodule Comment: - Large thyroid nodule found on imaging - FNA recommended. - Will need outpatient referral to thyroid clinic upon discharge (7) DVT prophylaxis Comment: - SQ heparin - Ambulation (8) Full code status Status and Disposition: Swing for IV abx then hopefully discharge back to [place] Attending: Moni Kirkpatrick
[2019-04-19] MEDS: Montelukast Sodium TAB* 10 MG PO SCH (19:36)
[2019-04-19] MEDS: Atorvastatin* 40 MG TAB PO SCH (19:36)
[2019-04-19] MEDS: OLANzapine TAB* 10 MG PO SCH (19:36)
[2019-04-20] MEDS: Heparin VIAL(*) 5000 UNITS/ML VIAL (FIVE THOUSAND) SUBCUT SCH ×3 (04:05→22:09)
[2019-04-20] MEDS: Levothyroxine TAB* 75 MCG TAB PO SCH (05:35)
[2019-04-20] MEDS: traMADol TAB* 50 MG PO PRN ×2 (05:35→17:27)
[2019-04-20] MEDS: TIOTROPIUM 18 MCG INH SCH (07:52)
[2019-04-20] MEDS: Mometasone/Formoter 200/5 MDI INH SCH ×2 (07:52→19:21)
[2019-04-20] MEDS: Cholecalciferol TAB* 1000 UNITS PO SCH (07:59)
[2019-04-20] MEDS: Ferrous Sulfate TAB* 325 MG PO SCH (07:59)
[2019-04-20] MEDS: Diltiazem CD CAP* 240 MG PO SCH (07:59)
[2019-04-20] MEDS: Aspirin EC TAB* 81 MG TAB.EC PO SCH (07:59)
[2019-04-20] MEDS: DULoxetine DR CAP* 60 MG CAP.DR PO SCH ×2 (07:59→22:09)
[2019-04-20] MEDS: Magnesium Oxide TAB* 400 MG PO SCH (07:59)
[2019-04-20] MEDS: Spironolactone TAB* 25 MG PO SCH (08:00)
[2019-04-20] MEDS: OLANzapine TAB* 5 MG PO SCH (08:00)
[2019-04-20] MEDS: cefTRIAXone(*) 2 GM in NS 0.9% 100 ML* 100 ML IVPB SCH (16:50)
[2019-04-20] MEDS: Montelukast Sodium TAB* 10 MG PO SCH (22:08)
[2019-04-20] MEDS: Atorvastatin* 40 MG TAB PO SCH (22:08)
[2019-04-20] MEDS: OLANzapine TAB* 10 MG PO SCH (22:08)
[2019-04-21] MEDS: traMADol TAB* 50 MG PO PRN ×2 (06:18→16:39)
[2019-04-21] MEDS: Levothyroxine TAB* 75 MCG TAB PO SCH (06:18)
[2019-04-21] MEDS: Heparin VIAL(*) 5000 UNITS/ML VIAL (FIVE THOUSAND) SUBCUT SCH ×3 (06:25→21:45)
[2019-04-21] MEDS: TIOTROPIUM 18 MCG INH SCH (07:11)
[2019-04-21] MEDS: Mometasone/Formoter 200/5 MDI INH SCH ×2 (07:11→19:35)
[2019-04-21] MEDS: DULoxetine DR CAP* 60 MG CAP.DR PO SCH ×2 (09:35→19:54)
[2019-04-21] MEDS: Spironolactone TAB* 25 MG PO SCH (09:35)
[2019-04-21] MEDS: OLANzapine TAB* 5 MG PO SCH (09:35)
[2019-04-21] MEDS: Diltiazem CD CAP* 240 MG PO SCH (09:35)
[2019-04-21] MEDS: Ferrous Sulfate TAB* 325 MG PO SCH (09:35)
[2019-04-21] MEDS: Aspirin EC TAB* 81 MG TAB.EC PO SCH (09:35)
[2019-04-21] MEDS: Cholecalciferol TAB* 1000 UNITS PO SCH (09:35)
[2019-04-21] MEDS: Magnesium Oxide TAB* 400 MG PO SCH (09:38)
[2019-04-21] MEDS: cefTRIAXone(*) 2 GM in NS 0.9% 100 ML* 100 ML IVPB SCH (16:39)
[2019-04-21] MEDS: OLANzapine TAB* 10 MG PO SCH (19:54)
[2019-04-21] MEDS: Atorvastatin* 40 MG TAB PO SCH (19:54)
[2019-04-21] MEDS: Montelukast Sodium TAB* 10 MG PO SCH (19:55)
[2019-04-22] MEDS: Levothyroxine TAB* 75 MCG TAB PO SCH (05:16)
[2019-04-22] MEDS: traMADol TAB* 50 MG PO PRN ×2 (05:16→21:27)
[2019-04-22] MEDS: Heparin VIAL(*) 5000 UNITS/ML VIAL (FIVE THOUSAND) SUBCUT SCH ×3 (05:16→21:29)
[2019-04-22] MEDS: TIOTROPIUM 18 MCG INH SCH (07:14)
[2019-04-22] MEDS: Mometasone/Formoter 200/5 MDI INH SCH ×2 (07:14→19:20)
[2019-04-22] MEDS: Diltiazem CD CAP* 240 MG PO SCH (09:20)
[2019-04-22] MEDS: Cholecalciferol TAB* 1000 UNITS PO SCH (09:21)
[2019-04-22] MEDS: Aspirin EC TAB* 81 MG TAB.EC PO SCH (09:21)
[2019-04-22] MEDS: Spironolactone TAB* 25 MG PO SCH (09:21)
[2019-04-22] MEDS: DULoxetine DR CAP* 60 MG CAP.DR PO SCH ×2 (09:21→21:25)
[2019-04-22] MEDS: Ferrous Sulfate TAB* 325 MG PO SCH (09:21)
[2019-04-22] MEDS: Magnesium Oxide TAB* 400 MG PO SCH (09:21)
[2019-04-22] MEDS: OLANzapine TAB* 5 MG PO SCH (09:21)
[2019-04-22] MEDS: cefTRIAXone(*) 2 GM in NS 0.9% 100 ML* 100 ML IVPB SCH (16:49)
[2019-04-22] MEDS: Atorvastatin* 40 MG TAB PO SCH (21:25)
[2019-04-22] MEDS: Montelukast Sodium TAB* 10 MG PO SCH (21:25)
[2019-04-22] MEDS: OLANzapine TAB* 10 MG PO SCH (21:25)
[2019-04-23] MEDS: Levothyroxine TAB* 75 MCG TAB PO SCH (06:14)
[2019-04-23] MEDS: Heparin VIAL(*) 5000 UNITS/ML VIAL (FIVE THOUSAND) SUBCUT SCH ×3 (07:20→20:24)
[2019-04-23] MEDS: Mometasone/Formoter 200/5 MDI INH SCH ×2 (07:52→19:18)
[2019-04-23] MEDS: TIOTROPIUM 18 MCG INH SCH (07:52)
[2019-04-23] MEDS: Magnesium Oxide TAB* 400 MG PO SCH (09:37)
[2019-04-23] MEDS: DULoxetine DR CAP* 60 MG CAP.DR PO SCH ×2 (09:37→20:24)
[2019-04-23] MEDS: Aspirin EC TAB* 81 MG TAB.EC PO SCH (09:37)
[2019-04-23] MEDS: Diltiazem CD CAP* 240 MG PO SCH (09:37)
[2019-04-23] MEDS: OLANzapine TAB* 5 MG PO SCH (09:37)
[2019-04-23] MEDS: Cholecalciferol TAB* 1000 UNITS PO SCH (09:37)
[2019-04-23] MEDS: Spironolactone TAB* 25 MG PO SCH (09:37)
[2019-04-23] MEDS: Ferrous Sulfate TAB* 325 MG PO SCH (09:37)
[2019-04-23] MEDS: traMADol TAB* 50 MG PO PRN ×2 (09:38→17:14)
[2019-04-23] MEDS: cefTRIAXone(*) 2 GM in NS 0.9% 100 ML* 100 ML IVPB SCH (16:23)
[2019-04-23] MEDS: OLANzapine TAB* 10 MG PO SCH (20:24)
[2019-04-23] MEDS: Montelukast Sodium TAB* 10 MG PO SCH (20:24)
[2019-04-23] MEDS: Atorvastatin* 40 MG TAB PO SCH (20:24)
[2019-04-24] MEDS: Heparin VIAL(*) 5000 UNITS/ML VIAL (FIVE THOUSAND) SUBCUT SCH ×2 (05:13→14:03)
[2019-04-24] MEDS: traMADol TAB* 50 MG PO PRN ×3 (05:16→20:10)
[2019-04-24] MEDS: Levothyroxine TAB* 75 MCG TAB PO SCH (05:16)
[2019-04-24] MEDS: TIOTROPIUM 18 MCG INH SCH (07:07)
[2019-04-24] MEDS: Mometasone/Formoter 200/5 MDI INH SCH ×2 (07:07→19:00)
[2019-04-24] MEDS: Ferrous Sulfate TAB* 325 MG PO SCH (09:10)
[2019-04-24] MEDS: Aspirin EC TAB* 81 MG TAB.EC PO SCH (09:10)
[2019-04-24] MEDS: OLANzapine TAB* 5 MG PO SCH (09:10)
[2019-04-24] MEDS: Diltiazem CD CAP* 240 MG PO SCH (09:10)
[2019-04-24] MEDS: Spironolactone TAB* 25 MG PO SCH (09:10)
[2019-04-24] MEDS: Cholecalciferol TAB* 1000 UNITS PO SCH (09:10)
[2019-04-24] MEDS: DULoxetine DR CAP* 60 MG CAP.DR PO SCH ×2 (09:10→20:09)
[2019-04-24] MEDS: Magnesium Oxide TAB* 400 MG PO SCH (09:10)
--- NOTE | 2019-04-24 15:37 | PN ---
Subjective Date of Service: 04/24/19 Interval History: Ms. Lui is not feeling well today. She feels generally unwell, but has no specific complaints. She is tired and not sleeping well in the hospital. Denies CP, SOB, N/V. No concerns from nursing. Family History: Unchanged from Admission Social History: Unchanged from Admission Past Medical History: Unchanged from Admission Objective Active Medications: Acetaminophen (Tylenol Tab*) 650 mg PO Q4H PRN PAIN - MILD Albuterol (Ventolin Hfa Inhaler*) 2 puff INH Q4H PRN SOB/WHEEZING Aspirin (Aspirin Ec Tab*) 81 mg PO DAILY [facility] Atorvastatin Calcium (Lipitor*) 40 mg PO 2100 [facility] Benztropine Mesylate (Cogentin Tab*) 1 mg PO DAILY PRN Extrapyrimidal side effects Bisacodyl (Dulcolax Supp*) 10 mg [place] DAILY PRN CONSTIPATION Cholecalciferol (Vitamin D Tab*) 2,000 units PO DAILY [facility] Diltiazem HCl (Cardizem Cd Cap*) 240 mg PO DAILY [facility] Docusate Sodium (Colace Cap*) 200 mg PO DAILY PRN CONSTIPATION Duloxetine HCl (Cymbalta Cap*) 60 mg PO BID [facility] Ferrous Sulfate (Ferrous Sulfate Tab*) 325 mg PO DAILY [facility] Heparin Sodium (Porcine) (Heparin Flush Picc/Ml/Cvc(*)) 1 ml FLUSH 0600,1800 [facility]; Protocol Heparin Sodium (Porcine) (Heparin Vial(*)) 5,000 units SUBCUT Q8HR [facility] Ceftriaxone Sodium 2 gm/ (Sodium Chloride) 100 mls @ 200 mls/hr IVPB Q24HR@ 1600 [facility] Levothyroxine Sodium (Synthroid Tab*) 75 mcg PO DAILY@0600 [facility] Magnesium Hydroxide (Milk Of Magnesia Liq*) 30 ml PO Q6H PRN CONSTIPATION Magnesium Oxide (Magox 400 Tab*) 400 mg PO DAILY [facility] Mometasone Furoate/Formoterol Fumar (Dulera 200/5 Mdi*) 2 puff INH BID [facility] Montelukast Sodium (Singulair Tab*) 10 mg PO BEDTIME [facility] Olanzapine (Zyprexa Tab*) 5 mg PO DAILY [facility] Olanzapine (Zyprexa Tab*) 30 mg PO BEDTIME [facility] Ondansetron HCl (Zofran Inj*) 4 mg IV Q6H PRN NAUSEA Senna (Senokot Tab*) 2 tab PO BEDTIME PRN CONSTIPATION Spironolactone (Aldactone Tab*) 25 mg PO DAILY [facility] Tiotropium [place] (Spiriva Cap.Inh*) 1 cap INH DAILY [facility] Tramadol HCl (Ultram*) 100 mg PO Q8H PRN PAIN - MODERATE Vital Signs - 8 hr 04/24/19 04/24/19 04/24/19 07:33 07:58 08:00 Pulse Rate 91 Respiratory 16 18 16 Rate Blood Pressure 126/65 (mmHg) O2 Sat by Pulse 96 Oximetry Oxygen Devices in Use Now: None Appearance: Middle-aged female laying in bed in NAD Eyes: No Scleral Icterus Ears/Nose/Mouth/Throat: Mucous Membranes Moist Neck: NL Appearance and Movements; NL JVP, Trachea Midline Respiratory: Symmetrical Chest Expansion and Respiratory Effort, Clear to Auscultation Cardiovascular: NL Sounds; No Murmurs; No JVD, RRR Abdominal: NL Sounds; No Tenderness; No Distention Extremities: No Edema Neurological: - - Oriented to self and place Lines/Tubes/Other Access: Clean, Dry and Intact PICC Line Nutrition: Taking PO's Result Diagrams: 04/19/19 12:06 04/19/19 12:06 Assess/Plan/Problems-Billing Assessment: Ms. Lui is a 58 yo F with PMH of self injury behaviors, schizoaffective disorder-bipolar type, HTN, hypothyroidism and asthma; who was found to be poorly responsive at the [facility] and was brought in to the ER where she was found to be in severe sepsis secondary to pneumonia and now subsequently found to have E. coli bacteremia and diskitis. Now on swing status for IV antibiotics. - Patient Problems (1) Discitis of lumbar region Code(s): M46.46 - DISCITIS, UNSPECIFIED, LUMBAR REGION Comment: - Secondary to E. coli bacteremia - Trend weekly CBC, CMP, CRP per ID recommendations - Continue ceftriaxone (day ) (2) Thrombocytosis Comment: - Elevated on admission which was suspected to be reactive r/t infection - Trending down - Monitor with weekly labs (3) Thyroid nodule Code(s): E04.1 - NONTOXIC SINGLE THYROID NODULE Comment: - Large thyroid nodule found on incidentally on imaging - Will need outpatient referral to thyroid clinic upon d/c for FNA (4) Schizoaffective disorder Code(s): F25.9 - SCHIZOAFFECTIVE DISORDER, UNSPECIFIED Comment: - Has been compliant with most medications and lab draws - Consider Psych consult for medications adjustment if needed - Continue duloxetine, olanzapine (5) HTN (hypertension) Code(s): I10 - ESSENTIAL (PRIMARY) HYPERTENSION Comment: - Normotensivie - Continue diltiazem, spironolactone (6) COPD (chronic obstructive pulmonary disease) Code(s): J44.9 - CHRONIC OBSTRUCTIVE PULMONARY DISEASE, UNSPECIFIED Comment: - Continue Dulera, Spiriva, Singulair (7) Hypothyroidism Code(s): E03.9 - HYPOTHYROIDISM, UNSPECIFIED Comment: - Continue levothyroxine (8) DVT prophylaxis Code(s): Z29.9 - ENCOUNTER FOR PROPHYLACTIC MEASURES, UNSPECIFIED Comment: - Lovenox (9) Full code status Code(s): Z78.9 - OTHER SPECIFIED HEALTH STATUS Comment: Status and Disposition: Swing for IV abx then hopefully discharge back to [place]. Attending: Moni Kirkpatrick
[2019-04-24] MEDS: Enoxaparin(*) 40 MG/0.4 ML SYR SUBCUT SCH (16:13)
[2019-04-24] MEDS: cefTRIAXone(*) 2 GM in NS 0.9% 100 ML* 100 ML IVPB SCH (16:18)
[2019-04-24] MEDS: Atorvastatin* 40 MG TAB PO SCH (20:09)
[2019-04-24] MEDS: OLANzapine TAB* 10 MG PO SCH (20:09)
[2019-04-24] MEDS: Montelukast Sodium TAB* 10 MG PO SCH (20:10)
[2019-04-25] MEDS: traMADol TAB* 50 MG PO PRN ×2 (06:07→14:50)
[2019-04-25] MEDS: Levothyroxine TAB* 75 MCG TAB PO SCH (06:07)
[2019-04-25] MEDS: TIOTROPIUM 18 MCG INH SCH (07:37)
[2019-04-25] MEDS: Mometasone/Formoter 200/5 MDI INH SCH ×2 (07:37→19:01)
[2019-04-25] MEDS: Cholecalciferol TAB* 1000 UNITS PO SCH (08:53)
[2019-04-25] MEDS: Spironolactone TAB* 25 MG PO SCH (08:55)
[2019-04-25] MEDS: Magnesium Oxide TAB* 400 MG PO SCH (08:55)
[2019-04-25] MEDS: Diltiazem CD CAP* 240 MG PO SCH (08:55)
[2019-04-25] MEDS: Aspirin EC TAB* 81 MG TAB.EC PO SCH (08:55)
[2019-04-25] MEDS: DULoxetine DR CAP* 60 MG CAP.DR PO SCH ×2 (08:55→20:00)
[2019-04-25] MEDS: OLANzapine TAB* 5 MG PO SCH (08:55)
[2019-04-25] MEDS: Ferrous Sulfate TAB* 325 MG PO SCH (08:56)
[2019-04-25] MEDS: Enoxaparin(*) 40 MG/0.4 ML SYR SUBCUT SCH (14:57)
[2019-04-25] MEDS: cefTRIAXone(*) 2 GM in NS 0.9% 100 ML* 100 ML IVPB SCH (16:56)
[2019-04-25] MEDS: Atorvastatin* 40 MG TAB PO SCH (19:59)
[2019-04-25] MEDS: Montelukast Sodium TAB* 10 MG PO SCH (19:59)
[2019-04-25] MEDS: OLANzapine TAB* 10 MG PO SCH (20:00)
[2019-04-26] MEDS: traMADol TAB* 50 MG PO PRN (06:15)
[2019-04-26] MEDS: Levothyroxine TAB* 75 MCG TAB PO SCH (06:15)
[2019-04-26 07:06] LABS: ABS Basophils 0.1 10^3/ul (0-0.2); ABS Eosinophils 0.1 10^3/ul (0-0.6); ABS Lymphocytes 2.3 10^3/ul (1.0-4.8); ABS Monocytes 1.4 10^3/ul (0-0.8); ABS Neutrophils 7.6 10^3/ul (1.5-7.7); Eosinophil % 0.8 %; Hematocrit 30 % (35-47); Hemoglobin 10.5 g/dL (12.0-16.0); Mean Corpuscular HGB Conc 35 g/dL (31-36); Mean Corpuscular Hemoglobin 32 pg (27-31); Mean Corpuscular Volume 94 fL (80-97); Mean Platelet Volume 6.5 fL (7.4-10.4); Nucleated Red Blood Cells % 0.1; Platelet Count 561 10^3/uL (150-450); Red Blood Count 3.23 10^6 /uL (3.70-4.87); Red Cell Distribution Width 15 % (10-15); White Blood Count 11.5 10^3/uL (3.5-10.8)
[2019-04-26 07:26] LABS: Albumin 3.3 g/dL (3.2-5.2); Albumin/Globulin Ratio 1.1 (1-3); BUN/Creatinine Ratio 15.6 (8-20); CRP High Sensitivity 44.32 mg/L (<2.00); Calcium 9.1 mg/dL (8.6-10.3); EGFR African American 173.2 (>60); EGFR Non-African American 143.1 (>60); Globulin 2.9 g/dL (2-4); Potassium 4.1 mmol/L (3.5-5.0); Total Bilirubin 0.3 mg/dL (0.2-1.0); Total Protein 6.2 g/dL (6.4-8.9)
[2019-04-26] MEDS: Mometasone/Formoter 200/5 MDI INH SCH ×2 (07:27→19:24)
[2019-04-26] MEDS: TIOTROPIUM 18 MCG INH SCH (07:27)
[2019-04-26] MEDS: Aspirin EC TAB* 81 MG TAB.EC PO SCH (09:31)
[2019-04-26] MEDS: OLANzapine TAB* 5 MG PO SCH (09:31)
[2019-04-26] MEDS: Diltiazem CD CAP* 240 MG PO SCH (09:31)
[2019-04-26] MEDS: Cholecalciferol TAB* 1000 UNITS PO SCH (09:31)
[2019-04-26] MEDS: DULoxetine DR CAP* 60 MG CAP.DR PO SCH ×2 (09:31→22:37)
[2019-04-26] MEDS: Ferrous Sulfate TAB* 325 MG PO SCH (09:31)
[2019-04-26] MEDS: Magnesium Oxide TAB* 400 MG PO SCH (09:32)
[2019-04-26] MEDS: Spironolactone TAB* 25 MG PO SCH (09:32)
[2019-04-26] MEDS: Enoxaparin(*) 40 MG/0.4 ML SYR SUBCUT SCH (15:31)
[2019-04-26] MEDS: cefTRIAXone(*) 2 GM in NS 0.9% 100 ML* 100 ML IVPB SCH (16:52)
[2019-04-26] MEDS: OLANzapine TAB* 10 MG PO SCH (22:37)
[2019-04-26] MEDS: Montelukast Sodium TAB* 10 MG PO SCH (22:37)
[2019-04-26] MEDS: Atorvastatin* 40 MG TAB PO SCH (22:57)
[2019-04-27] MEDS: traMADol TAB* 50 MG PO PRN ×3 (01:02→19:59)
[2019-04-27] MEDS: Levothyroxine TAB* 75 MCG TAB PO SCH (05:45)
[2019-04-27] MEDS: TIOTROPIUM 18 MCG INH SCH (07:40)
[2019-04-27] MEDS: Mometasone/Formoter 200/5 MDI INH SCH ×2 (07:40→19:22)
[2019-04-27] MEDS: Aspirin EC TAB* 81 MG TAB.EC PO SCH (09:27)
[2019-04-27] MEDS: Magnesium Oxide TAB* 400 MG PO SCH (09:27)
[2019-04-27] MEDS: Ferrous Sulfate TAB* 325 MG PO SCH (09:27)
[2019-04-27] MEDS: Cholecalciferol TAB* 1000 UNITS PO SCH (09:27)
[2019-04-27] MEDS: OLANzapine TAB* 5 MG PO SCH (09:27)
[2019-04-27] MEDS: DULoxetine DR CAP* 60 MG CAP.DR PO SCH ×2 (09:27→19:58)
[2019-04-27] MEDS: Spironolactone TAB* 25 MG PO SCH (09:27)
[2019-04-27] MEDS: Diltiazem CD CAP* 240 MG PO SCH (09:27)
[2019-04-27] MEDS: Enoxaparin(*) 40 MG/0.4 ML SYR SUBCUT SCH (15:29)
[2019-04-27] MEDS: cefTRIAXone(*) 2 GM in NS 0.9% 100 ML* 100 ML IVPB SCH (16:11)
[2019-04-27] MEDS: Montelukast Sodium TAB* 10 MG PO SCH (19:58)
[2019-04-27] MEDS: OLANzapine TAB* 10 MG PO SCH (19:58)
[2019-04-27] MEDS: Atorvastatin* 40 MG TAB PO SCH (19:59)
[2019-04-28] MEDS: traMADol TAB* 50 MG PO PRN ×2 (06:04→20:10)
[2019-04-28] MEDS: Levothyroxine TAB* 75 MCG TAB PO SCH (06:04)
[2019-04-28] MEDS: TIOTROPIUM 18 MCG INH SCH ×2 (07:07→07:09)
[2019-04-28] MEDS: Mometasone/Formoter 200/5 MDI INH SCH ×2 (07:07→20:22)
[2019-04-28] MEDS: Aspirin EC TAB* 81 MG TAB.EC PO SCH (09:05)
[2019-04-28] MEDS: DULoxetine DR CAP* 60 MG CAP.DR PO SCH ×2 (09:05→20:03)
[2019-04-28] MEDS: Cholecalciferol TAB* 1000 UNITS PO SCH (09:05)
[2019-04-28] MEDS: Spironolactone TAB* 25 MG PO SCH (09:05)
[2019-04-28] MEDS: OLANzapine TAB* 5 MG PO SCH (09:05)
[2019-04-28] MEDS: Ferrous Sulfate TAB* 325 MG PO SCH (09:06)
[2019-04-28] MEDS: Magnesium Oxide TAB* 400 MG PO SCH (09:06)
[2019-04-28] MEDS: Diltiazem CD CAP* 240 MG PO SCH (09:06)
[2019-04-28] MEDS: cefTRIAXone(*) 2 GM in NS 0.9% 100 ML* 100 ML IVPB SCH (16:44)
[2019-04-28] MEDS: Enoxaparin(*) 40 MG/0.4 ML SYR SUBCUT SCH (16:48)
[2019-04-28] MEDS: Atorvastatin* 40 MG TAB PO SCH (20:03)
[2019-04-28] MEDS: OLANzapine TAB* 10 MG PO SCH (20:03)
[2019-04-28] MEDS: Montelukast Sodium TAB* 10 MG PO SCH (20:03)
[2019-04-29] MEDS: Levothyroxine TAB* 75 MCG TAB PO SCH (06:11)
[2019-04-29] MEDS: Mometasone/Formoter 200/5 MDI INH SCH ×2 (07:00→19:46)
[2019-04-29] MEDS: TIOTROPIUM 18 MCG INH SCH (07:00)
[2019-04-29] MEDS: Ferrous Sulfate TAB* 325 MG PO SCH (08:41)
[2019-04-29] MEDS: Cholecalciferol TAB* 1000 UNITS PO SCH (08:41)
[2019-04-29] MEDS: DULoxetine DR CAP* 60 MG CAP.DR PO SCH ×2 (08:41→20:08)
[2019-04-29] MEDS: Magnesium Oxide TAB* 400 MG PO SCH (08:41)
[2019-04-29] MEDS: OLANzapine TAB* 5 MG PO SCH (08:41)
[2019-04-29] MEDS: Aspirin EC TAB* 81 MG TAB.EC PO SCH (08:42)
[2019-04-29] MEDS: Diltiazem CD CAP* 240 MG PO SCH (08:42)
[2019-04-29] MEDS: Spironolactone TAB* 25 MG PO SCH (08:42)
[2019-04-29] MEDS: traMADol TAB* 50 MG PO PRN ×2 (08:47→16:44)
[2019-04-29] MEDS ORDERED: Magnesium Hydroxide LIQ* 30 ML UDC PO PRN (08:50)
[2019-04-29] MEDS ORDERED: Senna TAB 8.6 mg* TAB PO PRN (08:50)
[2019-04-29] MEDS ORDERED: Polyethylene Glycol 3350* 17 GM PACKET PO PRN (08:50)
[2019-04-29] MEDS ORDERED: Magnesium Hydroxide LIQ* 30 ML UDC PO SCH (09:00)
[2019-04-29] MEDS: cefTRIAXone(*) 2 GM in NS 0.9% 100 ML* 100 ML IVPB SCH (16:45)
[2019-04-29] MEDS: Enoxaparin(*) 40 MG/0.4 ML SYR SUBCUT SCH (16:48)
[2019-04-29] MEDS: OLANzapine TAB* 10 MG PO SCH (20:08)
[2019-04-29] MEDS: Atorvastatin* 40 MG TAB PO SCH (20:08)
[2019-04-29] MEDS: Montelukast Sodium TAB* 10 MG PO SCH (20:08)
[2019-04-30] MEDS: Levothyroxine TAB* 75 MCG TAB PO SCH (06:17)
[2019-04-30] MEDS: traMADol TAB* 50 MG PO PRN ×2 (06:20→20:19)
[2019-04-30] MEDS: Mometasone/Formoter 200/5 MDI INH SCH ×2 (07:09→19:22)
[2019-04-30] MEDS: TIOTROPIUM 18 MCG INH SCH (07:09)
[2019-04-30] MEDS: Cholecalciferol TAB* 1000 UNITS PO SCH (09:21)
[2019-04-30] MEDS: Magnesium Oxide TAB* 400 MG PO SCH (09:21)
[2019-04-30] MEDS: DULoxetine DR CAP* 60 MG CAP.DR PO SCH ×2 (09:22→20:19)
[2019-04-30] MEDS: Spironolactone TAB* 25 MG PO SCH (09:22)
[2019-04-30] MEDS: OLANzapine TAB* 5 MG PO SCH (09:22)
[2019-04-30] MEDS: Diltiazem CD CAP* 240 MG PO SCH (09:22)
[2019-04-30] MEDS: Aspirin EC TAB* 81 MG TAB.EC PO SCH (09:22)
[2019-04-30] MEDS: Ferrous Sulfate TAB* 325 MG PO SCH (09:22)
--- NOTE | 2019-04-30 10:16 | PN ---
Subjective Date of Service: 04/30/19 Interval History: Ms. Lui is sleeping when I enter. She wakes easily and is agitated. When asked if she has pain anywhere, she states "no." When asked about abdominal complaints, due to reports of no BM in multiple dates, the patient states "Get out, you ask the same questions every day." She continues to tell me to leave when questioned further. She refuses most of the physical exam. Pt has been reporting daily BMs to staff. Staff have not witness BMs, as patient flushes before they return to assist her back to bed. Family History: Unchanged from Admission Social History: Unchanged from Admission Past Medical History: Unchanged from Admission Objective Active Medications: Acetaminophen (Tylenol Tab*) 650 mg PO Q4H PRN Albuterol (Ventolin Hfa Inhaler*) 2 puff INH Q4H PRN Aspirin (Aspirin Ec Tab*) 81 mg PO DAILY [facility] Atorvastatin Calcium (Lipitor*) 40 mg PO 2100 [facility] Benztropine Mesylate (Cogentin Tab*) 1 mg PO DAILY [facility] Bisacodyl (Dulcolax Supp*) 10 mg [place] DAILY [facility] Cholecalciferol (Vitamin D Tab*) 2,000 units PO DAILY [facility] Device (Tiotropium Inhaler Device*) 1 each INH .USE w/ SPIRIVA CAPS [facility] Diltiazem HCl (Cardizem Cd Cap*) 240 mg PO DAILY [facility] Docusate Sodium (Colace Cap*) 200 mg PO DAILY [facility] Duloxetine HCl (Cymbalta Cap*) 60 mg PO BID [facility] Enoxaparin Sodium (Lovenox(*)) 40 mg SUBCUT Q24H [facility] Ferrous Sulfate (Ferrous Sulfate Tab*) 325 mg PO DAILY [facility] Heparin Sodium (Porcine) (Heparin Flush Picc/Ml/Cvc(*)) 1 ml FLUSH 0600,1800 [facility]; Protocol Ceftriaxone Sodium 2 gm/ (Sodium Chloride) 100 mls @ 200 mls/hr IVPB Q24HR@ 1600 [facility] Levothyroxine Sodium (Synthroid Tab*) 75 mcg PO DAILY@0600 [facility] Magnesium Hydroxide (Milk Of Magnesia Liq*) 30 ml PO Q6H PRN Magnesium Hydroxide (Milk Of Magnesia Liq*) 30 ml PO BID [facility] Magnesium Oxide (Magox 400 Tab*) 400 mg PO DAILY [facility] Mometasone Furoate/Formoterol Fumar (Dulera 200/5 Mdi*) 2 puff INH BID [facility] Montelukast Sodium (Singulair Tab*) 10 mg PO BEDTIME [facility] Olanzapine (Zyprexa Tab*) 5 mg PO DAILY [facility] Olanzapine (Zyprexa Tab*) 30 mg PO BEDTIME [facility] Ondansetron HCl (Zofran Inj*) 4 mg IV Q6H PRN Polyethylene Glycol/Electrolytes (Miralax*) 17 gm PO DAILY PRN Senna (Senokot Tab*) 2 tab PO BEDTIME PRN Senna (Senokot 8.6 Mg Tab*) 1 tab PO BEDTIME PRN Spironolactone (Aldactone Tab*) 25 mg PO DAILY [facility] Tiotropium [place] (Spiriva Cap.Inh*) 1 cap INH DAILY [facility] Tramadol HCl (Ultram*) 100 mg PO Q8H PRN Vital Signs: Temp Pulse Resp BP Pulse Ox 98.4 F 94 16 95/62 95 04/30/19 07:30 04/30/19 07:30 04/30/19 09:00 04/30/19 07:30 04/30/19 07:30 Oxygen Devices in Use Now: None Appearance: Pt is laying on R side in bed. She is asleep, but wakes easily. She is clearly agitated and does not respond to most questions. She refuses all but pulmonary exam. Eyes: No Scleral Icterus Neck: NL Appearance and Movements; NL JVP, Trachea Midline Respiratory: Symmetrical Chest Expansion and Respiratory Effort, Clear to Auscultation Cardiovascular: No Edema Extremities: No Edema, No Clubbing, Cyanosis Result Diagrams: 04/26/19 05:16 04/26/19 05:16 Assess/Plan/Problems-Billing Assessment: Ms. Lui is a 58 yo F with PMH of self injury behaviors, schizoaffective disorder-bipolar type, HTN, hypothyroidism and asthma; who was found to be poorly responsive at the [facility] and was brought in to the ER where she was found to be in severe sepsis secondary to pneumonia and now subsequently found to have E. coli bacteremia and diskitis. Now on swing status for IV antibiotics. - Patient Problems (1) Discitis of lumbar region Comment: - Secondary to E. coli bacteremia - CRP up slightly with leukocytes trending down - Trend weekly CBC, CMP, CRP per ID recommendations; next due 08/23 (ordered) - Continue ceftriaxone (day 37) (2) Thrombocytosis Comment: - Elevated on admission which was suspected to be reactive r/t infection - Trending down - Monitor with weekly labs (3) Thyroid nodule Comment: - Large thyroid nodule found on incidentally on imaging - Will need outpatient referral to thyroid clinic upon d/c for FNA (4) Schizoaffective disorder Comment: - Has been compliant with most medications and lab draws - Consider Psych consult for medications adjustment if needed - Continue duloxetine, olanzapine (5) HTN (hypertension) Comment: - Normotensivie - Continue diltiazem, spironolactone (6) COPD (chronic obstructive pulmonary disease) Comment: - Does not appear to be in exacerbation - Continue Dulera, Spiriva, Singulair (7) Hypothyroidism Comment: - Continue levothyroxine (8) DVT prophylaxis Comment: - Lovenox (9) Full code status Comment: Status and Disposition: Swing for IV abx then hopefully discharge back to [place].
[2019-04-30] MEDS: cefTRIAXone(*) 2 GM in NS 0.9% 100 ML* 100 ML IVPB SCH (16:47)
[2019-04-30] MEDS: Enoxaparin(*) 40 MG/0.4 ML SYR SUBCUT SCH (16:55)
[2019-04-30] MEDS: OLANzapine TAB* 10 MG PO SCH (20:19)
[2019-04-30] MEDS: Atorvastatin* 40 MG TAB PO SCH (20:19)
[2019-04-30] MEDS: Montelukast Sodium TAB* 10 MG PO SCH (20:19)
[2019-05-01] MEDS: Levothyroxine TAB* 75 MCG TAB PO SCH (06:33)
[2019-05-01] MEDS: traMADol TAB* 50 MG PO PRN ×2 (06:36→15:33)
[2019-05-01] MEDS: Mometasone/Formoter 200/5 MDI INH SCH ×2 (07:01→19:09)
[2019-05-01] MEDS: TIOTROPIUM 18 MCG INH SCH (07:01)
[2019-05-01] MEDS: Aspirin EC TAB* 81 MG TAB.EC PO SCH (09:33)
[2019-05-01] MEDS: DULoxetine DR CAP* 60 MG CAP.DR PO SCH ×2 (09:33→20:39)
[2019-05-01] MEDS: Spironolactone TAB* 25 MG PO SCH (09:33)
[2019-05-01] MEDS: Cholecalciferol TAB* 1000 UNITS PO SCH (09:33)
[2019-05-01] MEDS: OLANzapine TAB* 5 MG PO SCH (09:33)
[2019-05-01] MEDS: Diltiazem CD CAP* 240 MG PO SCH (09:33)
[2019-05-01] MEDS: Magnesium Oxide TAB* 400 MG PO SCH (09:33)
[2019-05-01] MEDS: Ferrous Sulfate TAB* 325 MG PO SCH (09:34)
[2019-05-01 09:57] LABS: Urine Appearance Turbid; Urine Bacteria 1+ (Absent); Urine Bilirubin Negative (Negative); Urine Blood 2+ (Negative); Urine Color Yellow; Urine Glucose Negative (Negative); Urine Ketones Negative (Negative); Urine Nitrite Negative (Negative); Urine Protein Negative (Negative); Urine Red Blood Cell 3+(>10/hpf) (Absent); Urine Specific Gravity 1.002 (1.010-1.030); Urine Urobilinogen Negative (Negative); Urine White Blood Cell 3+(>20/hpf) (Absent)
[2019-05-01] MEDS: cefTRIAXone(*) 2 GM in NS 0.9% 100 ML* 100 ML IVPB SCH (15:33)
[2019-05-01] MEDS: Enoxaparin(*) 40 MG/0.4 ML SYR SUBCUT SCH (15:45)
[2019-05-01] MEDS: Atorvastatin* 40 MG TAB PO SCH (20:39)
[2019-05-01] MEDS: OLANzapine TAB* 10 MG PO SCH (20:39)
[2019-05-01] MEDS: Montelukast Sodium TAB* 10 MG PO SCH (20:39)
[2019-05-02] MEDS: traMADol TAB* 50 MG PO PRN ×2 (07:25→17:12)
[2019-05-02] MEDS: Levothyroxine TAB* 75 MCG TAB PO SCH (07:25)
[2019-05-02] MEDS: Mometasone/Formoter 200/5 MDI INH SCH ×2 (07:48→19:19)
[2019-05-02] MEDS: TIOTROPIUM 18 MCG INH SCH (07:49)
[2019-05-02] MEDS: Spironolactone TAB* 25 MG PO SCH (08:56)
[2019-05-02] MEDS: DULoxetine DR CAP* 60 MG CAP.DR PO SCH ×2 (08:56→20:22)
[2019-05-02] MEDS: Cholecalciferol TAB* 1000 UNITS PO SCH (08:57)
[2019-05-02] MEDS: Aspirin EC TAB* 81 MG TAB.EC PO SCH (08:57)
[2019-05-02] MEDS: Magnesium Oxide TAB* 400 MG PO SCH (08:57)
[2019-05-02] MEDS: Diltiazem CD CAP* 240 MG PO SCH (08:57)
[2019-05-02] MEDS: OLANzapine TAB* 5 MG PO SCH (08:57)
[2019-05-02] MEDS: Ferrous Sulfate TAB* 325 MG PO SCH (08:58)
[2019-05-02] MEDS: Enoxaparin(*) 40 MG/0.4 ML SYR SUBCUT SCH (16:25)
[2019-05-02] MEDS: cefTRIAXone(*) 2 GM in NS 0.9% 100 ML* 100 ML IVPB SCH (16:25)
[2019-05-02] MEDS: Montelukast Sodium TAB* 10 MG PO SCH (20:22)
[2019-05-02] MEDS: Atorvastatin* 40 MG TAB PO SCH (20:22)
[2019-05-02] MEDS: OLANzapine TAB* 10 MG PO SCH (20:22)
[2019-05-03] MEDS: Levothyroxine TAB* 75 MCG TAB PO SCH (05:56)
[2019-05-03] MEDS: Mometasone/Formoter 200/5 MDI INH SCH ×2 (07:12→19:48)
[2019-05-03] MEDS: TIOTROPIUM 18 MCG INH SCH (07:12)
[2019-05-03 07:49] LABS: ABS Basophils 0.1 10^3/ul (0-0.2); ABS Eosinophils 0.2 10^3/ul (0-0.6); ABS Lymphocytes 3.3 10^3/ul (1.0-4.8); ABS Monocytes 1.3 10^3/ul (0-0.8); ABS Neutrophils 7.1 10^3/ul (1.5-7.7); Eosinophil % 1.7 %; Hematocrit 31 % (35-47); Hemoglobin 10.8 g/dL (12.0-16.0); Lymphocyte % 27.6 %; Mean Corpuscular HGB Conc 35 g/dL (31-36); Mean Corpuscular Hemoglobin 32 pg (27-31); Mean Corpuscular Volume 92 fL (80-97); Mean Platelet Volume 6.6 fL (7.4-10.4); Platelet Count 631 10^3/uL (150-450); Red Blood Count 3.37 10^6 /uL (3.70-4.87); Red Cell Distribution Width 14 % (10-15)
[2019-05-03 08:23] LABS: Albumin 3.2 g/dL (3.2-5.2); Albumin/Globulin Ratio 1.1 (1-3); BUN/Creatinine Ratio 14.5 (8-20); CRP High Sensitivity 28.79 mg/L (<2.00); Calcium 9.8 mg/dL (8.6-10.3); EGFR African American 137.4 (>60); EGFR Non-African American 113.5 (>60); Potassium 4.2 mmol/L (3.5-5.0); Total Bilirubin 0.2 mg/dL (0.2-1.0); Total Protein 6.2 g/dL (6.4-8.9)
[2019-05-03] MEDS: Cholecalciferol TAB* 1000 UNITS PO SCH (10:26)
[2019-05-03] MEDS: Spironolactone TAB* 25 MG PO SCH (10:26)
[2019-05-03] MEDS: Diltiazem CD CAP* 240 MG PO SCH (10:26)
[2019-05-03] MEDS: Ferrous Sulfate TAB* 325 MG PO SCH (10:26)
[2019-05-03] MEDS: OLANzapine TAB* 5 MG PO SCH (10:26)
[2019-05-03] MEDS: Aspirin EC TAB* 81 MG TAB.EC PO SCH (10:26)
[2019-05-03] MEDS: traMADol TAB* 50 MG PO PRN (10:27)
[2019-05-03] MEDS: DULoxetine DR CAP* 60 MG CAP.DR PO SCH ×2 (10:27→22:39)
[2019-05-03] MEDS: Magnesium Oxide TAB* 400 MG PO SCH (10:27)
[2019-05-03] MEDS ORDERED: LORazepam TAB(*) 0.5 MG PO ONE (12:14)
[2019-05-03] MEDS: Enoxaparin(*) 40 MG/0.4 ML SYR SUBCUT SCH ×2 (16:38→16:57)
[2019-05-03] MEDS: cefTRIAXone(*) 2 GM in NS 0.9% 100 ML* 100 ML IVPB SCH (16:48)
[2019-05-03] MEDS: Montelukast Sodium TAB* 10 MG PO SCH (22:39)
[2019-05-03] MEDS: Atorvastatin* 40 MG TAB PO SCH (22:39)
[2019-05-03] MEDS: OLANzapine TAB* 10 MG PO SCH (22:39)
[2019-05-03] MEDS: Nitrofurantoin Macrocrystals* 100 MG CAP PO SCH (22:39)
[2019-05-03] MEDS: LORazepam TAB(*) 0.5 MG PO PRN (22:42)
[2019-05-04] MEDS: Levothyroxine TAB* 75 MCG TAB PO SCH (06:16)
[2019-05-04] MEDS: LORazepam TAB(*) 0.5 MG PO PRN ×3 (06:24→22:40)
[2019-05-04] MEDS: traMADol TAB* 50 MG PO PRN ×2 (06:25→22:41)
[2019-05-04] MEDS: Mometasone/Formoter 200/5 MDI INH SCH ×2 (07:13→19:59)
[2019-05-04] MEDS: TIOTROPIUM 18 MCG INH SCH (07:13)
[2019-05-04] MEDS: Diltiazem CD CAP* 240 MG PO SCH (09:42)
[2019-05-04] MEDS: Aspirin EC TAB* 81 MG TAB.EC PO SCH (09:42)
[2019-05-04] MEDS: Magnesium Oxide TAB* 400 MG PO SCH (09:43)
[2019-05-04] MEDS: Nitrofurantoin Macrocrystals* 100 MG CAP PO SCH ×2 (09:43→22:39)
[2019-05-04] MEDS: DULoxetine DR CAP* 60 MG CAP.DR PO SCH ×2 (09:43→22:40)
[2019-05-04] MEDS: OLANzapine TAB* 5 MG PO SCH (09:43)
[2019-05-04] MEDS: Ferrous Sulfate TAB* 325 MG PO SCH (09:43)
[2019-05-04] MEDS: Spironolactone TAB* 25 MG PO SCH (09:43)
[2019-05-04] MEDS: Cholecalciferol TAB* 1000 UNITS PO SCH (09:43)
[2019-05-04] MEDS: cefTRIAXone(*) 2 GM in NS 0.9% 100 ML* 100 ML IVPB SCH (16:19)
[2019-05-04] MEDS: Enoxaparin(*) 40 MG/0.4 ML SYR SUBCUT SCH (16:22)
[2019-05-04] MEDS: OLANzapine TAB* 10 MG PO SCH (22:39)
[2019-05-04] MEDS: Atorvastatin* 40 MG TAB PO SCH (22:40)
[2019-05-04] MEDS: Montelukast Sodium TAB* 10 MG PO SCH (22:42)
[2019-05-05] MEDS: Levothyroxine TAB* 75 MCG TAB PO SCH (06:31)
[2019-05-05] MEDS: Mometasone/Formoter 200/5 MDI INH SCH ×2 (07:07→19:02)
[2019-05-05] MEDS: TIOTROPIUM 18 MCG INH SCH (07:07)
[2019-05-05] MEDS: Magnesium Oxide TAB* 400 MG PO SCH (09:59)
[2019-05-05] MEDS: Cholecalciferol TAB* 1000 UNITS PO SCH (09:59)
[2019-05-05] MEDS: OLANzapine TAB* 5 MG PO SCH (09:59)
[2019-05-05] MEDS: Diltiazem CD CAP* 240 MG PO SCH (09:59)
[2019-05-05] MEDS: Docusate CAP* 100 MG PO PRN (10:00)
[2019-05-05] MEDS: DULoxetine DR CAP* 60 MG CAP.DR PO SCH ×2 (10:00→20:01)
[2019-05-05] MEDS: Ferrous Sulfate TAB* 325 MG PO SCH (10:00)
[2019-05-05] MEDS: Spironolactone TAB* 25 MG PO SCH (10:00)
[2019-05-05] MEDS: Nitrofurantoin Macrocrystals* 100 MG CAP PO SCH ×2 (10:00→20:02)
[2019-05-05] MEDS: Aspirin EC TAB* 81 MG TAB.EC PO SCH (10:00)
[2019-05-05] MEDS: LORazepam TAB(*) 0.5 MG PO PRN (13:10)
[2019-05-05] MEDS: traMADol TAB* 50 MG PO PRN (15:47)
[2019-05-05] MEDS: Enoxaparin(*) 40 MG/0.4 ML SYR SUBCUT SCH (15:47)
[2019-05-05] MEDS: cefTRIAXone(*) 2 GM in NS 0.9% 100 ML* 100 ML IVPB SCH (15:47)
[2019-05-05] MEDS: Montelukast Sodium TAB* 10 MG PO SCH (20:02)
[2019-05-05] MEDS: OLANzapine TAB* 10 MG PO SCH (20:02)
[2019-05-05] MEDS: Atorvastatin* 40 MG TAB PO SCH (20:02)
[2019-05-06] MEDS: Levothyroxine TAB* 75 MCG TAB PO SCH (06:24)
[2019-05-06] MEDS: Mometasone/Formoter 200/5 MDI INH SCH ×2 (07:30→19:03)
[2019-05-06] MEDS: TIOTROPIUM 18 MCG INH SCH (07:31)
[2019-05-06] MEDS: Cholecalciferol TAB* 1000 UNITS PO SCH (07:53)
[2019-05-06] MEDS: Diltiazem CD CAP* 240 MG PO SCH (07:53)
[2019-05-06] MEDS: Spironolactone TAB* 25 MG PO SCH (07:53)
[2019-05-06] MEDS: DULoxetine DR CAP* 60 MG CAP.DR PO SCH ×2 (07:53→20:53)
[2019-05-06] MEDS: LORazepam TAB(*) 0.5 MG PO PRN ×2 (07:53→16:52)
[2019-05-06] MEDS: Aspirin EC TAB* 81 MG TAB.EC PO SCH (07:53)
[2019-05-06] MEDS: OLANzapine TAB* 5 MG PO SCH (07:54)
[2019-05-06] MEDS: Ferrous Sulfate TAB* 325 MG PO SCH (07:54)
[2019-05-06] MEDS: Magnesium Oxide TAB* 400 MG PO SCH (07:54)
--- NOTE | 2019-05-06 08:59 | PN ---
Progress Note - Progress Note Date of Service: 05/06/19 SOAP: Subjective: CC: E coli bacteremia and osteodiskitis. HPI: Ms. Lui is a 58 yo female with PMH significant for depression, history of self harm, COPD, anxiety, and HLD; who presented to the hospital unresponsive and was found to have E coli bacteremia and osteodiskitis. Denies fever, chills , nausea, vomiting, diarrhea, or urinary symptoms (urgency, frequency or dysuria ). Reports lower back pain, and states that this is improved from admission. Objective: Vital Signs - 8 hr 05/06/19 05/06/19 07:53 08:00 Temperature 98.4 F Pulse Rate 89 Respiratory 20 16 Rate Blood Pressure 104/70 (mmHg) O2 Sat by Pulse 97 Oximetry Physical Exam: General: NAD, laying in bed Neurological: Alert and Oriented to person and place HEENT: Moist MM Cardiovascular: Heart rate regular Respiratory: Lung sounds clear bilateral Abdominal: Bowel sounds present; ABD soft, non tender and non distended MSK: Reports tenderness with palpation of the lower spine, but no grimacing with palpation. Able to dorsi and plantar flex bilateral, and able to bend knees up to chest bilateral (limited exam as Pt was on her side and declined rolling onto her back) Skin: No rash Laboratory Last Values WBC 12.0 10^3/uL (3.5-10.8) H 05/03/19 07:02 RBC 3.37 10^6 /uL (3.70-4.87) L 05/03/19 07:02 Hgb 10.8 g/dL (12.0-16.0) L 05/03/19 07:02 Hct 31 % (35-47) L 05/03/19 07:02 MCV 92 fL (80-97) 05/03/19 07:02 MCH 32 pg (27-31) H 05/03/19 07:02 MCHC 35 g/dL (31-36) 05/03/19 07:02 RDW 14 % (10-15) 05/03/19 07:02 Plt Count 631 10^3/uL (150-450) H D 05/03/19 07:02 MPV 6.6 fL (7.4-10.4) L 05/03/19 07:02 Neut % (Auto) 59.4 % 05/03/19 07:02 Lymph % (Auto) 27.6 % 05/03/19 07:02 [place] % (Auto) 10.6 % 05/03/19 07:02 Eos % (Auto) 1.7 % 05/03/19 07:02 Baso % (Auto) 0.7 % 05/03/19 07:02 Absolute Neuts (auto) 7.1 10^3/ul (1.5-7.7) 05/03/19 07:02 Absolute Lymphs (auto) 3.3 10^3/ul (1.0-4.8) 05/03/19 07:02 Absolute Monos (auto) 1.3 10^3/ul (0-0.8) H 05/03/19 07:02 Absolute Eos (auto) 0.2 10^3/ul (0-0.6) 05/03/19 07:02 Absolute Basos (auto) 0.1 10^3/ul (0-0.2) 05/03/19 07:02 Absolute Nucleated RBC 0.0 10^3/ul 05/03/19 07:02 Nucleated RBC % 0.0 05/03/19 07:02 Sodium 135 mmol/L (135-145) 05/03/19 07:02 Potassium 4.2 mmol/L (3.5-5.0) 05/03/19 07:02 Chloride 101 mmol/L (101-111) 05/03/19 07:02 Carbon Dioxide 27 mmol/L (22-32) 05/03/19 07:02 Anion Gap 7 mmol/L (2-11) 05/03/19 07:02 BUN 8 mg/dL (6-24) 05/03/19 07:02 Creatinine 0.55 mg/dL (0.51-0.95) 05/03/19 07:02 Est GFR ( Amer) 137.4 (>60) 05/03/19 07:02 Est GFR (Non-Af Amer) 113.5 (>60) 05/03/19 07:02 BUN/Creatinine Ratio 14.5 (8-20) 05/03/19 07:02 Glucose 138 mg/dL (70-100) H 05/03/19 07:02 Calcium 9.8 mg/dL (8.6-10.3) 05/03/19 07:02 Total Bilirubin 0.20 mg/dL (0.2-1.0) 05/03/19 07:02 AST 13 U/L (13-39) 05/03/19 07:02 ALT 15 U/L (7-52) 05/03/19 07:02 Alkaline Phosphatase 104 U/L (34-104) 05/03/19 07:02 C-React Prot High Sens 28.79 mg/L (<2.00) H 05/03/19 07:02 Total Protein 6.2 g/dL (6.4-8.9) L 05/03/19 07:02 Albumin 3.2 g/dL (3.2-5.2) 05/03/19 07:02 Globulin 3.0 g/dL (2-4) 05/03/19 07:02 Albumin/Globulin Ratio 1.1 (1-3) 05/03/19 07:02 Urine Color Yellow 05/01/19 08:39 Urine Appearance Turbid 05/01/19 08:39 Urine pH 8.0 (5-9) 05/01/19 08:39 Ur Specific [place] 1.002 (1.010-1.030) L 05/01/19 08:39 Urine Protein Negative (Negative) 05/01/19 08:39 Urine Ketones Negative (Negative) 05/01/19 08:39 Urine Blood 2+ (Negative) A 05/01/19 08:39 Urine Nitrate Negative (Negative) 05/01/19 08:39 Urine Bilirubin Negative (Negative) 05/01/19 08:39 Urine Urobilinogen Negative (Negative) 05/01/19 08:39 Ur Leukocyte Esterase 3+ (Negative) A 05/01/19 08:39 Urine WBC (Auto) 3+(>20/hpf) (Absent) A 05/01/19 08:39 Urine RBC (Auto) 3+(>10/hpf) (Absent) A 05/01/19 08:39 Urine Bacteria 1+ (Absent) A 05/01/19 08:39 Urine Glucose Negative (Negative) 05/01/19 08:39 Microbiology 05/01/19 08:39 Urine Culture - Final Urine Enterococcus Faecalis Assessment: 1. Vertebral osteodiskitis of the lumbar spine. No epidural abscess seen on imaging. Continues to have low back pain, but states this is improving from time of admission. No LE neurological deficits. Afebrile and mild leukocytosis. CRP is trending down, but not checked in a month. 2. Ecoli bacteremia. Initial urine culture with no growth. Repeat urine culture with Enterococcus Faecalis and Venecia Tropicalis during acute visit. Repeat blood cultures during acute hospitalization with no growth. 3. Leukocytosis while on ABX. Differential dx: C-diff, worsening infection, UTI. Denies diarrhea, low suspicion for C-diff. Suspect secondary to UTI. 4. UTI. Urine culture with enterococcus faecalis. Started on Nitrofurotoin last week. Denies urinary symptoms today. Plan: Continue ceftriaxone 2 gm daily, day 42/56. Midline line has been in since 03/24 , will need to be replaced. Weekly labs while on ABX: CMP, CBC, and CRP.
[2019-05-06] MEDS: traMADol TAB* 50 MG PO PRN ×2 (09:47→20:53)
[2019-05-06] MEDS: Nitrofurantoin Macrocrystals* 100 MG CAP PO SCH ×2 (09:48→20:53)
--- NOTE | 2019-05-06 13:13 | PN ---
Subjective Date of Service: 05/06/19 Interval History: Patient seen and examined. Remains on Swing status for IV atbx for vertebral osteodiskitis. Complains of low back pain which is improving. Denies fevers, no chills, no SOB or chest pain. Chart reviewed, no events over the last week. Family History: Unchanged from Admission Social History: Unchanged from Admission Past Medical History: Unchanged from Admission Objective Active Medications: Acetaminophen (Tylenol Tab*) 650 mg PO Q4H PRN PRN Reason: PAIN - MILD Albuterol (Ventolin Hfa Inhaler*) 2 puff INH Q4H PRN PRN Reason: SOB/WHEEZING Aspirin (Aspirin Ec Tab*) 81 mg PO DAILY [facility] Last Admin: 05/06/19 07:53 Dose: 81 mg Atorvastatin Calcium (Lipitor*) 40 mg PO 2100 [facility] Last Admin: 05/05/19 20:02 Dose: 40 mg Benztropine Mesylate (Cogentin Tab*) 1 mg PO DAILY PRN PRN Reason: Extrapyrimidal side effects Last Admin: 04/12/19 20:21 Dose: 1 mg Bisacodyl (Dulcolax Supp*) 10 mg [place] DAILY PRN PRN Reason: CONSTIPATION Cholecalciferol (Vitamin D Tab*) 2,000 units PO DAILY [facility] Last Admin: 05/06/19 07:53 Dose: 2,000 units Device (Tiotropium Inhaler Device*) 1 each INH .USE w/ SPIRIVA CAPS [facility] Diltiazem HCl (Cardizem Cd Cap*) 240 mg PO DAILY [facility] Last Admin: 05/06/19 07:53 Dose: 240 mg Docusate Sodium (Colace Cap*) 200 mg PO DAILY PRN PRN Reason: CONSTIPATION Last Admin: 05/05/19 10:00 Dose: 200 mg Duloxetine HCl (Cymbalta Cap*) 60 mg PO BID [facility] Last Admin: 05/06/19 07:53 Dose: 60 mg Enoxaparin Sodium (Lovenox(*)) 40 mg SUBCUT Q24H [facility] Last Admin: 05/05/19 15:47 Dose: 40 mg Ferrous Sulfate (Ferrous Sulfate Tab*) 325 mg PO DAILY [facility] Last Admin: 05/06/19 07:54 Dose: 325 mg Heparin Sodium (Porcine) (Heparin Flush Picc/Ml/Cvc(*)) 1 ml FLUSH 0600,1800 [facility]; Protocol Last Admin: 05/06/19 06:24 Dose: 1 ml Ceftriaxone Sodium 2 gm/ (Sodium Chloride) 100 mls @ 200 mls/hr IVPB Q24HR@ 1600 [facility] Last Admin: 05/05/19 15:47 Dose: 200 mls/hr Levothyroxine Sodium (Synthroid Tab*) 75 mcg PO DAILY@0600 [facility] Last Admin: 05/06/19 06:24 Dose: 75 mcg Lorazepam (Ativan Tab(*)) 0.5 mg PO Q6H PRN PRN Reason: ANXIETY Last Admin: 05/06/19 07:53 Dose: 0.5 mg Magnesium Hydroxide (Milk Of Magnesia Liq*) 30 ml PO Q6H PRN PRN Reason: CONSTIPATION Last Admin: 04/13/19 07:57 Dose: 30 ml Magnesium Hydroxide (Milk Of Magnesia Liq*) 30 ml PO BID PRN PRN Reason: CONSTIPATION Magnesium Oxide (Magox 400 Tab*) 400 mg PO DAILY [facility] Last Admin: 05/06/19 07:54 Dose: 400 mg Mometasone Furoate/Formoterol Fumar (Dulera 200/5 Mdi*) 2 puff INH BID [facility] Last Admin: 05/06/19 07:30 Dose: Not Given Montelukast Sodium (Singulair Tab*) 10 mg PO BEDTIME [facility] Last Admin: 05/05/19 20:02 Dose: 10 mg Nitrofurantoin Macrocrystals (Macrodantin*) 100 mg PO BID [facility] Stop: 05/08/19 09:01 Last Admin: 05/06/19 09:48 Dose: 100 mg Olanzapine (Zyprexa Tab*) 5 mg PO DAILY [facility] Last Admin: 05/06/19 07:54 Dose: 5 mg Olanzapine (Zyprexa Tab*) 30 mg PO BEDTIME [facility] Last Admin: 05/05/19 20:02 Dose: 30 mg Ondansetron HCl (Zofran Inj*) 4 mg IV Q6H PRN PRN Reason: NAUSEA Polyethylene Glycol/Electrolytes (Miralax*) 17 gm PO DAILY PRN PRN Reason: CONSTIPATION Last Admin: 05/05/19 09:59 Dose: 17 gm Senna (Senokot Tab*) 2 tab PO BEDTIME PRN PRN Reason: CONSTIPATION Last Admin: 04/12/19 20:21 Dose: 2 tab Senna (Senokot 8.6 Mg Tab*) 1 tab PO BEDTIME PRN PRN Reason: CONSTIPATION Spironolactone (Aldactone Tab*) 25 mg PO DAILY [facility] Last Admin: 05/06/19 07:53 Dose: 25 mg Tiotropium [place] (Spiriva Cap.Inh*) 1 cap INH DAILY [facility] Last Admin: 05/06/19 07:31 Dose: Not Given Tramadol HCl (Ultram*) 100 mg PO Q8H PRN PRN Reason: PAIN - MODERATE Last Admin: 05/06/19 09:47 Dose: 100 mg Vital Signs - 8 hr 05/06/19 05/06/19 05/06/19 07:53 08:00 09:47 Temperature 98.4 F Pulse Rate 89 Respiratory 20 16 16 Rate Blood Pressure 104/70 (mmHg) O2 Sat by Pulse 97 Oximetry Oxygen Devices in Use Now: None Appearance: alert, NAD Eyes: No Scleral Icterus, PERRLA Ears/Nose/Mouth/Throat: Mucous Membranes Moist Neck: NL Appearance and Movements; NL JVP, Trachea Midline Respiratory: Symmetrical Chest Expansion and Respiratory Effort, Clear to Auscultation Cardiovascular: NL Sounds; No Murmurs; No JVD, RRR Abdominal: NL Sounds; No Tenderness; No Distention Extremities: No Edema, No Clubbing, Cyanosis Skin: No Rash or Ulcers Neurological: Alert and Oriented x 3 Nutrition: Taking PO's Result Diagrams: 05/03/19 07:02 05/03/19 07:02 Microbiology and Other Data: Microbiology 05/01/19 08:39 Urine Culture - Final Urine Enterococcus Faecalis Assess/Plan/Problems-Billing Assessment: Ms. Lui is a 58 yo F with PMH of self injury behaviors, schizoaffective disorder-bipolar type, HTN, hypothyroidism and asthma; who was found to be poorly responsive at the [facility] and was brought in to the ER where she was found to be in severe sepsis secondary to pneumonia and now subsequently found to have E. coli bacteremia and diskitis. Now on swing status for IV antibiotics. - Patient Problems (1) Discitis of lumbar region Code(s): M46.46 - DISCITIS, UNSPECIFIED, LUMBAR REGION SNOMED Code(s): 363828727 Comment: - Secondary to E. coli bacteremia - White count remains the same at around 12, no fever, CRP down to 28 - Continue to trend weekly CBC, CMP, CRP per ID recommendations - Continue ceftriaxone (day ) - Midline to be replaced today - ID following (2) COPD (chronic obstructive pulmonary disease) Code(s): J44.9 - CHRONIC OBSTRUCTIVE PULMONARY DISEASE, UNSPECIFIED SNOMED Code(s): 78348983 Comment: - Continue Dulera, Spiriva, Singulair (3) Bacteremia Code(s): R78.81 - BACTEREMIA SNOMED Code(s): 6187357 Comment: - Resolved (4) Hypothyroidism Code(s): E03.9 - HYPOTHYROIDISM, UNSPECIFIED SNOMED Code(s): 23917997 Comment: - Continue levothyroxine (5) Schizoaffective disorder Code(s): F25.9 - SCHIZOAFFECTIVE DISORDER, UNSPECIFIED SNOMED Code(s): 69598982 Comment: - Continue duloxetine, olanzapine (6) DVT prophylaxis Code(s): Z29.9 - ENCOUNTER FOR PROPHYLACTIC MEASURES, UNSPECIFIED SNOMED Code( s): 626099879 Comment: - Ambulate (7) HTN (hypertension) Code(s): I10 - ESSENTIAL (PRIMARY) HYPERTENSION SNOMED Code(s): 76866687 Comment: - Continue diltiazem, spironolactone (8) Thrombocytosis Comment: - Elevated on admission, suspect to be reactive r/t infection - Monitor labs (9) Full code status Code(s): Z78.9 - OTHER SPECIFIED HEALTH STATUS SNOMED Code(s): 824618159 Comment: Status and Disposition: Swing for IV abx then discharge back to [place].
[2019-05-06] MEDS: cefTRIAXone(*) 2 GM in NS 0.9% 100 ML* 100 ML IVPB SCH (16:45)
[2019-05-06] MEDS: Enoxaparin(*) 40 MG/0.4 ML SYR SUBCUT SCH (16:51)
[2019-05-06] MEDS: Docusate CAP* 100 MG PO PRN (16:52)
[2019-05-06] MEDS: Atorvastatin* 40 MG TAB PO SCH (20:53)
[2019-05-06] MEDS: OLANzapine TAB* 10 MG PO SCH (20:54)
[2019-05-06] MEDS: Montelukast Sodium TAB* 10 MG PO SCH (20:54)
[2019-05-07] MEDS: Levothyroxine TAB* 75 MCG TAB PO SCH (05:51)
[2019-05-07] MEDS: traMADol TAB* 50 MG PO PRN ×2 (05:56→17:28)
[2019-05-07] MEDS: TIOTROPIUM 18 MCG INH SCH (06:59)
[2019-05-07] MEDS: Mometasone/Formoter 200/5 MDI INH SCH ×2 (06:59→19:13)
[2019-05-07] MEDS: Ferrous Sulfate TAB* 325 MG PO SCH (09:09)
[2019-05-07] MEDS: OLANzapine TAB* 5 MG PO SCH (09:09)
[2019-05-07] MEDS: Spironolactone TAB* 25 MG PO SCH (09:10)
[2019-05-07] MEDS: Docusate CAP* 100 MG PO PRN (09:10)
[2019-05-07] MEDS: Cholecalciferol TAB* 1000 UNITS PO SCH (09:10)
[2019-05-07] MEDS: Aspirin EC TAB* 81 MG TAB.EC PO SCH (09:10)
[2019-05-07] MEDS: Nitrofurantoin Macrocrystals* 100 MG CAP PO SCH ×2 (09:10→22:47)
[2019-05-07] MEDS: Magnesium Oxide TAB* 400 MG PO SCH (09:10)
[2019-05-07] MEDS: Diltiazem CD CAP* 240 MG PO SCH (09:10)
[2019-05-07] MEDS: DULoxetine DR CAP* 60 MG CAP.DR PO SCH ×2 (09:10→22:47)
[2019-05-07] MEDS: LORazepam TAB(*) 0.5 MG PO PRN ×2 (09:10→15:43)
[2019-05-07] MEDS: cefTRIAXone(*) 2 GM in NS 0.9% 100 ML* 100 ML IVPB SCH (15:39)
[2019-05-07] MEDS: Enoxaparin(*) 40 MG/0.4 ML SYR SUBCUT SCH (15:41)
[2019-05-07] MEDS: Acetaminophen TAB* 325 MG PO PRN (17:28)
[2019-05-07] MEDS: Atorvastatin* 40 MG TAB PO SCH (22:46)
[2019-05-07] MEDS: OLANzapine TAB* 10 MG PO SCH (22:47)
[2019-05-07] MEDS: Montelukast Sodium TAB* 10 MG PO SCH (22:47)
[2019-05-08] MEDS: traMADol TAB* 50 MG PO PRN ×3 (01:16→20:07)
[2019-05-08] MEDS: Levothyroxine TAB* 75 MCG TAB PO SCH (05:50)
[2019-05-08] MEDS: Mometasone/Formoter 200/5 MDI INH SCH ×2 (07:01→20:07)
[2019-05-08] MEDS: TIOTROPIUM 18 MCG INH SCH (07:01)
[2019-05-08] MEDS: Diltiazem CD CAP* 240 MG PO SCH (08:39)
[2019-05-08] MEDS: Magnesium Oxide TAB* 400 MG PO SCH (08:39)
[2019-05-08] MEDS: DULoxetine DR CAP* 60 MG CAP.DR PO SCH ×2 (08:39→20:07)
[2019-05-08] MEDS: Spironolactone TAB* 25 MG PO SCH (08:39)
[2019-05-08] MEDS: Aspirin EC TAB* 81 MG TAB.EC PO SCH (08:39)
[2019-05-08] MEDS: LORazepam TAB(*) 0.5 MG PO PRN ×2 (08:39→21:07)
[2019-05-08] MEDS: Nitrofurantoin Macrocrystals* 100 MG CAP PO SCH (08:39)
[2019-05-08] MEDS: OLANzapine TAB* 5 MG PO SCH (08:39)
[2019-05-08] MEDS: Ferrous Sulfate TAB* 325 MG PO SCH (08:39)
[2019-05-08] MEDS: Cholecalciferol TAB* 1000 UNITS PO SCH (08:39)
[2019-05-08] MEDS: Docusate CAP* 100 MG PO PRN (11:52)
[2019-05-08] MEDS: cefTRIAXone(*) 2 GM in NS 0.9% 100 ML* 100 ML IVPB SCH (15:51)
[2019-05-08] MEDS: Enoxaparin(*) 40 MG/0.4 ML SYR SUBCUT SCH (16:03)
[2019-05-08] MEDS: OLANzapine TAB* 10 MG PO SCH (20:06)
[2019-05-08] MEDS: Montelukast Sodium TAB* 10 MG PO SCH (20:07)
[2019-05-08] MEDS: Atorvastatin* 40 MG TAB PO SCH (20:07)
[2019-05-09] MEDS: traMADol TAB* 50 MG PO PRN (05:20)
[2019-05-09] MEDS: Levothyroxine TAB* 75 MCG TAB PO SCH (05:20)
[2019-05-09] MEDS: DULoxetine DR CAP* 60 MG CAP.DR PO SCH ×2 (07:16→19:55)
[2019-05-09] MEDS: Diltiazem CD CAP* 240 MG PO SCH (07:16)
[2019-05-09] MEDS: Cholecalciferol TAB* 1000 UNITS PO SCH (07:16)
[2019-05-09] MEDS: OLANzapine TAB* 5 MG PO SCH (07:16)
[2019-05-09] MEDS: Aspirin EC TAB* 81 MG TAB.EC PO SCH (07:16)
[2019-05-09] MEDS: Ferrous Sulfate TAB* 325 MG PO SCH (07:16)
[2019-05-09] MEDS: Spironolactone TAB* 25 MG PO SCH (07:17)
[2019-05-09] MEDS: Magnesium Oxide TAB* 400 MG PO SCH (07:17)
[2019-05-09] MEDS: Mometasone/Formoter 200/5 MDI INH SCH ×2 (07:23→19:54)
[2019-05-09] MEDS: TIOTROPIUM 18 MCG INH SCH (07:23)
[2019-05-09] MEDS: LORazepam TAB(*) 0.5 MG PO PRN (14:02)
[2019-05-09] MEDS: cefTRIAXone(*) 2 GM in NS 0.9% 100 ML* 100 ML IVPB SCH (15:17)
[2019-05-09] MEDS: Enoxaparin(*) 40 MG/0.4 ML SYR SUBCUT SCH (15:17)
[2019-05-09] MEDS: OLANzapine TAB* 10 MG PO SCH (19:55)
[2019-05-09] MEDS: Montelukast Sodium TAB* 10 MG PO SCH (19:55)
[2019-05-09] MEDS: Atorvastatin* 40 MG TAB PO SCH (19:55)
[2019-05-10] MEDS: LORazepam TAB(*) 0.5 MG PO PRN ×3 (00:41→21:58)
[2019-05-10] MEDS: Levothyroxine TAB* 75 MCG TAB PO SCH (06:06)
[2019-05-10 06:33] LABS: ABS Basophils 0.1 10^3/ul (0-0.2); ABS Eosinophils 0.2 10^3/ul (0-0.6); ABS Lymphocytes 3.6 10^3/ul (1.0-4.8); ABS Monocytes 1.4 10^3/ul (0-0.8); ABS Neutrophils 7.9 10^3/ul (1.5-7.7); Eosinophil % 1.8 %; Hematocrit 31 % (35-47); Hemoglobin 10.8 g/dL (12.0-16.0); Lymphocyte % 27.2 %; Mean Corpuscular HGB Conc 34 g/dL (31-36); Mean Corpuscular Hemoglobin 32 pg (27-31); Mean Corpuscular Volume 92 fL (80-97); Mean Platelet Volume 6.6 fL (7.4-10.4); Platelet Count 648 10^3/uL (150-450); Red Cell Distribution Width 14 % (10-15); White Blood Count 13.3 10^3/uL (3.5-10.8)
[2019-05-10 06:57] LABS: Albumin 3.3 g/dL (3.2-5.2); Albumin/Globulin Ratio 1.1 (1-3); BUN/Creatinine Ratio 22.6 (8-20); C Reactive Protein 21.42 mg/L (<8.01); Calcium 9.9 mg/dL (8.6-10.3); EGFR African American 143.4 (>60); EGFR Non-African American 118.5 (>60); Globulin 3.1 g/dL (2-4); Potassium 4.3 mmol/L (3.5-5.0); Total Bilirubin 0.2 mg/dL (0.2-1.0); Total Protein 6.4 g/dL (6.4-8.9)
[2019-05-10] MEDS: Mometasone/Formoter 200/5 MDI INH SCH ×2 (07:00→19:10)
[2019-05-10] MEDS: TIOTROPIUM 18 MCG INH SCH (07:00)
[2019-05-10] MEDS: Cholecalciferol TAB* 1000 UNITS PO SCH (07:48)
[2019-05-10] MEDS: Docusate CAP* 100 MG PO PRN (07:49)
[2019-05-10] MEDS: Diltiazem CD CAP* 240 MG PO SCH (07:49)
[2019-05-10] MEDS: Aspirin EC TAB* 81 MG TAB.EC PO SCH (07:49)
[2019-05-10] MEDS: Ferrous Sulfate TAB* 325 MG PO SCH (07:49)
[2019-05-10] MEDS: traMADol TAB* 50 MG PO PRN ×2 (07:49→16:42)
[2019-05-10] MEDS: DULoxetine DR CAP* 60 MG CAP.DR PO SCH ×2 (07:49→21:50)
[2019-05-10] MEDS: OLANzapine TAB* 5 MG PO SCH (07:49)
[2019-05-10] MEDS: Magnesium Oxide TAB* 400 MG PO SCH (07:49)
[2019-05-10] MEDS: Spironolactone TAB* 25 MG PO SCH (07:49)
[2019-05-10] MEDS: Enoxaparin(*) 40 MG/0.4 ML SYR SUBCUT SCH (16:42)
[2019-05-10] MEDS: cefTRIAXone(*) 2 GM in NS 0.9% 100 ML* 100 ML IVPB SCH (16:42)
[2019-05-10] MEDS: Atorvastatin* 40 MG TAB PO SCH (21:50)
[2019-05-10] MEDS: OLANzapine TAB* 10 MG PO SCH (21:50)
[2019-05-10] MEDS: Montelukast Sodium TAB* 10 MG PO SCH (21:50)
[2019-05-10] MEDS: Acetaminophen TAB* 325 MG PO PRN (21:57)
[2019-05-11] MEDS: traMADol TAB* 50 MG PO PRN ×2 (05:52→19:08)
[2019-05-11] MEDS: Levothyroxine TAB* 75 MCG TAB PO SCH (05:53)
[2019-05-11] MEDS: Mometasone/Formoter 200/5 MDI INH SCH ×2 (07:38→19:13)
[2019-05-11] MEDS: TIOTROPIUM 18 MCG INH SCH (07:38)
[2019-05-11] MEDS: Aspirin EC TAB* 81 MG TAB.EC PO SCH (09:50)
[2019-05-11] MEDS: Diltiazem CD CAP* 240 MG PO SCH (09:50)
[2019-05-11] MEDS: Magnesium Oxide TAB* 400 MG PO SCH (09:50)
[2019-05-11] MEDS: DULoxetine DR CAP* 60 MG CAP.DR PO SCH ×2 (09:50→20:10)
[2019-05-11] MEDS: Cholecalciferol TAB* 1000 UNITS PO SCH (09:50)
[2019-05-11] MEDS: OLANzapine TAB* 5 MG PO SCH (09:50)
[2019-05-11] MEDS: Spironolactone TAB* 25 MG PO SCH (09:50)
[2019-05-11] MEDS: Ferrous Sulfate TAB* 325 MG PO SCH (09:50)
[2019-05-11] MEDS: cefTRIAXone(*) 2 GM in NS 0.9% 100 ML* 100 ML IVPB SCH (15:38)
[2019-05-11] MEDS: Enoxaparin(*) 40 MG/0.4 ML SYR SUBCUT SCH (15:39)
[2019-05-11] MEDS: LORazepam TAB(*) 0.5 MG PO PRN (16:42)
[2019-05-11] MEDS: Montelukast Sodium TAB* 10 MG PO SCH (20:10)
[2019-05-11] MEDS: Atorvastatin* 40 MG TAB PO SCH (20:10)
[2019-05-11] MEDS: OLANzapine TAB* 10 MG PO SCH (20:10)
[2019-05-12] MEDS: Levothyroxine TAB* 75 MCG TAB PO SCH (05:59)
[2019-05-12] MEDS: Mometasone/Formoter 200/5 MDI INH SCH ×2 (07:35→20:21)
[2019-05-12] MEDS: TIOTROPIUM 18 MCG INH SCH (07:35)
[2019-05-12] MEDS: Ferrous Sulfate TAB* 325 MG PO SCH (09:22)
[2019-05-12] MEDS: LORazepam TAB(*) 0.5 MG PO PRN ×2 (09:22→15:36)
[2019-05-12] MEDS: Magnesium Oxide TAB* 400 MG PO SCH (09:23)
[2019-05-12] MEDS: Cholecalciferol TAB* 1000 UNITS PO SCH (09:23)
[2019-05-12] MEDS: Aspirin EC TAB* 81 MG TAB.EC PO SCH (09:23)
[2019-05-12] MEDS: DULoxetine DR CAP* 60 MG CAP.DR PO SCH ×2 (09:23→20:45)
[2019-05-12] MEDS: Diltiazem CD CAP* 240 MG PO SCH (09:23)
[2019-05-12] MEDS: OLANzapine TAB* 5 MG PO SCH (09:23)
[2019-05-12] MEDS: Spironolactone TAB* 25 MG PO SCH (09:23)
[2019-05-12] MEDS: traMADol TAB* 50 MG PO PRN ×2 (10:49→20:45)
[2019-05-12] MEDS: cefTRIAXone(*) 2 GM in NS 0.9% 100 ML* 100 ML IVPB SCH (15:37)
[2019-05-12] MEDS: Enoxaparin(*) 40 MG/0.4 ML SYR SUBCUT SCH (15:55)
[2019-05-12] MEDS: Montelukast Sodium TAB* 10 MG PO SCH (20:45)
[2019-05-12] MEDS: Atorvastatin* 40 MG TAB PO SCH (20:45)
[2019-05-12] MEDS: OLANzapine TAB* 10 MG PO SCH (20:46)
[2019-05-13] MEDS: Levothyroxine TAB* 75 MCG TAB PO SCH (06:24)
[2019-05-13] MEDS: Mometasone/Formoter 200/5 MDI INH SCH ×2 (07:09→19:50)
[2019-05-13] MEDS: TIOTROPIUM 18 MCG INH SCH (07:09)
[2019-05-13] MEDS: DULoxetine DR CAP* 60 MG CAP.DR PO SCH ×2 (07:48→20:05)
[2019-05-13] MEDS: Cholecalciferol TAB* 1000 UNITS PO SCH (07:48)
[2019-05-13] MEDS: Aspirin EC TAB* 81 MG TAB.EC PO SCH (07:48)
[2019-05-13] MEDS: Magnesium Oxide TAB* 400 MG PO SCH (07:48)
[2019-05-13] MEDS: Spironolactone TAB* 25 MG PO SCH (07:48)
[2019-05-13] MEDS: Ferrous Sulfate TAB* 325 MG PO SCH (07:48)
[2019-05-13] MEDS: Diltiazem CD CAP* 240 MG PO SCH (07:49)
[2019-05-13] MEDS: OLANzapine TAB* 5 MG PO SCH (07:49)
[2019-05-13] MEDS: LORazepam TAB(*) 0.5 MG PO PRN ×2 (07:53→15:23)
[2019-05-13] MEDS: traMADol TAB* 50 MG PO PRN ×2 (09:24→18:29)
--- NOTE | 2019-05-13 11:21 | PN ---
Subjective Date of Service: 05/13/19 Interval History: Chronic back pain, unchanged, relieved by current analgesics, sleeps OK. Appetite OK, no bowel c/o. Family History: Unchanged from Admission Social History: Unchanged from Admission Past Medical History: Unchanged from Admission Objective Active Medications: Acetaminophen (Tylenol Tab*) 650 mg PO Q4H PRN PRN Reason: PAIN - MILD Last Admin: 05/10/19 21:57 Dose: 650 mg Albuterol (Ventolin Hfa Inhaler*) 2 puff INH Q4H PRN PRN Reason: SOB/WHEEZING Aspirin (Aspirin Ec Tab*) 81 mg PO DAILY [facility] Last Admin: 05/13/19 07:48 Dose: 81 mg Atorvastatin Calcium (Lipitor*) 40 mg PO 2100 [facility] Last Admin: 05/12/19 20:45 Dose: 40 mg Benztropine Mesylate (Cogentin Tab*) 1 mg PO DAILY PRN PRN Reason: Extrapyrimidal side effects Last Admin: 04/12/19 20:21 Dose: 1 mg Bisacodyl (Dulcolax Supp*) 10 mg [place] DAILY PRN PRN Reason: CONSTIPATION Cholecalciferol (Vitamin D Tab*) 2,000 units PO DAILY [facility] Last Admin: 05/13/19 07:48 Dose: 2,000 units Device (Tiotropium Inhaler Device*) 1 each INH .USE w/ SPIRIVA CAPS [facility] Diltiazem HCl (Cardizem Cd Cap*) 240 mg PO DAILY [facility] Last Admin: 05/13/19 07:49 Dose: 240 mg Docusate Sodium (Colace Cap*) 200 mg PO DAILY PRN PRN Reason: CONSTIPATION Last Admin: 05/10/19 07:49 Dose: 200 mg Duloxetine HCl (Cymbalta Cap*) 60 mg PO BID [facility] Last Admin: 05/13/19 07:48 Dose: 60 mg Enoxaparin Sodium (Lovenox(*)) 40 mg SUBCUT Q24H [facility] Last Admin: 05/12/19 15:55 Dose: 40 mg Ferrous Sulfate (Ferrous Sulfate Tab*) 325 mg PO DAILY [facility] Last Admin: 05/13/19 07:48 Dose: 325 mg Heparin Sodium (Porcine) (Heparin Flush Picc/Ml/Cvc(*)) 1 ml FLUSH 0600,1800 [facility]; Protocol Last Admin: 05/13/19 06:24 Dose: 1 ml Ceftriaxone Sodium 2 gm/ (Sodium Chloride) 100 mls @ 200 mls/hr IVPB Q24HR@ 1600 [facility] Last Admin: 05/12/19 15:37 Dose: 200 mls/hr Levothyroxine Sodium (Synthroid Tab*) 75 mcg PO DAILY@0600 [facility] Last Admin: 05/13/19 06:24 Dose: 75 mcg Lorazepam (Ativan Tab(*)) 0.5 mg PO Q6H PRN PRN Reason: ANXIETY Last Admin: 05/13/19 07:53 Dose: 0.5 mg Magnesium Hydroxide (Milk Of Magnesia Liq*) 30 ml PO Q6H PRN PRN Reason: CONSTIPATION Last Admin: 04/13/19 07:57 Dose: 30 ml Magnesium Hydroxide (Milk Of Magnesia Liq*) 30 ml PO BID PRN PRN Reason: CONSTIPATION Magnesium Oxide (Magox 400 Tab*) 400 mg PO DAILY [facility] Last Admin: 05/13/19 07:48 Dose: 400 mg Mometasone Furoate/Formoterol Fumar (Dulera 200/5 Mdi*) 2 puff INH BID [facility] Last Admin: 05/13/19 07:09 Dose: Not Given Montelukast Sodium (Singulair Tab*) 10 mg PO BEDTIME [facility] Last Admin: 05/12/19 20:45 Dose: 10 mg Olanzapine (Zyprexa Tab*) 5 mg PO DAILY [facility] Last Admin: 05/13/19 07:49 Dose: 5 mg Olanzapine (Zyprexa Tab*) 30 mg PO BEDTIME [facility] Last Admin: 05/12/19 20:46 Dose: 30 mg Ondansetron HCl (Zofran Inj*) 4 mg IV Q6H PRN PRN Reason: NAUSEA Polyethylene Glycol/Electrolytes (Miralax*) 17 gm PO DAILY PRN PRN Reason: CONSTIPATION Last Admin: 05/05/19 09:59 Dose: 17 gm Senna (Senokot Tab*) 2 tab PO BEDTIME PRN PRN Reason: CONSTIPATION Last Admin: 04/12/19 20:21 Dose: 2 tab Senna (Senokot 8.6 Mg Tab*) 1 tab PO BEDTIME PRN PRN Reason: CONSTIPATION Spironolactone (Aldactone Tab*) 25 mg PO DAILY [facility] Last Admin: 05/13/19 07:48 Dose: 25 mg Tiotropium [place] (Spiriva Cap.Inh*) 1 cap INH DAILY [facility] Last Admin: 05/13/19 07:09 Dose: Not Given Tramadol HCl (Ultram*) 100 mg PO Q8H PRN PRN Reason: PAIN - MODERATE Last Admin: 05/13/19 09:24 Dose: 100 mg Vital Signs - 8 hr 05/13/19 05/13/19 05/13/19 07:32 07:53 07:55 Temperature 98.8 F Pulse Rate 81 Respiratory 16 16 16 Rate Blood Pressure 111/62 (mmHg) O2 Sat by Pulse 99 Oximetry 05/13/19 05/13/19 05/13/19 08:46 09:24 10:35 Temperature Pulse Rate Respiratory 16 18 16 Rate Blood Pressure (mmHg) O2 Sat by Pulse Oximetry Oxygen Devices in Use Now: None Appearance: Alert, partly up in bed. Neutral affect, looks comfortable. Neck: NL Appearance and Movements; NL JVP, No Thyroid Enlargement, Masses Respiratory: Symmetrical Chest Expansion and Respiratory Effort, Clear to Auscultation, Clear to Percussion Cardiovascular: NL Sounds; No Murmurs; No JVD, RRR, No Edema, - Extremities: No Edema, No Clubbing, Cyanosis, - Skin: No Nodules or Sclerosis, - - Old vertical linear scratches R lower leg. Neurological: Alert and Oriented x 3, NL Sensation - Mild tremor of jaw or lips. Result Diagrams: 05/10/19 05:32 05/10/19 05:32 Microbiology and Other Data: Microbiology 05/01/19 08:39 Urine Culture - Final Urine Enterococcus Faecalis Assess/Plan/Problems-Billing Assessment: Ms. Lui is a 58 yo F with PMH of self injury behaviors, schizoaffective disorder-bipolar type, HTN, hypothyroidism and asthma; who was found to be poorly responsive at the [facility] and was brought in to the ER where she was found to be in severe sepsis secondary to pneumonia and now subsequently found to have E. coli bacteremia and diskitis. Now on swing status for IV antibiotics. - Patient Problems (1) Discitis of lumbar region Current Visit: Yes Status: Acute Code(s): M46.46 - DISCITIS, UNSPECIFIED, LUMBAR REGION SNOMED Code(s): 010046669 Comment: With E. coli bacteremia - White count remains the same at around 13, no fever, CRP down to 21 - Continue to trend weekly CBC, CMP, CRP per ID recommendations, ordered for 05/18. - Continue ceftriaxone (day 42), last day 05/20 - Midline to be replaced today - ID following (2) Hypothyroidism Current Visit: No Status: Acute Code(s): E03.9 - HYPOTHYROIDISM, UNSPECIFIED SNOMED Code(s): 11270669 Comment: - Continue levothyroxine. TSH wnl 03/24/19. (3) HTN (hypertension) Current Visit: No Status: Acute Code(s): I10 - ESSENTIAL (PRIMARY) HYPERTENSION SNOMED Code(s): 79401224 Comment: - Continue diltiazem, spironolactone (4) Schizoaffective disorder Current Visit: No Status: Acute Code(s): F25.9 - SCHIZOAFFECTIVE DISORDER, UNSPECIFIED SNOMED Code(s): 70988686 Comment: - Continue duloxetine, olanzapine, benztropine. Status and Disposition: Swing for IV abx then discharge back to [place].
[2019-05-13] MEDS: cefTRIAXone(*) 2 GM in NS 0.9% 100 ML* 100 ML IVPB SCH (15:24)
[2019-05-13] MEDS: Enoxaparin(*) 40 MG/0.4 ML SYR SUBCUT SCH (15:24)
[2019-05-13] MEDS: OLANzapine TAB* 10 MG PO SCH (20:05)
[2019-05-13] MEDS: Montelukast Sodium TAB* 10 MG PO SCH (20:05)
[2019-05-13] MEDS: Atorvastatin* 40 MG TAB PO SCH (20:05)
[2019-05-14] MEDS: Levothyroxine TAB* 75 MCG TAB PO SCH (05:40)
[2019-05-14] MEDS: TIOTROPIUM 18 MCG INH SCH (09:02)
[2019-05-14] MEDS: Mometasone/Formoter 200/5 MDI INH SCH ×2 (09:02→19:39)
[2019-05-14] MEDS: Cholecalciferol TAB* 1000 UNITS PO SCH (09:05)
[2019-05-14] MEDS: Aspirin EC TAB* 81 MG TAB.EC PO SCH (09:06)
[2019-05-14] MEDS: Diltiazem CD CAP* 240 MG PO SCH (09:06)
[2019-05-14] MEDS: Ferrous Sulfate TAB* 325 MG PO SCH (09:06)
[2019-05-14] MEDS: LORazepam TAB(*) 0.5 MG PO PRN (09:07)
[2019-05-14] MEDS: Spironolactone TAB* 25 MG PO SCH (09:07)
[2019-05-14] MEDS: Magnesium Oxide TAB* 400 MG PO SCH (09:07)
[2019-05-14] MEDS: DULoxetine DR CAP* 60 MG CAP.DR PO SCH ×2 (09:07→20:10)
[2019-05-14] MEDS: OLANzapine TAB* 5 MG PO SCH (09:07)
--- NOTE | 2019-05-14 10:11 | PN ---
Progress Note - Progress Note Date of Service: 05/14/19 SOAP: Subjective: CC: E coli bacteremia and osteodiskitis. HPI: Ms. Lui is a 58 yo female with PMH significant for depression, history of self harm, COPD, anxiety, and HLD; who presented to the hospital unresponsive and was found to have E coli bacteremia and osteodiskitis. Denies fever, chills , nausea, vomiting, diarrhea, or urinary symptoms (urgency, frequency or dysuria ). Reports continued lower back pain, she doesn't feel it is improving. Objective: Vital Signs - 8 hr 05/14/19 05/14/19 08:00 09:07 Temperature 98.6 F Pulse Rate 87 Respiratory 16 16 Rate Blood Pressure 101/66 (mmHg) O2 Sat by Pulse 99 Oximetry Physical Exam: General: NAD, laying in bed Neurological: Alert and Oriented HEENT: Moist MM, no thrush Cardiovascular: Heart rate regular Respiratory: Lung sounds clear Abdominal: Bowel sounds present; ABD soft, non tender and non distended MSK: Declined back exam. Moves LEs Skin: No rash Laboratory Last Values WBC 13.3 10^3/uL (3.5-10.8) H 05/10/19 05:32 RBC 3.40 10^6 /uL (3.70-4.87) L 05/10/19 05:32 Hgb 10.8 g/dL (12.0-16.0) L 05/10/19 05:32 Hct 31 % (35-47) L 05/10/19 05:32 MCV 92 fL (80-97) 05/10/19 05:32 MCH 32 pg (27-31) H 05/10/19 05:32 MCHC 34 g/dL (31-36) 05/10/19 05:32 RDW 14 % (10-15) 05/10/19 05:32 Plt Count 648 10^3/uL (150-450) H 05/10/19 05:32 MPV 6.6 fL (7.4-10.4) L 05/10/19 05:32 Neut % (Auto) 59.7 % 05/10/19 05:32 Lymph % (Auto) 27.2 % 05/10/19 05:32 [place] % (Auto) 10.4 % 05/10/19 05:32 Eos % (Auto) 1.8 % 05/10/19 05:32 Baso % (Auto) 0.9 % 05/10/19 05:32 Absolute Neuts (auto) 7.9 10^3/ul (1.5-7.7) H 05/10/19 05:32 Absolute Lymphs (auto) 3.6 10^3/ul (1.0-4.8) 05/10/19 05:32 Absolute Monos (auto) 1.4 10^3/ul (0-0.8) H 05/10/19 05:32 Absolute Eos (auto) 0.2 10^3/ul (0-0.6) 05/10/19 05:32 Absolute Basos (auto) 0.1 10^3/ul (0-0.2) 05/10/19 05:32 Absolute Nucleated RBC 0.0 10^3/ul 05/10/19 05:32 Nucleated RBC % 0.0 05/10/19 05:32 Sodium 136 mmol/L (135-145) 05/10/19 05:32 Potassium 4.3 mmol/L (3.5-5.0) 05/10/19 05:32 Chloride 101 mmol/L (101-111) 05/10/19 05:32 Carbon Dioxide 27 mmol/L (22-32) 05/10/19 05:32 Anion Gap 8 mmol/L (2-11) 05/10/19 05:32 BUN 12 mg/dL (6-24) 05/10/19 05:32 Creatinine 0.53 mg/dL (0.51-0.95) 05/10/19 05:32 Est GFR ( Amer) 143.4 (>60) 05/10/19 05:32 Est GFR (Non-Af Amer) 118.5 (>60) 05/10/19 05:32 BUN/Creatinine Ratio 22.6 (8-20) H 05/10/19 05:32 Glucose 113 mg/dL (70-100) H 05/10/19 05:32 Calcium 9.9 mg/dL (8.6-10.3) 05/10/19 05:32 Total Bilirubin 0.20 mg/dL (0.2-1.0) 05/10/19 05:32 AST 12 U/L (13-39) L 05/10/19 05:32 ALT 12 U/L (7-52) 05/10/19 05:32 Alkaline Phosphatase 104 U/L (34-104) 05/10/19 05:32 C-Reactive Protein 21.42 mg/L (<8.01) H 05/10/19 05:32 C-React Prot High Sens 28.79 mg/L (<2.00) H 05/03/19 07:02 Total Protein 6.4 g/dL (6.4-8.9) 05/10/19 05:32 Albumin 3.3 g/dL (3.2-5.2) 05/10/19 05:32 Globulin 3.1 g/dL (2-4) 05/10/19 05:32 Albumin/Globulin Ratio 1.1 (1-3) 05/10/19 05:32 Urine Color Yellow 05/01/19 08:39 Urine Appearance Turbid 05/01/19 08:39 Urine pH 8.0 (5-9) 05/01/19 08:39 Ur Specific [place] 1.002 (1.010-1.030) L 05/01/19 08:39 Urine Protein Negative (Negative) 05/01/19 08:39 Urine Ketones Negative (Negative) 05/01/19 08:39 Urine Blood 2+ (Negative) A 05/01/19 08:39 Urine Nitrate Negative (Negative) 05/01/19 08:39 Urine Bilirubin Negative (Negative) 05/01/19 08:39 Urine Urobilinogen Negative (Negative) 05/01/19 08:39 Ur Leukocyte Esterase 3+ (Negative) A 05/01/19 08:39 Urine WBC (Auto) 3+(>20/hpf) (Absent) A 05/01/19 08:39 Urine RBC (Auto) 3+(>10/hpf) (Absent) A 05/01/19 08:39 Urine Bacteria 1+ (Absent) A 05/01/19 08:39 Urine Glucose Negative (Negative) 05/01/19 08:39 Microbiology 05/01/19 08:39 Urine Culture - Final Urine Enterococcus Faecalis Assessment: 1. Vertebral osteodiskitis of the lumbar spine. No epidural abscess seen on imaging. Continues to have low back pain. No LE neurological deficits. Afebrile and mild leukocytosis. CRP is slowly trending down. 2. Ecoli bacteremia. Initial urine culture with no growth. Repeat urine culture with Enterococcus Faecalis during acute visit. Repeat blood cultures during acute hospitalization with no growth. 3. Leukocytosis while on ABX. Differential dx: C-diff, worsening infection, UTI. Denies diarrhea, low suspicion for C-diff. Plan: Continue ceftriaxone 2 gm daily, day 53/56. Weekly labs while on ABX: CMP, CBC, and CRP. Once she has completed the IV ABX, she should start Keflex 500 mg PO BID for 14 days.
[2019-05-14] MEDS: traMADol TAB* 50 MG PO PRN ×2 (10:41→20:10)
[2019-05-14] MEDS: cefTRIAXone(*) 2 GM in NS 0.9% 100 ML* 100 ML IVPB SCH (16:14)
[2019-05-14] MEDS: Enoxaparin(*) 40 MG/0.4 ML SYR SUBCUT SCH (18:42)
[2019-05-14] MEDS: Atorvastatin* 40 MG TAB PO SCH (20:10)
[2019-05-14] MEDS: OLANzapine TAB* 10 MG PO SCH (20:10)
[2019-05-14] MEDS: Montelukast Sodium TAB* 10 MG PO SCH (20:10)
[2019-05-15] MEDS: Levothyroxine TAB* 75 MCG TAB PO SCH (05:41)
[2019-05-15] MEDS: traMADol TAB* 50 MG PO PRN ×2 (05:42→16:41)
[2019-05-15] MEDS: Mometasone/Formoter 200/5 MDI INH SCH ×2 (06:59→20:03)
[2019-05-15] MEDS: TIOTROPIUM 18 MCG INH SCH (06:59)
[2019-05-15] MEDS: Diltiazem CD CAP* 240 MG PO SCH (07:55)
[2019-05-15] MEDS: Spironolactone TAB* 25 MG PO SCH (07:55)
[2019-05-15] MEDS: DULoxetine DR CAP* 60 MG CAP.DR PO SCH ×2 (07:55→21:41)
[2019-05-15] MEDS: Magnesium Oxide TAB* 400 MG PO SCH (07:55)
[2019-05-15] MEDS: OLANzapine TAB* 5 MG PO SCH (07:55)
[2019-05-15] MEDS: Cholecalciferol TAB* 1000 UNITS PO SCH (07:55)
[2019-05-15] MEDS: Ferrous Sulfate TAB* 325 MG PO SCH (07:55)
[2019-05-15] MEDS: Aspirin EC TAB* 81 MG TAB.EC PO SCH (07:55)
[2019-05-15] MEDS: LORazepam TAB(*) 0.5 MG PO PRN ×2 (14:18→21:40)
[2019-05-15] MEDS: Enoxaparin(*) 40 MG/0.4 ML SYR SUBCUT SCH (14:18)
[2019-05-15] MEDS: cefTRIAXone(*) 2 GM in NS 0.9% 100 ML* 100 ML IVPB SCH (16:07)
[2019-05-15] MEDS: OLANzapine TAB* 10 MG PO SCH (21:41)
[2019-05-15] MEDS: Atorvastatin* 40 MG TAB PO SCH (21:41)
[2019-05-15] MEDS: Montelukast Sodium TAB* 10 MG PO SCH (21:42)
[2019-05-16] MEDS: traMADol TAB* 50 MG PO PRN ×3 (00:09→16:58)
[2019-05-16] MEDS: TIOTROPIUM 18 MCG INH SCH (06:59)
[2019-05-16] MEDS: Mometasone/Formoter 200/5 MDI INH SCH ×2 (06:59→19:13)
[2019-05-16] MEDS: Levothyroxine TAB* 75 MCG TAB PO SCH (07:28)
[2019-05-16] MEDS: Aspirin EC TAB* 81 MG TAB.EC PO SCH (08:35)
[2019-05-16] MEDS: Ferrous Sulfate TAB* 325 MG PO SCH (08:35)
[2019-05-16] MEDS: Diltiazem CD CAP* 240 MG PO SCH (08:35)
[2019-05-16] MEDS: Magnesium Oxide TAB* 400 MG PO SCH (08:35)
[2019-05-16] MEDS: Spironolactone TAB* 25 MG PO SCH (08:35)
[2019-05-16] MEDS: OLANzapine TAB* 5 MG PO SCH (08:35)
[2019-05-16] MEDS: DULoxetine DR CAP* 60 MG CAP.DR PO SCH ×2 (08:35→20:04)
[2019-05-16] MEDS: Cholecalciferol TAB* 1000 UNITS PO SCH (08:35)
[2019-05-16] MEDS: LORazepam TAB(*) 0.5 MG PO PRN ×2 (10:29→20:05)
[2019-05-16] MEDS: Docusate CAP* 100 MG PO PRN (10:29)
[2019-05-16] MEDS: cefTRIAXone(*) 2 GM in NS 0.9% 100 ML* 100 ML IVPB SCH (16:18)
[2019-05-16] MEDS: Enoxaparin(*) 40 MG/0.4 ML SYR SUBCUT SCH (16:54)
--- NOTE | 2019-05-16 17:50 | PN ---
Progress Note - Progress Note Date of Service: 05/16/19 Note: Time spent on discharge including exam of patient, discussion with patient, nurse, CM, review of EMR and preparation of discharge documents is 45 minutes.
[2019-05-16] MEDS: Montelukast Sodium TAB* 10 MG PO SCH (20:04)
[2019-05-16] MEDS: Atorvastatin* 40 MG TAB PO SCH (20:04)
[2019-05-16] MEDS: OLANzapine TAB* 10 MG PO SCH (20:04)
--- NOTE | 2019-05-16 20:23 | DS ---
CC: Dr. Bravo; Dr. Hang Adair* DISCHARGE SUMMARY: DATE OF ADMISSION: 04/12/19 DATE OF DISCHARGE: 05/17/19 HOSPITAL COURSE: This 58-year-old woman presented poorly responsive, covered in bruises. CT scan of the entire body showed pneumonia, obstipation. Lactate of 3.8 and bandemia. She was found to have E. coli bacteremia and osteodiskitis. She was treated mainly with ceftriaxone. Dr. Bravo consulted and followed her throughout her hospital stay. She recovered quite well. She is having some final lab work on 05/17/19 before discharge including a CRP, CBC, and CMP. She will have these weekly until her antibiotics are completed. She will return to [facility]. FINAL DIAGNOSES: 1. Osteodiskitis with E. coli bacteremia. 2. Schizoaffective disorder. 3. Hypothyroidism. 4. Hypertension. DISCHARGE MEDICATIONS: 1. Cephalexin 500 mg b.i.d. for 14 days. 2. Tiotropium capsule daily. 3. Albuterol inhaler 2 puffs every 4 hours p.r.n. 4. Aspirin 81 mg daily. 5. Atorvastatin 40 mg h.s. 6. Vitamin D 2000 units daily. 7. Diltiazem CD 240 mg daily. 8. Docusate 100 mg b.i.d. 9. Duloxetine 60 mg b.i.d. 10. Mometasone and formoterol 200/5 one puff b.i.d. 11. Montelukast 10 mg h.s. 12. Olanzapine 30 mg h.s. and 5 mg a.m. 13. Senna 2 tablets b.i.d. 14. Spironolactone 25 mg daily. 15. Tramadol 100 mg every 6 hours p.r.n. 16. Benztropine 1 mg daily p.r.n. 17. Levothyroxine 75 mcg daily. 18. Magnesium oxide 400 mg daily. 19. Magnesium hydroxide 30 mL every 6 hours p.r.n. 20. Ferrous sulfate 325 mg daily. 21. Bisacodyl 10 mg daily p.r.n. 22. Acetaminophen 650 mg orally every 4 hours p.r.n. DISCHARGE INSTRUCTION: The patient will have the CRP, CBC, and CMP on 05/24/19. DISPOSITION ON DISCHARGE: Discharged to [facility]. CONDITION ON DISCHARGE: Stable. [id number]/CPS #: [id number] MTDD
[2019-05-17 06:05] LABS: ABS Basophils 0.1 10^3/ul (0-0.2); ABS Eosinophils 0.3 10^3/ul (0-0.6); ABS Monocytes 1.1 10^3/ul (0-0.8); ABS Neutrophils 5.2 10^3/ul (1.5-7.7); Eosinophil % 2.6 %; Hematocrit 35 % (35-47); Hemoglobin 11.6 g/dL (12.0-16.0); Lymphocyte % 37.6 %; Mean Corpuscular HGB Conc 33 g/dL (31-36); Mean Corpuscular Hemoglobin 31 pg (27-31); Mean Corpuscular Volume 92 fL (80-97); Mean Platelet Volume 6.5 fL (7.4-10.4); Nucleated Red Blood Cells % 0.1; Platelet Count 625 10^3/uL (150-450); Red Blood Count 3.78 10^6 /uL (3.70-4.87); Red Cell Distribution Width 14 % (10-15); White Blood Count 10.7 10^3/uL (3.5-10.8)
[2019-05-17 06:15] LABS: Albumin 3.6 g/dL (3.2-5.2); Albumin/Globulin Ratio 1.1 (1-3); BUN/Creatinine Ratio 26.3 (8-20); C Reactive Protein 14.02 mg/L (<8.01); Calcium 10.2 mg/dL (8.6-10.3); EGFR African American 131.8 (>60); EGFR Non-African American 108.9 (>60); Globulin 3.2 g/dL (2-4); Potassium 4.3 mmol/L (3.5-5.0); Total Bilirubin 0.2 mg/dL (0.2-1.0); Total Protein 6.8 g/dL (6.4-8.9)
[2019-05-17] MEDS: Mometasone/Formoter 200/5 MDI INH SCH (07:03)
[2019-05-17] MEDS: TIOTROPIUM 18 MCG INH SCH (07:03)
[2019-05-17] MEDS: Levothyroxine TAB* 75 MCG TAB PO SCH (07:14)
[2019-05-17] MEDS: Aspirin EC TAB* 81 MG TAB.EC PO SCH (08:18)
[2019-05-17] MEDS: OLANzapine TAB* 5 MG PO SCH (08:18)
[2019-05-17] MEDS: Magnesium Oxide TAB* 400 MG PO SCH (08:18)
[2019-05-17] MEDS: Cholecalciferol TAB* 1000 UNITS PO SCH (08:18)
[2019-05-17] MEDS: Spironolactone TAB* 25 MG PO SCH (08:19)
[2019-05-17] MEDS: Diltiazem CD CAP* 240 MG PO SCH (08:19)
[2019-05-17] MEDS: traMADol TAB* 50 MG PO PRN (08:19)
[2019-05-17] MEDS: DULoxetine DR CAP* 60 MG CAP.DR PO SCH (08:19)
[2019-05-17] MEDS: Ferrous Sulfate TAB* 325 MG PO SCH (08:20)
[2019-05-17] MEDS ORDERED: Cephalexin CAP* 500 MG PO SCH (09:00)
[2019-05-17 09:01] VITALS: BP 93/61
[2019-05-17] MEDS: LORazepam TAB(*) 0.5 MG PO PRN (10:56)
== END 2019-05-17 10:55 | disposition home or self-care (01) | DRG 347 ==
LOC: MED 16:17
PROVIDERS: ADMIT Internal Medicine; ATTEND Internal Medicine
DX: M46.46 Discitis, unspecified, lumbar region (principal); R78.81 Bacteremia; G89.29 Other chronic pain; E03.9 Hypothyroidism, unspecified; F25.9 Schizoaffective disorder, unspecified; J44.9 Chronic obstructive pulmonary disease, unspecified; D47.3 Essential (hemorrhagic) thrombocythemia; F32.9 Major depressive disorder, single episode, unspecified; F41.9 Anxiety disorder, unspecified; E78.5 Hyperlipidemia, unspecified; E04.1 Nontoxic single thyroid nodule; Z79.82 Long term (current) use of aspirin
CPT/HCPCS: 36415; 80053; 81003; 81015; 85025; 86140; 86141; 87077; 87086; 87186; 94640; A9270-GY; J0696; J1644; J1650

== ENCOUNTER 2019-11-09 05:54 | Inpatient (IN) | payer BC ==
[2019-11-09] MEDS ORDERED: NS 0.9% 1000 ML** 1,000 ML IV ONE ×3 (06:00→10:28)
[2019-11-09] MEDS ORDERED: Piperacillin/Tazobac ADVAN(*) 3.375 GM in NS 0.9% 100 ML* 100 ML IVPB ONE (06:03)
[2019-11-09] MEDS ORDERED: Albuterol/Ipratropium NEB.SOL* Albuterol 2.5 MG/Ipratropium 0.5 MG 3 ML INH ONE (06:08)
[2019-11-09 06:32] LABS: ABS Basophils 0.1 10^3/ul (0-0.2); ABS Lymphocytes 2.1 10^3/ul (1.0-4.8); ABS Monocytes 0.9 10^3/ul (0-0.8); ABS Neutrophils 8.6 10^3/ul (1.5-7.7); Eosinophil % 0.1 %; Hematocrit 33 % (35-47); Hemoglobin 11.4 g/dL (12.0-16.0); Mean Corpuscular HGB Conc 35 g/dL (31-36); Mean Corpuscular Hemoglobin 33 pg (27-31); Mean Corpuscular Volume 93 fL (80-97); Platelet Count 276 10^3/uL (150-450); Red Blood Count 3.52 10^6 /uL (3.70-4.87); Red Cell Distribution Width 13 % (10-15); White Blood Count 11.6 10^3/uL (3.5-10.8)
[2019-11-09 06:37] LABS: INR 1.03 (0.82-1.09)
[2019-11-09 06:52] LABS: ALT 38 U/L (7-52); Albumin 4.4 g/dL (3.2-5.2); Albumin/Globulin Ratio 1.5 (1-3); Alkaline Phosphatase 85 U/L (34-104); BUN/Creatinine Ratio 19.8 (8-20); Blood Urea Nitrogen 16 mg/dL (6-24); CO2 Carbon Dioxide 28 mmol/L (22-32); Calcium 9.6 mg/dL (8.6-10.3); Chloride 97 mmol/L (101-111); Creatine Kinase 664 U/L (10-223); EGFR African American 87.6 (>60); EGFR Non-African American 72.4 (>60); Glucose 142 mg/dL (70-100); Sodium 133 mmol/L (135-145); Total Protein 7.4 g/dL (6.4-8.9)
[2019-11-09 06:55] LABS: Troponin I 0.01 ng/mL (<0.03)
[2019-11-09 07:05] LABS: Anion Gap 8 mmol/L (2-11)
[2019-11-09 07:20] LABS: Influenza A Molecular POSITIVE (Negative)
[2019-11-09 07:29] LABS: Magnesium 1.9 mg/dL (1.9-2.7)
[2019-11-09] MEDS ORDERED: Acetaminophen TAB* 325 MG PO ONE (07:45)
[2019-11-09] MEDS ORDERED: Ondansetron INJ* 2 MG/ML VIAL IV ONE (08:16)
[2019-11-09 08:22] LABS: Urine Appearance Clear; Urine Bilirubin Negative (Negative); Urine Blood 1+ (Negative); Urine Color Yellow; Urine Glucose Negative (Negative); Urine Ketones Negative (Negative); Urine Nitrite Negative (Negative); Urine Protein Negative (Negative); Urine Urobilinogen Negative (Negative)
[2019-11-09 08:23] LABS: Urine Bacteria Absent (Absent); Urine Red Blood Cell 1+(3-5/hpf) (Absent); Urine White Blood Cell Trace(0-5/hpf) (Absent)
[2019-11-09 08:57] LABS: Potassium Redraw 3.6 mmol/L (3.5-5.0)
[2019-11-09 09:09] LABS: Urine Benzodiazepine Screen None Detected (None Detect); Urine Opiates Screen None Detected (None Detect)
[2019-11-09 09:37] LABS: Acetaminophen < 15 mcg/mL; Alcohol 12 mg/dL (<10); Salicylate < 2.50 mg/dL (<30)
[2019-11-09] MEDS ORDERED: Vancomycin 1500 MG IV - x ONCE IVPB ONE ×2 (11:00)
[2019-11-09] MEDS ORDERED: Vancomycin(*) 1,000 MG VIAL IVPB SCH (11:00)
[2019-11-09] MEDS ORDERED: NS 0.9% 250 ML* 250 ML ONE (11:02)
--- NOTE | 2019-11-09 11:25 | ED ---
Altered Mental Status - HPI Summary HPI Summary: Patient is a 59yo patient presenting to the ED by EMS from [facility] with unresponsiveness and respiratory distress. Patient was found lying in vomit face down in her bed at 5am. Last known well at 3:30pm when patient was presumably going downstairs to get something to eat. Hx of sepsis secondary to PNA in March 2019. Patient ambulates independently and per EMS, has not had any recent illness. Unknown sick contacts. Psych history noted. Patient arrives to the ED and responding only to painful stimuli. - History Of Current Complaint Chief Complaint: EDShortnessOfBreath Stated Complaint: SOB PER EMS Time Seen by Provider: 11/09/19 05:57 Hx Obtained From: Patient Onset/Duration: Unknown, Still Present Timing: Constant Severity Initially: Severe Severity Currently: Severe Character: Responsiveness, Lethargy Aggravating Factor(s): Unknown Alleviating Factor(s): Nothing Associated Signs And Symptoms: Positive: Vomiting, Fever, Weakness - Allergies/Home Medications Allergies/Adverse Reactions: Allergies Allergy/AdvReac Type Severity Reaction Status Date / Time black pepper Allergy Eyes Verified 11/09/19 06:45 Itchy/Swollen/Red/Watery fluphenazine [From Prolixin] Allergy Unknown Verified 11/09/19 06:45 Reaction Details haloperidol [From Haldol] Allergy See Comment Verified 11/09/19 06:45 latex Allergy Rash Verified 11/09/19 06:45 risperidone [From Risperdal] Allergy See Comment Verified 11/09/19 06:45 Home Medications: Home Medications Tiotropium CAPSULE (NF) [Spiriva CAPSULE (NF)] 1 inh INH DAILY 01/13/19 [ History Confirmed 11/09/19] Aspirin EC TAB* [Ecotrin EC Low Dose 81 MG*] 81 mg PO DAILY tab.ec 03/15/19 [ Rx Confirmed 11/09/19] Atorvastatin* [Lipitor 40 MG*] 40 mg PO BEDTIME tab 03/15/19 [Rx Confirmed ] Cholecalciferol TAB* [Vitamin D TAB*] 2,000 units PO DAILY tab 03/15/19 [Rx Confirmed 11/09/19] DULoxetine CAP* [Cymbalta CAP*] 60 mg PO BID cap. 03/15/19 [Rx Confirmed 11/09/19] Diltiazem CD CAP* [Cardizem CD CAP*] 240 mg PO DAILY cap.cd 03/15/19 [Rx Confirmed 11/09/19] Docusate CAP* [Colace Cap*] 100 mg PO BID cap 03/15/19 [Rx Confirmed 11/09/19] Montelukast Sodium TAB* [Singulair 10 MG TAB*] 10 mg PO BEDTIME tab 03/15/19 [ Rx Confirmed 11/09/19] OLANzapine TAB* [Zyprexa 10 MG TAB*] 30 mg PO BEDTIME 30 Days #30 tab 03/15/19 [ Rx Confirmed 11/09/19] Senna TAB 8.6 mg* [Senokot 8.6 mg TAB*] 2 tab PO BID tab 03/15/19 [Rx Confirmed 11/09/19] Spironolactone TAB* [Aldactone TAB 25 MG*] 25 mg PO DAILY tab 03/15/19 [Rx Confirmed 11/09/19] traMADol TAB* [Ultram*] 100 mg PO Q6H PRN tab 03/15/19 [Rx Confirmed 11/09/19] Benztropine TAB* [Cogentin TAB*] 1 mg PO DAILY 03/26/19 [History Confirmed ] Levothyroxine TAB* [Synthroid 75 MCG TAB*] 75 mcg PO DAILY 03/26/19 [History Confirmed 11/09/19] Ferrous Sulfate TAB* 325 mg PO DAILY 04/23/19 [History Confirmed 11/09/19] Magnesium Oxide TAB* [MagOx 400 TAB*] 400 mg PO DAILY 04/23/19 [History Confirmed 11/09/19] Albuterol inh POWDER (NF) [Proair Respiclick] 2 puff INH Q4HR PRN 10/17/19 [ History Confirmed 11/09/19] Baclofen TAB* [Lioresal TAB*] 20 mg PO TID 10/17/19 [History Confirmed 11/09/19 ] Fluticasone NASAL SPRAY 50MCG* [Flonase NASAL SPRAY 50MCG*] 2 spray BOTH NARES DAILY 10/17/19 [History Confirmed 11/09/19] Fluticasone/Vilanterol MDI(NF) [Breo Ellipta MDI 200/25(NF)] 1 puff INH DAILY [History Confirmed 11/09/19] Gabapentin CAP(*) [Neurontin 300 CAP(*)] 300 mg PO TID 10/17/19 [History Confirmed 11/09/19] Ibuprofen TAB* [Motrin TAB* 800 MG] 800 mg PO TID WITH MEALS 10/17/19 [History Confirmed 11/09/19] LORazepam TAB(*) [Ativan 0.5 MG TAB (*)] 0.5 mg PO TID 10/17/19 [History Confirmed 11/09/19] OLANzapine TAB* [Zyprexa 5 MG TAB*] 5 mg PO QAM 10/17/19 [History Confirmed ] PMH/Surg Hx/FS Hx/Imm Hx Previously Healthy: No Endocrine/Hematology History: Denies: Hx Diabetes Cardiovascular History: Reports: Hx Cardiomegaly, Hx Hypertension, Other Cardiovascular Problems/Disorders - Valve prolapse Denies: Hx Hypotension, Hx Pacemaker/ICD Respiratory History: Reports: Hx Chronic Obstructive Pulmonary Disease (COPD) Denies: Hx Asthma GI History: Reports: Hx Gastroesophageal Reflux Disease History: Denies: Hx Renal Disease Musculoskeletal History: Reports: Hx Back Problems Sensory History: Denies: Hx Contacts or Glasses, Hx Hearing Aid Opthamlomology History: Denies: Hx Contacts or Glasses Neurological History: Reports: Other Neuro Impairments/Disorders - Patient reports multiple concussions, myelopathy Psychiatric History: Reports: Hx Anxiety, Hx Attention Deficit Hyperactivity Disorder, Hx Depression, Hx Inpatient Treatment - "Many times", Hx Community Mental Health Tx - [facility], Hx Schizophrenia, Hx Bipolar Disorder, Hx Suicide Attempt - OD on pills "In the 80's", Hx of Violent Episodes Against Others, Other Psychiatric Issues/Disorders - schizoaffective disorde Denies: Hx Eating Disorder, Hx Panic Disorder, Hx Post Traumatic Stress Disorder, Hx Substance Abuse - Cancer History Hx Chemotherapy: No Hx Radiation Therapy: No - Surgical History Surgery Procedure, Year, and Place: [facility] SURGERY - Immunization History Date of Tetanus Vaccine: unk Date of Influenza Vaccine: unk Hx Pertussis Vaccination: No - unknown Immunizations Up to Date: Yes Infectious Disease History: Reports: Hx Hepatitis - Hep C "in remission" Denies: Traveled Outside the [place] in Last 30 Days - Family History Known Family History: Negative: Hypertension - Social History Occupation: Disabled Lives: [employer] Alcohol Use: None Hx Substance Use: No Substance Use Type: Reports: None Substance Use Comment - Amount & Last Used: hx of drug abuse Hx Tobacco Use: Yes Smoking Status (MU): Former Smoker Type: Cigarettes Review of Systems - ROS Summary Review of Systems Summary: Level V caveat d/t responsiveness - AMS Positive: Fever, Chills, Skin Diaphoresis. Negative: Fatigue Positive: Vomiting, Nausea Positive: Weakness All Other Systems Reviewed And Are Negative: Yes Physical Exam Triage Information Reviewed: Yes Vital Signs On Initial Exam: Initial Vitals Temp Pulse Resp 98.9 F 123 22 11/09/19 05:59 11/09/19 05:59 11/09/19 05:59 Vital Signs Reviewed: Yes Completion Of Physical Exam Limited Due To: Altered Mental Status Appearance: Positive: Ill-Appearing, Thin Skin: Positive: Warm, Skin Color Reflects Adequate Perfusion, Cold - upper extremities, no evidence of hypoperfusion, Other - area to coccyx bruising and breakdown. Negative: Diaphoretic, Jaundiced Eyes: Positive: EOMI, Conjunctiva Clear Respiratory/Lung Sounds: Positive: Rhonchi. Negative: Tracheal Deviation, Wheezes Cardiovascular: Positive: Tachycardia. Negative: Leg Edema Left, Leg Edema Right Abdomen Description: Positive: Nontender Musculoskeletal: Positive: Other - unable to assess Neurological: Positive: Unable to Assess Gait, Other. Negative: Alert, Oriented to Person Place, Time, CN Intact II-III Psychiatric: Positive: Patient Uncooperative for Exam AVPU Assessment: Pain (Reponds To) - Ronnie Coma Scale Best Eye Response: 2 - To Pain Best Motor Response: 4 - Withdraws Best Verbal Response: 3 - Inappropriate Words Coma Scale Total: 9 Procedures - Sedation Patient Received Moderate/Deep Sedation with Procedure: No Diagnostics - Vital Signs Vital Signs Temp Pulse Resp BP Pulse Ox 11/09/19 10:30 100.6 F 11/09/19 09:42 123 20 131/68 95 11/09/19 09:27 125 19 134/73 94 11/09/19 09:19 126 17 145/78 95 11/09/19 09:00 19 11/09/19 08:44 101.4 F 11/09/19 08:41 127 18 152/78 97 11/09/19 08:36 24 11/09/19 08:32 134 18 123/84 97 11/09/19 08:06 130 23 132/97 100 11/09/19 08:00 130 24 97 11/09/19 07:44 102.4 F 11/09/19 07:31 123 18 112/85 98 11/09/19 07:01 110 21 160/114 96 11/09/19 07:00 110 19 97 11/09/19 06:31 104 16 128/79 93 11/09/19 06:23 103 18 100 11/09/19 06:02 113 21 141/79 100 11/09/19 06:00 17 11/09/19 05:59 98.9 F 123 22 - Laboratory Lab Results: Lab Results 11/09/19 11/09/19 11/09/19 Range/Units 06:18 06:18 06:18 WBC 11.6 H (3.5-10.8) 10^3/uL RBC 3.52 L (3.70-4.87) 10^6 /uL Hgb 11.4 L (12.0-16.0) g/dL Hct 33 L (35-47) % MCV 93 (80-97) fL MCH 33 H (27-31) pg MCHC 35 (31-36) g/dL RDW 13 (10-15) % Plt Count 276 (150-450) 10^3/uL MPV 8.0 (7.4-10.4) fL Neut % (Auto) 73.8 % Lymph % (Auto) 18.0 % [place] % (Auto) 7.4 % Eos % (Auto) 0.1 % Baso % (Auto) 0.7 % Absolute Neuts (auto) 8.6 H (1.5-7.7) 10^3/ul Absolute Lymphs (auto) 2.1 (1.0-4.8) 10^3/ul Absolute Monos (auto) 0.9 H (0-0.8) 10^3/ul Absolute Eos (auto) 0.0 (0-0.6) 10^3/ul Absolute Basos (auto) 0.1 (0-0.2) 10^3/ul Absolute Nucleated RBC 0.0 10^3/ul Nucleated RBC % 0.0 INR (Anticoag Therapy) (0.82-1.09) Patient Temperature ABG pH (7.35-7.45) ABG pH (Temp Correct) ABG pCO2 (35-45) mmHg ABG pCO2 (Temp Corrct ABG pO2 (80-100) mmHg ABG pO2 (Temp Correct ABG HCO3 (19-31) mmol/L ABG O2 Saturation (94.0-98.0) % ABG Base Excess (-2.0-2.0) mmol/L Respiration Rate Ventilator Type Vent Mode FiO2 Inspiratory Time PEEP Pressure Support Pressure Control EPAP IPAP BiPAP Sodium 133 L (135-145) mmol/L Potassium TNP Chloride 97 L (101-111) mmol/L Carbon Dioxide 28 (22-32) mmol/L Anion Gap 8 (2-11) mmol/L BUN 16 (6-24) mg/dL Creatinine 0.81 (0.51-0.95) mg/dL Est GFR ( Amer) 87.6 (>60) Est GFR (Non-Af Amer) 72.4 (>60) BUN/Creatinine Ratio 19.8 (8-20) Glucose 142 H (70-100) mg/dL Lactic Acid 1.0 (0.5-2.0) mmol/L Calcium 9.6 (8.6-10.3) mg/dL Magnesium 1.9 (1.9-2.7) mg/dL Total Bilirubin 0.40 (0.2-1.0) mg/dL AST TNP ALT 38 (7-52) U/L Alkaline Phosphatase 85 (34-104) U/L Ammonia (16-53) mcmol/L Total Creatine Kinase 664 H (10-223) U/L Troponin I 0.01 (<0.03) ng/mL B-Natriuretic Peptide (<=100) pg/mL Total Protein 7.4 (6.4-8.9) g/dL Albumin 4.4 (3.2-5.2) g/dL Globulin 3.0 (2-4) g/dL Albumin/Globulin Ratio 1.5 (1-3) Urine Color Urine Appearance Urine pH (5-9) Ur Specific [place] (1.010-1.030) Urine Protein (Negative) Urine Ketones (Negative) Urine Blood (Negative) Urine Nitrate (Negative) Urine Bilirubin (Negative) Urine Urobilinogen (Negative) Ur Leukocyte Esterase (Negative) Urine WBC (Auto) (Absent) Urine RBC (Auto) (Absent) Urine Bacteria (Absent) Urine Glucose (Negative) Salicylates < 2.50 (<30) mg/dL Urine Opiates Screen (None Detect) Acetaminophen < 15 mcg/mL Ur Barbiturates Screen (None Detect) Ur Phencyclidine Scrn (None Detect) Ur Amphetamines Screen (None Detect) U Benzodiazepines Scrn (None Detect) Urine Cocaine Screen (None Detect) U Cannabinoids Screen (None Detect) Serum Alcohol 12 H (<10) mg/dL Influenza A (Rapid) (Negative) Influenza B (Rapid) 11/09/19 11/09/19 11/09/19 Range/Units 06:18 06:18 06:18 WBC (3.5-10.8) 10^3/uL RBC (3.70-4.87) 10^6 /uL Hgb (12.0-16.0) g/dL Hct (35-47) % MCV (80-97) fL MCH (27-31) pg MCHC (31-36) g/dL RDW (10-15) % Plt Count (150-450) 10^3/uL MPV (7.4-10.4) fL Neut % (Auto) % Lymph % (Auto) % [place] % (Auto) % Eos % (Auto) % Baso % (Auto) % Absolute Neuts (auto) (1.5-7.7) 10^3/ul Absolute Lymphs (auto) (1.0-4.8) 10^3/ul Absolute Monos (auto) (0-0.8) 10^3/ul Absolute Eos (auto) (0-0.6) 10^3/ul Absolute Basos (auto) (0-0.2) 10^3/ul Absolute Nucleated RBC 10^3/ul Nucleated RBC % INR (Anticoag Therapy) 1.03 (0.82-1.09) Patient Temperature ABG pH (7.35-7.45) ABG pH (Temp Correct) ABG pCO2 (35-45) mmHg ABG pCO2 (Temp Corrct ABG pO2 (80-100) mmHg ABG pO2 (Temp Correct ABG HCO3 (19-31) mmol/L ABG O2 Saturation (94.0-98.0) % ABG Base Excess (-2.0-2.0) mmol/L Respiration Rate Ventilator Type Vent Mode FiO2 Inspiratory Time PEEP Pressure Support Pressure Control EPAP IPAP BiPAP Sodium (135-145) mmol/L Potassium Chloride (101-111) mmol/L Carbon Dioxide (22-32) mmol/L Anion Gap (2-11) mmol/L BUN (6-24) mg/dL Creatinine (0.51-0.95) mg/dL Est GFR ( Amer) (>60) Est GFR (Non-Af Amer) (>60) BUN/Creatinine Ratio (8-20) Glucose (70-100) mg/dL Lactic Acid (0.5-2.0) mmol/L Calcium (8.6-10.3) mg/dL Magnesium (1.9-2.7) mg/dL Total Bilirubin (0.2-1.0) mg/dL AST ALT (7-52) U/L Alkaline Phosphatase (34-104) U/L Ammonia 41 (16-53) mcmol/L Total Creatine Kinase (10-223) U/L Troponin I (<0.03) ng/mL B-Natriuretic Peptide 21 (<=100) pg/mL Total Protein (6.4-8.9) g/dL Albumin (3.2-5.2) g/dL Globulin (2-4) g/dL Albumin/Globulin Ratio (1-3) Urine Color Urine Appearance Urine pH (5-9) Ur Specific [place] (1.010-1.030) Urine Protein (Negative) Urine Ketones (Negative) Urine Blood (Negative) Urine Nitrate (Negative) Urine Bilirubin (Negative) Urine Urobilinogen (Negative) Ur Leukocyte Esterase (Negative) Urine WBC (Auto) (Absent) Urine RBC (Auto) (Absent) Urine Bacteria (Absent) Urine Glucose (Negative) Salicylates (<30) mg/dL Urine Opiates Screen (None Detect) Acetaminophen mcg/mL Ur Barbiturates Screen (None Detect) Ur Phencyclidine Scrn (None Detect) Ur Amphetamines Screen (None Detect) U Benzodiazepines Scrn (None Detect) Urine Cocaine Screen (None Detect) U Cannabinoids Screen (None Detect) Serum Alcohol (<10) mg/dL Influenza A (Rapid) (Negative) Influenza B (Rapid) 11/09/19 11/09/19 11/09/19 Range/Units 06:45 07:42 08:07 WBC (3.5-10.8) 10^3/uL RBC (3.70-4.87) 10^6 /uL Hgb (12.0-16.0) g/dL Hct (35-47) % MCV (80-97) fL MCH (27-31) pg MCHC (31-36) g/dL RDW (10-15) % Plt Count (150-450) 10^3/uL MPV (7.4-10.4) fL Neut % (Auto) % Lymph % (Auto) % [place] % (Auto) % Eos % (Auto) % Baso % (Auto) % Absolute Neuts (auto) (1.5-7.7) 10^3/ul Absolute Lymphs (auto) (1.0-4.8) 10^3/ul Absolute Monos (auto) (0-0.8) 10^3/ul Absolute Eos (auto) (0-0.6) 10^3/ul Absolute Basos (auto) (0-0.2) 10^3/ul Absolute Nucleated RBC 10^3/ul Nucleated RBC % INR (Anticoag Therapy) (0.82-1.09) Patient Temperature ABG pH (7.35-7.45) ABG pH (Temp Correct) ABG pCO2 (35-45) mmHg ABG pCO2 (Temp Corrct ABG pO2 (80-100) mmHg ABG pO2 (Temp Correct ABG HCO3 (19-31) mmol/L ABG O2 Saturation (94.0-98.0) % ABG Base Excess (-2.0-2.0) mmol/L Respiration Rate Ventilator Type Vent Mode FiO2 Inspiratory Time PEEP Pressure Support Pressure Control EPAP IPAP BiPAP Sodium (135-145) mmol/L Potassium 3.6 Chloride (101-111) mmol/L Carbon Dioxide (22-32) mmol/L Anion Gap (2-11) mmol/L BUN (6-24) mg/dL Creatinine (0.51-0.95) mg/dL Est GFR ( Amer) (>60) Est GFR (Non-Af Amer) (>60) BUN/Creatinine Ratio (8-20) Glucose (70-100) mg/dL Lactic Acid (0.5-2.0) mmol/L Calcium (8.6-10.3) mg/dL Magnesium (1.9-2.7) mg/dL Total Bilirubin (0.2-1.0) mg/dL AST 40 H ALT (7-52) U/L Alkaline Phosphatase (34-104) U/L Ammonia (16-53) mcmol/L Total Creatine Kinase (10-223) U/L Troponin I (<0.03) ng/mL B-Natriuretic Peptide (<=100) pg/mL Total Protein (6.4-8.9) g/dL Albumin (3.2-5.2) g/dL Globulin (2-4) g/dL Albumin/Globulin Ratio (1-3) Urine Color Yellow Urine Appearance Clear Urine pH 5.0 (5-9) Ur Specific [place] 1.010 (1.010-1.030) Urine Protein Negative (Negative) Urine Ketones Negative (Negative) Urine Blood 1+ A (Negative) Urine Nitrate Negative (Negative) Urine Bilirubin Negative (Negative) Urine Urobilinogen Negative (Negative) Ur Leukocyte Esterase Negative (Negative) Urine WBC (Auto) Trace(0-5/hpf) (Absent) Urine RBC (Auto) 1+(3-5/hpf) A (Absent) Urine Bacteria Absent (Absent) Urine Glucose Negative (Negative) Salicylates (<30) mg/dL Urine Opiates Screen (None Detect) Acetaminophen mcg/mL Ur Barbiturates Screen (None Detect) Ur Phencyclidine Scrn (None Detect) Ur Amphetamines Screen (None Detect) U Benzodiazepines Scrn (None Detect) Urine Cocaine Screen (None Detect) U Cannabinoids Screen (None Detect) Serum Alcohol (<10) mg/dL Influenza A (Rapid) Positive H (Negative) Influenza B (Rapid) Not Reportable 11/09/19 11/09/19 Range/Units 08:07 10:46 WBC (3.5-10.8) 10^3/uL RBC (3.70-4.87) 10^6 /uL Hgb (12.0-16.0) g/dL Hct (35-47) % MCV (80-97) fL MCH (27-31) pg MCHC (31-36) g/dL RDW (10-15) % Plt Count (150-450) 10^3/uL MPV (7.4-10.4) fL Neut % (Auto) % Lymph % (Auto) % [place] % (Auto) % Eos % (Auto) % Baso % (Auto) % Absolute Neuts (auto) (1.5-7.7) 10^3/ul Absolute Lymphs (auto) (1.0-4.8) 10^3/ul Absolute Monos (auto) (0-0.8) 10^3/ul Absolute Eos (auto) (0-0.6) 10^3/ul Absolute Basos (auto) (0-0.2) 10^3/ul Absolute Nucleated RBC 10^3/ul Nucleated RBC % INR (Anticoag Therapy) (0.82-1.09) Patient Temperature Not Reportable ABG pH 7.41 (7.35-7.45) ABG pH (Temp Correct) Not Reportable ABG pCO2 40 (35-45) mmHg ABG pCO2 (Temp Corrct Not Reportable ABG pO2 70 L (80-100) mmHg ABG pO2 (Temp Correct Not Reportable ABG HCO3 25.4 (19-31) mmol/L ABG O2 Saturation 96.9 (94.0-98.0) % ABG Base Excess 0.7 (-2.0-2.0) mmol/L Respiration Rate Not Reportable Ventilator Type Not Reportable Vent Mode Not Reportable FiO2 3 Inspiratory Time Not Reportable PEEP Not Reportable Pressure Support Not Reportable Pressure Control Not Reportable EPAP Not Reportable IPAP Not Reportable BiPAP Not Reportable Sodium (135-145) mmol/L Potassium Chloride (101-111) mmol/L Carbon Dioxide (22-32) mmol/L Anion Gap (2-11) mmol/L BUN (6-24) mg/dL Creatinine (0.51-0.95) mg/dL Est GFR ( Amer) (>60) Est GFR (Non-Af Amer) (>60) BUN/Creatinine Ratio (8-20) Glucose (70-100) mg/dL Lactic Acid (0.5-2.0) mmol/L Calcium (8.6-10.3) mg/dL Magnesium (1.9-2.7) mg/dL Total Bilirubin (0.2-1.0) mg/dL AST ALT (7-52) U/L Alkaline Phosphatase (34-104) U/L Ammonia (16-53) mcmol/L Total Creatine Kinase (10-223) U/L Troponin I (<0.03) ng/mL B-Natriuretic Peptide (<=100) pg/mL Total Protein (6.4-8.9) g/dL Albumin (3.2-5.2) g/dL Globulin (2-4) g/dL Albumin/Globulin Ratio (1-3) Urine Color Urine Appearance Urine pH (5-9) Ur Specific [place] (1.010-1.030) Urine Protein (Negative) Urine Ketones (Negative) Urine Blood (Negative) Urine Nitrate (Negative) Urine Bilirubin (Negative) Urine Urobilinogen (Negative) Ur Leukocyte Esterase (Negative) Urine WBC (Auto) (Absent) Urine RBC (Auto) (Absent) Urine Bacteria (Absent) Urine Glucose (Negative) Salicylates (<30) mg/dL Urine Opiates Screen None detected (None Detect) Acetaminophen mcg/mL Ur Barbiturates Screen None detected (None Detect) Ur Phencyclidine Scrn None detected (None Detect) Ur Amphetamines Screen None detected (None Detect) U Benzodiazepines Scrn None detected (None Detect) Urine Cocaine Screen None detected (None Detect) U Cannabinoids Screen None detected (None Detect) Serum Alcohol (<10) mg/dL Influenza A (Rapid) (Negative) Influenza B (Rapid) Result Diagrams: 11/09/19 06:18 11/09/19 07:42 Lab Statement: Any lab studies that have been ordered have been reviewed, and results considered in the medical decision making process. - Radiology Chest Radiology Interpretation Completed By: Radiologist Summary of Radiographic Findings: No evidence of cardiopulmonary disease - EKG EKG Cardiac Rate: Tachycardia EKG Rhythm: Sinus Rhythm ST Segment: Normal Ectopy: None Altered Mental Statu Course/Dx - Course Course Of Treatment: Patient is a 59yo patient presenting to the ED by EMS from [facility] with unresponsiveness and respiratory distress. Patient was found lying in vomit face down in her bed at 5am. Last known well at 3:30pm when patient was presumably going downstairs to get something to eat. Hx of sepsis secondary to PNA in March 2019. Patient ambulates independently and per EMS, has not had any recent illness. Unknown sick contacts. Psych history noted. Patient arrives to the ED and responding only to painful stimuli. Tachycardic at 110-120s, on simple face mask at 5L with humidification. O2 95%. Patient is rhonchorous throughout. Suctioned with thick brown sputum. Patient more arousable and moaning. BP stable. Good cap refill and patient does appear to be perfusing well. No cough. Patient was given duo-neb, 5L NC O2, 3L NS and zosyn. Blood cultures pending. Influenza negative. CK elevated at 664. Drug screen negative. Alcohol 12. Patient does not have a known alcohol abuse problem. Unsure if seizure vs fall vs aspiration secondary to vomiting from influenza. Patient now noted to be febrile and was given 975mg Tylenol. Discussed with Dr. Nicole, hospitalist who will see patient. D/t unknown seizure activity or fall, recommended CT brain, cervical spine and chest CT. Suctioned patient. Continues to be arousable only with painful stimuli. Will admit to ICU. EKG shows sinus tachycardia with a rate of 114. Patient has notable bruises, likely self-inflicted as patient has a hx of hitting herself. Patient does not moan in pain when palpating over upper and lower extremities as well as chest and abdomen. Good BS throughout. Hx of obstipation. Patient unable to give hx of last BM. D/t this, abdominal xray obtained. Large area of bruising with wound on coccyx. Per EMS, patient self inflicts many wounds as she has behaviors of self-harm. ABG pending. - Diagnoses Differential Diagnosis/HQI/PQRI: Hypothermia, Hypoxia, Medication Reaction, Metabolic Disorder, Overdose, Postictal State, Sepsis, Seizure Provider Diagnoses: Respiratory distress, Influenza, Alcohol use, Aspiration into airway - Provider Notifications Discussed Care Of Patient With: Preston Smith - Pt will be admitted to ICU Instructed by Provider To: Admit As Inpatient - Critical Care Time Critical Care Time: 30-74 min Discharge ED - Sign-Out/Discharge Documenting (check all that apply): Patient Departure - Discharge Plan Condition: Fair Disposition: ADMITTED TO [facility] Referrals: Henry PEDRAZA,Jack Darden [Primary Care Provider] - - Billing Disposition and Condition Condition: FAIR Disposition: Admitted to [facility] - Attestation Statements Provider Attestation: I was available for consult. This patient was seen by the HUY. The patient was not presented to, seen by, or examined by me. Shaq Bartlett MD Addendum entered and electronically signed by Rea Mackenzie PA 11/09/19 12:08 : ED Addendum Addendum: Per ICU, Dr Hdz, patient is stable to go to floor on hospitalist service at this time pending any changes with condition
[2019-11-09] MEDS: Oseltamivir SUSP* ORALSYR 6 MG/ML PO SCH ×2 (11:44→21:23)
[2019-11-09] MEDS ORDERED: Ibuprofen ADULT LIQ* 600 MG/30 ML UDC PO ONE (11:50)
--- NOTE | 2019-11-09 12:26 | CONSULT ---
Consult Consult: ICU evaluation: As to see Lanisylwia Lui for acute metabolic encephalopathy 1 Encephalopathy 2. COPD? 3. htn 4. Alcohol use Level 12 on admission 5. Mild Rhabdomyalysis 6. Flu 7. Aspiration pna Patient is following commands squeezing with both hand on command and she took her Tamiflu orally without difficult Reported to me. "I am sleepy because I have not slept." plan Floor admission -Aspiriation and seizure precautions -Tamiflu and Zosyn -Blood cultures -nebulizers to continue -IV fluids -MVI, Thiamine and folic acid -Neurology to evaluate for possible seizure -If condition changes please re-consult ICU for evaluation
[2019-11-09] MEDS ORDERED: NS 0.9% 250 ML* 250 ML IV SCH (14:00)
[2019-11-09] MEDS ORDERED: Acyclovir IV(*) 600 MG in NS 0.9% 100 ML* 100 ML IVPB ONE (14:00)
[2019-11-09 14:27] LABS: C Reactive Protein 19.93 mg/L (<8.01)
[2019-11-09 14:49] LABS: TSH (Thyroid Stimulating Horm) 0.25 mcIU/mL (0.34-5.60)
[2019-11-09] MEDS ORDERED: Vancomycin per Pharmacy* NOTE FOLLOW UP SCH (15:00)
[2019-11-09] MEDS ORDERED: Acyclovir IV(*) 500 MG/10 ML 100 ML VIAL (500 MG) IVPB SCH (15:00)
[2019-11-09] MEDS: NS 0.9% 1000 ML** 1,000 ML IV SCH ×3 (16:01→23:35)
--- NOTE | 2019-11-09 16:23 | CONS ---
NEUROLOGY CONSULTATION: DATE OF CONSULT: 11/09/19 LOCATION: She is in the emergency room, to be admitted. REFERRING PHYSICIAN: Dr. Smith. CHIEF COMPLAINT: Diminished responsiveness. HISTORY OF PRESENT ILLNESS: Lani Lui is a 59-year-old woman who presented to the emergency room earlier today with a fever and diminished responsiveness. She was found to be positive for influenza A. She has had fevers up to 103. During her evaluation, she was noted to be intermittently unresponsive. At some time, she will answer questions and ask questions and at other times she is very hard to arouse. I was asked to evaluate her. PAST MEDICAL HISTORY: Notable for admissions for multiple infections where she would have diminished responsiveness in the setting of infections. She had extensive courses of antibiotics last year for vertebral diskitis. She has been hospitalized with pneumonia for several different times. She has a history of schizoaffective disorder with self- injurious behaviors and has had several psychiatric hospitalizations. MEDICATIONS: At home which is the [facility] where she lives, include: 1. Tramadol 100 mg q.6 hours as needed. 2. Spiriva 1 inhalation daily. 3. Aldactone 25 mg p.o. daily. 4. Zyprexa 5 mg p.o. q.a.m. and 30 mg q.h.s. 5. Singulair 10 mg p.o. daily. 6. Levothyroxine 75 mcg p.o. daily. 7. Lorazepam 0.5 mg p.o. 3 times per day. 8. Gabapentin 300 mg p.o. t.i.d. 9. Diltiazem extended release 240 mg p.o. daily. 10. Cymbalta 60 mg p.o. b.i.d. 11. Benztropine 1 mg p.o. daily. 12. Baclofen 20 mg p.o. t.i.d. 13. Atorvastatin 40 mg p.o. daily. ALLERGIES: She is said to have allergies to BLACK PEPPER, PROLIXIN, HALDOL, and RISPERDAL. Also LATEX allergy with rash. REVIEW OF SYSTEMS: From the patient is pretty unproductive. We can get her to awake and answer a few questions, but when I was examining her she was hypotensive with blood pressure of 77/40 and required some fluids and to lay her head flat before we could get her to respond. She asked to have the television turned on and wanted some coffee. PHYSICAL EXAM: Temperature most recently is 102.4, but has been up to 103.6. Again, blood pressure was pretty low when I first evaluated her at 77/46, but came up to 101/54 while getting fluids and putting her head down. Neck is supple and there is no Kernig or Brudzinski sign. Funduscopic exam reveals sharp discs bilaterally. Facial musculature was symmetric. DIAGNOSTIC STUDIES/LAB DATA: Notable for a CBC with a white blood cell count of 11.6, hemoglobin 11.4, and platelet count is normal. INR is normal at 1.03. Blood gas today notable for pH 7.41, pO2 70, pCO2 40. I believe that was on FiO2 of 3 L per minute. Chemistries notable for a sodium of 133, glucose 142, otherwise unremarkable chemistry profile. Liver enzymes are normal other than borderline AST at 40. Creatine kinase is elevated at 664. Urinalysis notable for 1+ blood, 1+ red blood cells, and trace white blood cells. Toxicology is notable for a serum alcohol level of 12 mg/dL at 6:18 this morning. Serology is notable for positive rapid influenza A and negative influenza B. Additional reports included a CT scan of the cervical spine, which revealed degenerative changes, but no change from a prior CT; CT of the brain interpreted as normal. I reviewed the images and I agree. Chest CT is interpreted as showing air bronchograms in the right lower lobe and ground-glass opacification throughout the lung suggestive of pulmonary edema or viral pneumonia. IMPRESSION AND PLAN: Impression is that of diminished responsiveness in the setting of influenza, fever, and hypotension. I do not see signs of meningismus on her exam and she is arousable. I think it would be reasonable to treat her for bacterial meningitis until a lumbar puncture could be obtained. She had a diskitis last year and has a postsurgical scar on her spine and scoliosis, so it would be a difficult lumbar puncture. If it cannot be done by Anesthesiology, it may need to be done by fluoroscopy. In the meantime, I think it would be reasonable to treat her with ceftriaxone and vancomycin. I do not see anything to suggest that she is having seizures, so I do not think an EEG is necessary at this juncture. She should have her TSH checked as she has a history of hypothyroidism. I will follow her along with you. [id number]/[facility] #: [id number] [place]
[2019-11-09] MEDS: cefTRIAXone(*) 2 GM in NS 0.9% 100 ML* 100 ML IVPB SCH (17:14)
--- NOTE | 2019-11-09 19:18 | HP ---
History of Present Illness - History of Present Illness Reason for Visit: unresponsivness and respiratory distress History of Present Illness: This is a 59 y/o female with known pertinent past medical history significant for Schizophrenia, bipolar, Polysubstance abuse including alcohol, present to [facility] Emergency room from [facility] for altered mental status. Patient was seen in the emergency room on different time throughout the day. She was initially seen by me and she was very altered, stupurous and unable to provide any history or respond to command. By reviewing records that accompanied the patient it was documented that the patient was found around 500am in her room unresponsive with half of her body in bed and upper body hanging over her bed and vomit on the floor. IT was reported that the patient had difficulty breathing. In the Emergency room she had temperature max of 103.6. Given her altered mental status, I consulted with account engineer who saw and evaluated the patient and deemed the patient was appropriate to be admitted to the floor. Upon re-evaluation later around noon, she was more responsive but continued to be intermittently lethargic. I consulted with neurology who saw and evaluated the patient at bedside and recommend to treat empirically for meningitis and attempt to have LP. I discussed with the patient brother at bedside (who is also a nurse at [facility] [employer]) expressed his concerns regarding LP unless "it was need for life threatening situation". Given her improvement with the emprically treatment of antibiotic and her lumbar scoliosis he opted to defer the LP unless it was a last resort. Therefore, patient is being admitted for sepsis secondary to influenza A; aspiration pneumonia and possible meningitis. - Past Medical History Cardiac: HTN, Other - SVT Pulmonary: Pneumonia - E-Coli Psych: Psychosis - Self harm, Schizophrenia Musculoskeletal: Chronic low back pain, Osteoarthritis - Cervical spine canal stenosis, Other - Osteodiskitis Infectious Disease: Other - Bacteremia- E-coli Endocrine: Hypothyroidism, Other - thyroid nodule - Past Surgical History Past Surgical History: None, Other - Past Family History Family History: Other - Schizophrenia and alcoholism (father) - Past Social History Occupation: disabeled Alcohol: Heavy - in remission. Drugs: None Lives: Other - nursing home Review of Systems - Review of Systems Constitutional: Positive: Fever Gastrointestinal: Positive: Vomiting Neurological/Mental Status: Positive: Confusion Other: limited due to her mental status changes - Medications/Allergies Allergies/Adverse Reactions: Allergies Allergy/AdvReac Type Severity Reaction Status Date / Time black pepper Allergy Eyes Verified 11/09/19 06:45 Itchy/Swollen/Red/Watery fluphenazine [From Prolixin] Allergy Unknown Verified 11/09/19 06:45 Reaction Details haloperidol [From Haldol] Allergy See Comment Verified 11/09/19 06:45 latex Allergy Rash Verified 11/09/19 06:45 risperidone [From Risperdal] Allergy See Comment Verified 11/09/19 06:45 Medications: Home Medications Tiotropium CAPSULE (NF) [Spiriva CAPSULE (NF)] 1 inh INH DAILY 01/13/19 [ History Confirmed 11/09/19] Aspirin EC TAB* [Ecotrin EC Low Dose 81 MG*] 81 mg PO DAILY tab.ec 03/15/19 [ Rx Confirmed 11/09/19] Atorvastatin* [Lipitor 40 MG*] 40 mg PO BEDTIME tab 03/15/19 [Rx Confirmed ] Cholecalciferol TAB* [Vitamin D TAB*] 2,000 units PO DAILY tab 03/15/19 [Rx Confirmed 11/09/19] DULoxetine CAP* [Cymbalta CAP*] 60 mg PO BID cap.dr 03/15/19 [Rx Confirmed 11/09/19] Diltiazem CD CAP* [Cardizem CD CAP*] 240 mg PO DAILY cap.cd 03/15/19 [Rx Confirmed 11/09/19] Docusate CAP* [Colace Cap*] 100 mg PO BID cap 03/15/19 [Rx Confirmed 11/09/19] Montelukast Sodium TAB* [Singulair 10 MG TAB*] 10 mg PO BEDTIME tab 03/15/19 [ Rx Confirmed 11/09/19] OLANzapine TAB* [Zyprexa 10 MG TAB*] 30 mg PO BEDTIME 30 Days #30 tab 03/15/19 [ Rx Confirmed 11/09/19] Senna TAB 8.6 mg* [Senokot 8.6 mg TAB*] 2 tab PO BID tab 03/15/19 [Rx Confirmed 11/09/19] Spironolactone TAB* [Aldactone TAB 25 MG*] 25 mg PO DAILY tab 03/15/19 [Rx Confirmed 11/09/19] traMADol TAB* [Ultram*] 100 mg PO Q6H PRN tab 03/15/19 [Rx Confirmed 11/09/19] Benztropine TAB* [Cogentin TAB*] 1 mg PO DAILY 03/26/19 [History Confirmed ] Levothyroxine TAB* [Synthroid 75 MCG TAB*] 75 mcg PO DAILY 03/26/19 [History Confirmed 11/09/19] Ferrous Sulfate TAB* 325 mg PO DAILY 04/23/19 [History Confirmed 11/09/19] Magnesium Oxide TAB* [MagOx 400 TAB*] 400 mg PO DAILY 04/23/19 [History Confirmed 11/09/19] Albuterol inh POWDER (NF) [Proair Respiclick] 2 puff INH Q4HR PRN 10/17/19 [ History Confirmed 11/09/19] Baclofen TAB* [Lioresal TAB*] 20 mg PO TID 10/17/19 [History Confirmed 11/09/19 ] Fluticasone NASAL SPRAY 50MCG* [Flonase NASAL SPRAY 50MCG*] 2 spray BOTH NARES DAILY 10/17/19 [History Confirmed 11/09/19] Fluticasone/Vilanterol MDI(NF) [Breo Ellipta MDI 200/25(NF)] 1 puff INH DAILY [History Confirmed 11/09/19] Gabapentin CAP(*) [Neurontin 300 CAP(*)] 300 mg PO TID 10/17/19 [History Confirmed 11/09/19] Ibuprofen TAB* [Motrin TAB* 800 MG] 800 mg PO TID WITH MEALS 10/17/19 [History Confirmed 11/09/19] LORazepam TAB(*) [Ativan 0.5 MG TAB (*)] 0.5 mg PO TID 10/17/19 [History Confirmed 11/09/19] OLANzapine TAB* [Zyprexa 5 MG TAB*] 5 mg PO QAM 10/17/19 [History Confirmed ] Exam - Exam Vital Signs: Vital Signs (72 hours) 11/09/19 11/09/19 11/09/19 05:59 06:00 06:02 Temperature 98.9 F Pulse Rate 123 113 Respiratory 22 17 21 Rate Blood Pressure 141/79 (mmHg) O2 Sat by Pulse 100 Oximetry 11/09/19 11/09/19 11/09/19 06:23 06:31 07:00 Temperature Pulse Rate 103 104 110 Respiratory 18 16 19 Rate Blood Pressure 128/79 (mmHg) O2 Sat by Pulse 100 93 97 Oximetry 11/09/19 11/09/19 11/09/19 07:01 07:31 07:44 Temperature 102.4 F Pulse Rate 110 123 Respiratory 21 18 Rate Blood Pressure 160/114 112/85 (mmHg) O2 Sat by Pulse 96 98 Oximetry 11/09/19 11/09/19 11/09/19 08:00 08:06 08:32 Temperature Pulse Rate 130 130 134 Respiratory 24 23 18 Rate Blood Pressure 132/97 123/84 (mmHg) O2 Sat by Pulse 97 100 97 Oximetry 11/09/19 11/09/19 11/09/19 08:36 08:41 08:44 Temperature 101.4 F Pulse Rate 127 Respiratory 24 18 Rate Blood Pressure 152/78 (mmHg) O2 Sat by Pulse 97 Oximetry 11/09/19 11/09/19 11/09/19 09:00 09:19 09:27 Temperature Pulse Rate 126 125 Respiratory 19 17 19 Rate Blood Pressure 145/78 134/73 (mmHg) O2 Sat by Pulse 95 94 Oximetry 11/09/19 11/09/19 11/09/19 09:42 09:57 10:01 Temperature Pulse Rate 123 122 120 Respiratory 20 18 19 Rate Blood Pressure 131/68 131/68 (mmHg) O2 Sat by Pulse 95 94 94 Oximetry 11/09/19 11/09/19 11/09/19 10:12 10:27 10:30 Temperature 100.6 F Pulse Rate 122 123 Respiratory 21 18 Rate Blood Pressure 149/66 127/72 (mmHg) O2 Sat by Pulse 94 95 Oximetry 11/09/19 11/09/19 11/09/19 10:42 10:57 11:01 Temperature Pulse Rate 120 117 117 Respiratory 19 19 19 Rate Blood Pressure 141/66 121/66 (mmHg) O2 Sat by Pulse 96 97 96 Oximetry 11/09/19 11/09/19 11/09/19 11:27 11:52 11:57 Temperature 103.6 F 103.6 F Pulse Rate 116 108 110 Respiratory 20 19 18 Rate Blood Pressure 128/72 115/64 115/65 (mmHg) O2 Sat by Pulse 96 99 97 Oximetry 11/09/19 11/09/19 11/09/19 12:01 12:12 12:27 Temperature 103.6 F 103.5 F 103.5 F Pulse Rate 110 108 109 Respiratory 19 16 17 Rate Blood Pressure 131/77 121/65 (mmHg) O2 Sat by Pulse 95 91 92 Oximetry 11/09/19 11/09/19 11/09/19 12:42 12:53 12:58 Temperature 103.3 F 103.3 F 103.1 F Pulse Rate 104 102 101 Respiratory 16 19 20 Rate Blood Pressure 95/59 96/58 93/56 (mmHg) O2 Sat by Pulse 90 92 90 Oximetry 11/09/19 11/09/19 11/09/19 13:00 13:12 13:25 Temperature 103.1 F 102.9 F 102.7 F Pulse Rate 102 99 101 Respiratory 17 17 18 Rate Blood Pressure 95/54 77/46 (mmHg) O2 Sat by Pulse 91 93 92 Oximetry 11/09/19 11/09/19 11/09/19 13:27 13:30 13:32 Temperature 102.7 F 102.6 F Pulse Rate 99 97 Respiratory 17 19 16 Rate Blood Pressure 81/53 (mmHg) O2 Sat by Pulse 91 Oximetry 11/09/19 11/09/19 11/09/19 13:37 13:42 13:52 Temperature 102.4 F 102.4 F 102.0 F Pulse Rate 96 94 98 Respiratory 14 16 19 Rate Blood Pressure 101/54 81/55 85/57 (mmHg) O2 Sat by Pulse 92 94 94 Oximetry 11/09/19 11/09/19 11/09/19 13:57 14:00 14:12 Temperature 102.0 F 102.0 F 101.8 F Pulse Rate 94 88 90 Respiratory 17 17 16 Rate Blood Pressure 83/54 (mmHg) O2 Sat by Pulse 96 96 95 Oximetry 11/09/19 11/09/19 11/09/19 14:27 14:42 14:56 Temperature 101.5 F 101.1 F 98.8 F Pulse Rate 90 92 108 Respiratory 16 16 20 Rate Blood Pressure 72/51 108/65 (mmHg) O2 Sat by Pulse 95 95 98 Oximetry 11/09/19 11/09/19 11/09/19 14:57 15:00 15:09 Temperature 100.8 F 100.6 F 100.2 F Pulse Rate 86 82 91 Respiratory 16 16 17 Rate Blood Pressure 78/50 78/50 (mmHg) O2 Sat by Pulse 95 95 95 Oximetry 11/09/19 15:12 Temperature 100.2 F Pulse Rate 88 Respiratory 16 Rate Blood Pressure 91/51 (mmHg) O2 Sat by Pulse 95 Oximetry General: Moderate distress HEENT: Atraumatic, EOMI, Other - pupils dilated, reactive but sluggish Lungs: Other - diminshed BS at base, transmitted upper airway breathsounds Cardiovascular: Normal S1, Normal S2, Other - tacchycardic Abdomen: Normal bowel sounds, Soft, No tenderness Extremities: No edema, No tenderness/swelling, Other Skin: No rashes Neurological: Other - stupurous, mentation wax and jas, at time respond only to sternal rubs and moments later she is able to maintain good conversation asking for the TV remote Psych/Mental Status: Other Assessment/Plan - Assessment/Plan Assessment: 59 y/o female present to the ED from [place] home with fever 103.6, Altered mental status, and vomitting found to have influenza A + and aspiration pneumonia 1. Encephalopathy - secondary to sepsis due to pneumonia, influenza A+ could not rule out meningitis 2. Influenza A+ pneumonia 3. Aspiration pneumonia 4. Hx of Schizophrenia 5. HTN 6. H/o SVT 7. Prior history of Chronic low back pain, Osteoarthritis - Cervical spine canal stenosis, and Osteodiskitis 8. Hypothyroidism, Plan: 1. Admit the patient to tele. - Consulted ICU and did not deem patient is ICU candidate - I will cover Empirically for sepsis to include meningitis in the setting of acute encophalopathy. Patient is not able to cooperate for LP, and given her spinal scoliosis she is not a good candidate for LP. Will ask on monday if it can be done under fluoroscopy - Check amonia level - Blood culture, UA and UC - IV rocephin 2g Q12 hrs, Vanco as per pharmacy, acyclovir 10mg/kg Q8hrs day # 2 - will start Tamiflu 75 mg bid day # 2 - Will need to consult ID on Monday. - Neuro consulted - Flagyl to be added for aspiration coverage in addition to the antibiotics above. Day # 2 - Picc line on Monday - Contact info for healthcare proxy: Manuel Lui, [phone], secondary number [phone] 2. Hold her atorvastatin given elevated CPK 3. Will hold her olanzapine while she continue to be obtunded and hold congentin for now. - Re-evaluate in am. - Will continue Cymbalta 60 mg bid, Baclofen 20 mg tid - Hold lorazepam (her drug screen was negative-Quite concerning if she was not taking it and may have develloped seizure from benzo withdrawal?) - hold gabapentin and reassess in am - Hold tramadol reassess in am (obtunded and lower seizure treshold) 4. Will keep her NPO until she regain alertness 5. Continue levothyroxine 75 mcg daily 6. Continue Cardizem CD 240 mg once she takes po 7. DVT prophylaxis - Will hold off on heparin until we clarify if we can get the LP done
[2019-11-09] MEDS: Vancomycin(*) 1,250 MG in NS 0.9% 250 ML* 250 ML IV SCH (20:55)
[2019-11-09] MEDS: Docusate CAP* 100 MG PO SCH (20:56)
[2019-11-09] MEDS: Baclofen TAB* 20 MG PO SCH (20:56)
[2019-11-09] MEDS: DULoxetine DR CAP* 60 MG CAP.DR PO SCH (20:57)
[2019-11-09] MEDS: LORazepam TAB(*) 0.5 MG PO SCH (20:57)
[2019-11-09] MEDS: Acyclovir IV(*) 600 MG in NS 0.9% 100 ML* 100 ML IVPB SCH (23:23)
[2019-11-09] MEDS: Albuterol/Ipratropium NEB.SOL* Albuterol 2.5 MG/Ipratropium 0.5 MG 3 ML INH PRN (23:31)
[2019-11-10] MEDS: Vancomycin(*) 1,250 MG in NS 0.9% 250 ML* 250 ML IV SCH ×3 (04:35→20:15)
[2019-11-10] MEDS: cefTRIAXone(*) 2 GM in NS 0.9% 100 ML* 100 ML IVPB SCH ×2 (05:30→16:34)
[2019-11-10] MEDS: Levothyroxine TAB* 75 MCG TAB PO SCH (05:33)
[2019-11-10] MEDS: Acetaminophen TAB* 325 MG PO PRN ×2 (05:53→22:48)
[2019-11-10 06:40] LABS: Hematocrit 26 % (35-47); Hemoglobin 9.2 g/dL (12.0-16.0); Mean Corpuscular HGB Conc 35 g/dL (31-36); Mean Corpuscular Hemoglobin 32 pg (27-31); Mean Corpuscular Volume 92 fL (80-97); Mean Platelet Volume 8.2 fL (7.4-10.4); Platelet Count 222 10^3/uL (150-450); Red Blood Count 2.86 10^6 /uL (3.70-4.87); Red Cell Distribution Width 14 % (10-15); White Blood Count 18.6 10^3/uL (3.5-10.8)
[2019-11-10 06:51] LABS: Albumin 3.1 g/dL (3.2-5.2); Albumin/Globulin Ratio 1.6 (1-3); BUN/Creatinine Ratio 15.1 (8-20); Calcium 7.5 mg/dL (8.6-10.3); EGFR African American 142.9 (>60); EGFR Non-African American 118.1 (>60); Indirect Bilirubin 0.2 mg/dL (0.3-1.0); Magnesium 1.3 mg/dL (1.9-2.7); Phosphorus 1.6 mg/dL (2.5-5.0); Total Bilirubin 0.3 mg/dL (0.2-1.0); Total Protein 5.1 g/dL (6.4-8.9)
[2019-11-10 07:05] LABS: ABS Lymphocytes 1.5 10^3/ul (1.0-4.8); ABS Monocytes 0.3 10^3/ul (0-0.8); ABS Neutrophils 16.8 10^3/ul (1.5-7.7); Lymphocyte % 8.2 %
[2019-11-10 07:07] LABS: Potassium 2.2 mmol/L (3.5-5.0)
[2019-11-10] MEDS ORDERED: KCL 20 MEQ/100 ML IVPREMIX* 20 MEQ/100 ML BAG IV ONE (07:18)
[2019-11-10] MEDS: LORazepam TAB(*) 0.5 MG PO SCH ×3 (07:37→20:20)
[2019-11-10] MEDS: Diltiazem CD CAP* 240 MG PO SCH (07:38)
[2019-11-10] MEDS: Benztropine TAB* 1 MG PO SCH (07:38)
[2019-11-10] MEDS: Docusate CAP* 100 MG PO SCH ×2 (07:38→22:48)
[2019-11-10] MEDS: Baclofen TAB* 20 MG PO SCH ×3 (07:38→20:20)
[2019-11-10] MEDS: DULoxetine DR CAP* 60 MG CAP.DR PO SCH ×2 (07:38→20:22)
[2019-11-10] MEDS: Acyclovir IV(*) 600 MG in NS 0.9% 100 ML* 100 ML IVPB SCH ×3 (07:47→22:54)
[2019-11-10] MEDS ORDERED: Potassium Chlor TAB* 20 MEQ TAB.ER PO ONE (08:08)
[2019-11-10] MEDS ORDERED: Magnesium Sulfate 2 GM IV* 2 GM/50 ML BAG IVPB ONE (08:08)
[2019-11-10] MEDS ORDERED: Ibuprofen TAB* 400 MG PO ONE (08:15)
[2019-11-10] MEDS ORDERED: Aspirin EC TAB* 81 MG TAB.EC PO SCH (09:00)
[2019-11-10] MEDS: metroNIDAZOLE IV 500 MG/100ML* 500 MG/100 ML BAG IVPB SCH ×2 (09:24→16:34)
[2019-11-10] MEDS: OLANzapine TAB* 5 MG PO SCH (09:24)
[2019-11-10] MEDS: Gabapentin CAP(*) 300 MG PO SCH ×3 (09:25→20:19)
[2019-11-10] MEDS: Potassium & Sodium Phos 250MG* = 1 PACKET PO SCH ×3 (09:27→20:23)
[2019-11-10] MEDS: Oseltamivir SUSP* ORALSYR 6 MG/ML PO SCH ×2 (09:27→20:19)
--- NOTE | 2019-11-10 10:20 | PN ---
Subjective Date of Service: 11/10/19 Interval History: Patient more awake, but has flat affect and not following command during exam. Apparently she improved overnight and was asking for food. her diet has been advanced. this morning she simply having blank stares, I was able to have her take deep breath during examination. She did not move her arms or leg to command. she does retract to tactile and painful stimuli. Her labs noted reviewed and replaced. Past Medical History: Unchanged from Admission Objective Active Medications: Acetaminophen (Tylenol Tab*) 650 mg PO Q4H PRN PRN Reason: PAIN - MILD Last Admin: 11/10/19 05:53 Dose: 650 mg Albuterol/Ipratropium (Duoneb (Albuterol 2.5 Mg/Ipratropium 0.5 Mg)) 1 neb INH Q4H PRN PRN Reason: SOB/WHEEZING Last Admin: 11/09/19 23:31 Dose: 1 neb Aspirin (Aspirin Ec Tab*) 81 mg PO DAILY [facility] Last Admin: 11/10/19 07:38 Dose: 81 mg Baclofen (Lioresal Tab*) 20 mg PO TID [facility] Last Admin: 11/10/19 07:38 Dose: 20 mg Benztropine Mesylate (Cogentin Tab*) 1 mg PO DAILY [facility] Last Admin: 11/10/19 07:38 Dose: 1 mg Diltiazem HCl (Cardizem Cd Cap*) 240 mg PO DAILY [facility] Last Admin: 11/10/19 07:38 Dose: 240 mg Docusate Sodium (Colace Cap*) 100 mg PO BID [facility] Last Admin: 11/10/19 07:38 Dose: 100 mg Duloxetine HCl (Cymbalta Cap*) 60 mg PO BID [facility] Last Admin: 11/10/19 07:38 Dose: 60 mg Gabapentin (Neurontin Cap(*)) 300 mg PO TID [facility] Last Admin: 11/10/19 09:25 Dose: 300 mg Heparin Sodium (Porcine) (Heparin Vial(*)) 5,000 units SUBCUT Q12HR [facility] Ceftriaxone Sodium 2 gm/ (Sodium Chloride) 100 mls @ 200 mls/hr IVPB Q12H [facility] Last Admin: 11/10/19 05:30 Dose: 200 mls/hr Vancomycin HCl 1,250 mg/ (Sodium Chloride) 250 mls @ 166.667 mls/hr IV Q8H [facility] ; Protocol Last Admin: 11/10/19 04:35 Dose: 166.667 mls/hr Acyclovir Sodium 600 mg/ (Sodium Chloride) 112 mls @ 112 mls/hr IVPB Q8H [facility] Last Admin: 11/10/19 07:47 Dose: 112 mls/hr Sodium Chloride (Ns 0.9% 1000 Ml) 1,000 mls @ 100 mls/hr IV PER RATE [facility] Stop: 11/11/19 19:59 Last Admin: 11/09/19 23:35 Dose: 100 mls/hr Metronidazole/Sodium Chloride (Flagyl 500 Mg Ivpb*) 500 mg in 100 mls @ 100 mls /hr IVPB Q8H [facility] Last Admin: 11/10/19 09:24 Dose: 100 mls/hr Levothyroxine Sodium (Synthroid Tab*) 75 mcg PO DAILY@0600 [facility] Last Admin: 11/10/19 05:33 Dose: 75 mcg Lorazepam (Ativan Tab(*)) 0.5 mg PO TID [facility] Last Admin: 11/10/19 07:37 Dose: 0.5 mg Olanzapine (Zyprexa Tab*) 5 mg PO QAM [facility] Last Admin: 11/10/19 09:24 Dose: 5 mg Olanzapine (Zyprexa Tab*) 30 mg PO BEDTIME [facility] Oseltamivir Phosphate (Tamiflu Susp* Oralsyr) 75 mg PO BID [facility] Last Admin: 11/10/19 09:27 Dose: 75 mg Pharmacy Consult (Vancomycin Per Pharmacy*) 1 note FOLLOW UP .VANC PER PHARMACY [facility]; Protocol Pharmacy Profile Note (Vancomycin Trough Check) 1 note FOLLOW UP ONCE ONE Stop: 11/10/19 11:31 Potassium Phos/Sodium Phos (Neutra Phos 250 Mg Vicente*) 250 mg PO TID [facility] Last Admin: 11/10/19 09:27 Dose: 250 mg Vital Signs - 8 hr 11/10/19 11/10/19 11/10/19 02:34 05:29 07:15 Temperature 100.0 F 102.4 F 97.9 F Pulse Rate 106 97 Respiratory 18 16 Rate Blood Pressure 124/46 108/57 (mmHg) O2 Sat by Pulse 98 95 Oximetry 11/10/19 11/10/19 11/10/19 07:37 09:25 09:28 Temperature Pulse Rate Respiratory 16 16 18 Rate Blood Pressure (mmHg) O2 Sat by Pulse Oximetry Oxygen Devices in Use Now: Nasal Cannula Appearance: awake but remains non verbal. sitting in bed leaning to one side. no drooling. She was self feeding herself earlier but upon entering the room she was non verbal and not following command during exam Eyes: No Scleral Icterus, PERRLA - suggish, - Ears/Nose/Mouth/Throat: Clear Oropharnyx, Mucous Membranes Moist Neck: NL Appearance and Movements; NL JVP, Trachea Midline Respiratory: Symmetrical Chest Expansion and Respiratory Effort, - - rhonchi at bases Cardiovascular: NL Sounds; No Murmurs; No JVD, - - tacchycardic Abdominal: NL Sounds; No Tenderness; No Distention Extremities: No Edema Neurological: - - retract to tactile stimuli. non verbal. Result Diagrams: 11/10/19 06:16 11/10/19 07:25 Additional Lab and Data: Lab Results 11/09/19 11/09/19 11/09/19 Range/Units 06:18 06:18 06:18 WBC 11.6 H (3.5-10.8) 10^3/uL RBC 3.52 L (3.70-4.87) 10^6 /uL Hgb 11.4 L (12.0-16.0) g/dL Hct 33 L (35-47) % MCV 93 (80-97) fL MCH 33 H (27-31) pg MCHC 35 (31-36) g/dL RDW 13 (10-15) % Plt Count 276 (150-450) 10^3/uL MPV 8.0 (7.4-10.4) fL Neut % (Auto) 73.8 % Lymph % (Auto) 18.0 % Page % (Auto) 7.4 % Eos % (Auto) 0.1 % Baso % (Auto) 0.7 % Absolute Neuts (auto) 8.6 H (1.5-7.7) 10^3/ul Absolute Lymphs (auto) 2.1 (1.0-4.8) 10^3/ul Absolute Monos (auto) 0.9 H (0-0.8) 10^3/ul Absolute Eos (auto) 0.0 (0-0.6) 10^3/ul Absolute Basos (auto) 0.1 (0-0.2) 10^3/ul Absolute Nucleated RBC 0.0 10^3/ul Nucleated RBC % 0.0 INR (Anticoag Therapy) (0.82-1.09) Patient Temperature ABG pH (7.35-7.45) ABG pH (Temp Correct) ABG pCO2 (35-45) mmHg ABG pCO2 (Temp Corrct ABG pO2 (80-100) mmHg ABG pO2 (Temp Correct ABG HCO3 (19-31) mmol/L ABG O2 Saturation (94.0-98.0) % ABG Base Excess (-2.0-2.0) mmol/L Respiration Rate Ventilator Type Vent Mode FiO2 Inspiratory Time PEEP Pressure Support Pressure Control EPAP IPAP BiPAP Sodium 133 L (135-145) mmol/L Potassium TNP Chloride 97 L (101-111) mmol/L Carbon Dioxide 28 (22-32) mmol/L Anion Gap 8 (2-11) mmol/L BUN 16 (6-24) mg/dL Creatinine 0.81 (0.51-0.95) mg/dL Est GFR ( Amer) 87.6 (>60) Est GFR (Non-Af Amer) 72.4 (>60) BUN/Creatinine Ratio 19.8 (8-20) Glucose 142 H (70-100) mg/dL Lactic Acid 1.0 (0.5-2.0) mmol/L Calcium 9.6 (8.6-10.3) mg/dL Magnesium 1.9 (1.9-2.7) mg/dL Total Bilirubin 0.40 (0.2-1.0) mg/dL AST TNP ALT 38 (7-52) U/L Alkaline Phosphatase 85 (34-104) U/L Ammonia (16-53) mcmol/L Total Creatine Kinase 664 H (10-223) U/L Troponin I 0.01 (<0.03) ng/mL B-Natriuretic Peptide (<=100) pg/mL Total Protein 7.4 (6.4-8.9) g/dL Albumin 4.4 (3.2-5.2) g/dL Globulin 3.0 (2-4) g/dL Albumin/Globulin Ratio 1.5 (1-3) Urine Color Urine Appearance Urine pH (5-9) Ur Specific [place] (1.010-1.030) Urine Protein (Negative) Urine Ketones (Negative) Urine Blood (Negative) Urine Nitrate (Negative) Urine Bilirubin (Negative) Urine Urobilinogen (Negative) Ur Leukocyte Esterase (Negative) Urine WBC (Auto) (Absent) Urine RBC (Auto) (Absent) Urine Bacteria (Absent) Urine Glucose (Negative) Salicylates < 2.50 (<30) mg/dL Urine Opiates Screen (None Detect) Acetaminophen < 15 mcg/mL Ur Barbiturates Screen (None Detect) Ur Phencyclidine Scrn (None Detect) Ur Amphetamines Screen (None Detect) U Benzodiazepines Scrn (None Detect) Urine Cocaine Screen (None Detect) U Cannabinoids Screen (None Detect) Serum Alcohol 12 H (<10) mg/dL Influenza A (Rapid) (Negative) Influenza B (Rapid) 11/09/19 11/09/19 11/09/19 Range/Units 06:18 06:18 06:18 WBC (3.5-10.8) 10^3/uL RBC (3.70-4.87) 10^6 /uL Hgb (12.0-16.0) g/dL Hct (35-47) % MCV (80-97) fL MCH (27-31) pg MCHC (31-36) g/dL RDW (10-15) % Plt Count (150-450) 10^3/uL MPV (7.4-10.4) fL Neut % (Auto) % Lymph % (Auto) % Page % (Auto) % Eos % (Auto) % Baso % (Auto) % Absolute Neuts (auto) (1.5-7.7) 10^3/ul Absolute Lymphs (auto) (1.0-4.8) 10^3/ul Absolute Monos (auto) (0-0.8) 10^3/ul Absolute Eos (auto) (0-0.6) 10^3/ul Absolute Basos (auto) (0-0.2) 10^3/ul Absolute Nucleated RBC 10^3/ul Nucleated RBC % INR (Anticoag Therapy) 1.03 (0.82-1.09) Patient Temperature ABG pH (7.35-7.45) ABG pH (Temp Correct) ABG pCO2 (35-45) mmHg ABG pCO2 (Temp Corrct ABG pO2 (80-100) mmHg ABG pO2 (Temp Correct ABG HCO3 (19-31) mmol/L ABG O2 Saturation (94.0-98.0) % ABG Base Excess (-2.0-2.0) mmol/L Respiration Rate Ventilator Type Vent Mode FiO2 Inspiratory Time PEEP Pressure Support Pressure Control EPAP IPAP BiPAP Sodium (135-145) mmol/L Potassium Chloride (101-111) mmol/L Carbon Dioxide (22-32) mmol/L Anion Gap (2-11) mmol/L BUN (6-24) mg/dL Creatinine (0.51-0.95) mg/dL Est GFR ( Amer) (>60) Est GFR (Non-Af Amer) (>60) BUN/Creatinine Ratio (8-20) Glucose (70-100) mg/dL Lactic Acid (0.5-2.0) mmol/L Calcium (8.6-10.3) mg/dL Magnesium (1.9-2.7) mg/dL Total Bilirubin (0.2-1.0) mg/dL AST ALT (7-52) U/L Alkaline Phosphatase (34-104) U/L Ammonia 41 (16-53) mcmol/L Total Creatine Kinase (10-223) U/L Troponin I (<0.03) ng/mL B-Natriuretic Peptide 21 (<=100) pg/mL Total Protein (6.4-8.9) g/dL Albumin (3.2-5.2) g/dL Globulin (2-4) g/dL Albumin/Globulin Ratio (1-3) Urine Color Urine Appearance Urine pH (5-9) Ur Specific [place] (1.010-1.030) Urine Protein (Negative) Urine Ketones (Negative) Urine Blood (Negative) Urine Nitrate (Negative) Urine Bilirubin (Negative) Urine Urobilinogen (Negative) Ur Leukocyte Esterase (Negative) Urine WBC (Auto) (Absent) Urine RBC (Auto) (Absent) Urine Bacteria (Absent) Urine Glucose (Negative) Salicylates (<30) mg/dL Urine Opiates Screen (None Detect) Acetaminophen mcg/mL Ur Barbiturates Screen (None Detect) Ur Phencyclidine Scrn (None Detect) Ur Amphetamines Screen (None Detect) U Benzodiazepines Scrn (None Detect) Urine Cocaine Screen (None Detect) U Cannabinoids Screen (None Detect) Serum Alcohol (<10) mg/dL Influenza A (Rapid) (Negative) Influenza B (Rapid) 11/09/19 11/09/19 11/09/19 Range/Units 06:45 07:42 08:07 WBC (3.5-10.8) 10^3/uL RBC (3.70-4.87) 10^6 /uL Hgb (12.0-16.0) g/dL Hct (35-47) % MCV (80-97) fL MCH (27-31) pg MCHC (31-36) g/dL RDW (10-15) % Plt Count (150-450) 10^3/uL MPV (7.4-10.4) fL Neut % (Auto) % Lymph % (Auto) % Page % (Auto) % Eos % (Auto) % Baso % (Auto) % Absolute Neuts (auto) (1.5-7.7) 10^3/ul Absolute Lymphs (auto) (1.0-4.8) 10^3/ul Absolute Monos (auto) (0-0.8) 10^3/ul Absolute Eos (auto) (0-0.6) 10^3/ul Absolute Basos (auto) (0-0.2) 10^3/ul Absolute Nucleated RBC 10^3/ul Nucleated RBC % INR (Anticoag Therapy) (0.82-1.09) Patient Temperature ABG pH (7.35-7.45) ABG pH (Temp Correct) ABG pCO2 (35-45) mmHg ABG pCO2 (Temp Corrct ABG pO2 (80-100) mmHg ABG pO2 (Temp Correct ABG HCO3 (19-31) mmol/L ABG O2 Saturation (94.0-98.0) % ABG Base Excess (-2.0-2.0) mmol/L Respiration Rate Ventilator Type Vent Mode FiO2 Inspiratory Time PEEP Pressure Support Pressure Control EPAP IPAP BiPAP Sodium (135-145) mmol/L Potassium 3.6 Chloride (101-111) mmol/L Carbon Dioxide (22-32) mmol/L Anion Gap (2-11) mmol/L BUN (6-24) mg/dL Creatinine (0.51-0.95) mg/dL Est GFR ( Amer) (>60) Est GFR (Non-Af Amer) (>60) BUN/Creatinine Ratio (8-20) Glucose (70-100) mg/dL Lactic Acid (0.5-2.0) mmol/L Calcium (8.6-10.3) mg/dL Magnesium (1.9-2.7) mg/dL Total Bilirubin (0.2-1.0) mg/dL AST 40 H ALT (7-52) U/L Alkaline Phosphatase (34-104) U/L Ammonia (16-53) mcmol/L Total Creatine Kinase (10-223) U/L Troponin I (<0.03) ng/mL B-Natriuretic Peptide (<=100) pg/mL Total Protein (6.4-8.9) g/dL Albumin (3.2-5.2) g/dL Globulin (2-4) g/dL Albumin/Globulin Ratio (1-3) Urine Color Yellow Urine Appearance Clear Urine pH 5.0 (5-9) Ur Specific [place] 1.010 (1.010-1.030) Urine Protein Negative (Negative) Urine Ketones Negative (Negative) Urine Blood 1+ A (Negative) Urine Nitrate Negative (Negative) Urine Bilirubin Negative (Negative) Urine Urobilinogen Negative (Negative) Ur Leukocyte Esterase Negative (Negative) Urine WBC (Auto) Trace(0-5/hpf) (Absent) Urine RBC (Auto) 1+(3-5/hpf) A (Absent) Urine Bacteria Absent (Absent) Urine Glucose Negative (Negative) Salicylates (<30) mg/dL Urine Opiates Screen (None Detect) Acetaminophen mcg/mL Ur Barbiturates Screen (None Detect) Ur Phencyclidine Scrn (None Detect) Ur Amphetamines Screen (None Detect) U Benzodiazepines Scrn (None Detect) Urine Cocaine Screen (None Detect) U Cannabinoids Screen (None Detect) Serum Alcohol (<10) mg/dL Influenza A (Rapid) Positive H (Negative) Influenza B (Rapid) Not Reportable 11/09/19 11/09/19 Range/Units 08:07 10:46 WBC (3.5-10.8) 10^3/uL RBC (3.70-4.87) 10^6 /uL Hgb (12.0-16.0) g/dL Hct (35-47) % MCV (80-97) fL MCH (27-31) pg MCHC (31-36) g/dL RDW (10-15) % Plt Count (150-450) 10^3/uL MPV (7.4-10.4) fL Neut % (Auto) % Lymph % (Auto) % Page % (Auto) % Eos % (Auto) % Baso % (Auto) % Absolute Neuts (auto) (1.5-7.7) 10^3/ul Absolute Lymphs (auto) (1.0-4.8) 10^3/ul Absolute Monos (auto) (0-0.8) 10^3/ul Absolute Eos (auto) (0-0.6) 10^3/ul Absolute Basos (auto) (0-0.2) 10^3/ul Absolute Nucleated RBC 10^3/ul Nucleated RBC % INR (Anticoag Therapy) (0.82-1.09) Patient Temperature Not Reportable ABG pH 7.41 (7.35-7.45) ABG pH (Temp Correct) Not Reportable ABG pCO2 40 (35-45) mmHg ABG pCO2 (Temp Corrct Not Reportable ABG pO2 70 L (80-100) mmHg ABG pO2 (Temp Correct Not Reportable ABG HCO3 25.4 (19-31) mmol/L ABG O2 Saturation 96.9 (94.0-98.0) % ABG Base Excess 0.7 (-2.0-2.0) mmol/L Respiration Rate Not Reportable Ventilator Type Not Reportable Vent Mode Not Reportable FiO2 3 Inspiratory Time Not Reportable PEEP Not Reportable Pressure Support Not Reportable Pressure Control Not Reportable EPAP Not Reportable IPAP Not Reportable BiPAP Not Reportable Sodium (135-145) mmol/L Potassium Chloride (101-111) mmol/L Carbon Dioxide (22-32) mmol/L Anion Gap (2-11) mmol/L BUN (6-24) mg/dL Creatinine (0.51-0.95) mg/dL Est GFR ( Amer) (>60) Est GFR (Non-Af Amer) (>60) BUN/Creatinine Ratio (8-20) Glucose (70-100) mg/dL Lactic Acid (0.5-2.0) mmol/L Calcium (8.6-10.3) mg/dL Magnesium (1.9-2.7) mg/dL Total Bilirubin (0.2-1.0) mg/dL AST ALT (7-52) U/L Alkaline Phosphatase (34-104) U/L Ammonia (16-53) mcmol/L Total Creatine Kinase (10-223) U/L Troponin I (<0.03) ng/mL B-Natriuretic Peptide (<=100) pg/mL Total Protein (6.4-8.9) g/dL Albumin (3.2-5.2) g/dL Globulin (2-4) g/dL Albumin/Globulin Ratio (1-3) Urine Color Urine Appearance Urine pH (5-9) Ur Specific [place] (1.010-1.030) Urine Protein (Negative) Urine Ketones (Negative) Urine Blood (Negative) Urine Nitrate (Negative) Urine Bilirubin (Negative) Urine Urobilinogen (Negative) Ur Leukocyte Esterase (Negative) Urine WBC (Auto) (Absent) Urine RBC (Auto) (Absent) Urine Bacteria (Absent) Urine Glucose (Negative) Salicylates (<30) mg/dL Urine Opiates Screen None detected (None Detect) Acetaminophen mcg/mL Ur Barbiturates Screen None detected (None Detect) Ur Phencyclidine Scrn None detected (None Detect) Ur Amphetamines Screen None detected (None Detect) U Benzodiazepines Scrn None detected (None Detect) Urine Cocaine Screen None detected (None Detect) U Cannabinoids Screen None detected (None Detect) Serum Alcohol (<10) mg/dL Influenza A (Rapid) (Negative) Influenza B (Rapid) Microbiology and Other Data: Microbiology 11/09/19 08:58 Blood Culture - Preliminary Blood Venous No Growth Day 1 11/09/19 08:58 Blood Culture - Preliminary Blood Venous No Growth Day 1 11/09/19 07:42 Blood Culture - Preliminary Blood Venous No Growth Day 1 11/09/19 12:44 Legionella Urinary Antigen - Final Urine Negative Legionella Antigen Streptococcus pneumoniae Ag Screen - Final Positive S. Pneumo Antigen 11/09/19 06:41 Nasal Screen MRSA (PCR) - Final Nasal Mrsa Not Detected Assess/Plan/Problems-Billing Assessment: 59 y/o female present to the ED from [facility] home with fever 103.6, Altered mental status, and vomitting found to have influenza A + and aspiration pneumonia - Patient Problems (1) Severe sepsis Current Visit: No Status: Acute Code(s): A41.9 - SEPSIS, UNSPECIFIED ORGANISM; R65.20 - SEVERE SEPSIS WITHOUT SEPTIC SHOCK SNOMED Code(s): 08682201 Comment: - Present on admission with Fever 103.6; hypotension of 72/51; Tachycardia pulse 130's, WBC 11.6 - S/p aggressive IVF and broad spectrum antibiotics - Pancutlure. Will try LP under fluoroscopy (IR) in am (2) Encephalopathy acute Current Visit: Yes Status: Acute Code(s): G93.40 - ENCEPHALOPATHY, UNSPECIFIED SNOMED Code(s): 57751019 Comment: - secondary to sepsis due to pneumonia, influenza A+ could not rule out meningitis - Consulted ICU and did not deem patient is ICU candidate - I will continue Empirically for sepsis to include meningitis in the setting of acute encophalopathy. Patient is not able to cooperate for LP, and given her spinal scoliosis she is not a good candidate for LP. Will ask on monday if it can be done under fluoroscopy - amonia level 50 normal, however if does not improve in next 24 hrs I may initiate lactulose regardless of the level - Blood culture, UA and UC pending - IV rocephin 2g Q12 hrs, Vanco as per pharmacy, acyclovir 10mg/kg Q8hrs day # 2 - will start Tamiflu 75 mg bid day # 2 - Will need to consult ID on Monday. - Neuro consulted I appreciate their input - Flagyl added for aspiration coverage in addition to the antibiotics above. Day # 2 - Picc line on Monday - Contact info for healthcare proxy: Manuel Lui, [phone], secondary number [phone] (3) Aspiration pneumonia Current Visit: Yes Status: Acute Code(s): J69.0 - PNEUMONITIS DUE TO INHALATION OF FOOD AND VOMIT SNOMED Code(s): 733018316 Comment: - flagyl and ceftriaxone Dayt # 2 (4) Influenza A Current Visit: Yes Status: Acute Code(s): J10.1 - FLU DUE TO OTH IDENT INFLUENZA VIRUS W OTH RESP MANIFEST SNOMED Code(s): 910915277 Comment: - Tamiflu 75 bid Day # 2/5 (5) COPD (chronic obstructive pulmonary disease) Current Visit: No Status: Acute Code(s): J44.9 - CHRONIC OBSTRUCTIVE PULMONARY DISEASE, UNSPECIFIED SNOMED Code(s): 01146522 Comment: - not in exacerbation. On Neb PRN only for now (6) HTN (hypertension) Current Visit: No Status: Acute Code(s): I10 - ESSENTIAL (PRIMARY) HYPERTENSION SNOMED Code(s): 00950979 Comment: - Continue diltiazem 240 ng daily - Keep spironolactone on hold and will resume once BP stable (7) Hypokalemia Current Visit: No Status: Acute Code(s): E87.6 - HYPOKALEMIA SNOMED Code(s ): 18570755 Comment: - K+ 2.1. will supplement PO and IV - Will rechec @ 4pm and readdress accordingly along with her Mag and phos (8) Hypothyroidism Current Visit: No Status: Acute Code(s): E03.9 - HYPOTHYROIDISM, UNSPECIFIED SNOMED Code(s): 17917205 Comment: - Continue levothyroxine 75 mcg daily. recheck TSH in am (9) SVT (supraventricular tachycardia) Current Visit: No Status: Acute Code(s): I47.1 - SUPRAVENTRICULAR TACHYCARDIA SNOMED Code(s): 6247443 Comment: - Resumed her Cardizem CD 240 mg daily (10) Schizoaffective disorder Current Visit: No Status: Acute Code(s): F25.9 - SCHIZOAFFECTIVE DISORDER, UNSPECIFIED SNOMED Code(s): 41859192 Comment: - Continue duloxetine, resume her olanzapine and benztropine. (11) Thyroid nodule Current Visit: No Status: Acute Code(s): E04.1 - NONTOXIC SINGLE THYROID NODULE SNOMED Code(s): 413050248 Comment: - Large thyroid nodule found on incidentally on previous imaging 2018. Her CT from ER 11/09/19 demonstrate no changes in the nodule. will need to ensure proper outpatient follow up for FNA upon discharge (12) DVT prophylaxis Current Visit: No Status: Acute Code(s): Z29.9 - ENCOUNTER FOR PROPHYLACTIC MEASURES, UNSPECIFIED SNOMED Code(s): 278252496 Comment: - Heparin 5000 Q12 in even she did require LP in am under fluoroscopy
[2019-11-10] MEDS: NS 0.9% 1000 ML** 1,000 ML IV SCH (10:59)
[2019-11-10] MEDS ORDERED: Vancomycin Trough Check NOTE FOLLOW UP ONE (11:30)
[2019-11-10 16:54] LABS: BUN/Creatinine Ratio 14.8 (8-20); Calcium 7.6 mg/dL (8.6-10.3); EGFR African American 139.8 (>60); EGFR Non-African American 115.6 (>60); Magnesium 1.9 mg/dL (1.9-2.7); Phosphorus 1.7 mg/dL (2.5-5.0); Potassium 2.8 mmol/L (3.5-5.0)
[2019-11-10] MEDS: Potassium Chloride* LIQUID 20 MEQ/15 ML UDC PO SCH ×2 (18:28→22:49)
[2019-11-10] MEDS: Calcium/Vitamin D TAB 250/125* TAB PO SCH (18:28)
[2019-11-10] MEDS ORDERED: NS 0.9% 1000 ML** 1,000 ML IV SCH (18:35)
--- NOTE | 2019-11-10 18:52 | PN ---
NEUROLOGY FOLLOWUP CONSULTATION: DATE OF FOLLOWUP: 11/10/19 LOCATION: She is an inpatient in room 419. HOSPITALIST: Dr. Smith. CHIEF COMPLAINT: Fever, influenza, diminished responsiveness. INTERVAL HISTORY: Since yesterday, Lani has done about the same. At sometimes , she seems not to respond much, and at another times, she does. I evaluated her with Dr. Smith today and she was eating her lunch and watching television. When we entered to the room, she stopped and averted her gaze. She would answer a couple questions, but not much. At no time did she seem to be unaware of her surroundings. MEDICATIONS: Reviewed and include: 1. Acyclovir 600 mg IV q.8 hours. 2. DuoNeb inhaler q.4 hours as needed for wheezing. 3. Aspirin 81 mg p.o. daily. 4. Baclofen 20 mg p.o. t.i.d. 5. Cogentin 1 mg p.o. daily. 6. Ceftriaxone 2 g IV q.12 hours. 7. Diltiazem 240 mg p.o. daily. 8. Duloxetine 60 mg p.o. b.i.d. 9. Gabapentin 300 mg p.o. t.i.d. 10. Heparin subcutaneous 5000 units q.12 hours. 12. Levothyroxine 75 mcg p.o. daily. 13. Lorazepam 0.5 mg p.o. t.i.d. 14. Flagyl 500 mg IV q.8 hours. 15. Olanzapine 5 mg p.o. q.a.m. and 30 mg nightly. 16. Tamiflu. 17. Vancomycin per pharmacy dosing guidelines. PHYSICAL EXAMINATION: On exam, she is awake and alert, but not completely interactive. Most recent temperature is down to 98.6 with a T-max in the last 24 hours of 102.4 last at 5:30 this morning. Blood pressure is stable, although the most recent recording is 99/51. Muscle tone is normal in the upper extremities. Eye movements are full, but she averts her gaze. Pupils respond equally from 3.5 to 2 mm. Her right fundus shows a sharp disc. Eye movements are normal. Facial musculature is symmetric. Her single words that she produces are simple, but not dysarthric. There is no myoclonus or asterixes. LABORATORY DATA: Laboratory data is notable for an elevated white blood cell count to 18.6 with a further left shift of neutrophils at 16.8. Hemoglobin down to 9.2, hematocrit to 26, platelet count is normal. Sedimentation rate yesterday is normal at 14. Her potassium was quite low this morning at 2.2 with repeat of 2.1. Sodium is 131, calcium is 7.5, phosphorous 1.6, and magnesium 1.3. AST is mildly elevated at 43. Albumin is low at 3.1. TSH yesterday was lower at 0.25. IMPRESSION AND PLAN: Impression is that of diminished responsiveness because of influenza and fever. Whether or not this is additional infection remains to be seen. Lumbar puncture has not been possible so far and so she is being covered for possible bacterial meningitis which seems very unlikely and herpes simplex encephalitis with acyclovir. Dr. Smith is going to try to have Radiology to do lumbar puncture with fluoroscopy tomorrow. Given her intermittent responsiveness, I will put in an order for EEG. It seems that at least part of her diminished responsiveness is voluntary based on our interaction today. [id number]/CPS #: [id number] [place]
[2019-11-10] MEDS: Magnesium Oxide TAB* 400 MG PO SCH (20:21)
[2019-11-10] MEDS: OLANzapine TAB* 10 MG PO SCH (20:23)
[2019-11-10] MEDS ORDERED: Heparin VIAL(*) 5000 UNITS/ML VIAL (FIVE THOUSAND) SUBCUT SCH (21:00)
[2019-11-11] MEDS: metroNIDAZOLE IV 500 MG/100ML* 500 MG/100 ML BAG IVPB SCH ×2 (00:56→10:58)
[2019-11-11] MEDS: Albuterol/Ipratropium NEB.SOL* Albuterol 2.5 MG/Ipratropium 0.5 MG 3 ML INH PRN (01:22)
[2019-11-11] MEDS ORDERED: Furosemide IV* 10 MG/ML 2 ML VIAL (20 MG) IV SLOW PU ONE (03:21)
[2019-11-11] MEDS: Vancomycin(*) 1,250 MG in NS 0.9% 250 ML* 250 ML IV SCH ×2 (04:26→13:49)
[2019-11-11] MEDS: cefTRIAXone(*) 2 GM in NS 0.9% 100 ML* 100 ML IVPB SCH (04:26)
[2019-11-11] MEDS: Levothyroxine TAB* 75 MCG TAB PO SCH (04:52)
[2019-11-11 07:35] LABS: ABS Lymphocytes 0.9 10^3/ul (1.0-4.8); ABS Monocytes 0.2 10^3/ul (0-0.8); ABS Neutrophils 16.2 10^3/ul (1.5-7.7); Hematocrit 27 % (35-47); Hemoglobin 9.4 g/dL (12.0-16.0); Lymphocyte % 5.3 %; Mean Corpuscular HGB Conc 35 g/dL (31-36); Mean Corpuscular Hemoglobin 32 pg (27-31); Mean Corpuscular Volume 92 fL (80-97); Mean Platelet Volume 8.7 fL (7.4-10.4); Platelet Count 220 10^3/uL (150-450); Red Blood Count 2.89 10^6 /uL (3.70-4.87); Red Cell Distribution Width 14 % (10-15); White Blood Count 17.4 10^3/uL (3.5-10.8)
[2019-11-11 07:55] LABS: Albumin 2.9 g/dL (3.2-5.2); Albumin/Globulin Ratio 1.3 (1-3); BUN/Creatinine Ratio 13.5 (8-20); Calcium 7.8 mg/dL (8.6-10.3); EGFR Non-African American 120.7 (>60); Globulin 2.3 g/dL (2-4); Indirect Bilirubin 0.1 mg/dL (0.3-1.0); Magnesium 1.5 mg/dL (1.9-2.7); Phosphorus 1.3 mg/dL (2.5-5.0); Potassium 2.9 mmol/L (3.5-5.0); Total Bilirubin 0.2 mg/dL (0.2-1.0); Total Protein 5.2 g/dL (6.4-8.9)
[2019-11-11 08:14] LABS: TSH (Thyroid Stimulating Horm) 0.52 mcIU/mL (0.34-5.60)
[2019-11-11 08:16] LABS: Free T4 1.48 ng/dL (0.61-1.12)
[2019-11-11] MEDS: Calcium/Vitamin D TAB 250/125* TAB PO SCH ×3 (08:17→17:44)
[2019-11-11] MEDS: Acetaminophen TAB* 325 MG PO PRN ×2 (08:19→20:02)
[2019-11-11] MEDS: Acyclovir IV(*) 600 MG in NS 0.9% 100 ML* 100 ML IVPB SCH (08:20)
[2019-11-11] MEDS: LORazepam TAB(*) 0.5 MG PO SCH ×3 (10:54→21:51)
[2019-11-11] MEDS: OLANzapine TAB* 5 MG PO SCH (10:54)
[2019-11-11] MEDS: Diltiazem CD CAP* 240 MG PO SCH (10:55)
[2019-11-11] MEDS: Gabapentin CAP(*) 300 MG PO SCH ×3 (10:56→21:38)
[2019-11-11] MEDS: Docusate CAP* 100 MG PO SCH ×2 (10:56→20:02)
[2019-11-11] MEDS: Magnesium Oxide TAB* 400 MG PO SCH ×2 (10:56→20:01)
[2019-11-11] MEDS: Benztropine TAB* 1 MG PO SCH (10:56)
[2019-11-11] MEDS: Oseltamivir SUSP* ORALSYR 6 MG/ML PO SCH ×2 (10:57→22:09)
[2019-11-11] MEDS: Baclofen TAB* 20 MG PO SCH ×3 (10:57→20:02)
[2019-11-11] MEDS: Potassium & Sodium Phos 250MG* = 1 PACKET PO SCH ×5 (10:57→22:02)
[2019-11-11] MEDS: DULoxetine DR CAP* 60 MG CAP.DR PO SCH ×2 (10:57→21:38)
[2019-11-11] MEDS ORDERED: Magnesium Sulfate 2 GM IV* 2 GM/50 ML BAG IVPB ONE (15:06)
[2019-11-11] MEDS ORDERED: Potassium Phosphate IV* 15 MMOLE in NS 0.9% 250 ML* 250 ML IVPB ONE (15:06)
[2019-11-11] MEDS ORDERED: Furosemide IV* 10 MG/ML 2 ML VIAL (20 MG) IV ONE (15:07)
--- NOTE | 2019-11-11 15:18 | PN ---
Subjective Date of Service: 11/11/19 Interval History: Patient seen today. more awake, not cooperative. Kept telling me to get out. She did not want to answer any of my question. Refused to have me examine her. Overnight she did have respiratory distress resolved with lasix 20 mg IV one dose. CXR reviewed this morning. IVF has been discontinued. I will give additional Lasix 20 mg one time today. I did speak to her bother over the phone (healthcare proxy: Manuel Lui, [phone], secondary number [phone]) today and I revisited with him the consent for LP. I informed him that over the weekend when the consent was obtained he was reluctant to have it done emergently by me unless it was "last resort and life saving measure..."! due to her spinal curvature. However; I explained to him that today we do have the ability to have it done with IR and/ or anesthesia, however, he continues to be against the LP as she is improving and he does not want to take the risk with the procedure. Therefore, he did not give the consent for the LP but agreed for Picc line if needed. I discussed case with neurology. EEG was negative for Seizures. ID also consulted today. After reviewing her clinical course their recommendations was discontinue all of her meningitis treatment but to continue Rocephin for pneumonia and tamiflu for the Influenza A+. Her Bother Manuel was again kept updated Past Medical History: Unchanged from Admission Objective Active Medications: Acetaminophen (Tylenol Tab*) 650 mg PO Q4H PRN PRN Reason: PAIN - MILD Last Admin: 11/11/19 08:19 Dose: 650 mg Albuterol/Ipratropium (Duoneb (Albuterol 2.5 Mg/Ipratropium 0.5 Mg)) 1 neb INH Q4H PRN PRN Reason: SOB/WHEEZING Last Admin: 11/11/19 01:22 Dose: 1 neb Baclofen (Lioresal Tab*) 20 mg PO TID [facility] Last Admin: 11/11/19 13:49 Dose: 20 mg Benztropine Mesylate (Cogentin Tab*) 1 mg PO DAILY [facility] Last Admin: 11/11/19 10:56 Dose: 1 mg Calcium/Vitamin D (Oscal D Tab 250/125*) 4 tab PO BID AC [facility] Last Admin: 11/11/19 08:17 Dose: 4 tab Diltiazem HCl (Cardizem Cd Cap*) 240 mg PO DAILY [facility] Last Admin: 11/11/19 10:55 Dose: 240 mg Docusate Sodium (Colace Cap*) 100 mg PO BID [facility] Last Admin: 11/11/19 10:56 Dose: 100 mg Duloxetine HCl (Cymbalta Cap*) 60 mg PO BID [facility] Last Admin: 11/11/19 10:57 Dose: 60 mg Gabapentin (Neurontin Cap(*)) 300 mg PO TID [facility] Last Admin: 11/11/19 13:49 Dose: 300 mg Ceftriaxone Sodium 1 gm/ (Sodium Chloride) 50 mls @ 100 mls/hr IVPB Q24H CHON Magnesium Sulfate (Magnesium Sulfate 2 Gm Iv*) 2 gm in 50 mls @ 50 mls/hr IVPB ONCE ONE Stop: 11/11/19 16:05 Potassium Phosphate 15 mmole/ (Sodium Chloride) 255 mls @ 42 mls/hr IVPB ONCE ONE Stop: 11/11/19 21:10 Levothyroxine Sodium (Synthroid Tab*) 50 mcg PO DAILY@0600 [facility] Lorazepam (Ativan Tab(*)) 0.5 mg PO TID [facility] Last Admin: 11/11/19 13:49 Dose: 0.5 mg Magnesium Oxide (Magox 400 Tab*) 800 mg PO BID [facility] Last Admin: 11/11/19 10:56 Dose: 800 mg Olanzapine (Zyprexa Tab*) 5 mg PO QAM [facility] Last Admin: 11/11/19 10:54 Dose: 5 mg Olanzapine (Zyprexa Tab*) 30 mg PO BEDTIME [facility] Last Admin: 11/10/19 20:23 Dose: 30 mg Oseltamivir Phosphate (Tamiflu Susp* Oralsyr) 75 mg PO BID [facility] Last Admin: 11/11/19 10:57 Dose: 75 mg Potassium Chloride (Klor Con Er Tab*) 40 meq PO BID [facility] Potassium Phos/Sodium Phos (Neutra Phos 250 Mg Vicente*) 250 mg PO TID [facility] Last Admin: 11/11/19 13:55 Dose: Not Given Vital Signs - 8 hr 11/11/19 11/11/19 11/11/19 07:49 08:00 10:54 Temperature 100.6 F Pulse Rate 90 Respiratory 22 22 24 Rate Blood Pressure 119/60 (mmHg) O2 Sat by Pulse 94 Oximetry 11/11/19 11/11/19 11/11/19 10:56 11:33 12:30 Temperature 99.5 F Pulse Rate 93 Respiratory 24 24 22 Rate Blood Pressure 124/63 (mmHg) O2 Sat by Pulse 96 Oximetry 11/11/19 13:49 Temperature Pulse Rate Respiratory 22 Rate Blood Pressure (mmHg) O2 Sat by Pulse Oximetry Oxygen Devices in Use Now: Nasal Cannula Appearance: awake. alert not cooporative during the exam and or interview. but she is awake and verbal. she kept yelling "don't touch me..." Eyes: No Scleral Icterus, - - EOMI Ears/Nose/Mouth/Throat: Mucous Membranes Moist Neck: NL Appearance and Movements; NL JVP, Trachea Midline Respiratory: Symmetrical Chest Expansion and Respiratory Effort Result Diagrams: 11/11/19 06:50 11/11/19 06:50 Additional Lab and Data: Lab Results 11/09/19 11/09/19 11/09/19 Range/Units 06:18 06:18 06:18 WBC 11.6 H (3.5-10.8) 10^3/uL RBC 3.52 L (3.70-4.87) 10^6 /uL Hgb 11.4 L (12.0-16.0) g/dL Hct 33 L (35-47) % MCV 93 (80-97) fL MCH 33 H (27-31) pg MCHC 35 (31-36) g/dL RDW 13 (10-15) % Plt Count 276 (150-450) 10^3/uL MPV 8.0 (7.4-10.4) fL Neut % (Auto) 73.8 % Lymph % (Auto) 18.0 % [place] % (Auto) 7.4 % Eos % (Auto) 0.1 % Baso % (Auto) 0.7 % Absolute Neuts (auto) 8.6 H (1.5-7.7) 10^3/ul Absolute Lymphs (auto) 2.1 (1.0-4.8) 10^3/ul Absolute Monos (auto) 0.9 H (0-0.8) 10^3/ul Absolute Eos (auto) 0.0 (0-0.6) 10^3/ul Absolute Basos (auto) 0.1 (0-0.2) 10^3/ul Absolute Nucleated RBC 0.0 10^3/ul Nucleated RBC % 0.0 INR (Anticoag Therapy) (0.82-1.09) Patient Temperature ABG pH (7.35-7.45) ABG pH (Temp Correct) ABG pCO2 (35-45) mmHg ABG pCO2 (Temp Corrct ABG pO2 (80-100) mmHg ABG pO2 (Temp Correct ABG HCO3 (19-31) mmol/L ABG O2 Saturation (94.0-98.0) % ABG Base Excess (-2.0-2.0) mmol/L Respiration Rate Ventilator Type Vent Mode FiO2 Inspiratory Time PEEP Pressure Support Pressure Control EPAP IPAP BiPAP Sodium 133 L (135-145) mmol/L Potassium TNP Chloride 97 L (101-111) mmol/L Carbon Dioxide 28 (22-32) mmol/L Anion Gap 8 (2-11) mmol/L BUN 16 (6-24) mg/dL Creatinine 0.81 (0.51-0.95) mg/dL Est GFR ( Amer) 87.6 (>60) Est GFR (Non-Af Amer) 72.4 (>60) BUN/Creatinine Ratio 19.8 (8-20) Glucose 142 H (70-100) mg/dL Lactic Acid 1.0 (0.5-2.0) mmol/L Calcium 9.6 (8.6-10.3) mg/dL Magnesium 1.9 (1.9-2.7) mg/dL Total Bilirubin 0.40 (0.2-1.0) mg/dL AST TNP ALT 38 (7-52) U/L Alkaline Phosphatase 85 (34-104) U/L Ammonia (16-53) mcmol/L Total Creatine Kinase 664 H (10-223) U/L Troponin I 0.01 (<0.03) ng/mL B-Natriuretic Peptide (<=100) pg/mL Total Protein 7.4 (6.4-8.9) g/dL Albumin 4.4 (3.2-5.2) g/dL Globulin 3.0 (2-4) g/dL Albumin/Globulin Ratio 1.5 (1-3) Urine Color Urine Appearance Urine pH (5-9) Ur Specific [place] (1.010-1.030) Urine Protein (Negative) Urine Ketones (Negative) Urine Blood (Negative) Urine Nitrate (Negative) Urine Bilirubin (Negative) Urine Urobilinogen (Negative) Ur Leukocyte Esterase (Negative) Urine WBC (Auto) (Absent) Urine RBC (Auto) (Absent) Urine Bacteria (Absent) Urine Glucose (Negative) Salicylates < 2.50 (<30) mg/dL Urine Opiates Screen (None Detect) Acetaminophen < 15 mcg/mL Ur Barbiturates Screen (None Detect) Ur Phencyclidine Scrn (None Detect) Ur Amphetamines Screen (None Detect) U Benzodiazepines Scrn (None Detect) Urine Cocaine Screen (None Detect) U Cannabinoids Screen (None Detect) Serum Alcohol 12 H (<10) mg/dL Influenza A (Rapid) (Negative) Influenza B (Rapid) 11/09/19 11/09/19 11/09/19 Range/Units 06:18 06:18 06:18 WBC (3.5-10.8) 10^3/uL RBC (3.70-4.87) 10^6 /uL Hgb (12.0-16.0) g/dL Hct (35-47) % MCV (80-97) fL MCH (27-31) pg MCHC (31-36) g/dL RDW (10-15) % Plt Count (150-450) 10^3/uL MPV (7.4-10.4) fL Neut % (Auto) % Lymph % (Auto) % [place] % (Auto) % Eos % (Auto) % Baso % (Auto) % Absolute Neuts (auto) (1.5-7.7) 10^3/ul Absolute Lymphs (auto) (1.0-4.8) 10^3/ul Absolute Monos (auto) (0-0.8) 10^3/ul Absolute Eos (auto) (0-0.6) 10^3/ul Absolute Basos (auto) (0-0.2) 10^3/ul Absolute Nucleated RBC 10^3/ul Nucleated RBC % INR (Anticoag Therapy) 1.03 (0.82-1.09) Patient Temperature ABG pH (7.35-7.45) ABG pH (Temp Correct) ABG pCO2 (35-45) mmHg ABG pCO2 (Temp Corrct ABG pO2 (80-100) mmHg ABG pO2 (Temp Correct ABG HCO3 (19-31) mmol/L ABG O2 Saturation (94.0-98.0) % ABG Base Excess (-2.0-2.0) mmol/L Respiration Rate Ventilator Type Vent Mode FiO2 Inspiratory Time PEEP Pressure Support Pressure Control EPAP IPAP BiPAP Sodium (135-145) mmol/L Potassium Chloride (101-111) mmol/L Carbon Dioxide (22-32) mmol/L Anion Gap (2-11) mmol/L BUN (6-24) mg/dL Creatinine (0.51-0.95) mg/dL Est GFR ( Amer) (>60) Est GFR (Non-Af Amer) (>60) BUN/Creatinine Ratio (8-20) Glucose (70-100) mg/dL Lactic Acid (0.5-2.0) mmol/L Calcium (8.6-10.3) mg/dL Magnesium (1.9-2.7) mg/dL Total Bilirubin (0.2-1.0) mg/dL AST ALT (7-52) U/L Alkaline Phosphatase (34-104) U/L Ammonia 41 (16-53) mcmol/L Total Creatine Kinase (10-223) U/L Troponin I (<0.03) ng/mL B-Natriuretic Peptide 21 (<=100) pg/mL Total Protein (6.4-8.9) g/dL Albumin (3.2-5.2) g/dL Globulin (2-4) g/dL Albumin/Globulin Ratio (1-3) Urine Color Urine Appearance Urine pH (5-9) Ur Specific [place] (1.010-1.030) Urine Protein (Negative) Urine Ketones (Negative) Urine Blood (Negative) Urine Nitrate (Negative) Urine Bilirubin (Negative) Urine Urobilinogen (Negative) Ur Leukocyte Esterase (Negative) Urine WBC (Auto) (Absent) Urine RBC (Auto) (Absent) Urine Bacteria (Absent) Urine Glucose (Negative) Salicylates (<30) mg/dL Urine Opiates Screen (None Detect) Acetaminophen mcg/mL Ur Barbiturates Screen (None Detect) Ur Phencyclidine Scrn (None Detect) Ur Amphetamines Screen (None Detect) U Benzodiazepines Scrn (None Detect) Urine Cocaine Screen (None Detect) U Cannabinoids Screen (None Detect) Serum Alcohol (<10) mg/dL Influenza A (Rapid) (Negative) Influenza B (Rapid) 11/09/19 11/09/19 11/09/19 Range/Units 06:45 07:42 08:07 WBC (3.5-10.8) 10^3/uL RBC (3.70-4.87) 10^6 /uL Hgb (12.0-16.0) g/dL Hct (35-47) % MCV (80-97) fL MCH (27-31) pg MCHC (31-36) g/dL RDW (10-15) % Plt Count (150-450) 10^3/uL MPV (7.4-10.4) fL Neut % (Auto) % Lymph % (Auto) % [place] % (Auto) % Eos % (Auto) % Baso % (Auto) % Absolute Neuts (auto) (1.5-7.7) 10^3/ul Absolute Lymphs (auto) (1.0-4.8) 10^3/ul Absolute Monos (auto) (0-0.8) 10^3/ul Absolute Eos (auto) (0-0.6) 10^3/ul Absolute Basos (auto) (0-0.2) 10^3/ul Absolute Nucleated RBC 10^3/ul Nucleated RBC % INR (Anticoag Therapy) (0.82-1.09) Patient Temperature ABG pH (7.35-7.45) ABG pH (Temp Correct) ABG pCO2 (35-45) mmHg ABG pCO2 (Temp Corrct ABG pO2 (80-100) mmHg ABG pO2 (Temp Correct ABG HCO3 (19-31) mmol/L ABG O2 Saturation (94.0-98.0) % ABG Base Excess (-2.0-2.0) mmol/L Respiration Rate Ventilator Type Vent Mode FiO2 Inspiratory Time PEEP Pressure Support Pressure Control EPAP IPAP BiPAP Sodium (135-145) mmol/L Potassium 3.6 Chloride (101-111) mmol/L Carbon Dioxide (22-32) mmol/L Anion Gap (2-11) mmol/L BUN (6-24) mg/dL Creatinine (0.51-0.95) mg/dL Est GFR ( Amer) (>60) Est GFR (Non-Af Amer) (>60) BUN/Creatinine Ratio (8-20) Glucose (70-100) mg/dL Lactic Acid (0.5-2.0) mmol/L Calcium (8.6-10.3) mg/dL Magnesium (1.9-2.7) mg/dL Total Bilirubin (0.2-1.0) mg/dL AST 40 H ALT (7-52) U/L Alkaline Phosphatase (34-104) U/L Ammonia (16-53) mcmol/L Total Creatine Kinase (10-223) U/L Troponin I (<0.03) ng/mL B-Natriuretic Peptide (<=100) pg/mL Total Protein (6.4-8.9) g/dL Albumin (3.2-5.2) g/dL Globulin (2-4) g/dL Albumin/Globulin Ratio (1-3) Urine Color Yellow Urine Appearance Clear Urine pH 5.0 (5-9) Ur Specific [place] 1.010 (1.010-1.030) Urine Protein Negative (Negative) Urine Ketones Negative (Negative) Urine Blood 1+ A (Negative) Urine Nitrate Negative (Negative) Urine Bilirubin Negative (Negative) Urine Urobilinogen Negative (Negative) Ur Leukocyte Esterase Negative (Negative) Urine WBC (Auto) Trace(0-5/hpf) (Absent) Urine RBC (Auto) 1+(3-5/hpf) A (Absent) Urine Bacteria Absent (Absent) Urine Glucose Negative (Negative) Salicylates (<30) mg/dL Urine Opiates Screen (None Detect) Acetaminophen mcg/mL Ur Barbiturates Screen (None Detect) Ur Phencyclidine Scrn (None Detect) Ur Amphetamines Screen (None Detect) U Benzodiazepines Scrn (None Detect) Urine Cocaine Screen (None Detect) U Cannabinoids Screen (None Detect) Serum Alcohol (<10) mg/dL Influenza A (Rapid) Positive H (Negative) Influenza B (Rapid) Not Reportable 11/09/19 11/09/19 Range/Units 08:07 10:46 WBC (3.5-10.8) 10^3/uL RBC (3.70-4.87) 10^6 /uL Hgb (12.0-16.0) g/dL Hct (35-47) % MCV (80-97) fL MCH (27-31) pg MCHC (31-36) g/dL RDW (10-15) % Plt Count (150-450) 10^3/uL MPV (7.4-10.4) fL Neut % (Auto) % Lymph % (Auto) % [place] % (Auto) % Eos % (Auto) % Baso % (Auto) % Absolute Neuts (auto) (1.5-7.7) 10^3/ul Absolute Lymphs (auto) (1.0-4.8) 10^3/ul Absolute Monos (auto) (0-0.8) 10^3/ul Absolute Eos (auto) (0-0.6) 10^3/ul Absolute Basos (auto) (0-0.2) 10^3/ul Absolute Nucleated RBC 10^3/ul Nucleated RBC % INR (Anticoag Therapy) (0.82-1.09) Patient Temperature Not Reportable ABG pH 7.41 (7.35-7.45) ABG pH (Temp Correct) Not Reportable ABG pCO2 40 (35-45) mmHg ABG pCO2 (Temp Corrct Not Reportable ABG pO2 70 L (80-100) mmHg ABG pO2 (Temp Correct Not Reportable ABG HCO3 25.4 (19-31) mmol/L ABG O2 Saturation 96.9 (94.0-98.0) % ABG Base Excess 0.7 (-2.0-2.0) mmol/L Respiration Rate Not Reportable Ventilator Type Not Reportable Vent Mode Not Reportable FiO2 3 Inspiratory Time Not Reportable PEEP Not Reportable Pressure Support Not Reportable Pressure Control Not Reportable EPAP Not Reportable IPAP Not Reportable BiPAP Not Reportable Sodium (135-145) mmol/L Potassium Chloride (101-111) mmol/L Carbon Dioxide (22-32) mmol/L Anion Gap (2-11) mmol/L BUN (6-24) mg/dL Creatinine (0.51-0.95) mg/dL Est GFR ( Amer) (>60) Est GFR (Non-Af Amer) (>60) BUN/Creatinine Ratio (8-20) Glucose (70-100) mg/dL Lactic Acid (0.5-2.0) mmol/L Calcium (8.6-10.3) mg/dL Magnesium (1.9-2.7) mg/dL Total Bilirubin (0.2-1.0) mg/dL AST ALT (7-52) U/L Alkaline Phosphatase (34-104) U/L Ammonia (16-53) mcmol/L Total Creatine Kinase (10-223) U/L Troponin I (<0.03) ng/mL B-Natriuretic Peptide (<=100) pg/mL Total Protein (6.4-8.9) g/dL Albumin (3.2-5.2) g/dL Globulin (2-4) g/dL Albumin/Globulin Ratio (1-3) Urine Color Urine Appearance Urine pH (5-9) Ur Specific [place] (1.010-1.030) Urine Protein (Negative) Urine Ketones (Negative) Urine Blood (Negative) Urine Nitrate (Negative) Urine Bilirubin (Negative) Urine Urobilinogen (Negative) Ur Leukocyte Esterase (Negative) Urine WBC (Auto) (Absent) Urine RBC (Auto) (Absent) Urine Bacteria (Absent) Urine Glucose (Negative) Salicylates (<30) mg/dL Urine Opiates Screen None detected (None Detect) Acetaminophen mcg/mL Ur Barbiturates Screen None detected (None Detect) Ur Phencyclidine Scrn None detected (None Detect) Ur Amphetamines Screen None detected (None Detect) U Benzodiazepines Scrn None detected (None Detect) Urine Cocaine Screen None detected (None Detect) U Cannabinoids Screen None detected (None Detect) Serum Alcohol (<10) mg/dL Influenza A (Rapid) (Negative) Influenza B (Rapid) Microbiology and Other Data: Microbiology 11/09/19 08:58 Blood Culture - Preliminary Blood Venous No Growth Day 1 11/09/19 08:58 Blood Culture - Preliminary Blood Venous No Growth Day 1 11/09/19 07:42 Blood Culture - Preliminary Blood Venous No Growth Day 1 11/09/19 12:44 Legionella Urinary Antigen - Final Urine Negative Legionella Antigen Streptococcus pneumoniae Ag Screen - Final Positive S. Pneumo Antigen 11/09/19 06:41 Nasal Screen MRSA (PCR) - Final Nasal Mrsa Not Detected Assess/Plan/Problems-Billing Assessment: 59 y/o female present to the ED from [place] home with fever 103.6, Altered mental status, and vomitting found to have influenza A + and aspiration pneumonia. Initially treated for acute encepalopathy for working diagnosis of meningitis and seizure both has been downgraded from her differential today 11/11/19 - Patient Problems (1) Severe sepsis Current Visit: No Status: Acute Code(s): A41.9 - SEPSIS, UNSPECIFIED ORGANISM; R65.20 - SEVERE SEPSIS WITHOUT SEPTIC SHOCK SNOMED Code(s): 54115988 Comment: - Present on admission with Fever 103.6; hypotension of 72/51; Tachycardia pulse 130's, WBC 11.6 - S/p aggressive IVF and broad spectrum antibiotics - Pancutlure. Corby (HCP) did not consent for LP even with fluoroscopy (IR) and or anesthesia (2) Encephalopathy acute Current Visit: Yes Status: Acute Code(s): G93.40 - ENCEPHALOPATHY, UNSPECIFIED SNOMED Code(s): 25092478 Comment: - secondary to sepsis due to pneumonia, influenza A+ - Neuro and ID consult appreciate. ID did not think it is related to meningitis. Hence, will D/c her Acyclovir, Vanco. Neuro did not think it is seizure and EEG negative - Blood culture, UA and UC NGD - change her IV rocephin to 1 gm IV daily and d/c her Vanco and acyclovir (s/p 2 days tx empirically) - Continue Tamiflu 75 mg bid day # 3 - Off Flagyl added for aspiration coverage - May require Picc line - Contact info for healthcare proxy: Manuel Lui, [phone], secondary number [phone] (3) Aspiration pneumonia Current Visit: Yes Status: Acute Code(s): J69.0 - PNEUMONITIS DUE TO INHALATION OF FOOD AND VOMIT SNOMED Code(s): 313314626 Comment: - Flagyl discontinued today. Will continue ceftriaxone Dayt # 3 (4) Influenza A Current Visit: Yes Status: Acute Code(s): J10.1 - FLU DUE TO OTH IDENT INFLUENZA VIRUS W OTH RESP MANIFEST SNOMED Code(s): 984842277 Comment: - Tamiflu 75 bid Day # 3/5 (5) COPD (chronic obstructive pulmonary disease) Current Visit: No Status: Acute Code(s): J44.9 - CHRONIC OBSTRUCTIVE PULMONARY DISEASE, UNSPECIFIED SNOMED Code(s): 45369842 Comment: - not in exacerbation. On Neb PRN only for now (6) HTN (hypertension) Current Visit: No Status: Acute Code(s): I10 - ESSENTIAL (PRIMARY) HYPERTENSION SNOMED Code(s): 51454922 Comment: - Continue diltiazem 240 ng daily - will resume her spironolactone in am (7) Hypokalemia Current Visit: No Status: Acute Code(s): E87.6 - HYPOKALEMIA SNOMED Code(s ): 30049880 Comment: - K+ 2.9. will continue her supplement PO (8) Hypothyroidism Current Visit: No Status: Acute Code(s): E03.9 - HYPOTHYROIDISM, UNSPECIFIED SNOMED Code(s): 04914855 Comment: - Continue levothyroxine but will decrease from 75 mcg to 50 mcg given her low TSH and elevated FT4 (9) SVT (supraventricular tachycardia) Current Visit: No Status: Acute Code(s): I47.1 - SUPRAVENTRICULAR TACHYCARDIA SNOMED Code(s): 1482595 Comment: - chronic history of SVT - Resumed her Cardizem CD 240 mg daily (10) Schizoaffective disorder Current Visit: No Status: Acute Code(s): F25.9 - SCHIZOAFFECTIVE DISORDER, UNSPECIFIED SNOMED Code(s): 37907751 Comment: - Continue duloxetine, resume her olanzapine and benztropine. (11) Thyroid nodule Current Visit: No Status: Acute Code(s): E04.1 - NONTOXIC SINGLE THYROID NODULE SNOMED Code(s): 689783202 Comment: - Large thyroid nodule found on incidentally on previous imaging 2018. Her CT from ER 11/09/19 demonstrate no changes in the nodule. Will need to ensure proper outpatient follow up for FNA. (12) DVT prophylaxis Current Visit: No Status: Acute Code(s): Z29.9 - ENCOUNTER FOR PROPHYLACTIC MEASURES, UNSPECIFIED SNOMED Code(s): 499199427 Comment: - lovenox 40 mg SQ daily
--- NOTE | 2019-11-11 15:29 | PN ---
Subjective Date of Service: 11/11/19 Length of Stay: 2 Days Neurology is following for suspected seizures. Interval History: The patient was seen by Dr. Slade over the weekend. She presented [place] [facility] [place] with fevers and increase confusion. She was found to be positive for the flu and had positive strep pneumo antigen in the urine. She was put on treatment for possible bacterial meningitis. According to the team, she did get slightly better. An LP was not done in the ED due to her history of scoliosis and surgical scar related to diskitis in the past. Today, the patient refused to be examined. She asked me to "leave her alone" and to give her $800. She denied any headaches or motor weakness. She screamed when I attempted to examine her feet. She's pending an LP under IR. Ammonia: 50 TSH: 0.52 Potassium: 131 ESR: 14 WBC: 17 Toxicology: negative. Serum alcohol is 12. ABG: pH 7.41, pCO2 40, pO2 70 Positive for Influenza A. Review of Systems: The patient would not participate with a ROS. Past Medical History: Unchanged from Admission Objective Active Medications: Acetaminophen (Tylenol Tab*) 650 mg PO Q4H PRN PRN Reason: PAIN - MILD Last Admin: 11/11/19 08:19 Dose: 650 mg Albuterol/Ipratropium (Duoneb (Albuterol 2.5 Mg/Ipratropium 0.5 Mg)) 1 neb INH Q4H PRN PRN Reason: SOB/WHEEZING Last Admin: 11/11/19 01:22 Dose: 1 neb Baclofen (Lioresal Tab*) 20 mg PO TID [facility] Last Admin: 11/11/19 13:49 Dose: 20 mg Benztropine Mesylate (Cogentin Tab*) 1 mg PO DAILY [facility] Last Admin: 11/11/19 10:56 Dose: 1 mg Calcium/Vitamin D (Oscal D Tab 250/125*) 4 tab PO BID [facility] Last Admin: 11/11/19 08:17 Dose: 4 tab Cholecalciferol (Vitamin D Tab*) 2,000 units PO DAILY [facility] Diltiazem HCl (Cardizem Cd Cap*) 240 mg PO DAILY [facility] Last Admin: 11/11/19 10:55 Dose: 240 mg Docusate Sodium (Colace Cap*) 100 mg PO BID [facility] Last Admin: 11/11/19 10:56 Dose: 100 mg Duloxetine HCl (Cymbalta Cap*) 60 mg PO BID [facility] Last Admin: 11/11/19 10:57 Dose: 60 mg Ferrous Sulfate (Ferrous Sulfate Tab*) 325 mg PO DAILY [facility] Fluticasone Propionate (Flonase Nasal [place] 50mcg*) 2 spray BOTH NARES DAILY [facility] Gabapentin (Neurontin Cap(*)) 300 mg PO TID [facility] Last Admin: 11/11/19 13:49 Dose: 300 mg Ceftriaxone Sodium 1 gm/ (Sodium Chloride) 50 mls @ 100 mls/hr IVPB Q24H CHON Magnesium Sulfate (Magnesium Sulfate 2 Gm Iv*) 2 gm in 50 mls @ 50 mls/hr IVPB ONCE ONE Stop: 11/11/19 16:05 Potassium Phosphate 15 mmole/ (Sodium Chloride) 255 mls @ 42 mls/hr IVPB ONCE ONE Stop: 11/11/19 21:10 Levothyroxine Sodium (Synthroid Tab*) 50 mcg PO DAILY@0600 [facility] Lorazepam (Ativan Tab(*)) 0.5 mg PO TID [facility] Last Admin: 11/11/19 13:49 Dose: 0.5 mg Magnesium Oxide (Magox 400 Tab*) 800 mg PO BID [facility] Last Admin: 11/11/19 10:56 Dose: 800 mg Mometasone Furoate/Formoterol Fumar (Dulera 200/5 Mdi*) 2 puff INH BID [facility] Montelukast Sodium (Singulair Tab*) 10 mg PO BEDTIME [facility] Olanzapine (Zyprexa Tab*) 5 mg PO QAM [facility] Last Admin: 11/11/19 10:54 Dose: 5 mg Olanzapine (Zyprexa Tab*) 30 mg PO BEDTIME [facility] Last Admin: 11/10/19 20:23 Dose: 30 mg Oseltamivir Phosphate (Tamiflu Susp* Oralsyr) 75 mg PO BID [facility] Last Admin: 11/11/19 10:57 Dose: 75 mg Potassium Chloride (Klor Con Er Tab*) 40 meq PO BID [facility] Potassium Phos/Sodium Phos (Neutra Phos 250 Mg Vicente*) 250 mg PO TID [facility] Last Admin: 11/11/19 13:55 Dose: Not Given Senna (Senokot 8.6 Mg Tab*) 2 tab PO BID [facility] Spironolactone (Aldactone Tab*) 25 mg PO DAILY [facility] Vital Signs 11/10/19 11/10/19 11/10/19 15:22 19:15 20:00 Temperature 100.9 F Pulse Rate 92 Respiratory 20 28 22 Rate Blood Pressure 108/49 (mmHg) O2 Sat by Pulse 92 Oximetry 11/10/19 11/10/19 11/10/19 20:19 20:20 22:30 Temperature 101.8 F Pulse Rate Respiratory 24 24 Rate Blood Pressure (mmHg) O2 Sat by Pulse Oximetry 11/10/19 11/11/19 11/11/19 22:54 00:30 01:22 Temperature 99.9 F Pulse Rate 92 89 Respiratory 22 20 20 Rate Blood Pressure 108/53 (mmHg) O2 Sat by Pulse 95 92 Oximetry 11/11/19 11/11/19 11/11/19 01:58 03:15 04:00 Temperature 98.2 F 100.1 F Pulse Rate 94 Respiratory 20 Rate Blood Pressure 108/54 112/50 (mmHg) O2 Sat by Pulse 90 Oximetry 11/11/19 11/11/19 11/11/19 05:40 07:49 08:00 Temperature 98.0 F 100.6 F Pulse Rate 90 Respiratory 22 22 Rate Blood Pressure 119/60 (mmHg) O2 Sat by Pulse 94 Oximetry 11/11/19 11/11/19 11/11/19 10:54 10:56 11:33 Temperature 99.5 F Pulse Rate 93 Respiratory 24 24 24 Rate Blood Pressure 124/63 (mmHg) O2 Sat by Pulse 96 Oximetry 11/11/19 11/11/19 12:30 13:49 Temperature Pulse Rate Respiratory 22 22 Rate Blood Pressure (mmHg) O2 Sat by Pulse Oximetry Intake and Output Last 24 Hours 11/09/19 11/10/19 11/11/19 11/12/19 06:59 06:59 06:59 06:59 Intake Total 87844 8035 1080 Output Total 8796 4340 2000 Balance 4358 6734 -920 Weight 155 lb 167 lb 9.6 oz Intake: IV Fluids 5575 783 NS (0.9%) 2225 783 IVPB 401 2605 ABX - CEFTRIAXONE 100 ABX - FLAGYL 200 ABX - VANCOMYCIN 401 693 Acyclovir 212 Mag 100 NS (0.9%) 1200 Potassium 100 Oral 4200 4680 1080 Output: Urine 1500 Fong 6579 2870 1999 Other: Estimated Void Large Date of Last Bowel 499754 Movement # Bowel Movements 1 1 Estimated Stool Amount Large Small # Voids 1 Oxygen Devices in Use Now: Nasal Cannula Neurology Exam: General: Ill appearing frail female in no distress. HEENT: Normocephelic/atraumatic, sclera anicteric, mucous membranes moist She would not allow an examination. Extremities: No clubbing, cyanosis, or edema Neurological Findings: awake, alert to self but not place or time. She recognized staff members that took care of her yesterday. She did not allow me to examiner her as she screamed and asked me to stop. She also demanded that I give her $800. I explain to the patient that it's important for me to examine her neck and legs to see if she has any irritation of the meninges. She continued to resist and yell out. Examination was deferred. Result Diagrams: 11/11/19 06:50 11/11/19 06:50 Additional Lab and Data: Lab Results 11/09/19 11/09/19 11/09/19 Range/Units 06:18 06:18 06:18 WBC 11.6 H (3.5-10.8) 10^3/uL RBC 3.52 L (3.70-4.87) 10^6 /uL Hgb 11.4 L (12.0-16.0) g/dL Hct 33 L (35-47) % MCV 93 (80-97) fL MCH 33 H (27-31) pg MCHC 35 (31-36) g/dL RDW 13 (10-15) % Plt Count 276 (150-450) 10^3/uL MPV 8.0 (7.4-10.4) fL Neut % (Auto) 73.8 % Lymph % (Auto) 18.0 % [place] % (Auto) 7.4 % Eos % (Auto) 0.1 % Baso % (Auto) 0.7 % Absolute Neuts (auto) 8.6 H (1.5-7.7) 10^3/ul Absolute Lymphs (auto) 2.1 (1.0-4.8) 10^3/ul Absolute Monos (auto) 0.9 H (0-0.8) 10^3/ul Absolute Eos (auto) 0.0 (0-0.6) 10^3/ul Absolute Basos (auto) 0.1 (0-0.2) 10^3/ul Absolute Nucleated RBC 0.0 10^3/ul Nucleated RBC % 0.0 INR (Anticoag Therapy) (0.82-1.09) Patient Temperature ABG pH (7.35-7.45) ABG pH (Temp Correct) ABG pCO2 (35-45) mmHg ABG pCO2 (Temp Corrct ABG pO2 (80-100) mmHg ABG pO2 (Temp Correct ABG HCO3 (19-31) mmol/L ABG O2 Saturation (94.0-98.0) % ABG Base Excess (-2.0-2.0) mmol/L Respiration Rate Ventilator Type Vent Mode FiO2 Inspiratory Time PEEP Pressure Support Pressure Control EPAP IPAP BiPAP Sodium 133 L (135-145) mmol/L Potassium TNP Chloride 97 L (101-111) mmol/L Carbon Dioxide 28 (22-32) mmol/L Anion Gap 8 (2-11) mmol/L BUN 16 (6-24) mg/dL Creatinine 0.81 (0.51-0.95) mg/dL Est GFR ( Amer) 87.6 (>60) Est GFR (Non-Af Amer) 72.4 (>60) BUN/Creatinine Ratio 19.8 (8-20) Glucose 142 H (70-100) mg/dL Lactic Acid 1.0 (0.5-2.0) mmol/L Calcium 9.6 (8.6-10.3) mg/dL Magnesium 1.9 (1.9-2.7) mg/dL Total Bilirubin 0.40 (0.2-1.0) mg/dL AST TNP ALT 38 (7-52) U/L Alkaline Phosphatase 85 (34-104) U/L Ammonia (16-53) mcmol/L Total Creatine Kinase 664 H (10-223) U/L Troponin I 0.01 (<0.03) ng/mL B-Natriuretic Peptide (<=100) pg/mL Total Protein 7.4 (6.4-8.9) g/dL Albumin 4.4 (3.2-5.2) g/dL Globulin 3.0 (2-4) g/dL Albumin/Globulin Ratio 1.5 (1-3) Urine Color Urine Appearance Urine pH (5-9) Ur Specific [place] (1.010-1.030) Urine Protein (Negative) Urine Ketones (Negative) Urine Blood (Negative) Urine Nitrate (Negative) Urine Bilirubin (Negative) Urine Urobilinogen (Negative) Ur Leukocyte Esterase (Negative) Urine WBC (Auto) (Absent) Urine RBC (Auto) (Absent) Urine Bacteria (Absent) Urine Glucose (Negative) Salicylates < 2.50 (<30) mg/dL Urine Opiates Screen (None Detect) Acetaminophen < 15 mcg/mL Ur Barbiturates Screen (None Detect) Ur Phencyclidine Scrn (None Detect) Ur Amphetamines Screen (None Detect) U Benzodiazepines Scrn (None Detect) Urine Cocaine Screen (None Detect) U Cannabinoids Screen (None Detect) Serum Alcohol 12 H (<10) mg/dL Influenza A (Rapid) (Negative) Influenza B (Rapid) 11/09/19 11/09/19 11/09/19 Range/Units 06:18 06:18 06:18 WBC (3.5-10.8) 10^3/uL RBC (3.70-4.87) 10^6 /uL Hgb (12.0-16.0) g/dL Hct (35-47) % MCV (80-97) fL MCH (27-31) pg MCHC (31-36) g/dL RDW (10-15) % Plt Count (150-450) 10^3/uL MPV (7.4-10.4) fL Neut % (Auto) % Lymph % (Auto) % [place] % (Auto) % Eos % (Auto) % Baso % (Auto) % Absolute Neuts (auto) (1.5-7.7) 10^3/ul Absolute Lymphs (auto) (1.0-4.8) 10^3/ul Absolute Monos (auto) (0-0.8) 10^3/ul Absolute Eos (auto) (0-0.6) 10^3/ul Absolute Basos (auto) (0-0.2) 10^3/ul Absolute Nucleated RBC 10^3/ul Nucleated RBC % INR (Anticoag Therapy) 1.03 (0.82-1.09) Patient Temperature ABG pH (7.35-7.45) ABG pH (Temp Correct) ABG pCO2 (35-45) mmHg ABG pCO2 (Temp Corrct ABG pO2 (80-100) mmHg ABG pO2 (Temp Correct ABG HCO3 (19-31) mmol/L ABG O2 Saturation (94.0-98.0) % ABG Base Excess (-2.0-2.0) mmol/L Respiration Rate Ventilator Type Vent Mode FiO2 Inspiratory Time PEEP Pressure Support Pressure Control EPAP IPAP BiPAP Sodium (135-145) mmol/L Potassium Chloride (101-111) mmol/L Carbon Dioxide (22-32) mmol/L Anion Gap (2-11) mmol/L BUN (6-24) mg/dL Creatinine (0.51-0.95) mg/dL Est GFR ( Amer) (>60) Est GFR (Non-Af Amer) (>60) BUN/Creatinine Ratio (8-20) Glucose (70-100) mg/dL Lactic Acid (0.5-2.0) mmol/L Calcium (8.6-10.3) mg/dL Magnesium (1.9-2.7) mg/dL Total Bilirubin (0.2-1.0) mg/dL AST ALT (7-52) U/L Alkaline Phosphatase (34-104) U/L Ammonia 41 (16-53) mcmol/L Total Creatine Kinase (10-223) U/L Troponin I (<0.03) ng/mL B-Natriuretic Peptide 21 (<=100) pg/mL Total Protein (6.4-8.9) g/dL Albumin (3.2-5.2) g/dL Globulin (2-4) g/dL Albumin/Globulin Ratio (1-3) Urine Color Urine Appearance Urine pH (5-9) Ur Specific [place] (1.010-1.030) Urine Protein (Negative) Urine Ketones (Negative) Urine Blood (Negative) Urine Nitrate (Negative) Urine Bilirubin (Negative) Urine Urobilinogen (Negative) Ur Leukocyte Esterase (Negative) Urine WBC (Auto) (Absent) Urine RBC (Auto) (Absent) Urine Bacteria (Absent) Urine Glucose (Negative) Salicylates (<30) mg/dL Urine Opiates Screen (None Detect) Acetaminophen mcg/mL Ur Barbiturates Screen (None Detect) Ur Phencyclidine Scrn (None Detect) Ur Amphetamines Screen (None Detect) U Benzodiazepines Scrn (None Detect) Urine Cocaine Screen (None Detect) U Cannabinoids Screen (None Detect) Serum Alcohol (<10) mg/dL Influenza A (Rapid) (Negative) Influenza B (Rapid) 11/09/19 11/09/19 11/09/19 Range/Units 06:45 07:42 08:07 WBC (3.5-10.8) 10^3/uL RBC (3.70-4.87) 10^6 /uL Hgb (12.0-16.0) g/dL Hct (35-47) % MCV (80-97) fL MCH (27-31) pg MCHC (31-36) g/dL RDW (10-15) % Plt Count (150-450) 10^3/uL MPV (7.4-10.4) fL Neut % (Auto) % Lymph % (Auto) % [place] % (Auto) % Eos % (Auto) % Baso % (Auto) % Absolute Neuts (auto) (1.5-7.7) 10^3/ul Absolute Lymphs (auto) (1.0-4.8) 10^3/ul Absolute Monos (auto) (0-0.8) 10^3/ul Absolute Eos (auto) (0-0.6) 10^3/ul Absolute Basos (auto) (0-0.2) 10^3/ul Absolute Nucleated RBC 10^3/ul Nucleated RBC % INR (Anticoag Therapy) (0.82-1.09) Patient Temperature ABG pH (7.35-7.45) ABG pH (Temp Correct) ABG pCO2 (35-45) mmHg ABG pCO2 (Temp Corrct ABG pO2 (80-100) mmHg ABG pO2 (Temp Correct ABG HCO3 (19-31) mmol/L ABG O2 Saturation (94.0-98.0) % ABG Base Excess (-2.0-2.0) mmol/L Respiration Rate Ventilator Type Vent Mode FiO2 Inspiratory Time PEEP Pressure Support Pressure Control EPAP IPAP BiPAP Sodium (135-145) mmol/L Potassium 3.6 Chloride (101-111) mmol/L Carbon Dioxide (22-32) mmol/L Anion Gap (2-11) mmol/L BUN (6-24) mg/dL Creatinine (0.51-0.95) mg/dL Est GFR ( Amer) (>60) Est GFR (Non-Af Amer) (>60) BUN/Creatinine Ratio (8-20) Glucose (70-100) mg/dL Lactic Acid (0.5-2.0) mmol/L Calcium (8.6-10.3) mg/dL Magnesium (1.9-2.7) mg/dL Total Bilirubin (0.2-1.0) mg/dL AST 40 H ALT (7-52) U/L Alkaline Phosphatase (34-104) U/L Ammonia (16-53) mcmol/L Total Creatine Kinase (10-223) U/L Troponin I (<0.03) ng/mL B-Natriuretic Peptide (<=100) pg/mL Total Protein (6.4-8.9) g/dL Albumin (3.2-5.2) g/dL Globulin (2-4) g/dL Albumin/Globulin Ratio (1-3) Urine Color Yellow Urine Appearance Clear Urine pH 5.0 (5-9) Ur Specific [place] 1.010 (1.010-1.030) Urine Protein Negative (Negative) Urine Ketones Negative (Negative) Urine Blood 1+ A (Negative) Urine Nitrate Negative (Negative) Urine Bilirubin Negative (Negative) Urine Urobilinogen Negative (Negative) Ur Leukocyte Esterase Negative (Negative) Urine WBC (Auto) Trace(0-5/hpf) (Absent) Urine RBC (Auto) 1+(3-5/hpf) A (Absent) Urine Bacteria Absent (Absent) Urine Glucose Negative (Negative) Salicylates (<30) mg/dL Urine Opiates Screen (None Detect) Acetaminophen mcg/mL Ur Barbiturates Screen (None Detect) Ur Phencyclidine Scrn (None Detect) Ur Amphetamines Screen (None Detect) U Benzodiazepines Scrn (None Detect) Urine Cocaine Screen (None Detect) U Cannabinoids Screen (None Detect) Serum Alcohol (<10) mg/dL Influenza A (Rapid) Positive H (Negative) Influenza B (Rapid) Not Reportable 11/09/19 11/09/19 Range/Units 08:07 10:46 WBC (3.5-10.8) 10^3/uL RBC (3.70-4.87) 10^6 /uL Hgb (12.0-16.0) g/dL Hct (35-47) % MCV (80-97) fL MCH (27-31) pg MCHC (31-36) g/dL RDW (10-15) % Plt Count (150-450) 10^3/uL MPV (7.4-10.4) fL Neut % (Auto) % Lymph % (Auto) % [place] % (Auto) % Eos % (Auto) % Baso % (Auto) % Absolute Neuts (auto) (1.5-7.7) 10^3/ul Absolute Lymphs (auto) (1.0-4.8) 10^3/ul Absolute Monos (auto) (0-0.8) 10^3/ul Absolute Eos (auto) (0-0.6) 10^3/ul Absolute Basos (auto) (0-0.2) 10^3/ul Absolute Nucleated RBC 10^3/ul Nucleated RBC % INR (Anticoag Therapy) (0.82-1.09) Patient Temperature Not Reportable ABG pH 7.41 (7.35-7.45) ABG pH (Temp Correct) Not Reportable ABG pCO2 40 (35-45) mmHg ABG pCO2 (Temp Corrct Not Reportable ABG pO2 70 L (80-100) mmHg ABG pO2 (Temp Correct Not Reportable ABG HCO3 25.4 (19-31) mmol/L ABG O2 Saturation 96.9 (94.0-98.0) % ABG Base Excess 0.7 (-2.0-2.0) mmol/L Respiration Rate Not Reportable Ventilator Type Not Reportable Vent Mode Not Reportable FiO2 3 Inspiratory Time Not Reportable PEEP Not Reportable Pressure Support Not Reportable Pressure Control Not Reportable EPAP Not Reportable IPAP Not Reportable BiPAP Not Reportable Sodium (135-145) mmol/L Potassium Chloride (101-111) mmol/L Carbon Dioxide (22-32) mmol/L Anion Gap (2-11) mmol/L BUN (6-24) mg/dL Creatinine (0.51-0.95) mg/dL Est GFR ( Amer) (>60) Est GFR (Non-Af Amer) (>60) BUN/Creatinine Ratio (8-20) Glucose (70-100) mg/dL Lactic Acid (0.5-2.0) mmol/L Calcium (8.6-10.3) mg/dL Magnesium (1.9-2.7) mg/dL Total Bilirubin (0.2-1.0) mg/dL AST ALT (7-52) U/L Alkaline Phosphatase (34-104) U/L Ammonia (16-53) mcmol/L Total Creatine Kinase (10-223) U/L Troponin I (<0.03) ng/mL B-Natriuretic Peptide (<=100) pg/mL Total Protein (6.4-8.9) g/dL Albumin (3.2-5.2) g/dL Globulin (2-4) g/dL Albumin/Globulin Ratio (1-3) Urine Color Urine Appearance Urine pH (5-9) Ur Specific [place] (1.010-1.030) Urine Protein (Negative) Urine Ketones (Negative) Urine Blood (Negative) Urine Nitrate (Negative) Urine Bilirubin (Negative) Urine Urobilinogen (Negative) Ur Leukocyte Esterase (Negative) Urine WBC (Auto) (Absent) Urine RBC (Auto) (Absent) Urine Bacteria (Absent) Urine Glucose (Negative) Salicylates (<30) mg/dL Urine Opiates Screen None detected (None Detect) Acetaminophen mcg/mL Ur Barbiturates Screen None detected (None Detect) Ur Phencyclidine Scrn None detected (None Detect) Ur Amphetamines Screen None detected (None Detect) U Benzodiazepines Scrn None detected (None Detect) Urine Cocaine Screen None detected (None Detect) U Cannabinoids Screen None detected (None Detect) Serum Alcohol (<10) mg/dL Influenza A (Rapid) (Negative) Influenza B (Rapid) Microbiology and Other Data: Microbiology 11/09/19 08:58 Blood Culture - Preliminary Blood Venous No Growth Day 1 11/09/19 08:58 Blood Culture - Preliminary Blood Venous No Growth Day 1 11/09/19 07:42 Blood Culture - Preliminary Blood Venous No Growth Day 1 11/09/19 12:44 Legionella Urinary Antigen - Final Urine Negative Legionella Antigen Streptococcus pneumoniae Ag Screen - Final Positive S. Pneumo Antigen 11/09/19 06:41 Nasal Screen MRSA (PCR) - Final Nasal Mrsa Not Detected Assessment/Plan Ms. Hu Garibay is a 59-year-old with an extensive psychiatric history who presented to [facility] with fevers and confusion. She was found to have Strep pneumo and Influenza. She was started on Tamiflu. There was one reported shaking events on admission without loss of consciousness. She has not had any shaking like spells. 1. Acute infectious encephalopathy manifesting as delirium. The encephalopathy has resolved on EEG as she has a normal background frequency. Therefore, her behavioral is most likely either drug induced or part of her psychiatric illness. She doesn't appear to have meningitis, although she does not allow me to examine her to confirm. The HCP has declined an LP, which she does not need at this time since she's improving. Please monitor for seizure like activity Defer management of her antibiotics and antiviral to the ID team. Consult PT to evaluate and treat Please call us for any questions or concerns.
[2019-11-11] MEDS: Potassium Chlor TAB* 20 MEQ TAB.ER PO SCH ×2 (16:15→17:45)
[2019-11-11] MEDS: traMADol TAB* 50 MG PO PRN (17:42)
[2019-11-11] MEDS: Enoxaparin(*) 40 MG/0.4 ML SYR SUBCUT SCH (17:43)
[2019-11-11] MEDS ORDERED: NS 0.9% 250 ML* 250 ML ONE (18:11)
[2019-11-11] MEDS: Mometasone/Formoter 200/5 MDI INH SCH (20:02)
[2019-11-11] MEDS: Montelukast Sodium TAB* 10 MG PO SCH (20:02)
--- NOTE | 2019-11-11 20:22 | CONS ---
CONSULTATION REPORT: ADDENDUM: IMPRESSION: 1. Encephalopathy. I suspect this is likely secondary to influenza and likely underlying pneumonia. This appears to be improving. It also appears that some of her altered mental status is behavioral in nature. She does have a history of underlying schizophrenia. Meningitis is certainly in the differential, but I have a lower suspicion of this. She has not had an LP at this time. She is tentatively pending LP later today in Interventional Radiology. 2. Influenza A. Continue Tamiflu. 3. Pneumonia. In the setting of a positive Streptococcus pneumoniae urine antigen, I suspect she likely has pneumococcal pneumonia. Chest x-ray on admission with no focal infiltrates. Chest CT with parenchymal density with air bronchograms in dependent most position of the right lower lobe that could be atelectasis versus pneumonia. Chest x-ray from yesterday with progressive pulmonary edema, this is likely secondary to the IV fluids that she has been receiving. She continues to have intermittent low-grade fevers. Continues to have leukocytosis. 4. Leukocytosis. She denies any diarrhea or abdominal pain. Urinalysis with no growth. I suspect this is all secondary to suspected pneumococcal pneumoniae and influenza. RECOMMENDATIONS/PLAN: I recommend continuing ceftriaxone, but decreasing this to 1 g IV daily and continuing the Tamiflu. Recommend discontinuing vancomycin and acyclovir at this time as we have a low suspicion for meningitis. We will continue to follow along. Final recommendations will be based off of the patient's clinical course and any results from lumbar puncture if she is to undergo one. REVIEW OF SYSTEMS: I performed a 10-point review of systems. All the pertinent positives and negatives are mentioned in the history of present illness. The remaining review of systems are negative. PHYSICAL EXAM: Vital Signs: Temperature 100.6, heart rate 90, respiratory rate 22, O2 sat 94% on room air, blood pressure 119/60. General Appearance: She is alert, appears to be in no acute distress. Head: Normocephalic, atraumatic. EENT: Extraocular movements are intact. No subconjunctival hemorrhage. Moist mucous membranes. Neck: Supple. No lymphadenopathy. She has no nuchal rigidity and has full range of motion of her neck. Neurological: She is alert and oriented to person and the year. When asked who the president is, she states Bill Moe. She will also not answer to her location. Cardiovascular: Regular rate and rhythm. S1 and S2 are present. No murmurs, rubs, or gallops heard. Respiratory: Lungs are clear to auscultation bilateral anteriorly. She will not cooperate to auscultate her lungs posteriorly. Abdomen: Bowel sounds present. Abdomen is soft, nontender , nondistended. Extremities: No lower extremity edema. No knee effusions noted. She again will not cooperate for an examination of her back. Psychological: Calm and uncooperative. Skin: No rashes or abnormalities seen on the exposed skin. DIAGNOSTIC STUDIES/LAB DATA: Sodium 132, potassium 2.9, chloride 100, CO2 of 25 , BUN 7, creatinine 0.52, glucose 148. White blood cell count 17.4, hemoglobin 9.4, hematocrit 27, and platelet count 220. Urinalysis negative. Urine culture with no growth to date. Influenza A positive. Urine antigen negative for legionella, but positive for Strep pneumo. Blood cultures with no growth to date. CRP at admission is 19.93. Please see impression and recommendations outlined above, recommendations have been discussed with Dr. Preston Smith. Thank you for asking us to see Ms. Lui in consultation. The case has been discussed with my attending, Dr. Lyle Bravo, who agrees with the plan of care. ROCIO RIVERA, GAL [id number]/[facility] #: [id number] [place]
[2019-11-11] MEDS: OLANzapine TAB* 10 MG PO SCH (21:50)
[2019-11-11] MEDS: Senna TAB 8.6 mg* TAB PO SCH (21:51)
--- NOTE | 2019-11-11 21:53 | CONS ---
CONTINUATION ADDENDUM NOW INCLUDED ON THIS REPORT CONSULTATION REPORT: DATE OF CONSULT: 11/11/19 PRIMARY CARE PROVIDER: Dr. Jack Figueroa. PROVIDER REQUESTING CONSULTATION: Dr. Preston Smith. CONSULTING SERVICE: Infectious Disease. PROVIDER: Rocio Haddad NP ATTENDING PROVIDER: Dr. Lyle Bravo * (dictated by Rocio Haddad NP) REASON FOR CONSULT: Suspected meningitis in the setting of influenza A and urine antigen positive for Strep pneumoniae IMPRESSION: 1. Encephalopathy. Suspect this is likely secondary to influenza and likely underlying pneumonia. She appears to be improving. It also appears that some of her altered mental status is behavioral in nature, she does have a history of underlying schizophrenia. Meningitis is certainly in the differential, but I have a lower suspicion for this. She has not had an LP at this time. She is tentatively pending LP later today in Interventional Radiology. 2. Influenza A. Continue Tamiflu. 3. Pneumonia. In the setting of a positive Streptococcus pneumoniae urine antigen, suspect she likely has pneumococcal pneumonia. Chest x-ray on admission with no focal infiltrates. Chest CT with parenchymal density with air bronchograms in dependent most position of the right lower lobe that could be atelectasis versus pneumonia. Chest x-ray from yesterday with progressive pulmonary edema, this is likely secondary to the IV fluids that she has been receiving. She continues to have intermittent low-grade fevers. Continues to have leukocytosis. 4. Leukocytosis. She denies any diarrhea or abdominal pain. Urinalysis with no growth. Suspect this is all secondary to pneumococcal pneumonia and influenza. RECOMMENDATIONS/PLAN: Recommend continuing ceftriaxone, but decreasing this to 1 g IV daily and continuing the Tamiflu. Recommend discontinuing vancomycin and acyclovir at this time as we have a low suspicion for meningitis. We will continue to follow along. Final recommendations will be based off of the patient's clinical course and any results from lumbar puncture if she is to undergo one. HISTORY OF PRESENT ILLNESS: Ms. Lui is a 59 year old female with past medical history significant for hypertension, hx SVT, schizophrenia, chronic low back pain, osteodiskitis, hypothyroidism, and polysubstance abuse; who lives at the [facility] and was found by staff to be laying across the bed with her head towards the floor and emesis on floor. She was reported to be unresponsive and was having difficulty breathing. EMS was called and she was brought to the emergency room. While in the emergency room, she was noted to have a temperature max of 103.6. Serum alcohol level was 12. She was found to have leukocytosis of 11.6. She was noted to be lethargic. Was seen in consultation by Neurology, who recommended that she empirically be treated for meningitis and to attempt an LP. Her brother was concerned about the LP unless she was in a life-threatening situation. Given the improvement that she received while being empirically treated with antibiotics and her history of lumbar sclerosis, it was opted to defer an LP at that time. She was also found to have influenza A, sepsis, suspected aspiration pneumonia, and was referred to the hospitalist service. While in the hospital, her fever have slowly improved. She does continue to have some intermittent fevers and low-grade fevers, the last low-grade fever of 100.6 earlier today and last fever of 101.8 at 10:30 p.m last night. She initially had leukocytosis that increased on 11/10/19 but then is trending back down as of this morning. CRP on admission was 19.93. She had had some periods of hypotension while in the emergency room; this has resolved. She is noted to be tachypneic most of the time. They came into the room and additionally was not willing to participate at this time pending possible lumbar puncture and Interventional Radiology. PAST MEDICAL HISTORY: 1. Hypertension. 2. History of SVT. 3. Schizophrenia. 4. Chronic low back pain. 5. Osteodiskitis. 6. Hypothyroidism. 7. Lumbar Sclerosis. PAST SURGICAL HISTORY: There are no surgeries documented in our EMR, she is unable to provide further information at this time. MEDICATIONS: Home medications: 1. Tramadol 100 mg by mouth every 6 hours as needed for pain. 2. Spiriva 1 capsule inhalation daily. 3. Zyprexa 5 mg by mouth in the morning, followed by 30 mg by mouth at bedtime. 4. Singulair 10 mg by mouth daily. 5. Magnesium oxide 400 mg by mouth daily. 6. Levothyroxine 75 mcg by mouth daily. 7. Lorazepam 0.5 mg by mouth 3 times daily. 8. Ibuprofen 800 mg by mouth 3 times daily. 9. Gabapentin 300 mg by mouth 3 times daily. 10. Breo Ellipta MDI 200/25 one puff inhalation daily. 11. Fluticasone nasal spray 50 mcg 2 sprays to both nares daily. 12. Ferrous sulfate 325 mg by mouth daily. 13. Colace 100 mg by mouth twice daily. 14. Diltiazem 240 mg by mouth daily. 15. Cymbalta 60 mg by mouth twice daily. 16. Vitamin D 2000 units by mouth daily. 17. Cogentin 1 mg by mouth daily. 18. Baclofen 20 mg by mouth 3 times daily. 19. Atorvastatin 40 mg by mouth at bedtime. 20. Aspirin 81 mg by mouth daily. 21. Albuterol inhaler 2 puffs inhalation every 4 hours as needed for shortness of breath or wheeze. Hospital medications: 1. Acetaminophen 650 mg by mouth every 4 hours as needed for fever or pain. 2. DuoNeb 1 neb inhalation every 4 hours as needed for shortness of breath or wheeze. 3. Aspirin 81 mg by mouth daily. 4. Baclofen 20 mg by mouth 3 times daily. 5. Cogentin 1 mg by mouth daily. 6. Os-Hamilton D four tablets by mouth twice daily. 7. Ceftriaxone 2 gm IV twice daily. 8. Vitamin D 2,000 units by mouth daily. 9. Diltiazem 240 mg by mouth daily. 10. Colace 100 mg by mouth twice daily. 11. Duloxetine 60 mg by mouth twice daily. 12. Lovenox 40 mg subcutaneously daily. 13. Ferrous Sulfate 325 mg by mouth daily. 14. Flonase nasal spray 50 mcg 2 spray to both nares daily. 15. Gabapentin 300 mg by mouth 3 times daily. 16. Levothyroxine 50 mcg by mouth daily. 17. Lorazepam 0.5 mg by mouth 3 times daily. 18. Magnesium oxide 800 mg by mouth twice daily. 19. Dulera 200/5 two puffs inhalation twice daily. 20. Singulair 10 mg by mouth daily. 21. Zyprexa 5 mg by mouth in the morning and 30 mg by mouth at bedtime. 22. Tamiflu 75 mg by mouth twice daily. 23. Potassium chloride 40 mEq by mouth twice daily. 24. Neutra-Phos 250 mg by mouth 3 times daily. 25. Potassium phosphate 15 mmol IV once. 26. Senna 8.6 mg 2 tablets by mouth twice daily. 27. Spironolactone 25 mg by mouth daily. 28. Tramadol 50 mg by mouth daily. 29. Vancomycin 1250 mg IV every 8 hours. 30. Acyclovir 600 mg IV every 8 hours. ALLERGIES: BLACK PEPPER, HALDOL, LATEX, RISPERIDONE, FLUPHENAZINE. FAMILY HISTORY: The patient is uncooperative with providing any information regarding her family history. SOCIAL HISTORY: The patient has a history of alcohol abuse. She will not answer questions regarding her tobacco, alcohol, or recreational drug use at this time. According to her chart, she, at least, previously was a smoker. REVIEW OF SYSTEMS: I performed a 10-point review of systems. All the pertinent positives and negatives are mentioned in the history of present illness. The remaining review of systems are negative. PHYSICAL EXAM: Vital Signs: Temperature 100.6, heart rate 90, respiratory rate 22, O2 sat 94% on room air, blood pressure 119/60. General Appearance: She is alert, appears to be in no acute distress. Head: Normocephalic, atraumatic. EENT: Extraocular movements are intact. No subconjunctival hemorrhage. Moist mucous membranes. Neck: Supple. No lymphadenopathy. She has no nuchal rigidity and has full range of motion of her neck. Neurological: She is alert and oriented to person and the year. When asked who the president is, she states Osito Rosa. She will also not answer to her location. Cardiovascular: Regular rate and rhythm. S1 and S2 are present. No murmurs, rubs, or gallops heard. Respiratory: Lungs are clear to auscultation bilateral anteriorly. She will not cooperate to auscultate her lungs posteriorly. Abdomen: Bowel sounds present. Abdomen is soft, nontender , nondistended. Extremities: No lower extremity edema. No knee effusions noted. She again will not cooperate for an examination of her back. Psychological: Calm and uncooperative. Skin: No rashes or abnormalities seen on the exposed skin. DIAGNOSTIC STUDIES/LAB DATA: Sodium 132, potassium 2.9, chloride 100, CO2 of 25 , BUN 7, creatinine 0.52, glucose 148. White blood cell count 17.4, hemoglobin 9.4, hematocrit 27, and platelet count 220. Urinalysis negative. Urine culture with no growth to date. Influenza A positive. Urine antigen negative for legionella, but positive for Strep pneumo. Blood cultures with no growth to date. CRP at admission is 19.93. Please see impression and recommendations outlined above, recommendations have been discussed with Dr. Preston Smith. Thank you for asking us to see Gulshan Hu in consultation. The case has been discussed with my attending, Dr. Lyle Bravo, who agrees with the plan of care. Reviewed by ROCIO HADDAD, PEPE 11/15/19 0904 [id number]/[facility]PS #: [id number]/CPS #: [id number] [facility] HOSPITALNorma
--- NOTE | 2019-11-11 22:19 | EEG ---
ELECTROENCEPHALOGRAPHY: DATE OF STUDY: 11/11/19 - ROOM #419 DATE READ: 11/11/19 ORDERED BY: Dr. Jack Slade. CLINICAL HISTORY: Ms. Lani Lui is a 59-year-old female who came to the ED with fevers and confusion. She tested positive for the flu. She has a history of schizoaffective disorder. There was some evidence of possible seizure like activity with tonic clonic movements of the left upper extremity. This EEG was obtained to evaluate for epileptiform abnormalities or electrographic seizures. MEDICATIONS: 1. Acyclovir. 2. Aspirin. 3. Baclofen. 2. Benztropine. 3. Diltiazem. 4. Cymbalta. 5. Gabapentin. 6. Heparin. 7. Ativan. 8. Magnesium. 9. Flagyl. 10. Zyprexa. 11. Tamiflu. 12. Potassium. 13. Rocephin. 14. Synthroid. 15. Tylenol. 16. Albuterol. DURATION OF THE RECORDIN:17-08:49. CLINICAL STATE: Awake. REPORT: The waking background showed an appropriate organization with clearly defined anterior-posterior voltage and frequency gradients. There was a well- defined posterior dominant rhythm of 8.5 Hz, which was symmetrical and showed normal reactivity. Anteriorly, there was an expected pattern of lower voltage, irregular, mixed, faster frequency. Hyperventilation and photic stimulation were not performed. EKG showed normal sinus rhythm with a rate of 70 beats per minute. Throughout the recording, there were no epileptiform discharges or electrographic seizures. CLINICAL IMPRESSION: This is a normal awake EEG. There were no focal or epileptiform abnormalities. [id number]/[facility] #: [id number] [facility]
[2019-11-12] MEDS: Levothyroxine TAB* 50 MCG TAB PO SCH (05:43)
[2019-11-12] MEDS: cefTRIAXone(*) 1 GM in NS 0.9% 50 ML* 50 ML IVPB SCH (05:46)
[2019-11-12 06:10] LABS: ABS Lymphocytes 1.3 10^3/ul (1.0-4.8); ABS Monocytes 0.5 10^3/ul (0-0.8); ABS Neutrophils 11.3 10^3/ul (1.5-7.7); Hematocrit 27 % (35-47); Hemoglobin 9.5 g/dL (12.0-16.0); Lymphocyte % 9.6 %; Mean Corpuscular HGB Conc 36 g/dL (31-36); Mean Corpuscular Hemoglobin 33 pg (27-31); Mean Corpuscular Volume 92 fL (80-97); Mean Platelet Volume 8.4 fL (7.4-10.4); Platelet Count 222 10^3/uL (150-450); Red Blood Count 2.91 10^6 /uL (3.70-4.87); Red Cell Distribution Width 14 % (10-15); White Blood Count 13.1 10^3/uL (3.5-10.8)
[2019-11-12 06:29] LABS: BUN/Creatinine Ratio 14.3 (8-20); Calcium 8.1 mg/dL (8.6-10.3); EGFR African American 156.4 (>60); EGFR Non-African American 129.3 (>60); Magnesium 1.7 mg/dL (1.9-2.7); Phosphorus 2.6 mg/dL (2.5-5.0); Potassium 3.8 mmol/L (3.5-5.0)
[2019-11-12] MEDS: Mometasone/Formoter 200/5 MDI INH SCH ×2 (07:54→20:11)
[2019-11-12] MEDS: Calcium/Vitamin D TAB 250/125* TAB PO SCH ×2 (08:06→16:43)
[2019-11-12] MEDS: Magnesium Oxide TAB* 400 MG PO SCH ×2 (08:08→21:50)
[2019-11-12] MEDS: Cholecalciferol TAB* 1000 UNITS PO SCH (08:08)
[2019-11-12] MEDS: Docusate CAP* 100 MG PO SCH ×2 (08:11→21:51)
[2019-11-12] MEDS: Baclofen TAB* 20 MG PO SCH ×3 (08:12→21:50)
[2019-11-12] MEDS: DULoxetine DR CAP* 60 MG CAP.DR PO SCH ×2 (08:12→21:50)
[2019-11-12] MEDS: traMADol TAB* 50 MG PO PRN (08:13)
[2019-11-12] MEDS: LORazepam TAB(*) 0.5 MG PO SCH ×3 (08:13→20:43)
[2019-11-12] MEDS: OLANzapine TAB* 5 MG PO SCH (08:13)
[2019-11-12] MEDS: Potassium Chlor TAB* 20 MEQ TAB.ER PO SCH ×2 (08:14→21:50)
[2019-11-12] MEDS: Benztropine TAB* 1 MG PO SCH (08:14)
[2019-11-12] MEDS: Aspirin 81 mg CHEW TAB* 81 MG TAB.CHEW PO SCH (08:16)
[2019-11-12] MEDS: Fluticasone NASAL SPRAY 50MCG* 16 gm SPRAY BTL BOTH NARES SCH (08:21)
[2019-11-12] MEDS: Ferrous Sulfate TAB* 325 MG PO SCH (08:27)
[2019-11-12] MEDS: Diltiazem CD CAP* 240 MG PO SCH (08:28)
[2019-11-12] MEDS: Gabapentin CAP(*) 300 MG PO SCH ×3 (08:29→21:51)
[2019-11-12] MEDS: Oseltamivir SUSP* ORALSYR 6 MG/ML PO SCH ×2 (08:30→22:36)
[2019-11-12] MEDS: Potassium & Sodium Phos 250MG* = 1 PACKET PO SCH (08:30)
[2019-11-12] MEDS: Senna TAB 8.6 mg* TAB PO SCH ×2 (08:31→21:50)
[2019-11-12] MEDS ORDERED: Spironolactone TAB* 25 MG PO SCH (09:00)
[2019-11-12] MEDS: Albuterol/Ipratropium NEB.SOL* Albuterol 2.5 MG/Ipratropium 0.5 MG 3 ML INH PRN (09:05)
--- NOTE | 2019-11-12 14:52 | PN ---
Subjective Date of Service: 11/12/19 Interval History: HOSPITALIST PROGRESS NOTE Patient seen and examined at bedside. Care reviewed and d/w Arin Patino RN. She is sleeping, but arousable to voice. Did not want to talk to me initially, but answered some yes/no questions. Denies chest pain, dyspnea, but c/o cough. Family History: Unchanged from Admission Social History: Unchanged from Admission Past Medical History: Unchanged from Admission Objective Active Medications: Acetaminophen (Tylenol Tab*) 650 mg PO Q4H PRN PRN Reason: PAIN - MILD Last Admin: 11/11/19 20:02 Dose: 650 mg Albuterol/Ipratropium (Duoneb (Albuterol 2.5 Mg/Ipratropium 0.5 Mg)) 1 neb INH Q4H PRN PRN Reason: SOB/WHEEZING Last Admin: 11/12/19 09:05 Dose: 1 neb Aspirin (Aspirin 81 Mg Chew Tab*) 81 mg PO DAILY [facility] Last Admin: 11/12/19 08:16 Dose: 81 mg Baclofen (Lioresal Tab*) 20 mg PO TID [facility] Last Admin: 11/12/19 14:21 Dose: 20 mg Benztropine Mesylate (Cogentin Tab*) 1 mg PO DAILY [facility] Last Admin: 11/12/19 08:14 Dose: 1 mg Calcium/Vitamin D (Oscal D Tab 250/125*) 4 tab PO BID AC [facility] Last Admin: 11/12/19 08:06 Dose: 4 tab Cholecalciferol (Vitamin D Tab*) 2,000 units PO DAILY [facility] Last Admin: 11/12/19 08:08 Dose: 2,000 units Diltiazem HCl (Cardizem Cd Cap*) 240 mg PO DAILY [facility] Last Admin: 11/12/19 08:28 Dose: 240 mg Docusate Sodium (Colace Cap*) 100 mg PO BID [facility] Last Admin: 11/12/19 08:11 Dose: 100 mg Duloxetine HCl (Cymbalta Cap*) 60 mg PO BID [facility] Last Admin: 11/12/19 08:12 Dose: 60 mg Enoxaparin Sodium (Lovenox(*)) 40 mg SUBCUT Q24H [facility] Last Admin: 11/11/19 17:43 Dose: 40 mg Ferrous Sulfate (Ferrous Sulfate Tab*) 325 mg PO DAILY [facility] Last Admin: 11/12/19 08:27 Dose: 325 mg Fluticasone Propionate (Flonase Nasal [place] 50mcg*) 2 spray BOTH NARES DAILY [facility] Last Admin: 11/12/19 08:21 Dose: 2 spray Gabapentin (Neurontin Cap(*)) 300 mg PO TID [facility] Last Admin: 11/12/19 14:20 Dose: 300 mg Heparin Sodium (Porcine) (Heparin Flush Picc/Ml/Cvc(*)) 0 ml FLUSH .PER PROTOCOL [facility] Ceftriaxone Sodium 1 gm/ (Sodium Chloride) 50 mls @ 100 mls/hr IVPB Q24H [facility] Last Admin: 11/12/19 05:46 Dose: 100 mls/hr Levothyroxine Sodium (Synthroid Tab*) 50 mcg PO DAILY@0600 [facility] Last Admin: 11/12/19 05:43 Dose: 50 mcg Lorazepam (Ativan Tab(*)) 0.5 mg PO TID [facility] Last Admin: 11/12/19 14:20 Dose: 0.5 mg Magnesium Oxide (Magox 400 Tab*) 800 mg PO BID [facility] Last Admin: 11/12/19 08:08 Dose: 800 mg Mometasone Furoate/Formoterol Fumar (Dulera 200/5 Mdi*) 2 puff INH BID [facility] Last Admin: 11/12/19 07:54 Dose: 2 puff Montelukast Sodium (Singulair Tab*) 10 mg PO BEDTIME [facility] Last Admin: 11/11/19 20:02 Dose: 10 mg Olanzapine (Zyprexa Tab*) 5 mg PO QAM [facility] Last Admin: 11/12/19 08:13 Dose: 5 mg Olanzapine (Zyprexa Tab*) 30 mg PO BEDTIME [facility] Last Admin: 11/11/19 21:50 Dose: 30 mg Oseltamivir Phosphate (Tamiflu Susp* Oralsyr) 75 mg PO BID [facility] Last Admin: 11/12/19 08:30 Dose: 75 mg Potassium Chloride (Klor Con Er Tab*) 40 meq PO BID [facility] Last Admin: 11/12/19 08:14 Dose: 40 meq Senna (Senokot 8.6 Mg Tab*) 2 tab PO BID [facility] Last Admin: 11/12/19 08:31 Dose: 2 tab Spironolactone (Aldactone Tab*) 25 mg PO DAILY [facility] Last Admin: 11/12/19 08:15 Dose: 25 mg Tramadol HCl (Ultram*) 50 mg PO Q6H PRN PRN Reason: PAIN Last Admin: 11/12/19 08:13 Dose: 50 mg Vital Signs - 8 hr 11/12/19 11/12/19 11/12/19 07:25 07:56 08:00 Temperature 99.8 F Pulse Rate 88 92 Respiratory 30 18 30 Rate Blood Pressure 131/71 (mmHg) O2 Sat by Pulse 95 94 Oximetry 11/12/19 11/12/19 11/12/19 08:13 08:29 09:05 Temperature Pulse Rate 90 Respiratory 30 30 28 Rate Blood Pressure (mmHg) O2 Sat by Pulse 94 Oximetry 11/12/19 11/12/19 11/12/19 10:20 10:57 14:20 Temperature 99.6 F Pulse Rate 99 Respiratory 24 26 24 Rate Blood Pressure 118/69 (mmHg) O2 Sat by Pulse 97 Oximetry Oxygen Devices in Use Now: Nasal Cannula - 4 liters Appearance: Overweight lady sitting in bed in NAD Eyes: No Scleral Icterus Ears/Nose/Mouth/Throat: Mucous Membranes Moist Neck: Trachea Midline Respiratory: Symmetrical Chest Expansion and Respiratory Effort, - - BS+ bilaterally diminished Cardiovascular: RRR - Normal S1 and S2 Neurological: - - Sleeping, arousable to voice, oriented to self only, MOLINA Result Diagrams: 11/12/19 05:55 11/12/19 05:55 Microbiology and Other Data: Microbiology 11/09/19 08:58 Blood Culture - Preliminary Blood Venous No Growth Day 1 11/09/19 08:58 Blood Culture - Preliminary Blood Venous No Growth Day 1 11/09/19 07:42 Blood Culture - Preliminary Blood Venous No Growth Day 1 11/09/19 12:44 Legionella Urinary Antigen - Final Urine Negative Legionella Antigen Streptococcus pneumoniae Ag Screen - Final Positive S. Pneumo Antigen 11/09/19 06:41 Nasal Screen MRSA (PCR) - Final Nasal Mrsa Not Detected Assess/Plan/Problems-Billing Assessment: Mrs Lui is a 59 yo F with a PMH of HTN, SVT, prior E coli pneumonia, schizophrenia, chronic back pain with h/o prior diskitis, hypothyroidism who presented to ED from [facility] with fever 103.6, altered mental status, and vomitting found to have influenza A and aspiration pneumonia. - Patient Problems (1) Severe sepsis Comment: - Present on admission with fever, tachycardia, leukocytosis and episodes of hypotension. - Responded to IVF. - Source is Influenza A and pneumococcal pneumonia. (2) Encephalopathy acute Comment: - Metabolic encephalopathy and delirium secondary to sepsis associated with pneumonia and influenza A. - ID has low suspicion for meningitis, and as per Dr Smith's note, patient' s "brother (HCP) did not consent for LP even with fluoroscopy (IR) and or anesthesia. Acyclovir and Vancomycin were discontinued. - Neuro thinks this is acute infectious encephalopathy manifesting as delirium. (3) Pneumonia Comment: - Pneumococcal pneumonia - ID input appreciated - continue Ceftriaxone. (4) Influenza A Comment: - Continue Tamiflu #4/5. (5) COPD (chronic obstructive pulmonary disease) Comment: - Does not appear to be in exacerbation at this time. - Continue bronchodilators PRN. (6) HTN (hypertension) Comment: - Continue diltiazem and spironolactone with holding parameters. - Continue to monitor fluid status. (7) Hypomagnesemia Comment: - Continue to replete. (8) Hypothyroidism Comment: - Levothyroxine dose decreased from 75 mcg to 50 mcg due to low TSH and elevated FT4. - Will need repeat TFTs in 4 weeks. (9) SVT (supraventricular tachycardia) Comment: - Continue Diltiazem 240 mg/day. (10) Schizoaffective disorder Comment: - Continue duloxetine, olanzapine, and benztropine. (11) Thyroid nodule Comment: - Incidental finding of large thyroid nodule on previous imaging 2018. I can see a US guided FNA report, but no path report. Her CT 11/09/19 demonstrate no changes in the nodule. Will need to ensure proper outpatient follow up for FNA. (12) Physical deconditioning Comment: - PT/OT consult. (13) DVT prophylaxis Comment: - Lovenox. (14) Full code status Comment: Status and Disposition: Inpatient.
[2019-11-12] MEDS ORDERED: Magnesium Sulfate 2 GM IV* 2 GM/50 ML BAG IVPB ONE (15:25)
[2019-11-12] MEDS: Enoxaparin(*) 40 MG/0.4 ML SYR SUBCUT SCH (16:43)
--- NOTE | 2019-11-12 16:43 | CONSULT ---
Subjective Date of Service: 11/12/19 Interval History: Ms. Lui is a 59 year old female with past medical history significant for HTN , hx SVT, schizophrenia, chronic low back pain, osteodiskitis, hypothyroidism, and polysubstance abuse; who lives at the [facility] and was found by staff to be laying across the bed with her head towards the floor and emesis on the floor. She was brought to the hospital and found to have Influenza A, she was admitted to the hospital for Influenza A and sepsis. She presented to the hospital with a known pressure injury to the right lateral hip. She follows with the wound clinic and this has most recently been treated with Santyl. Patient seen and examined at bedside. Verbal consent for wound consultation and photograph. Family History: Unchanged from Admission Social History: Unchanged from Admission Past Medical History: Unchanged from Admission Review of Systems - Measurements Intake and Output: Intake and Output Last 24 Hours 11/10/19 11/11/19 11/12/19 11/13/19 06:59 06:59 06:59 06:59 Intake Total 41266 8068 3495 1945 Output Total 5825 4700 5700 1375 Balance 4351 3368 -2205 570 Weight 167 lb 9.6 oz Intake: IV Fluids 5575 783 230 30 Mag 80 NS (0.9%) 2225 783 150 30 IVPB 401 2605 505 55 ABX - CEFTRIAXONE 100 55 55 ABX - FLAGYL 200 100 ABX - VANCOMYCIN 401 693 250 Acyclovir 212 100 Mag 100 NS (0.9%) 1200 Potassium 100 Oral 4200 4680 2760 1860 Output: Urine 1500 1850 Fong 4325 4700 3850 1375 Other: Estimated Void Large Date of Last Bowel [id number] Movement # Bowel Movements 1 1 Estimated Stool Amount Large Small # Voids 1 - Review of Systems Constitutional Symptoms: Positive: Fever Negative: Other - Chills Dermatology: Positive: Other - Wound to right hip Objective Active Medications: Acetaminophen (Tylenol Tab*) 650 mg PO Q4H PRN Reason: PAIN - MILD Albuterol/Ipratropium (Duoneb (Albuterol 2.5 Mg/Ipratropium 0.5 Mg)) 1 neb INH Q4H PRN Reason: SOB/WHEEZING Aspirin (Aspirin 81 Mg Chew Tab*) 81 mg PO DAILY [facility] Baclofen (Lioresal Tab*) 20 mg PO TID [facility] Benztropine Mesylate (Cogentin Tab*) 1 mg PO DAILY [facility] Calcium/Vitamin D (Oscal D Tab 250/125*) 4 tab PO BID AC [facility] Cholecalciferol (Vitamin D Tab*) 2,000 units PO DAILY [facility] Diltiazem HCl (Cardizem Cd Cap*) 240 mg PO DAILY [facility] Docusate Sodium (Colace Cap*) 100 mg PO BID [facility] Duloxetine HCl (Cymbalta Cap*) 60 mg PO BID [facility] Enoxaparin Sodium (Lovenox(*)) 40 mg SUBCUT Q24H [facility] Ferrous Sulfate (Ferrous Sulfate Tab*) 325 mg PO DAILY [facility] Fluticasone Propionate (Flonase Nasal [place] 50mcg*) 2 spray BOTH NARES DAILY [facility] Gabapentin (Neurontin Cap(*)) 300 mg PO TID [facility] Heparin Sodium (Porcine) (Heparin Flush Picc/Ml/Cvc(*)) 0 ml FLUSH .PER PROTOCOL [facility] Ceftriaxone Sodium 1 gm (Sodium Chloride) 50 mls @ 100 mls/hr IVPB Q24H [facility] Levothyroxine Sodium (Synthroid Tab*) 50 mcg PO DAILY@0600 [facility] Lorazepam (Ativan Tab(*)) 0.5 mg PO TID [facility] Magnesium Oxide (Magox 400 Tab*) 800 mg PO BID [facility] Mometasone Furoate/Formoterol Fumar (Dulera 200/5 Mdi*) 2 puff INH BID [facility] Montelukast Sodium (Singulair Tab*) 10 mg PO BEDTIME [facility] Olanzapine (Zyprexa Tab*) 5 mg PO QAM [facility] Olanzapine (Zyprexa Tab*) 30 mg PO BEDTIME [facility] Oseltamivir Phosphate (Tamiflu Susp* Oralsyr) 75 mg PO BID [facility] Potassium Chloride (Klor Con Er Tab*) 40 meq PO BID [facility] Senna (Senokot 8.6 Mg Tab*) 2 tab PO BID [facility] Spironolactone (Aldactone Tab*) 25 mg PO DAILY [facility] Tramadol HCl (Ultram*) 50 mg PO Q6H PRN Reason: PAIN Vital Signs - 8 hr 11/12/19 11/12/19 11/12/19 09:05 10:20 10:57 Temperature 99.6 F Pulse Rate 90 99 Respiratory 28 24 26 Rate Blood Pressure 118/69 (mmHg) O2 Sat by Pulse 94 97 Oximetry 03/03/20 03/03/20 14:20 15:03 Temperature 99.7 F Pulse Rate 98 Respiratory 24 24 Rate Blood Pressure 116/63 (mmHg) O2 Sat by Pulse 94 Oximetry Oxygen Devices in Use Now: None Appearance: NAD, laying in bed Ears/Nose/Mouth/Throat: Mucous Membranes Moist Respiratory: Symmetrical Chest Expansion and Respiratory Effort Skin: - - see skin note below Neurological: - - Alert and Oriented to person and year Nutrition: Taking PO's Result Diagrams: 11/12/19 05:55 11/12/19 05:55 Additional Lab and Data: Laboratory Tests 11/11/19 11/12/19 11/12/19 06:50 05:55 05:55 WBC 13.1 H Hgb 9.5 L Hct 27 L Plt Count 222 Sodium 134 L Potassium 3.8 Chloride 99 L Carbon Dioxide 29 BUN 7 Creatinine 0.49 L Glucose 106 H Total Protein 5.2 L Albumin 2.9 L Diagnostic Imagin. Exam Date: 07/08/19 - HIPS-BILATERAL 5+ VWS IMPRESSION: BILATERAL OSTEOARTHRITIS. NO ACUTE OSSEOUS INJURY. IF SYMPTOMS PERSIST, RECOMMEND REPEAT IMAGING. Skin Deviation Note - Skin Deviation Findings Right lateral Hip - Wound measures 1.5 cm x 2.2 cm x 0.1 cm. The wound base is 100% yellow adherent slough. The surrounding tissue with mild erythema. There is scant drainage. No odor. Wound Problem/Plan Assessment: Ms. Lui is a 59 year old female with past medical history significant for HTN , hx SVT, schizophrenia, chronic low back pain, osteodiskitis, hypothyroidism, and polysubstance abuse; who lives at the [facility] and was found by staff to be laying across the bed with her head towards the floor and emesis on the floor. She was brought to the hospital and found to have Influenza A, she was admitted to the hospital for Influenza A and sepsis. She presented to the hospital with a known pressure injury to the right lateral hip. 1. Unstageable pressure injury to the right lateral hip, suspect this is likely a stage 3. Recommend washing the area with soap and water daily, followed by applying Santyl to the necrotic tissue, and a Telfa island dressing and change daily. If there is a moderate to heavy amount of drainage, can apply calcium alginate prior to theTelfa island dressing. Frequent turning and repositioning. Use a friction reduction device to move in bed. Will add a pre-albumin level to the last labs. She should return to the [facility] at discharge for continued wound management. 2. Nutrition. Recommend meeting minimal nutrition requirements to assist with wound healing (Protein 1.3-1.5 gram/kg per day and Calories 30-35 kcal/kg per day). Regular diet. 3. Code Status. Full Code Status. 4. Disposition. Inpatient, disposition per primary medicine team. TIME SPENT: Time for this wound consultation was 20 minutes and 10 minutes was spent with the patient discussing past medical history; assessing, measuring, and photographing the wound; and repositioning the patient. Is Patient a Wound Clinic Patient: Yes Current Treatment: Viviana Attending: Nadine Parish
[2019-11-12] MEDS: Collagenase 250 UNITS/GM OINT* 1 APPLIC OINT TOPICAL SCH (19:45)
[2019-11-12] MEDS: Acetaminophen TAB* 325 MG PO PRN (20:43)
[2019-11-12] MEDS: Montelukast Sodium TAB* 10 MG PO SCH (21:50)
[2019-11-12] MEDS: OLANzapine TAB* 10 MG PO SCH (21:51)
[2019-11-13 04:32] LABS: ABS Lymphocytes 1.4 10^3/ul (1.0-4.8); ABS Monocytes 0.7 10^3/ul (0-0.8); ABS Neutrophils 9.2 10^3/ul (1.5-7.7); Eosinophil % 0.2 %; Hematocrit 26 % (35-47); Hemoglobin 8.8 g/dL (12.0-16.0); Lymphocyte % 12.4 %; Mean Corpuscular HGB Conc 34 g/dL (31-36); Mean Corpuscular Hemoglobin 32 pg (27-31); Mean Corpuscular Volume 93 fL (80-97); Mean Platelet Volume 8.4 fL (7.4-10.4); Platelet Count 237 10^3/uL (150-450); Red Blood Count 2.77 10^6 /uL (3.70-4.87); Red Cell Distribution Width 14 % (10-15); White Blood Count 11.4 10^3/uL (3.5-10.8)
[2019-11-13 04:49] LABS: BUN/Creatinine Ratio 15.7 (8-20); Calcium 8.7 mg/dL (8.6-10.3); EGFR African American 149.4 (>60); EGFR Non-African American 123.4 (>60); Magnesium 1.9 mg/dL (1.9-2.7); Potassium 4.9 mmol/L (3.5-5.0)
[2019-11-13] MEDS: cefTRIAXone(*) 1 GM in NS 0.9% 50 ML* 50 ML IVPB SCH (04:51)
[2019-11-13] MEDS: Levothyroxine TAB* 50 MCG TAB PO SCH (04:51)
[2019-11-13] MEDS: Mometasone/Formoter 200/5 MDI INH SCH ×2 (08:33→19:41)
[2019-11-13] MEDS: Fluticasone NASAL SPRAY 50MCG* 16 gm SPRAY BTL BOTH NARES SCH (08:40)
[2019-11-13] MEDS: Spironolactone TAB* 25 MG PO SCH (08:42)
[2019-11-13] MEDS: Senna TAB 8.6 mg* TAB PO SCH ×2 (08:42→20:38)
[2019-11-13] MEDS: Magnesium Oxide TAB* 400 MG PO SCH ×2 (08:43→20:39)
[2019-11-13] MEDS: Baclofen TAB* 20 MG PO SCH ×3 (08:43→20:39)
[2019-11-13] MEDS: Docusate CAP* 100 MG PO SCH ×2 (08:43→20:39)
[2019-11-13] MEDS: Gabapentin CAP(*) 300 MG PO SCH ×3 (08:43→20:38)
[2019-11-13] MEDS: DULoxetine DR CAP* 60 MG CAP.DR PO SCH ×2 (08:43→20:39)
[2019-11-13] MEDS: LORazepam TAB(*) 0.5 MG PO SCH ×3 (08:44→20:37)
[2019-11-13] MEDS: Ferrous Sulfate TAB* 325 MG PO SCH (08:44)
[2019-11-13] MEDS: Cholecalciferol TAB* 1000 UNITS PO SCH (08:44)
[2019-11-13] MEDS: Benztropine TAB* 1 MG PO SCH (08:44)
[2019-11-13] MEDS: Diltiazem CD CAP* 240 MG PO SCH (08:44)
[2019-11-13] MEDS: OLANzapine TAB* 5 MG PO SCH (08:45)
[2019-11-13] MEDS: Potassium Chlor TAB* 20 MEQ TAB.ER PO SCH ×2 (08:45→20:38)
[2019-11-13] MEDS: Calcium/Vitamin D TAB 250/125* TAB PO SCH ×2 (08:45→16:14)
[2019-11-13] MEDS: Aspirin 81 mg CHEW TAB* 81 MG TAB.CHEW PO SCH (08:45)
[2019-11-13] MEDS: Oseltamivir SUSP* ORALSYR 6 MG/ML PO SCH ×2 (08:47→20:57)
[2019-11-13] MEDS: Collagenase 250 UNITS/GM OINT* 1 APPLIC OINT TOPICAL SCH (08:47)
[2019-11-13] MEDS ORDERED: Vancomycin Trough Check NOTE FOLLOW UP ONE (11:30)
--- NOTE | 2019-11-13 11:57 | PN ---
Progress Note - Progress Note Date of Service: 11/13/19 SOAP: Subjective: CC: AMS and PNA HPI: Ms. Lui is a 59 yo female with PMH significant for HTN, hx SVT, schizophrenia, chronic low back pain, osteodiskitis, hypothyroidism, and lumbar sclerosis; who presented to the emergency room with altered mental status. States that she doesn't feel well, but is unable to describe. She was noted to have fevers yesterday. Noted to have a moist cough, she states this was not productive. Objective: Vital Signs - 8 hr 11/13/19 11/13/19 11/13/19 07:12 08:00 08:43 Temperature 98.8 F Pulse Rate 81 Respiratory 20 20 18 Rate Blood Pressure 124/58 (mmHg) O2 Sat by Pulse 81 Oximetry 11/13/19 11/13/19 08:44 10:36 Temperature 98.3 F Pulse Rate 94 Respiratory 20 25 Rate Blood Pressure 120/56 (mmHg) O2 Sat by Pulse 98 Oximetry Physical Exam: General: NAD, sitting up in bed Neurological: Alert, Pt is not speaking today to be able to determine orientation. Answering some yes and no questions HEENT: Moist MM Cardiovascular: Heart rate regular Respiratory: Lung sounds clear but diminished in the bases Abdominal: Bowel sounds present; ABD soft, non tender and non distended MSK: No joint effusions, no tenderness with palpation of joints. She is noted to have generalized bilateral LE edema Skin: No rash Laboratory Results - last 24 hr 11/11/19 11/13/19 11/13/19 06:50 04:15 04:15 WBC 11.4 H RBC 2.77 L Hgb 8.8 L Hct 26 L MCV 93 MCH 32 H MCHC 34 RDW 14 Plt Count 237 MPV 8.4 Neut % (Auto) 80.9 Lymph % (Auto) 12.4 [place] % (Auto) 6.3 Eos % (Auto) 0.2 Baso % (Auto) 0.2 Absolute Neuts (auto) 9.2 H Absolute Lymphs (auto) 1.4 Absolute Monos (auto) 0.7 Absolute Eos (auto) 0.0 Absolute Basos (auto) 0.0 Absolute Nucleated RBC 0.0 Nucleated RBC % 0.0 Sodium 132 L 131 L Potassium 2.9 L 4.9 Chloride 100 L 97 L Carbon Dioxide 25 30 Anion Gap 7 4 BUN 7 8 Creatinine 0.52 0.51 Est GFR ( Amer) 146.0 149.4 Est GFR (Non-Af Amer) 120.7 123.4 BUN/Creatinine Ratio 13.5 15.7 Glucose 148 H 112 H Calcium 7.8 L 8.7 Phosphorus 1.3 L Magnesium 1.5 L 1.9 Total Bilirubin 0.20 Direct Bilirubin 0.10 Indirect Bilirubin 0.1 L AST 37 ALT 24 Alkaline Phosphatase 59 Total Protein 5.2 L Albumin 2.9 L Globulin 2.3 Albumin/Globulin Ratio 1.3 Prealbumin 8 L TSH 0.52 Free T4 1.48 H Microbiology 11/09/19 08:58 Blood Culture - Preliminary Blood Venous No Growth Day 4 11/09/19 08:58 Blood Culture - Preliminary Blood Venous No Growth Day 4 11/09/19 07:42 Blood Culture - Preliminary Blood Venous No Growth Day 4 11/09/19 08:07 Urine Culture - Final Urine No Growth (<1,000 CFU/mL) 11/09/19 12:44 Legionella Urinary Antigen - Final Urine Negative Legionella Antigen Streptococcus pneumoniae Ag Screen - Final Positive S. Pneumo Antigen 11/09/19 06:41 Nasal Screen MRSA (PCR) - Final Nasal Mrsa Not Detected Assessment: 1. Fevers. Continues to have intermittent fevers, last was last night, T max 102.9. Leukocytosis is improving. Denies diarrhea or ABD pain. Urine culture at time of admission with no growth. Differential Dx: Drug fever, secondary infection, new infection. Suspect Drug fever in the setting of Ceftriaxone. 2. Pneumococcal PNA. Urine antigens positive for S. Pneumo. Blood cultures with no growth. Continues to have fevers last fever was yesterday. Afebrile today. Improving leikocytosis. 3. Influenza A. 4. Encephalopathy. Secondary to influenza and PNA. Slowly improving. Plan: Discontinue Ceftriaxone and Tamiflu, received 5 days. Start Augmentin 500 mg PO BID. Discussed with Dr. Stephanie Still.
--- NOTE | 2019-11-13 15:15 | PN ---
Subjective Date of Service: 11/13/19 Interval History: HOSPITALIST PROGRESS NOTE Patient seen and examined at bedside. Care reviewed and d/w Ivelisse Tsang RN. She is alert and awake today, but did not answer my questions. Noted to have fever 102.9 last night, but clinically continues to improve. Family History: Unchanged from Admission Social History: Unchanged from Admission Past Medical History: Unchanged from Admission Objective Active Medications: Acetaminophen (Tylenol Tab*) 650 mg PO Q4H PRN PRN Reason: PAIN - MILD Last Admin: 11/12/19 20:43 Dose: 650 mg Albuterol/Ipratropium (Duoneb (Albuterol 2.5 Mg/Ipratropium 0.5 Mg)) 1 neb INH Q4H PRN PRN Reason: SOB/WHEEZING Last Admin: 11/12/19 09:05 Dose: 1 neb Amoxicillin/Clavulanate Potassium (Augmentin Tab*) 500 mg PO BID [facility] Aspirin (Aspirin 81 Mg Chew Tab*) 81 mg PO DAILY [facility] Last Admin: 11/13/19 08:45 Dose: 81 mg Baclofen (Lioresal Tab*) 20 mg PO TID [facility] Last Admin: 11/13/19 08:43 Dose: 20 mg Benztropine Mesylate (Cogentin Tab*) 1 mg PO DAILY [facility] Last Admin: 11/13/19 08:44 Dose: 1 mg Calcium/Vitamin D (Oscal D Tab 250/125*) 4 tab PO BID AC [facility] Last Admin: 11/13/19 08:45 Dose: 4 tab Cholecalciferol (Vitamin D Tab*) 2,000 units PO DAILY [facility] Last Admin: 11/13/19 08:44 Dose: 2,000 units Collagenase (Santyl 250 Units/Gm Oint*) 1 applic TOPICAL DAILY [facility] Last Admin: 11/13/19 08:47 Dose: 1 applic Diltiazem HCl (Cardizem Cd Cap*) 240 mg PO DAILY [facility] Last Admin: 11/13/19 08:44 Dose: 240 mg Docusate Sodium (Colace Cap*) 100 mg PO BID [facility] Last Admin: 11/13/19 08:43 Dose: 100 mg Duloxetine HCl (Cymbalta Cap*) 60 mg PO BID [facility] Last Admin: 11/13/19 08:43 Dose: 60 mg Enoxaparin Sodium (Lovenox(*)) 40 mg SUBCUT DAILY@1400 [facility] Ferrous Sulfate (Ferrous Sulfate Tab*) 325 mg PO DAILY [facility] Last Admin: 11/13/19 08:44 Dose: 325 mg Fluticasone Propionate (Flonase Nasal [place] 50mcg*) 2 spray BOTH NARES DAILY [facility] Last Admin: 11/13/19 08:40 Dose: 2 spray Gabapentin (Neurontin Cap(*)) 300 mg PO TID [facility] Last Admin: 11/13/19 08:43 Dose: 300 mg Heparin Sodium (Porcine) (Heparin Flush Picc/Ml/Cvc(*)) 0 ml FLUSH .PER PROTOCOL [facility] Last Admin: 11/13/19 05:56 Dose: 1 ml Ceftriaxone Sodium 1 gm/ (Sodium Chloride) 50 mls @ 100 mls/hr IVPB Q24H [facility] Last Admin: 11/13/19 04:51 Dose: 100 mls/hr Levothyroxine Sodium (Synthroid Tab*) 50 mcg PO DAILY@0600 [facility] Last Admin: 11/13/19 04:51 Dose: 50 mcg Lorazepam (Ativan Tab(*)) 0.5 mg PO TID [facility] Last Admin: 11/13/19 08:44 Dose: 0.5 mg Magnesium Oxide (Magox 400 Tab*) 800 mg PO BID [facility] Last Admin: 11/13/19 08:43 Dose: 800 mg Mometasone Furoate/Formoterol Fumar (Dulera 200/5 Mdi*) 2 puff INH BID [facility] Last Admin: 11/13/19 08:33 Dose: 2 puff Montelukast Sodium (Singulair Tab*) 10 mg PO BEDTIME [facility] Last Admin: 11/12/19 21:50 Dose: 10 mg Olanzapine (Zyprexa Tab*) 5 mg PO QAM [facility] Last Admin: 11/13/19 08:45 Dose: 5 mg Olanzapine (Zyprexa Tab*) 30 mg PO BEDTIME [facility] Last Admin: 11/12/19 21:51 Dose: 30 mg Oseltamivir Phosphate (Tamiflu Susp* Oralsyr) 75 mg PO BID [facility] Stop: 11/14/19 00:00 Last Admin: 11/13/19 08:47 Dose: 75 mg Potassium Chloride (Klor Con Er Tab*) 40 meq PO BID [facility] Last Admin: 11/13/19 08:45 Dose: 40 meq Senna (Senokot 8.6 Mg Tab*) 2 tab PO BID [facility] Last Admin: 11/13/19 08:42 Dose: 2 tab Spironolactone (Aldactone Tab*) 25 mg PO DAILY [facility] Last Admin: 11/13/19 08:42 Dose: 25 mg Tramadol HCl (Ultram*) 50 mg PO Q6H PRN PRN Reason: PAIN Last Admin: 11/12/19 08:13 Dose: 50 mg Vital Signs - 8 hr 11/13/19 11/13/19 11/13/19 07:12 08:00 08:43 Temperature 98.8 F Pulse Rate 81 Respiratory 20 20 18 Rate Blood Pressure 124/58 (mmHg) O2 Sat by Pulse 81 Oximetry 11/13/19 11/13/19 11/13/19 08:44 10:36 12:31 Temperature 98.3 F Pulse Rate 94 Respiratory 20 25 18 Rate Blood Pressure 120/56 (mmHg) O2 Sat by Pulse 98 Oximetry 11/13/19 12:32 Temperature Pulse Rate Respiratory 20 Rate Blood Pressure (mmHg) O2 Sat by Pulse Oximetry Oxygen Devices in Use Now: Nasal Cannula Appearance: Middle aged lady sitting up in bed in NAD Eyes: No Scleral Icterus Ears/Nose/Mouth/Throat: Mucous Membranes Moist Neck: Trachea Midline Respiratory: Symmetrical Chest Expansion and Respiratory Effort, - - BS+ bilaterally, diminished in bases, no added sounds Cardiovascular: RRR - Normal S1 and S2 Abdominal: NL Sounds; No Tenderness; No Distention Neurological: - - Alert and awake, did not answer questions today Result Diagrams: 11/13/19 04:15 11/13/19 04:15 Microbiology and Other Data: Microbiology 11/09/19 08:58 Blood Culture - Preliminary Blood Venous No Growth Day 1 11/09/19 08:58 Blood Culture - Preliminary Blood Venous No Growth Day 1 11/09/19 07:42 Blood Culture - Preliminary Blood Venous No Growth Day 1 11/09/19 12:44 Legionella Urinary Antigen - Final Urine Negative Legionella Antigen Streptococcus pneumoniae Ag Screen - Final Positive S. Pneumo Antigen 11/09/19 06:41 Nasal Screen MRSA (PCR) - Final Nasal Mrsa Not Detected Assess/Plan/Problems-Billing Assessment: Mrs Lui is a 59 yo F with a PMH of HTN, SVT, prior E coli pneumonia, schizophrenia, chronic back pain with h/o prior diskitis, hypothyroidism who presented to ED from [facility] with fever 103.6, altered mental status, and vomitting found to have influenza A and aspiration pneumonia. - Patient Problems (1) Severe sepsis Comment: - Present on admission with fever, tachycardia, leukocytosis and episodes of hypotension. - Responded to IVF. - Source is Influenza A and pneumococcal pneumonia. (2) Encephalopathy acute Comment: - Metabolic encephalopathy and delirium secondary to sepsis associated with pneumonia and influenza A. - ID has low suspicion for meningitis, and as per Dr Smith's note, patient' s "brother (HCP) did not consent for LP even with fluoroscopy (IR) and or anesthesia. Acyclovir and Vancomycin were discontinued. - Neuro thinks this is acute infectious encephalopathy manifesting as delirium. - She is more alert and awake today. (3) Pneumonia Comment: - Pneumococcal pneumonia - had fever last night, but clinically continues to improve. WBC down to 11.4. - ID input appreciated - suspect drug fever secondary to Ceftriaxone - recommended d/c it and start Augmentin. - If fever persists, will need further w/u. (4) Influenza A Comment: - Continue Tamiflu #5/5. (5) COPD (chronic obstructive pulmonary disease) Comment: - Does not appear to be in exacerbation at this time. - Continue bronchodilators PRN. (6) HTN (hypertension) Comment: - Continue diltiazem and spironolactone with holding parameters. - Continue to monitor fluid status. (7) Hypothyroidism Comment: - Levothyroxine dose decreased from 75 mcg to 50 mcg due to low TSH and elevated FT4. - Will need repeat TFTs in 4 weeks. (8) SVT (supraventricular tachycardia) Comment: - Continue Diltiazem 240 mg/day. (9) Schizoaffective disorder Comment: - Continue duloxetine, olanzapine, and benztropine. (10) Thyroid nodule Comment: - Incidental finding of large thyroid nodule on previous imaging 2018. I can see a US guided FNA report, but no path report. Her CT 11/09/19 demonstrate no changes in the nodule. Will need to ensure proper outpatient follow up for FNA. (11) Physical deconditioning Comment: - PT/OT consults appreciated - will need TEE. (12) DVT prophylaxis Comment: - Lovenox. (13) Full code status Comment: Status and Disposition: Inpatient.
[2019-11-13] MEDS: Enoxaparin(*) 40 MG/0.4 ML SYR SUBCUT SCH (15:26)
[2019-11-13] MEDS: Acetaminophen TAB* 325 MG PO PRN (16:17)
[2019-11-13] MEDS: Montelukast Sodium TAB* 10 MG PO SCH (20:36)
[2019-11-13] MEDS: traMADol TAB* 50 MG PO PRN (20:37)
[2019-11-13] MEDS: OLANzapine TAB* 10 MG PO SCH (20:38)
[2019-11-14] MEDS: Levothyroxine TAB* 50 MCG TAB PO SCH (04:56)
[2019-11-14 05:19] LABS: ABS Lymphocytes 1.7 10^3/ul (1.0-4.8); ABS Monocytes 0.9 10^3/ul (0-0.8); ABS Neutrophils 8.7 10^3/ul (1.5-7.7); Eosinophil % 0.2 %; Hematocrit 27 % (35-47); Hemoglobin 9.2 g/dL (12.0-16.0); Lymphocyte % 14.8 %; Mean Corpuscular HGB Conc 34 g/dL (31-36); Mean Corpuscular Hemoglobin 32 pg (27-31); Mean Corpuscular Volume 94 fL (80-97); Mean Platelet Volume 8.1 fL (7.4-10.4); Platelet Count 332 10^3/uL (150-450); Red Blood Count 2.89 10^6 /uL (3.70-4.87); Red Cell Distribution Width 14 % (10-15); White Blood Count 11.4 10^3/uL (3.5-10.8)
[2019-11-14 05:40] LABS: Anion Gap 6 mmol/L (2-11); BUN/Creatinine Ratio 16.7 (8-20); Blood Urea Nitrogen 8 mg/dL (6-24); CO2 Carbon Dioxide 28 mmol/L (22-32); Calcium 9.2 mg/dL (8.6-10.3); Chloride 95 mmol/L (101-111); EGFR African American 160.2 (>60); EGFR Non-African American 132.4 (>60); Glucose 114 mg/dL (70-100); Potassium 4.9 mmol/L (3.5-5.0); Sodium 129 mmol/L (135-145)
[2019-11-14 05:41] LABS: Total Iron Binding Capacity 211 mcg/dL (250-450); Transferrin 151 mg/dL (203-362)
[2019-11-14 06:01] LABS: % Iron Saturation 9 % (15-55); Iron < 20 ug/dL (50-212)
[2019-11-14 06:02] LABS: Ferritin 310.3 ng/mL (11-307)
[2019-11-14 06:06] LABS: Folate 10.42 ng/mL (>3.99)
[2019-11-14] MEDS: Mometasone/Formoter 200/5 MDI INH SCH ×2 (07:20→20:42)
[2019-11-14] MEDS: Spironolactone TAB* 25 MG PO SCH (08:13)
[2019-11-14] MEDS: Cholecalciferol TAB* 1000 UNITS PO SCH (08:13)
[2019-11-14] MEDS: Diltiazem CD CAP* 240 MG PO SCH (08:13)
[2019-11-14] MEDS: Ferrous Sulfate TAB* 325 MG PO SCH (08:13)
[2019-11-14] MEDS: Senna TAB 8.6 mg* TAB PO SCH ×2 (08:14→21:16)
[2019-11-14] MEDS: Amoxicillin/Clavulanate TAB* 500 MG PO SCH ×2 (08:14→21:23)
[2019-11-14] MEDS: OLANzapine TAB* 5 MG PO SCH (08:14)
[2019-11-14] MEDS: Docusate CAP* 100 MG PO SCH ×2 (08:14→21:16)
[2019-11-14] MEDS: Benztropine TAB* 1 MG PO SCH (08:15)
[2019-11-14] MEDS: Baclofen TAB* 20 MG PO SCH ×3 (08:15→21:19)
[2019-11-14] MEDS: Gabapentin CAP(*) 300 MG PO SCH ×3 (08:15→21:18)
[2019-11-14] MEDS: DULoxetine DR CAP* 60 MG CAP.DR PO SCH ×2 (08:16→21:20)
[2019-11-14] MEDS: LORazepam TAB(*) 0.5 MG PO SCH ×3 (08:16→21:17)
[2019-11-14] MEDS: Aspirin 81 mg CHEW TAB* 81 MG TAB.CHEW PO SCH (08:16)
[2019-11-14] MEDS: Magnesium Oxide TAB* 400 MG PO SCH ×2 (08:16→21:20)
[2019-11-14] MEDS: Calcium/Vitamin D TAB 250/125* TAB PO SCH ×2 (08:17→16:36)
[2019-11-14] MEDS: Potassium Chlor TAB* 20 MEQ TAB.ER PO SCH ×2 (08:17→21:24)
[2019-11-14] MEDS: Collagenase 250 UNITS/GM OINT* 1 APPLIC OINT TOPICAL SCH (08:17)
[2019-11-14] MEDS: Fluticasone NASAL SPRAY 50MCG* 16 gm SPRAY BTL BOTH NARES SCH (08:24)
--- NOTE | 2019-11-14 13:23 | PN ---
Subjective Date of Service: 11/14/19 Interval History: HOSPITALIST PROGRESS NOTE Patient seen and examined at bedside. Care reviewed and d/w Ivelisse Tsang RN. More alert, sitting up in bed. Answered more yes/no questions, but did not engage in conversation. Breathing is better, denies pain. Family History: Unchanged from Admission Social History: Unchanged from Admission Past Medical History: Unchanged from Admission Objective Active Medications: Acetaminophen (Tylenol Tab*) 650 mg PO Q4H PRN PRN Reason: PAIN - MILD Last Admin: 11/13/19 16:17 Dose: 650 mg Albuterol/Ipratropium (Duoneb (Albuterol 2.5 Mg/Ipratropium 0.5 Mg)) 1 neb INH Q4H PRN PRN Reason: SOB/WHEEZING Last Admin: 11/12/19 09:05 Dose: 1 neb Amoxicillin/Clavulanate Potassium (Augmentin Tab*) 500 mg PO BID [facility] Last Admin: 11/14/19 08:14 Dose: 500 mg Aspirin (Aspirin 81 Mg Chew Tab*) 81 mg PO DAILY [facility] Last Admin: 11/14/19 08:16 Dose: 81 mg Baclofen (Lioresal Tab*) 20 mg PO TID [facility] Last Admin: 11/14/19 08:15 Dose: 20 mg Benztropine Mesylate (Cogentin Tab*) 1 mg PO DAILY [facility] Last Admin: 11/14/19 08:15 Dose: 1 mg Calcium/Vitamin D (Oscal D Tab 250/125*) 4 tab PO BID AC [facility] Last Admin: 11/14/19 08:17 Dose: 4 tab Cholecalciferol (Vitamin D Tab*) 2,000 units PO DAILY [facility] Last Admin: 11/14/19 08:13 Dose: 2,000 units Collagenase (Santyl 250 Units/Gm Oint*) 1 applic TOPICAL DAILY [facility] Last Admin: 11/14/19 08:17 Dose: 1 applic Diltiazem HCl (Cardizem Cd Cap*) 240 mg PO DAILY [facility] Last Admin: 11/14/19 08:13 Dose: 240 mg Docusate Sodium (Colace Cap*) 100 mg PO BID [facility] Last Admin: 11/14/19 08:14 Dose: 100 mg Duloxetine HCl (Cymbalta Cap*) 60 mg PO BID [facility] Last Admin: 11/14/19 08:16 Dose: 60 mg Enoxaparin Sodium (Lovenox(*)) 40 mg SUBCUT DAILY@1400 [facility] Last Admin: 11/13/19 15:26 Dose: 40 mg Ferrous Sulfate (Ferrous Sulfate Tab*) 325 mg PO DAILY [facility] Last Admin: 11/14/19 08:13 Dose: 325 mg Fluticasone Propionate (Flonase Nasal [place] 50mcg*) 2 spray BOTH NARES DAILY [facility] Last Admin: 11/14/19 08:24 Dose: 2 spray Gabapentin (Neurontin Cap(*)) 300 mg PO TID [facility] Last Admin: 11/14/19 08:15 Dose: 300 mg Heparin Sodium (Porcine) (Heparin Flush Picc/Ml/Cvc(*)) 0 ml FLUSH .PER PROTOCOL [facility] Last Admin: 11/14/19 04:56 Dose: 1 ml Levothyroxine Sodium (Synthroid Tab*) 50 mcg PO DAILY@0600 [facility] Last Admin: 11/14/19 04:56 Dose: 50 mcg Lorazepam (Ativan Tab(*)) 0.5 mg PO TID [facility] Last Admin: 11/14/19 08:16 Dose: 0.5 mg Magnesium Oxide (Magox 400 Tab*) 800 mg PO BID [facility] Last Admin: 11/14/19 08:16 Dose: 800 mg Mometasone Furoate/Formoterol Fumar (Dulera 200/5 Mdi*) 2 puff INH BID [facility] Last Admin: 11/14/19 07:20 Dose: 2 puff Montelukast Sodium (Singulair Tab*) 10 mg PO BEDTIME [facility] Last Admin: 11/13/19 20:36 Dose: 10 mg Olanzapine (Zyprexa Tab*) 5 mg PO QAM [facility] Last Admin: 11/14/19 08:14 Dose: 5 mg Olanzapine (Zyprexa Tab*) 30 mg PO BEDTIME [facility] Last Admin: 11/13/19 20:38 Dose: 30 mg Potassium Chloride (Klor Con Er Tab*) 40 meq PO BID [facility] Last Admin: 11/14/19 08:17 Dose: 40 meq Senna (Senokot 8.6 Mg Tab*) 2 tab PO BID [facility] Last Admin: 11/14/19 08:14 Dose: 2 tab Spironolactone (Aldactone Tab*) 25 mg PO DAILY [facility] Last Admin: 11/14/19 08:13 Dose: 25 mg Tramadol HCl (Ultram*) 50 mg PO Q6H PRN PRN Reason: PAIN Last Admin: 11/13/19 20:37 Dose: 50 mg Vital Signs - 8 hr 11/14/19 11/14/19 11/14/19 07:23 08:00 08:15 Temperature 98.0 F Pulse Rate 94 Respiratory 24 24 24 Rate Blood Pressure 108/63 (mmHg) O2 Sat by Pulse 95 Oximetry 11/14/19 11/14/19 11/14/19 08:16 11:03 11:41 Temperature 98.9 F Pulse Rate 100 Respiratory 24 16 22 Rate Blood Pressure 112/67 (mmHg) O2 Sat by Pulse 98 Oximetry 11/14/19 11:42 Temperature Pulse Rate Respiratory 22 Rate Blood Pressure (mmHg) O2 Sat by Pulse Oximetry Oxygen Devices in Use Now: Nasal Cannula - 5 liters Appearance: Middle aged lady sitting up in bed in NAD Eyes: No Scleral Icterus Ears/Nose/Mouth/Throat: Mucous Membranes Moist Neck: Trachea Midline Respiratory: Symmetrical Chest Expansion and Respiratory Effort, - - BS+ bilaterally coarse, diminished in bases Cardiovascular: RRR Abdominal: NL Sounds; No Tenderness; No Distention Neurological: - - Alert and awake, MOLINA Result Diagrams: 11/14/19 04:50 11/14/19 04:50 Microbiology and Other Data: Microbiology 11/09/19 08:58 Blood Culture - Preliminary Blood Venous No Growth Day 1 11/09/19 08:58 Blood Culture - Preliminary Blood Venous No Growth Day 1 11/09/19 07:42 Blood Culture - Preliminary Blood Venous No Growth Day 1 11/09/19 12:44 Legionella Urinary Antigen - Final Urine Negative Legionella Antigen Streptococcus pneumoniae Ag Screen - Final Positive S. Pneumo Antigen 11/09/19 06:41 Nasal Screen MRSA (PCR) - Final Nasal Mrsa Not Detected Assess/Plan/Problems-Billing Assessment: Mrs Lui is a 59 yo F with a PMH of HTN, SVT, prior E coli pneumonia, schizophrenia, chronic back pain with h/o prior diskitis, hypothyroidism who presented to ED from [facility] with fever 103.6, altered mental status, and vomitting found to have influenza A and aspiration pneumonia. - Patient Problems (1) Severe sepsis Comment: - Present on admission with fever, tachycardia, leukocytosis and episodes of hypotension. - Responded to IVF. - Source is Influenza A and pneumococcal pneumonia. (2) Encephalopathy acute Comment: - Metabolic encephalopathy and delirium secondary to sepsis associated with pneumonia and influenza A. - ID had low suspicion for meningitis, and as per Dr Smith's note, patient' s "brother (HCP) did not consent for LP even with fluoroscopy (IR) and or anesthesia. Acyclovir and Vancomycin were discontinued. - Neuro thinks this is acute infectious encephalopathy manifesting as delirium. - She is more alert and awake today. (3) Pneumonia Comment: - Pneumococcal pneumonia - had fever last night, but clinically continues to improve. WBC down to 11.4. - ID input appreciated - suspect drug fever secondary to Ceftriaxone - recommended d/c it and start Augmentin. - Afebrile for the past 24h. (4) Influenza A Comment: - Completed Tamiflu. (5) COPD (chronic obstructive pulmonary disease) Comment: - Does not appear to be in exacerbation at this time. - Continue bronchodilators PRN. (6) HTN (hypertension) Comment: - Continue diltiazem and spironolactone with holding parameters. - Continue to monitor fluid status. (7) Hypothyroidism Comment: - Levothyroxine dose decreased from 75 mcg to 50 mcg due to low TSH and elevated FT4. - Will need repeat TFTs in 4 weeks. (8) SVT (supraventricular tachycardia) Comment: - Continue Diltiazem 240 mg/day. (9) Schizoaffective disorder Comment: - Continue duloxetine, olanzapine, and benztropine. (10) Thyroid nodule Comment: - Incidental finding of large thyroid nodule on previous imaging 2018. I can see a US guided FNA report, but no path report. Her CT 11/09/19 demonstrate no changes in the nodule. Will need to ensure proper outpatient follow up for FNA. (11) Physical deconditioning Comment: - PT/OT consults appreciated - will need TEE. (12) DVT prophylaxis Comment: - Lovenox. (13) Full code status Comment: Status and Disposition: Inpatient.
[2019-11-14] MEDS: Enoxaparin(*) 40 MG/0.4 ML SYR SUBCUT SCH (14:58)
--- NOTE | 2019-11-14 16:08 | PN ---
Progress Note - Progress Note Date of Service: 11/14/19 SOAP: Subjective: CC: PNA HPI: Ms. Lui is a 59 yo female with PMH significant for HTN, hx SVT, schizophrenia, chronic low back pain, osteodiskitis, hypothyroidism, and lumbar sclerosis; who presented to the emergency room with altered mental status. She will not answer ROS questions today, she states that she is watching TV. Noted to have a moist cough, she states this was not productive. Objective: Vital Signs - 8 hr 11/14/19 11/14/19 11/14/19 08:15 08:16 11:03 Temperature 98.9 F Pulse Rate 100 Respiratory 24 24 16 Rate Blood Pressure 112/67 (mmHg) O2 Sat by Pulse 98 Oximetry Physical Exam: General: NAD, sitting up in bed Neurological: Alert, Unable to determine orientation as Pt is not answering questions today HEENT: Moist MM Cardiovascular: Heart rate regular Respiratory: Lung sounds clear but diminished in the bases Abdominal: Bowel sounds present; ABD soft, non tender and non distended MSK: No joint effusions, no tenderness with palpation of joints. She is noted to have generalized bilateral LE edema Skin: No rash Laboratory Results - last 24 hr 11/14/19 11/14/19 04:50 04:50 WBC 11.4 H RBC 2.89 L Hgb 9.2 L Hct 27 L MCV 94 MCH 32 H MCHC 34 RDW 14 Plt Count 332 MPV 8.1 Neut % (Auto) 76.8 Lymph % (Auto) 14.8 Pine % (Auto) 8.1 Eos % (Auto) 0.2 Baso % (Auto) 0.1 Absolute Neuts (auto) 8.7 H Absolute Lymphs (auto) 1.7 Absolute Monos (auto) 0.9 H Absolute Eos (auto) 0.0 Absolute Basos (auto) 0.0 Absolute Nucleated RBC 0.0 Nucleated RBC % 0.0 Sodium 129 L Potassium 4.9 Chloride 95 L Carbon Dioxide 28 Anion Gap 6 BUN 8 Creatinine 0.48 L Est GFR ( Amer) 160.2 Est GFR (Non-Af Amer) 132.4 BUN/Creatinine Ratio 16.7 Glucose 114 H Calcium 9.2 Iron < 20 L TIBC 211 L % Saturation 9 L Unsat Iron Binding < 196 Transferrin 151 L Ferritin 310.3 H Vitamin B12 929 H Folate 10.42 Microbiology 11/14/19 10:00 Stool Occult Blood (MEDARDO) - Final Stool 11/09/19 08:58 Blood Culture - Final Blood Venous No Growth Day 5 11/09/19 08:58 Blood Culture - Final Blood Venous No Growth Day 5 11/09/19 07:42 Blood Culture - Final Blood Venous No Growth Day 5 11/09/19 08:07 Urine Culture - Final Urine No Growth (<1,000 CFU/mL) 11/09/19 12:44 Legionella Urinary Antigen - Final Urine Negative Legionella Antigen Streptococcus pneumoniae Ag Screen - Final Positive S. Pneumo Antigen 11/09/19 06:41 Nasal Screen MRSA (PCR) - Final Nasal Mrsa Not Detected Assessment: 1. Fevers. Resolved, suspect secondary drug fever in the setting of Ceftriaxone. Leukocytosis is improving. Denies diarrhea or ABD pain. Urine culture at time of admission with no growth. 2. Pneumococcal PNA. Urine antigens positive for S. Pneumo. Blood cultures with no growth. Continues to have fevers last fever was yesterday. Afebrile today. Improving leukocytosis overall. Received Ceftriaxone for 5 days, now on Augmentin. 3. Influenza A. Received Tamiflu for 5 days. 4. Encephalopathy. Secondary to influenza and PNA. Slowly improving. Plan: Continue Augmentin 500 mg PO BID.
[2019-11-14] MEDS ORDERED: Al Hydrox/Mg Hydrox/Simet LIQ* 30 ML UDC PO PRN (16:12)
[2019-11-14] MEDS: OLANzapine TAB* 10 MG PO SCH (21:21)
[2019-11-14] MEDS: Montelukast Sodium TAB* 10 MG PO SCH (21:22)
[2019-11-14] MEDS: Acetaminophen TAB* 325 MG PO PRN (21:23)
[2019-11-15] MEDS: Levothyroxine TAB* 50 MCG TAB PO SCH (05:53)
[2019-11-15] MEDS: traMADol TAB* 50 MG PO PRN (05:53)
[2019-11-15] MEDS: Baclofen TAB* 20 MG PO SCH (08:17)
[2019-11-15] MEDS: Potassium Chlor TAB* 20 MEQ TAB.ER PO SCH (08:18)
[2019-11-15] MEDS: Senna TAB 8.6 mg* TAB PO SCH (08:18)
[2019-11-15] MEDS: Calcium/Vitamin D TAB 250/125* TAB PO SCH (08:18)
[2019-11-15] MEDS: Cholecalciferol TAB* 1000 UNITS PO SCH (08:18)
[2019-11-15] MEDS: Magnesium Oxide TAB* 400 MG PO SCH (08:18)
[2019-11-15] MEDS: Spironolactone TAB* 25 MG PO SCH (08:18)
[2019-11-15] MEDS: LORazepam TAB(*) 0.5 MG PO SCH (08:19)
[2019-11-15] MEDS: DULoxetine DR CAP* 60 MG CAP.DR PO SCH (08:19)
[2019-11-15] MEDS: OLANzapine TAB* 5 MG PO SCH (08:19)
[2019-11-15] MEDS: Aspirin 81 mg CHEW TAB* 81 MG TAB.CHEW PO SCH (08:19)
[2019-11-15] MEDS: Benztropine TAB* 1 MG PO SCH (08:19)
[2019-11-15] MEDS: Diltiazem CD CAP* 240 MG PO SCH (08:19)
[2019-11-15] MEDS: Docusate CAP* 100 MG PO SCH (08:19)
[2019-11-15] MEDS: Gabapentin CAP(*) 300 MG PO SCH (08:19)
[2019-11-15] MEDS: Fluticasone NASAL SPRAY 50MCG* 16 gm SPRAY BTL BOTH NARES SCH (08:20)
[2019-11-15] MEDS: Collagenase 250 UNITS/GM OINT* 1 APPLIC OINT TOPICAL SCH (08:21)
[2019-11-15] MEDS: Ferrous Sulfate TAB* 325 MG PO SCH (08:50)
--- NOTE | 2019-11-15 09:17 | PN ---
Progress Note - Progress Note Date of Service: 11/15/19 SOAP: Subjective: CC: PNA HPI: Ms. Lui is a 59 yo female with PMH significant for HTN, hx SVT, schizophrenia, chronic low back pain, osteodiskitis, hypothyroidism, and lumbar sclerosis; who presented to the emergency room with altered mental status. She will not answer ROS questions today, but when asked how she is doing today she states "good". Noted to have a occasional moist cough. She is alert and sitting up in bed, ringing for the nurse for a bath. Objective: Vital Signs - 8 hr 11/15/19 11/15/19 11/15/19 02:43 05:53 07:15 Temperature 97.3 F 98.6 F Pulse Rate 84 90 Respiratory 16 19 18 Rate Blood Pressure 108/69 118/58 (mmHg) O2 Sat by Pulse 98 97 Oximetry Physical Exam: General: NAD, sitting up in bed Neurological: Alert, Unable to determine orientation as Pt is not answering orientation questions today HEENT: Moist MM Cardiovascular: Heart rate regular Respiratory: Lung sounds clear but diminished in the bases Abdominal: Bowel sounds present; ABD soft, non tender and non distended MSK: No joint effusions, no tenderness with palpation of the knees Skin: No rash Laboratory Tests 11/09/19 11/14/19 11/14/19 06:18 04:50 04:50 WBC 11.4 H Hgb 9.2 L Hct 27 L Plt Count 332 Sodium 129 L Potassium 4.9 Chloride 95 L Carbon Dioxide 28 BUN 8 Creatinine 0.48 L Glucose 114 H C-Reactive Protein 19.93 H Microbiology 11/14/19 10:00 Stool Occult Blood (MEDARDO) - Final Stool 11/09/19 08:58 Blood Culture - Final Blood Venous No Growth Day 5 11/09/19 08:58 Blood Culture - Final Blood Venous No Growth Day 5 11/09/19 07:42 Blood Culture - Final Blood Venous No Growth Day 5 11/09/19 08:07 Urine Culture - Final Urine No Growth (<1,000 CFU/mL) 11/09/19 12:44 Legionella Urinary Antigen - Final Urine Negative Legionella Antigen Streptococcus pneumoniae Ag Screen - Final Positive S. Pneumo Antigen 11/09/19 06:41 Nasal Screen MRSA (PCR) - Final Nasal Mrsa Not Detected Assessment: 1. Fevers. Resolved, suspect secondary drug fever in the setting of Ceftriaxone. No further fevers since the Ceftriaxone was discontinued. Leukocytosis is improving, not checked today. 2. Pneumococcal PNA. Urine antigens positive for S. Pneumo. Blood cultures with no growth. Afebrile and improving leukocytosis overall. Received Ceftriaxone for 5 days, now on Augmentin day 2. 3. Influenza A. Received Tamiflu for 5 days. 4. Encephalopathy. Secondary to influenza and PNA. Slowly improving. Plan: Continue Augmentin 500 mg PO BID, will plan for a total of 10 days of ABX. If fevers return, recommend further work-up for infection (repeat blood cultures, urine, etc.)
[2019-11-15] MEDS: Amoxicillin/Clavulanate TAB* 500 MG PO SCH (09:28)
[2019-11-15] MEDS: Mometasone/Formoter 200/5 MDI INH SCH (09:57)
[2019-11-15 12:14] VITALS: BP 108/65
--- NOTE | 2019-11-16 13:58 | DS ---
AMENDED REPORT TO CORRECT ACCOUNT CC: Dr. Figueroa * DISCHARGE SUMMARY: DATE OF ADMISSION: 11/09/19 DATE OF DISCHARGE TO SWING STATUS: 11/15/19 PRIMARY CARE PHYSICIAN: Dr. Figueroa. DISCHARGE DIAGNOSES: 1. Severe sepsis. 2. Pneumococcal pneumonia. 3. Influenza A. 4. Metabolic encephalopathy and delirium secondary to the above. 5. Thyroid nodule. SECONDARY DIAGNOSES: 1. Hypertension. 2. History of supraventricular tachycardia. 3. History of Escherichia coli bacteremia and pneumonia. 4. History of prior osteodiskitis. 5. Chronic obstructive pulmonary disease. 6. Schizophrenia. MEDICATIONS AT THE TIME OF TRANSFER: 1. Acetaminophen 650 mg p.o. q.4 hours p.r.n. fever. 2. Maalox 30 mL p.o. q.6 hours p.r.n. indigestion. 3. DuoNeb q.4 hours p.r.n. shortness of breath and wheezing. 4. Augmentin 500 mg p.o. b.i.d. until 11/18/19. 5. Aspirin 81 mg p.o. daily. 6. Baclofen 200 mg p.o. t.i.d. 7. Benztropine 1 mg p.o. daily. 8. Calcium plus vitamin D 250/125 four tablets p.o. b.i.d. before meal. 9. Cholecalciferol 2000 units p.o. daily. 10. Cardizem CD 240 mg p.o. daily. 11. Colace 100 mg b.i.d. 12. Duloxetine DR. 60 mg p.o. b.i.d. 13. Lovenox 40 mg q.24 hours. 14. Ferrous sulfate 325 mg p.o. daily. 15. Fluticasone nasal spray 2 sprays to both nares daily. 16. Gabapentin 200 mg p.o. t.i.d. 17. Heparin flush for PICC line. 18. Levothyroxine 50 mcg p.o. daily. 19. Lorazepam 0.5 mg p.o. t.i.d. 20. Dulera 200/5 two puffs inhaled b.i.d. 21. Montelukast 10 mg p.o. at bedtime. 22. Zyprexa 5 mg p.o. in the morning and 30 mg p.o. at bedtime. 23. Senna 2 tablets p.o. b.i.d. hold for loose stools. 24. Spironolactone 25 mg p.o. daily. 25. Tramadol 50 mg p.o. q.6 hours p.r.n. pain. HOSPITAL COURSE: Mrs. Lui is a 59-year-old female with a past medical history as stated above, who presented to the emergency room with respiratory distress and altered mental status. For more details about her presentation, I refer to her history and physical. There was a report of vomiting and initially there was concern for aspiration pneumonia. She was found to have influenza A and was admitted under impression of sepsis with encephalopathy to rule out meningitis. Chest x-ray show no radiographic evidence for acute cardiopulmonary abnormality. Abdomen x-ray showed large amount of gas and stool. CT brain without contrast was normal. CT cervical spine without contrast showed degenerative changes of the cervical spine without acute fracture or dislocation. There was also a stable mixed attenuation exophytic lesion at the left lobe of the thyroid unchanged from March 2019. A CT chest without contrast showed parenchymal density with air bronchograms in the dependent most portion of the right lower lobe back to represent atelectasis versus pneumonia. _ lung, there is ground glass opacification which can be seen in the setting of pulmonary edema or viral pneumonia. Incidentally noted is relative hypoattenuation of the lumen of the aorta compared to the wall and appearance that can be seen in the setting of anemia. The patient was seen in consultation by Neurology (Dr. Slade) and his impression was that the patient had diminished responsiveness in the setting of influenza, fever, hypotension. He did not see signs of meningismus on her exam. He thought it was reasonable to treat her for possible bacterial meningitis until a lumbar puncture could be obtained. The patient was also seen by Dr. Hdz from Critical Care, but at the time of my evaluation, he thought the patient could be admitted to the medical floor. An EEG was performed and it was a normal awake EEG with no focal or epileptiform abnormalities. The patient continued to improve clinically and the patient's brother did not consent for a lumbar puncture. As per documentation of his conversation with Dr. Smith, he would only have it done if he was "less resort in life saving measure due to her spinal curvature." He was offered the possibility of having it done under Interventional Radiology guidance but he still did not give consent. As she continued to improve, Infectious Disease recommended discontinuing antibiotics for meningitis and she completed her influenza treatment and was kept on ceftriaxone to continue treatment of her pneumococcal pneumonia. The patient had had improvement of his symptoms, resolution of her fever, significant improvement of her oxygen saturation now requiring only 2 L of oxygen. On 11/12/19, the patient spiked a fever and the impression was this was likely secondary to drug fever associated with ceftriaxone. At that point, she was switched to Augmentin p.o. and she had once again resolution of her fever. The patient is found to be deconditioned, has skewed knees and the plan is to transfer her to swing status to continue her rehabilitation process. PHYSICAL EXAMINATION: Vital Signs: Temperature 97.4, heart rate is 96, respiratory rate 16, oxygen saturation 96% on 2 L nasal cannula, blood pressure is 108/65. General: The patient is a middle age lady, lying in bed, in no acute distress. HEENT: Pupils are equal, moist mucous membranes. CVS: Normal S1, S2. Regular rate and rhythm. Chest: Breath sounds bilaterally coarse with no added sounds. Diminished in bases. Abdomen is soft, nontender. Bowel sounds are present. Neuro: She is alert and awake, oriented to self and place. Able to move all 4 extremities. DIET: Regular diet. ACTIVITIES: As tolerated. DISPOSITION: To [facility] status. STATUS WHILE IN THE HOSPITAL: Inpatient. CONDITION AT THE TIME OF DISCHARGE: Fair. Please keep in mind that this is a summarized version of this patient's prolonged and complex hospital stay. If you need more information, please feel free to call me at [phone] or please obtain full medical records. TIME SPENT: Approximately 50 minutes was spent on this discharge. [id number]/[facility] #: [id number] [place]
== END 2019-11-15 13:12 | disposition swing bed (61) | DRG 720 ==
LOC: ED 05:54 → MED 13:52
PROVIDERS: ADMIT Internal Medicine; ATTEND Internal Medicine
PROC: 02HV33Z Insertion of Infusion Device into Superior Vena Cava, Percutaneous Approach (ICD-10-PCS; principal; 2019-11-11)
PROC: 4A00X4Z Measurement of Central Nervous Electrical Activity, External Approach (ICD-10-PCS; 2019-11-11)
DX: A40.3 Sepsis due to Streptococcus pneumoniae (principal); J13 Pneumonia due to Streptococcus pneumoniae; G93.41 Metabolic encephalopathy; R65.20 Severe sepsis without septic shock; R40.2342 Coma scale, best motor response, flexion withdrawal, at arrival to emergency department; J69.0 Pneumonitis due to inhalation of food and vomit; J10.08 Influenza due to other identified influenza virus with other specified pneumonia; R40.2122 Coma scale, eyes open, to pain, at arrival to emergency department; F05 Delirium due to known physiological condition; J44.0 Chronic obstructive pulmonary disease with (acute) lower respiratory infection; M62.82 Rhabdomyolysis; I47.1 Supraventricular tachycardia; E04.1 Nontoxic single thyroid nodule; I10 Essential (primary) hypertension; K21.9 Gastro-esophageal reflux disease without esophagitis; F41.9 Anxiety disorder, unspecified; F90.9 Attention-deficit hyperactivity disorder, unspecified type; F31.9 Bipolar disorder, unspecified; F25.9 Schizoaffective disorder, unspecified; G89.29 Other chronic pain; M54.5 Low back pain; M19.90 Unspecified osteoarthritis, unspecified site; M48.02 Spinal stenosis, cervical region; E03.9 Hypothyroidism, unspecified; R40.2232 Coma scale, best verbal response, inappropriate words, at arrival to emergency department; Y90.0 Blood alcohol level of less than 20 mg/100 ml; L89.210 Pressure ulcer of right hip, unstageable; E87.6 Hypokalemia; E83.42 Hypomagnesemia; D64.9 Anemia, unspecified; Z91.040 Latex allergy status; Z88.8 Allergy status to other drugs, medicaments and biological substances; Z91.018 Allergy to other foods; Z91.5 Personal history of self-harm; Z87.891 Personal history of nicotine dependence; Z72.89 Other problems related to lifestyle; Z79.890 Hormone replacement therapy; Z79.82 Long term (current) use of aspirin; Z79.899 Other long term (current) drug therapy; Z79.51 Long term (current) use of inhaled steroids; Z79.01 Long term (current) use of anticoagulants
CPT/HCPCS: 36415; 70450; 71045; 71250; 72125; 74018; 80048; 80053; 80076; 80202; 80307; 80320; 80329; 81003; 81015; 82140; 82270; 82550; 82607; 82728; 82746; 82803; 83540; 83550; 83605; 83735; 83880; 84100; 84134; 84439; 84443; 84484; 85025; 85610; 85652; 86140; 87040; 87086; 87641; 87899; 93005; 94640; 95816; 96365; 96375; 99285; A9270-GY; C1751; G0480; J0133; J0696; J1644; J1650; J1940; J2405; J2543; J3370; J3475; J3480

== ENCOUNTER 2019-11-15 13:26 | Inpatient (IN) | payer BC ==
[2019-11-15] MEDS ORDERED: Albuterol/Ipratropium NEB.SOL* Albuterol 2.5 MG/Ipratropium 0.5 MG 3 ML INH PRN (14:53)
[2019-11-15] MEDS ORDERED: Acetaminophen TAB* 325 MG PO PRN (14:54)
[2019-11-15] MEDS ORDERED: Al Hydrox/Mg Hydrox/Simet LIQ* 30 ML UDC PO PRN (14:54)
[2019-11-15] MEDS: Enoxaparin(*) 40 MG/0.4 ML SYR SUBCUT SCH (15:51)
[2019-11-15] MEDS: traMADol TAB* 50 MG PO PRN (15:52)
[2019-11-15] MEDS: Calcium/Vitamin D TAB 250/125* TAB PO SCH (15:52)
[2019-11-15] MEDS: Mometasone/Formoter 200/5 MDI INH SCH (19:34)
[2019-11-15] MEDS ORDERED: Magnesium Oxide TAB* 400 MG PO SCH (21:00)
[2019-11-15] MEDS: Amoxicillin/Clavulanate TAB* 500 MG PO SCH (21:32)
[2019-11-15] MEDS: Docusate CAP* 100 MG PO SCH (21:33)
[2019-11-15] MEDS: Baclofen TAB* 20 MG PO SCH (21:33)
[2019-11-15] MEDS: DULoxetine DR CAP* 60 MG CAP.DR PO SCH (21:34)
[2019-11-15] MEDS: Gabapentin CAP(*) 300 MG PO SCH (21:35)
[2019-11-15] MEDS: LORazepam TAB(*) 0.5 MG PO SCH (21:35)
[2019-11-15] MEDS: Montelukast Sodium TAB* 10 MG PO SCH (21:37)
[2019-11-15] MEDS: OLANzapine TAB* 10 MG PO SCH (21:37)
[2019-11-15] MEDS: Senna TAB 8.6 mg* TAB PO SCH (21:38)
[2019-11-16] MEDS: Levothyroxine TAB* 50 MCG TAB PO SCH (06:16)
[2019-11-16] MEDS: traMADol TAB* 50 MG PO PRN ×2 (06:20→22:13)
[2019-11-16] MEDS: Mometasone/Formoter 200/5 MDI INH SCH ×2 (07:59→20:15)
[2019-11-16] MEDS: Spironolactone TAB* 25 MG PO SCH (08:44)
[2019-11-16] MEDS: Cholecalciferol TAB* 1000 UNITS PO SCH (08:44)
[2019-11-16] MEDS: Aspirin 81 mg CHEW TAB* 81 MG TAB.CHEW PO SCH (08:45)
[2019-11-16] MEDS: Gabapentin CAP(*) 300 MG PO SCH ×3 (08:45→22:14)
[2019-11-16] MEDS: LORazepam TAB(*) 0.5 MG PO SCH ×3 (08:45→22:14)
[2019-11-16] MEDS: DULoxetine DR CAP* 60 MG CAP.DR PO SCH ×2 (08:45→22:13)
[2019-11-16] MEDS: Senna TAB 8.6 mg* TAB PO SCH ×2 (08:46→22:15)
[2019-11-16] MEDS: Docusate CAP* 100 MG PO SCH ×2 (08:47→22:13)
[2019-11-16] MEDS: OLANzapine TAB* 5 MG PO SCH (08:47)
[2019-11-16] MEDS: Benztropine TAB* 1 MG PO SCH (08:47)
[2019-11-16] MEDS: Baclofen TAB* 20 MG PO SCH ×3 (08:47→22:15)
[2019-11-16] MEDS: Calcium/Vitamin D TAB 250/125* TAB PO SCH ×2 (08:48→14:32)
[2019-11-16] MEDS: Diltiazem CD CAP* 240 MG PO SCH (08:48)
[2019-11-16] MEDS: Ferrous Sulfate TAB* 325 MG PO SCH (08:48)
[2019-11-16] MEDS: Collagenase 250 UNITS/GM OINT* 1 APPLIC OINT TOPICAL SCH (08:50)
[2019-11-16] MEDS: Amoxicillin/Clavulanate TAB* 500 MG PO SCH ×2 (08:50→22:12)
[2019-11-16] MEDS: Fluticasone NASAL SPRAY 50MCG* 16 gm SPRAY BTL BOTH NARES SCH (08:50)
[2019-11-16] MEDS: Enoxaparin(*) 40 MG/0.4 ML SYR SUBCUT SCH (14:32)
[2019-11-16] MEDS: Montelukast Sodium TAB* 10 MG PO SCH (22:13)
[2019-11-16] MEDS: OLANzapine TAB* 10 MG PO SCH (22:16)
[2019-11-17] MEDS: traMADol TAB* 50 MG PO PRN (06:07)
[2019-11-17] MEDS: Levothyroxine TAB* 50 MCG TAB PO SCH (06:07)
[2019-11-17] MEDS: Mometasone/Formoter 200/5 MDI INH SCH ×2 (07:47→20:55)
[2019-11-17] MEDS: Fluticasone NASAL SPRAY 50MCG* 16 gm SPRAY BTL BOTH NARES SCH (08:13)
[2019-11-17] MEDS: Spironolactone TAB* 25 MG PO SCH (08:14)
[2019-11-17] MEDS: Ferrous Sulfate TAB* 325 MG PO SCH (08:15)
[2019-11-17] MEDS: Senna TAB 8.6 mg* TAB PO SCH ×2 (08:15→22:47)
[2019-11-17] MEDS: Cholecalciferol TAB* 1000 UNITS PO SCH (08:15)
[2019-11-17] MEDS: Aspirin 81 mg CHEW TAB* 81 MG TAB.CHEW PO SCH (08:15)
[2019-11-17] MEDS: Docusate CAP* 100 MG PO SCH ×2 (08:16→22:48)
[2019-11-17] MEDS: OLANzapine TAB* 5 MG PO SCH (08:16)
[2019-11-17] MEDS: Gabapentin CAP(*) 300 MG PO SCH ×3 (08:16→22:47)
[2019-11-17] MEDS: Diltiazem CD CAP* 240 MG PO SCH (08:17)
[2019-11-17] MEDS: Benztropine TAB* 1 MG PO SCH (08:17)
[2019-11-17] MEDS: Calcium/Vitamin D TAB 250/125* TAB PO SCH ×2 (08:17→17:04)
[2019-11-17] MEDS: DULoxetine DR CAP* 60 MG CAP.DR PO SCH ×2 (08:17→22:47)
[2019-11-17] MEDS: LORazepam TAB(*) 0.5 MG PO SCH ×3 (08:17→22:47)
[2019-11-17] MEDS: Baclofen TAB* 20 MG PO SCH ×3 (08:17→22:48)
[2019-11-17] MEDS: Collagenase 250 UNITS/GM OINT* 1 APPLIC OINT TOPICAL SCH (08:19)
[2019-11-17] MEDS: Amoxicillin/Clavulanate TAB* 500 MG PO SCH ×2 (08:22→22:47)
[2019-11-17 12:29] LABS: Hematocrit 30 % (35-47); Hemoglobin 10.2 g/dL (12.0-16.0); Mean Corpuscular HGB Conc 34 g/dL (31-36); Mean Corpuscular Hemoglobin 32 pg (27-31); Mean Corpuscular Volume 93 fL (80-97); Mean Platelet Volume 7.2 fL (7.4-10.4); Platelet Count 808 10^3/uL (150-450); Red Blood Count 3.23 10^6 /uL (3.70-4.87); Red Cell Distribution Width 14 % (10-15); White Blood Count 12.9 10^3/uL (3.5-10.8)
[2019-11-17 12:47] LABS: BUN/Creatinine Ratio 25.9 (8-20); Calcium 10.3 mg/dL (8.6-10.3); EGFR African American 139.8 (>60); EGFR Non-African American 115.6 (>60); Potassium 4.4 mmol/L (3.5-5.0)
[2019-11-17 12:53] LABS: ABS Eosinophils 0.1 10^3/ul (0-0.6); ABS Lymphocytes 2.3 10^3/ul (1.0-4.8); ABS Monocytes 1.4 10^3/ul (0-0.8); ABS Neutrophils 9.1 10^3/ul (1.5-7.7); Eosinophil % 0.8 %; Lymphocyte % 18.1 %
[2019-11-17] MEDS: Enoxaparin(*) 40 MG/0.4 ML SYR SUBCUT SCH (13:16)
[2019-11-17] MEDS: OLANzapine TAB* 10 MG PO SCH (22:47)
[2019-11-17] MEDS: Montelukast Sodium TAB* 10 MG PO SCH (22:48)
[2019-11-18] MEDS ORDERED: Lidocaine 2% JELLY* 6 ML JELLY TOPICAL ONE (00:30)
[2019-11-18] MEDS: Levothyroxine TAB* 50 MCG TAB PO SCH (05:33)
[2019-11-18] MEDS: Fluticasone NASAL SPRAY 50MCG* 16 gm SPRAY BTL BOTH NARES SCH (08:00)
[2019-11-18] MEDS: Spironolactone TAB* 25 MG PO SCH (08:01)
[2019-11-18] MEDS: Senna TAB 8.6 mg* TAB PO SCH ×2 (08:01→20:05)
[2019-11-18] MEDS: LORazepam TAB(*) 0.5 MG PO SCH ×3 (08:02→20:05)
[2019-11-18] MEDS: Ferrous Sulfate TAB* 325 MG PO SCH (08:02)
[2019-11-18] MEDS: Aspirin 81 mg CHEW TAB* 81 MG TAB.CHEW PO SCH (08:02)
[2019-11-18] MEDS: DULoxetine DR CAP* 60 MG CAP.DR PO SCH ×2 (08:03→20:05)
[2019-11-18] MEDS: Docusate CAP* 100 MG PO SCH ×2 (08:03→20:05)
[2019-11-18] MEDS: Cholecalciferol TAB* 1000 UNITS PO SCH (08:03)
[2019-11-18] MEDS: Benztropine TAB* 1 MG PO SCH (08:04)
[2019-11-18] MEDS: Gabapentin CAP(*) 300 MG PO SCH ×3 (08:04→20:05)
[2019-11-18] MEDS: Calcium/Vitamin D TAB 250/125* TAB PO SCH (08:04)
[2019-11-18] MEDS: OLANzapine TAB* 5 MG PO SCH (08:04)
[2019-11-18] MEDS: Diltiazem CD CAP* 240 MG PO SCH (08:04)
[2019-11-18] MEDS: Baclofen TAB* 20 MG PO SCH ×3 (08:04→20:05)
[2019-11-18] MEDS: Amoxicillin/Clavulanate TAB* 500 MG PO SCH ×2 (08:05→20:05)
[2019-11-18] MEDS: Collagenase 250 UNITS/GM OINT* 1 APPLIC OINT TOPICAL SCH (08:05)
[2019-11-18] MEDS: Mometasone/Formoter 200/5 MDI INH SCH ×2 (08:28→19:55)
[2019-11-18] MEDS: Lidocaine 2% JELLY* 6 ML JELLY TOPICAL PRN (10:37)
--- NOTE | 2019-11-18 12:36 | CONSULT ---
Consult Consult: Consult Reason: For Medical Decision Making Capacity S: Psychiatry is asked to evaluate this 59 year old single female for medical decision making capacity. She lives at [facility] and has a history of Schizoaffective disorder, bipolar type and borderline personality disorder. She is currently being treated on the medical floor. The patient reported not living anywhere and was unsure if she wanted to go to a rehabilitation center and stated that she wants to take it one day at a time. She expressed let me watch tv now and stop with all the questions. The patient reported having pneumonia and was unsure about what her providers told her about her medical conditions. She did not have know the indications or names of her medications. Past Psychiatric history: Schizoaffective disorder, bipolar type and borderline personality disorder. O: 59 year old female appears older than stated age , disheveled and poor grooming. Restricted affect. Linear and goal directed thoughts. No delusions or preoccupations. Denied suicidal ideation, intent or plan. Denied homicidal ideation intent or plan. No perceptual disturbances. Insight and judgment poor. She is aware of the name of her current location, month, day and year. She knows the name of the current president. A/P: Capacity: DX: Schizoaffective disorder, bipolar type and borderline personality disorder. This patient lacks the capacity to make the decision to refuse transfer to a a nursing care facility. At this time this patient lacks the capacity to rationally make her own medical decisions given the following reasons: 1) The patient was unable to communicate a choice. 2) The patient is unable to understand the meaning of the information communicated to her about her illness and to appreciate her medical condition as well as the outcome and the consequences of accepting or refusing various treatment options. 3) The patient was unable to engage in a rational process of considering alternative treatment options. Thank you for the consult. As capacity is subject to change at any time, feel free to consult Psychiatry again in the event of any changes. Terry Reyna M.D.
[2019-11-18] MEDS: Enoxaparin(*) 40 MG/0.4 ML SYR SUBCUT SCH (14:31)
[2019-11-18] MEDS: Montelukast Sodium TAB* 10 MG PO SCH (20:05)
[2019-11-18] MEDS: traMADol TAB* 50 MG PO PRN (20:05)
[2019-11-18] MEDS: OLANzapine TAB* 10 MG PO SCH (20:05)
[2019-11-18] MEDS: Nicotine Patch Removal NOTE FOLLOW UP SCH (21:11)
[2019-11-18] MEDS: Nicotine PATCH 21 MG/24 HR* PATCH TRANSDERM SCH (21:12)
[2019-11-19] MEDS: Lidocaine 2% JELLY* 6 ML JELLY TOPICAL PRN (02:40)
[2019-11-19 05:24] LABS: Urine Appearance Clear; Urine Bilirubin Negative (Negative); Urine Blood Negative (Negative); Urine Color Yellow; Urine Glucose Negative (Negative); Urine Ketones Negative (Negative); Urine Nitrite Negative (Negative); Urine Protein Negative (Negative); Urine Specific Gravity 1.006 (1.010-1.030); Urine Urobilinogen Negative (Negative)
[2019-11-19] MEDS: Levothyroxine TAB* 50 MCG TAB PO SCH (05:35)
[2019-11-19 06:15] LABS: Hematocrit 30 % (35-47); Hemoglobin 10.2 g/dL (12.0-16.0); Mean Corpuscular HGB Conc 34 g/dL (31-36); Mean Corpuscular Hemoglobin 32 pg (27-31); Mean Corpuscular Volume 93 fL (80-97); Mean Platelet Volume 7.2 fL (7.4-10.4); Platelet Count 988 10^3/uL (150-450); Red Blood Count 3.18 10^6 /uL (3.70-4.87); Red Cell Distribution Width 14 % (10-15); White Blood Count 13.7 10^3/uL (3.5-10.8)
[2019-11-19 06:30] LABS: BUN/Creatinine Ratio 32.7 (8-20); Calcium 9.6 mg/dL (8.6-10.3); EGFR African American 156.4 (>60); EGFR Non-African American 129.3 (>60); Potassium 3.9 mmol/L (3.5-5.0)
[2019-11-19] MEDS: Mometasone/Formoter 200/5 MDI INH SCH ×2 (08:24→19:44)
[2019-11-19] MEDS: Spironolactone TAB* 25 MG PO SCH (09:18)
[2019-11-19] MEDS: Nicotine PATCH 21 MG/24 HR* PATCH TRANSDERM SCH (09:18)
[2019-11-19] MEDS: Gabapentin CAP(*) 300 MG PO SCH ×3 (09:19→20:25)
[2019-11-19] MEDS: Senna TAB 8.6 mg* TAB PO SCH ×2 (09:19→20:25)
[2019-11-19] MEDS: Diltiazem CD CAP* 240 MG PO SCH (09:20)
[2019-11-19] MEDS: Aspirin 81 mg CHEW TAB* 81 MG TAB.CHEW PO SCH (09:20)
[2019-11-19] MEDS: Cholecalciferol TAB* 1000 UNITS PO SCH (09:20)
[2019-11-19] MEDS: Baclofen TAB* 20 MG PO SCH ×3 (09:20→20:26)
[2019-11-19] MEDS: Calcium/Vitamin D TAB 250/125* TAB PO SCH (09:20)
[2019-11-19] MEDS: OLANzapine TAB* 5 MG PO SCH (09:20)
[2019-11-19] MEDS: LORazepam TAB(*) 0.5 MG PO SCH ×3 (09:20→20:25)
[2019-11-19] MEDS: DULoxetine DR CAP* 60 MG CAP.DR PO SCH ×2 (09:20→20:25)
[2019-11-19] MEDS: Benztropine TAB* 1 MG PO SCH (09:20)
[2019-11-19] MEDS: Docusate CAP* 100 MG PO SCH ×2 (09:21→20:26)
[2019-11-19] MEDS: Ferrous Sulfate TAB* 325 MG PO SCH (09:26)
[2019-11-19] MEDS: Fluticasone NASAL SPRAY 50MCG* 16 gm SPRAY BTL BOTH NARES SCH (10:17)
[2019-11-19] MEDS: Collagenase 250 UNITS/GM OINT* 1 APPLIC OINT TOPICAL SCH (10:17)
[2019-11-19] MEDS: Enoxaparin(*) 40 MG/0.4 ML SYR SUBCUT SCH (13:54)
--- NOTE | 2019-11-19 16:19 | CONSULT ---
Subjective Date of Service: 11/19/19 Interval History: Ms. Lui is a 59 year old female with past medical history significant for HTN , hx SVT, schizophrenia, chronic low back pain, osteodiskitis, hypothyroidism, and polysubstance abuse; who lives at the [facility] and was found by staff to be laying across the bed with her head towards the floor and emesis on the floor. She was brought to the hospital and found to have Influenza A. She was admitted to the hospital for Influenza A and sepsis. She has now been admitted as a SWING patient. She presented to the hospital with a known pressure injury to the right lateral hip,this has been present at least 4 months. She follows with the wound clinic and this has most recently been treated with Santyl. Patient seen and examined at bedside. Verbal consent for wound consultation and photograph. Family History: Unchanged from Admission Social History: Unchanged from Admission Past Medical History: Unchanged from Admission Review of Systems - Measurements Intake and Output: Intake and Output Last 24 Hours 11/17/19 11/18/19 11/19/19 11/20/19 06:59 06:59 06:59 06:59 Intake Total 1460 1999 1040 Output Total 1900 2150 Balance -440 -150 1040 Intake: Oral 1460 1999 1040 Output: Urine Fong 450 2150 Straight Cath 1450 Other: Estimated Void Large # Bowel Movements 0 0 1 Estimated Stool Amount Medium Medium Medium # Voids 0 1 - Review of Systems Constitutional Symptoms: Negative: Fever, Other - Chills Dermatology: Positive: Other - Wound right hip Objective Active Medications: Acetaminophen (Tylenol Tab*) 650 mg PO Q4H PRN Reason: PAIN - MILD Al Hydrox/Mg Hydrox/Simethicone (Maalox Plus*) 30 ml PO Q6H PRN Reason: INDIGESTION Albuterol/Ipratropium (Duoneb (Albuterol 2.5 Mg/Ipratropium 0.5 Mg)) 1 neb INH Q4H PRN Reason: SOB/WHEEZING Aspirin (Aspirin 81 Mg Chew Tab*) 81 mg PO DAILY [facility] Baclofen (Lioresal Tab*) 20 mg PO TID [facility] Benztropine Mesylate (Cogentin Tab*) 1 mg PO DAILY [facility] Calcium/Vitamin D (Oscal D Tab 250/125*) 1 tab PO 0730 [facility] Cholecalciferol (Vitamin D Tab*) 2,000 units PO DAILY [facility] Collagenase (Santyl 250 Units/Gm Oint*) 1 applic TOPICAL DAILY [facility] Diltiazem HCl (Cardizem Cd Cap*) 240 mg PO DAILY [facility] Docusate Sodium (Colace Cap*) 100 mg PO BID [facility] Duloxetine HCl (Cymbalta Cap*) 60 mg PO BID [facility] Enoxaparin Sodium (Lovenox(*)) 40 mg SUBCUT Q24H [facility]ON Ferrous Sulfate (Ferrous Sulfate Tab*) 325 mg PO DAILY [facility] Fluticasone Propionate (Flonase Nasal [place] 50mcg*) 2 spray BOTH NARES DAILY [facility] Gabapentin (Neurontin Cap(*)) 300 mg PO TID [facility] Heparin Sodium (Porcine) (Heparin Flush Picc/Ml/Cvc(*)) 1 - 3 ml FLUSH 0600, 1800 [facility]; Protocol Levothyroxine Sodium (Synthroid Tab*) 50 mcg PO 0600 [facility] Lidocaine HCl (Lidocaine 2% Jelly*) 1 applic TOPICAL TID PRN Reason: straight cath Lorazepam (Ativan Tab(*)) 0.5 mg PO TID [facility] Mometasone Furoate/Formoterol Fumar (Dulera 200/5 Mdi*) 2 puff INH BID [facility] Montelukast Sodium (Singulair Tab*) 10 mg PO BEDTIME [facility] Nicotine (Nicotine Patch 21 Mg/24 Hr*) 1 patch TRANSDERM DAILY [facility] Olanzapine (Zyprexa Tab*) 5 mg PO DAILY [facility] Olanzapine (Zyprexa Tab*) 30 mg PO BEDTIME [facility] Pharmacy Profile Note (Nicotine Patch Removal Note*) 1 note FOLLOW UP 2100 [facility] Senna (Senokot 8.6 Mg Tab*) 2 tab PO BID [facility] Spironolactone (Aldactone Tab*) 25 mg PO DAILY [facility] Tramadol HCl (Ultram*) 50 mg PO Q6H PRN Reason: Pain Vital Signs 11/19/19 08:01 Temperature 98.4 F Temperature Oral Source Pulse Rate 95 Respiratory 18 Rate Blood Pressure 113/67 (mmHg) Blood Pressure 82 Mean O2 Sat by Pulse 94 Oximetry Patient on Room Yes Air Oxygen Devices in Use Now: None Appearance: NAD, layign in bed Ears/Nose/Mouth/Throat: Mucous Membranes Moist Respiratory: Symmetrical Chest Expansion and Respiratory Effort Skin: - - See skin note below Neurological: Alert and Oriented x 3 Result Diagrams: 11/20/19 13:27 11/20/19 13:27 Additional Lab and Data: Above labs were pulled into the note, when the note was edited prior to signing. See below for labs from the day of consultation. Laboratory Tests 11/11/19 11/19/19 11/19/19 06:50 05:50 05:50 WBC 13.7 H Hgb 10.2 L Hct 30 L Plt Count 988 H D Sodium 133 L Potassium 3.9 Chloride 98 L Carbon Dioxide 27 BUN 16 Creatinine 0.49 L Glucose 105 H Total Protein 5.2 L Albumin 2.9 L Prealbumin 8 L Skin Deviation Note - Skin Deviation Findings Right lateral hip - Wound measures 1.5 cm x 1.9 cm x 0.1 cm. The wound base is 90% yellow adherent slough and 10 % red granulation tissue. The surrounding skin is intact. There is scant drainage. No odor. Wound Problem/Plan Assessment: Ms. Lui is a 59 year old female with past medical history significant for HTN , hx SVT, schizophrenia, chronic low back pain, osteodiskitis, hypothyroidism, and polysubstance abuse; who lives at the [facility] and was found by staff to be laying across the bed with her head towards the floor and emesis on the floor. She was brought to the hospital and found to have Influenza A, she was admitted to the hospital for Influenza A and sepsis. She presented to the hospital with a known pressure injury to the right lateral hip. She has now been admitted as a SWING patient. 1. Unstageable pressure injury to the right lateral hip, suspect this is likely a stage 3. Recommend washing the area with soap and water daily, followed by applying Santyl to the necrotic tissue, and a Telfa island dressing and change daily. If there is a moderate to heavy amount of drainage, can apply calcium alginate prior to theTelfa island dressing. Frequent turning and repositioning. Use a friction reduction device to move in bed. Pre-albumin last week was 8, will recheck again this week. She should return to the [facility] for Wound Healing at discharge for continued wound management. 2. Nutrition. Recommend meeting minimal nutrition requirements to assist with wound healing (Protein 1.3-1.5 gram/kg per day and Calories 30-35 kcal/kg per day). Regular diet. 3. Code Status. Full Code Status. 4. Disposition. Inpatient, disposition per primary medicine team. TIME SPENT: Time for this wound consultation was 20 minutes and 10 minutes was spent with the patient discussing past medical history; assessing, measuring, and photographing the wound; and repositioning the patient. Is Patient a Wound Clinic Patient: Yes - Last visit 10/25/19 - Xander Whitten DNP Current Treatment: Viviana Attending: Nadine Parish
[2019-11-19 20:22] LABS: C Reactive Protein 13.62 mg/L (<8.01)
[2019-11-19] MEDS: Montelukast Sodium TAB* 10 MG PO SCH (20:26)
[2019-11-19] MEDS: OLANzapine TAB* 10 MG PO SCH (20:26)
[2019-11-19] MEDS: Nystatin TOP POWDER* 15 GM BTL TOPICAL SCH (20:26)
[2019-11-19] MEDS: Nicotine Patch Removal NOTE FOLLOW UP SCH (20:27)
[2019-11-20] MEDS: Levothyroxine TAB* 50 MCG TAB PO SCH (05:13)
[2019-11-20] MEDS: Mometasone/Formoter 200/5 MDI INH SCH (08:37)
[2019-11-20] MEDS: Ferrous Sulfate TAB* 325 MG PO SCH (08:55)
[2019-11-20] MEDS: Nicotine PATCH 21 MG/24 HR* PATCH TRANSDERM SCH (08:56)
[2019-11-20] MEDS: Benztropine TAB* 1 MG PO SCH (08:57)
[2019-11-20] MEDS: OLANzapine TAB* 5 MG PO SCH (08:57)
[2019-11-20] MEDS: DULoxetine DR CAP* 60 MG CAP.DR PO SCH (08:57)
[2019-11-20] MEDS: Senna TAB 8.6 mg* TAB PO SCH (08:57)
[2019-11-20] MEDS: Docusate CAP* 100 MG PO SCH (08:59)
[2019-11-20] MEDS: Gabapentin CAP(*) 300 MG PO SCH ×2 (08:59→14:18)
[2019-11-20] MEDS: Aspirin 81 mg CHEW TAB* 81 MG TAB.CHEW PO SCH (09:00)
[2019-11-20] MEDS: Fluticasone NASAL SPRAY 50MCG* 16 gm SPRAY BTL BOTH NARES SCH (09:00)
[2019-11-20] MEDS: Nystatin TOP POWDER* 15 GM BTL TOPICAL SCH ×2 (09:00→14:26)
[2019-11-20] MEDS: Spironolactone TAB* 25 MG PO SCH (09:00)
[2019-11-20] MEDS: Diltiazem CD CAP* 240 MG PO SCH (09:01)
[2019-11-20] MEDS: Collagenase 250 UNITS/GM OINT* 1 APPLIC OINT TOPICAL SCH (09:01)
[2019-11-20] MEDS: LORazepam TAB(*) 0.5 MG PO SCH ×2 (09:01→14:19)
[2019-11-20] MEDS: Calcium/Vitamin D TAB 250/125* TAB PO SCH (09:02)
[2019-11-20] MEDS: Baclofen TAB* 20 MG PO SCH ×2 (09:02→14:20)
[2019-11-20] MEDS: Cholecalciferol TAB* 1000 UNITS PO SCH (10:39)
[2019-11-20 11:30] VITALS: BP 107/65
[2019-11-20] MEDS: traMADol TAB* 50 MG PO PRN (12:09)
[2019-11-20 13:50] LABS: ABS Basophils 0.2 10^3/ul (0-0.2); ABS Lymphocytes 2.7 10^3/ul (1.0-4.8); ABS Monocytes 1.4 10^3/ul (0-0.8); ABS Neutrophils 8.7 10^3/ul (1.5-7.7); Eosinophil % 0.4 %; Hematocrit 31 % (35-47); Hemoglobin 10.7 g/dL (12.0-16.0); Mean Corpuscular HGB Conc 34 g/dL (31-36); Mean Corpuscular Hemoglobin 32 pg (27-31); Mean Corpuscular Volume 94 fL (80-97); Mean Platelet Volume 7.1 fL (7.4-10.4); Platelet Count 1117 10^3/uL (150-450); Red Blood Count 3.36 10^6 /uL (3.70-4.87); Red Cell Distribution Width 14 % (10-15)
[2019-11-20 14:17] LABS: BUN/Creatinine Ratio 39.1 (8-20); C Reactive Protein 9.67 mg/L (<8.01); Calcium 9.5 mg/dL (8.6-10.3); EGFR African American 168.2 (>60); Phosphorus 2.9 mg/dL (2.5-5.0); Potassium 4.1 mmol/L (3.5-5.0)
[2019-11-20] MEDS: Enoxaparin(*) 40 MG/0.4 ML SYR SUBCUT SCH (14:20)
[2019-11-20 16:26] LABS: Erythrocyte Sed Rate 115 mm/Hr (0-29)
--- NOTE | 2019-11-20 22:56 | DS ---
CC: Dr. Figueroa * DISCHARGE SUMMARY: DATE OF ADMISSION TO SWING STATUS: 11/15/19 DATE OF DISCHARGE FROM SWING STATUS: 11/20/19 PRIMARY CARE PHYSICIAN: Dr. Figueroa. DISCHARGE DIAGNOSIS: Acute thrombocytosis. ADDITIONAL DISCHARGE DIAGNOSES: 1. Encephalopathy secondary to delirium from her sepsis and pneumonia. 2. Status post severe sepsis. 3. Pneumococcal pneumonia. 4. Influenza A. 5. Thyroid nodule. 6. Hypertension. 7. History of supraventricular tachycardia . 8. Prior history of Escherichia coli and bacterial pneumonia. 9. History of osteodiskitis. 10. History of chronic obstructive pulmonary disease. 11. History of schizoaffective disorder. HOSPITAL COURSE: The patient was transitioned to swing bed status on 11/15/19 after she completed her hospital course post metabolic encephalopathy from her sepsis and pneumonia, bacterial and influenza A, and she was on swing bed status pending short-term rehab. However, during her swing bed status, the patient had an uncomplicated course. I was notified today that the patient was accepted for rehab bed. The patient was seen and evaluated by me today, and during my assessment, it was noted that her blood work was significant for slightly elevated white count, which was at one time as low as 11 and today was up to 15, yesterday was 13.7; and given her platelet, which was 808 on 11/17/19, 988 11/19/19, and through her course her platelet was fairly normal at 276. I did order repeat CBC and her platelet came back to be 1,117. Given her acute thrombocytosis, leukocytosis, and elevated sed rate of 114, but CRP is down to 9.6, it was quite concerning to only discount the platelet as simple acute phase reactant with downward trend of her CRP. I held her discharge from swing bed status. I elected to admit her as an inpatient, specifically now with her sed rate being elevated to 115, despite downward trending of her CRP and platelets up to 1,117. We will admit her pending further input from Infectious Disease and Oncology regarding her thrombocytosis. Meanwhile, I re-cultured her peripheral and from the PICC line , chest x-ray, urine cultures. DISCHARGE PHYSICAL EXAMINATION: The patient remained to be nonverbal, refused to talk during the exam. She follows you with her eyes. Lungs: Good air flow bilateral. Cardiovascular: S1 and S2, regular rate and rhythm. Abdomen: Positive bowel sounds, soft, nontender. I did not feel any tenderness in the right upper quadrant. Negative Willis. Her extremity, I did not appreciate any erythema. She does have an ulcer, which is noted on her right hip, unstageable, seen by Wound Care and documented as stage 3. DIAGNOSTIC STUDIES/LAB DATA: CBC significant for white count of 13,000, platelets up to 1,117, ESR up to 115. Chemistry fairly unremarkable with CRP down to 9.6, was as high as 19. Imaging: None. MEDICATIONS: She will be discharged on: 1. Tylenol 650 q.4. 2. Maalox 30 cc q.6 hours p.r.n. 3. DuoNeb. 4. Aspirin 81 daily. 5. Baclofen 20 t.i.d. 6. Cogentin 1 daily. 7. Os-Hamilton with vitamin D 1 tab daily. 8. Vitamin D 2000 daily. 9. Santyl application daily. 10. Cardizem 240 daily. 11. Colace 100 b.i.d. 12. Cymbalta 60 b.i.d. 13. Lovenox 40 mg subcu daily. 14. Iron 325 daily. 15. Flonase. 16. Neurontin 300 t.i.d. 17. Heparin flush with PICC line. 18. Levoxyl 50 mcg daily. 19. Lidocaine topical t.i.d. 20. Lorazepam 0.5 t.i.d. 21. Mometasone, Dulera 2 puffs inhaled b.i.d. 22. Singulair 10 daily. 23. Nicotine daily. 24. Nystatin. 25. Zyprexa 30 daily. 26. Zyprexa 5 mg in the morning in addition to the 30 mg described above at night. 27. Senna 2 tabs b.i.d. 28. Aldactone 25 daily. 29. Ultram 50 q.6 p.r.n. DISCHARGE CONDITION: Stable. DISCHARGE DISPOSITION: Changed from swing bed status to full admission. [id number]/[facility] #: [id number] [facility]ITAL[facility]
== END 2019-11-20 15:52 | disposition short-term general hospital (02) | DRG 720 ==
LOC: MED 13:28
PROVIDERS: ADMIT Internal Medicine; ATTEND Internal Medicine
DX: A41.9 Sepsis, unspecified organism (principal); J10.08 Influenza due to other identified influenza virus with other specified pneumonia; J13 Pneumonia due to Streptococcus pneumoniae; G93.41 Metabolic encephalopathy; J44.0 Chronic obstructive pulmonary disease with (acute) lower respiratory infection; F25.0 Schizoaffective disorder, bipolar type; F60.3 Borderline personality disorder; I10 Essential (primary) hypertension; E03.9 Hypothyroidism, unspecified; G89.29 Other chronic pain; M54.5 Low back pain; M19.90 Unspecified osteoarthritis, unspecified site; M48.02 Spinal stenosis, cervical region; E04.1 Nontoxic single thyroid nodule; R65.20 Severe sepsis without septic shock; D47.3 Essential (hemorrhagic) thrombocythemia; L89.210 Pressure ulcer of right hip, unstageable; Z88.8 Allergy status to other drugs, medicaments and biological substances; Z91.040 Latex allergy status; Z91.018 Allergy to other foods; Z79.899 Other long term (current) drug therapy; Z79.890 Hormone replacement therapy; Z79.82 Long term (current) use of aspirin; Z87.01 Personal history of pneumonia (recurrent)
CPT/HCPCS: 36415; 80048; 81003; 81270; 83735; 84100; 84134; 85025; 85027; 85060; 85652; 86140; 87040; 94640; A9270-GY; J1650

== ENCOUNTER 2019-11-20 16:00 | Observation (INO) | payer BC ==
[2019-11-20] MEDS ORDERED: Al Hydrox/Mg Hydrox/Simet LIQ* 30 ML UDC PO PRN (16:23)
[2019-11-20] MEDS ORDERED: Acetaminophen TAB* 325 MG PO PRN (16:23)
[2019-11-20] MEDS ORDERED: Albuterol/Ipratropium NEB.SOL* Albuterol 2.5 MG/Ipratropium 0.5 MG 3 ML INH PRN (16:23)
[2019-11-20] MEDS ORDERED: Lidocaine 2% JELLY* 6 ML JELLY TOPICAL PRN (16:30)
[2019-11-20] MEDS ORDERED: traMADol TAB* 50 MG PO PRN (16:36)
[2019-11-20] MEDS ORDERED: Enoxaparin(*) 40 MG/0.4 ML SYR SUBCUT SCH (17:00)
--- NOTE | 2019-11-20 19:48 | CONSULT ---
Consultation - Reason for Consultation Reason for Consultation: Thrombocytosis Leukocytosis Anemia of chronic disease, superimposed GURJIT not excluded Ordering Provider: Preston Smith Chief Complaint: I am asked to evaluate this 59 year old woman for a finding of progressive thrombocytosis and leukocytosis History of Present Illness: This 59 year old woman was recently hospitalized from 11/09/2019 to 11/16/2019 with Pneumococcal sepsis and Influenza A. She also has a PMH of SVT, HTN, Hypothyroidism, Hypokalemia, Thyroid nodule, COPD, Encephalopathy, right lower extremity pressure ulceration, Hepatitis C, Schizoaffective disorder. We are asked to evaluate for a finding of progressive thrombocytosis as well as a mild leukocytosis/neutrophilia. Current WBC 13 Hg 10.7 Platelets 1117 MCV 94, B12 929 prior ESR 115, PTinr1.03, PTT 31, Iron 220 TIBC suppressed 211 saturation 9 % Ferritin 310, Folate 10.4 TSH 0.52. Historic platelets 11/14/2019 332 She has been re admitted for concerns of thrombocytosis with possible recurrence of infection Today she will supply little history and is not cooperative with exam No bleeding visualized , currently reported afebrile with CXR pending AM platelets 1058 WBC 11.7 Hg 10 ESR 107 with CRP 7.9 Allergies/Medications Allergies/Adverse Reactions: Allergies Allergy/AdvReac Type Severity Reaction Status Date / Time black pepper Allergy Eyes Verified 11/09/19 06:45 Itchy/Swollen/Red/Watery fluphenazine [From Prolixin] Allergy Unknown Verified 11/09/19 06:45 Reaction Details haloperidol [From Haldol] Allergy See Comment Verified 11/09/19 06:45 latex Allergy Rash Verified 11/09/19 06:45 risperidone [From Risperdal] Allergy See Comment Verified 11/09/19 06:45 History - Past Medical History Hx Blood Dyscrasias: Yes - leukocytosis and thrombocytosis Hx Cancer: No Hx Cardiac Disorders: Yes - SVT Hx Circulatory Problems: No Hx Diabetes: Yes Hx Hypercholesterolemia: Yes Hx Hypertension: Yes Hx Menstrual Problems: No Hx Musculoskeletal Deformity: Yes - Pressure ulcer Hx Endocrine Problem: Yes - hypothyroid - Family History Hx Family Cancer: No Hx Family Cerebrovascular Accident: No Review of Systems - Review of Systems Constitutional Symptoms: Positive: Weakness, Fatigue Dermatology: Positive: Skin Lesions - pressure ulceration HEENT: Positive: Normal Eyes: Positive: Normal Thyroid: Positive: Normal Pulmonary: Positive: COPD Cardiology: Positive: Normal Hematologic/Lymphatic: Positive: Anemia - leukocytosis and thrombocytosis Physical Exam - Physical Exam Physical Examination: Sitting up in bed Partially conversant refuses to answer questions Reviewed with nursing that patient intermittently behaves in this manner Declines examination Assessment and Plan Impression: Thrombocytosis likely reactive after recent admission for Pneumococcal pneumonia and Influenza A Overshoot marrow recovery after suppression from recent events not excluded . Consider new infection or inflammatory contributors Note NORMAL platelet count 11/14/2019 Leukocytosis, again likely reactive, doubt a underlying myeloproliferative disorder Anemia most c/w that of AOCD, cannot exclude superimposed GURJIT Plan: Would currently suggest: Monitor CBC Soluble Transferrin Receptor C Reactive Protein ESR Exclude additional infectious or inflammatory contributors. Will follow
[2019-11-20] MEDS: Mometasone/Formoter 200/5 MDI INH SCH (20:35)
[2019-11-20] MEDS: Baclofen TAB* 20 MG PO SCH (20:53)
[2019-11-20] MEDS: Senna TAB 8.6 mg* TAB PO SCH (20:53)
[2019-11-20] MEDS: LORazepam TAB(*) 0.5 MG PO SCH (20:54)
[2019-11-20] MEDS: Magnesium Oxide TAB* 400 MG PO SCH (20:54)
[2019-11-20] MEDS: DULoxetine DR CAP* 60 MG CAP.DR PO SCH (20:55)
[2019-11-20] MEDS: Gabapentin CAP(*) 300 MG PO SCH (20:57)
[2019-11-20] MEDS ORDERED: Montelukast Sodium TAB* 10 MG PO SCH (21:00)
[2019-11-20] MEDS ORDERED: OLANzapine TAB* 10 MG PO SCH (21:00)
[2019-11-20] MEDS: Nystatin TOP POWDER* 15 GM BTL TOPICAL SCH (21:03)
--- NOTE | 2019-11-20 23:05 | HP ---
HISTORY AND PHYSICAL: DATE OF ADMISSION: 11/20/19 This is an admission from swing bed status to an inpatient. CHIEF COMPLAINT: Nonverbal behaviorally and thrombocytosis acute. HISTORY OF PRESENT ILLNESS: This is a 59-year-old female who was admitted to [facility] on 11/09/19 for RSV positive respiratory distress and acute encephalopathy metabolic due to her severe sepsis, pneumococcal pneumonia and influenza A. She was treated from 11/09/19 and she was transferred to a swing bed status on 11/15/19 after completing her influenza A treatment and her antibiotic treatment for her pneumococcal pneumonia. She has a history of underlying schizophrenia. At that time, her course was uncomplicated. She was seen by Infectious Disease and she was on the swing bed status awaiting bed placement with full course back of her oral therapy and her schizoaffective treatment. Today, I was notified that the patient was accepted for a swing bed status. I want to evaluate this patient and upon reviewing her record, it was noted that her platelet was up to 800 and 900 with her sed rate was as low as 19. Giving the concern that she may be going through relapse of infection, I did order a stat CBC, electrolytes included ESR and CRP, blood culture, urine culture, chest x-ray. Her ESR came back elevated at 115 where admission was 14 only and her CRP unlike the sed rate trended down 9.6 where her admission was 19. Giving the concern this could be relapse of infection versus bone marrow pathology, I elected to admit the patient to inpatient and consulted with Hematology and Infectious Disease. PAST MEDICAL HISTORY: 1. Recent hospitalization for influenza A pneumonia. 2. Pneumococcal pneumonia. 3. Severe sepsis. 4. Metabolic encephalopathy secondary to the above. 5. Thyroid nodule. 6. Hypertension. 7. History of SVT. 8. Prior history of osteodiscitis in June 2019 along with thrombocytosis along the time frame. 9. COPD. 10. Schizophrenia. PAST SURGICAL HISTORY: None. MEDICATIONS: Transferred on the following medicine; 1. Tylenol 650 q.4. 2. Maalox 30 mL q.6. 3. Albuterol nebulizer. 4. Aspirin 81 daily. 5. Baclofen 20 t.i.d. 6. Cogentin 1 mg daily. 7. Os-Hamilton with vitamin D 1 tab daily. 8. Vitamin D 2000 daily. 9. Santyl 1 tab topically daily. 10. Cardizem 240 daily. 11. Colace 100 daily. 12. Cymbalta 60 b.i.d. 13. Lovenox 40 subcu daily. 14. Iron 325 daily. 15. Flonase 2 nasal spray daily. 16. Neurontin 300 t.i.d. 17. Levoxyl 50 mcg daily. 18. Lidocaine topically. 19. Lorazepam 0.5 t.i.d. 20. Mag oxide 800 b.i.d. 21. Dulera 2 puff b.i.d. 22. Singulair 10 at bedtime. 23. Nicotine patch. 24. Nystatin powder. 25. Zyprexa at bedtime, 5 in the morning. 26. Senna 2 tab b.i.d. 27. Aldactone 25 daily. 28. Tramadol 50 q.6 p.r.n. ALLERGIES: She is allergic to: 1. BLACK PEPPER. 2. FLUPHENAZINE. 3. HALDOL. 4. LATEX. 5. RISPERDAL. FAMILY HISTORY: Significant for schizophrenia and alcoholism. SOCIAL HISTORY: She is disabled. Prior history of alcohol abuse. She lives in a [facility]. REVIEW OF SYSTEMS: Unable to obtain as the patient refused to talk or engage in conversation. PHYSICAL EXAMINATION GENERAL: She is awake. Follow you with her eyes throughout the room. Does not indulge in conversation. VITAL SIGNS: Temperature 98.5, pulse 100, respiratory rate 18, satting 96, pressure 114/67. HEENT: Head and Neck: Supple. She is moving her head in no distress. Slightly pallor. Anicteric sclerae. LUNGS: Clear to auscultation. CARDIOVASCULAR: S1, S2. Tachycardic. ABDOMEN: Positive bowel sounds. I did not appreciate any tenderness. Negative Willis. EXTREMITIES: She does have a stage 3 decubitus ulcer in the right lateral hip. NEUROLOGIC: She does not follow command to assess her [employer] or mental status. DIAGNOSTIC STUDIES/LAB DATA: She had her CBC, shows white count 13, hemoglobin 10, hematocrit 31, platelets 1117, and her ESR 115. INR not done. Chemistry: Sodium 130, potassium 4.1, chloride 99, BUN 18, creatinine 0.4, glucose 139. Urine ordered pending. Blood cultures ordered. Chest x-ray ordered. IMPRESSION: Acute thrombocytosis. Etiology could be acute phase reaction. Also, this is quite very high for acute phase reactant. I did consult Hematology and will follow up final recommendation. However, it was recommended over the phone to obtain her which was done under the miscellaneous. She is on aspirin 81 mg daily and Lovenox 40 subcu daily. Followup final Hematology recommendation. I consulted ID, recommended hodges cultures. No antibiotic at this time. For her back pain, continue her baclofen and Neurontin. Schizoaffective disorder. Continue Cogentin Cymbalta. Hypothyroidism. Continue Levoxyl 50 mcg. [id number]/[facility] #: [id number] [facility]
[2019-11-21] MEDS ORDERED: Levothyroxine TAB* 25 MCG TAB PO SCH (06:00)
[2019-11-21 06:04] LABS: ABS Basophils 0.1 10^3/ul (0-0.2); ABS Eosinophils 0.1 10^3/ul (0-0.6); ABS Lymphocytes 3.2 10^3/ul (1.0-4.8); ABS Monocytes 1.3 10^3/ul (0-0.8); Eosinophil % 0.9 %; Hematocrit 30 % (35-47); Hemoglobin 10.4 g/dL (12.0-16.0); Lymphocyte % 27.6 %; Mean Corpuscular HGB Conc 35 g/dL (31-36); Mean Corpuscular Hemoglobin 32 pg (27-31); Mean Corpuscular Volume 93 fL (80-97); Mean Platelet Volume 7.2 fL (7.4-10.4); Platelet Count 1058 10^3/uL (150-450); Red Blood Count 3.24 10^6 /uL (3.70-4.87); Red Cell Distribution Width 14 % (10-15); White Blood Count 11.7 10^3/uL (3.5-10.8)
[2019-11-21 06:17] LABS: BUN/Creatinine Ratio 37.7 (8-20); Calcium 9.5 mg/dL (8.6-10.3); EGFR African American 142.9 (>60); EGFR Non-African American 118.1 (>60); Magnesium 2.2 mg/dL (1.9-2.7); Phosphorus 3.9 mg/dL (2.5-5.0); Potassium 4.3 mmol/L (3.5-5.0)
[2019-11-21] MEDS: Magnesium Oxide TAB* 400 MG PO SCH (07:50)
[2019-11-21] MEDS: Baclofen TAB* 20 MG PO SCH (07:52)
[2019-11-21] MEDS: Senna TAB 8.6 mg* TAB PO SCH (07:53)
[2019-11-21] MEDS: LORazepam TAB(*) 0.5 MG PO SCH ×2 (07:53→12:30)
[2019-11-21] MEDS: DULoxetine DR CAP* 60 MG CAP.DR PO SCH (07:53)
[2019-11-21] MEDS: Gabapentin CAP(*) 300 MG PO SCH (07:54)
[2019-11-21] MEDS: Nystatin TOP POWDER* 15 GM BTL TOPICAL SCH (07:56)
[2019-11-21] MEDS ORDERED: Nicotine PATCH 21 MG/24 HR* PATCH TRANSDERM SCH (08:00)
[2019-11-21] MEDS ORDERED: Fluticasone NASAL SPRAY 50MCG* 16 gm SPRAY BTL BOTH NARES SCH (09:00)
[2019-11-21] MEDS ORDERED: Aspirin EC TAB* 81 MG TAB.EC PO SCH (09:00)
[2019-11-21] MEDS ORDERED: Ferrous Sulfate TAB* 325 MG PO SCH (09:00)
[2019-11-21] MEDS ORDERED: Spironolactone TAB* 25 MG PO SCH (09:00)
[2019-11-21] MEDS ORDERED: Calcium/Vitamin D TAB 250/125* TAB PO SCH (09:00)
[2019-11-21] MEDS ORDERED: Docusate CAP* 100 MG PO SCH (09:00)
[2019-11-21] MEDS ORDERED: OLANzapine TAB* 5 MG PO SCH (09:00)
[2019-11-21] MEDS ORDERED: Collagenase 250 UNITS/GM OINT* 1 APPLIC OINT TOPICAL SCH (09:00)
[2019-11-21] MEDS ORDERED: Cholecalciferol TAB* 1000 UNITS PO SCH (09:00)
[2019-11-21] MEDS ORDERED: Diltiazem CD CAP* 240 MG PO SCH (09:00)
[2019-11-21] MEDS ORDERED: Benztropine TAB* 1 MG PO SCH (09:00)
[2019-11-21] MEDS: Mometasone/Formoter 200/5 MDI INH SCH (09:47)
--- NOTE | 2019-11-21 10:47 | DS ---
CC: Dr. Figueroa * DISCHARGE SUMMARY: DATE OF ADMISSION: 11/20/19 DATE OF DISCHARGE: 11/21/19 PRIMARY CARE PROVIDER: Dr. Figueroa. PRINCIPAL DIAGNOSES: 1. Thrombocytosis. 2. Elevated ESR. SECONDARY DIAGNOSES: 1. Recent hospitalization from 11/09/19 through 11/15/19 for treatment of severe sepsis secondary to influenza A and pneumococcal pneumonia. 2. Metabolic encephalopathy and delirium secondary to the above. 3. Thyroid nodule. 4. Hypertension. 5. History of osteodiskitis. 6. Chronic obstructive pulmonary disease. 7. Schizophrenia. DISCHARGE MEDICATIONS: 1. Tramadol 50 mg p.o. q.6 hours p.r.n. pain. 2. Spiriva 1 puff inhaled daily. 3. Spironolactone 25 mg p.o. daily. 4. Senna 2 tabs p.o. b.i.d. 5. Olanzapine 5 mg p.o. q.a.m., 30 mg p.o. q.p.m. 6. Singulair 10 mg p.o. q.h.s. 7. Magnesium oxide 400 mg p.o. daily. 8. Ativan 0.5 mg p.o. t.i.d. 9. Levothyroxine 50 mcg p.o. daily. 10. Ibuprofen 800 mg p.o. t.i.d. with meals p.r.n. pain. 11. Gabapentin 300 mg p.o. t.i.d. 12. Breo Ellipta 200/25 one puff inhaled daily. 13. Flonase nasal spray 2 squirts to both nostrils daily. 14. Ferrous sulfate 325 mg p.o. daily. 15. Duloxetine DR 60 mg p.o. b.i.d. 16. Colace 100 mg p.o. b.i.d. 17. Diltiazem CD 240 mg p.o. daily. 18. Vitamin D of 2000 units p.o. daily. 19. Benztropine 1 mg p.o. daily. 20. Baclofen 20 mg p.o. t.i.d. 21. Lipitor 40 mg p.o. q.h.s. 22. Aspirin 81 mg p.o. daily. 23. Albuterol 2 puffs inhaled q.4 hours p.r.n. shortness of breath. 24. Nystatin 1 application topical t.i.d. to areas affected by mariya intertrigo. 25. Nicotine patch 21 mg topically daily. HOSPITAL COURSE: Ms. Lui is a 59-year-old female who was initially admitted on 11/09/19 where she was treated for severe sepsis, pneumococcal pneumonia, and influenza A, as well as metabolic encephalopathy and delirium secondary to her severe sepsis, pneumococcal pneumonia, and influenza. The patient was discharged to swing bed status on 11/15/19. Please see the discharge summary dictated by Dr. Harrison for details of the hospitalization. The patient remained on swing bed status and was seen by Dr. Smith on 11/20/19. At that time, he noted that the patient's platelet count had escalated to a peak of 1117 on 11/20/19. Additionally, the patient's CRP was noted to be elevated at 115. These were increases from earlier in her hospitalization. Because of this, the patient was switched back to observation status to be evaluated by both Hematology and Infectious Disease. Dr. Loja saw the patient on 11/20/19. He felt that this thrombocytosis was likely reactive after a recent admission for pneumococcal pneumonia and influenza A. Overshoot marrow recovery after suppression from recent events was not felt to be able to be excluded. The leukocytosis was also felt to be reactive. He recommended excluding any new or recurrent infectious processes. The patient was then seen by Dr. Bravo on the morning of 11/21/19. It was his impression that the patient likely do not have recurrent or new infectious process driving up the platelet or white blood cell count. He agreed that these were likely reactive. The patient has been offered a bed at [facility] for subacute Rehab. She will be discharged there today. On the day of discharge, the patient is awake and alert, sitting up in her bed. She seems somewhat confused. When I ask her certain questions, she will answer but not with an appropriate response. Her cardiac exam reveals a normal S1 and S2 with a regular rate and rhythm. Her bowel sounds are present. Abdomen, on the brief exam that I was able to do, was felt to be soft and nondistended. She refused to allow me to listen to her lungs posteriorly, but anteriorly she sounded clear. FOLLOWUP CONCERNS: The patient is being discharged to [facility] today . ACTIVITY LEVEL: As tolerated. DIET: Regular. CONDITION ON DISCHARGE: Stable. TIME SPENT: Twenty five minutes was spent discharging this patient. [id number]/[facility] #: [id number] [place]
[2019-11-21 12:32] VITALS: BP 120/68
[2019-11-21] MEDS ORDERED: Nicotine Patch Removal NOTE PATCH OFF SCH (21:00)
== END 2019-11-21 12:30 ==
LOC: MED 16:00 → UNDOADMIN 16:00 → MED 16:10 → INTOOBSV 16:10
PROVIDERS: ADMIT Internal Medicine; ATTEND Hospitalist
DX: D47.3 Essential (hemorrhagic) thrombocythemia (principal); R70.0 Elevated erythrocyte sedimentation rate; G93.41 Metabolic encephalopathy; E04.1 Nontoxic single thyroid nodule; I47.1 Supraventricular tachycardia; I10 Essential (primary) hypertension; L89.213 Pressure ulcer of right hip, stage 3; J44.9 Chronic obstructive pulmonary disease, unspecified; F20.9 Schizophrenia, unspecified; B19.20 Unspecified viral hepatitis C without hepatic coma; Z79.899 Other long term (current) drug therapy; Z79.82 Long term (current) use of aspirin; Z79.51 Long term (current) use of inhaled steroids; Z79.01 Long term (current) use of anticoagulants; Z88.8 Allergy status to other drugs, medicaments and biological substances; E03.9 Hypothyroidism, unspecified
CPT/HCPCS: 36415; 71046; 80048; 83735; 84100; 84238; 85025; 85652; 86140; 94640; 99204; A9270-GY; G0378; J1650

== ENCOUNTER 2022-03-13 00:05 | Inpatient (IN) ==
[2022-03-13] MEDS ORDERED: Propofol 10 mg/ml 100 ML BTL 100 ML ONE (00:18)
[2022-03-13] MEDS ORDERED: NS 0.9% 1000 ml BAG 1,000 ML IV ONE (00:22)
[2022-03-13] MEDS ORDERED: Piperacillin/Tazobac ADVAN 3.375 GM in NS 0.9% 100 ml BAG 100 ML IV ONE (00:26)
[2022-03-13] MEDS ORDERED: Succinylcholine 200 mg VIAL 20 mg/ml 10 ml VIAL (200 mg) IV ONE (00:28)
[2022-03-13] MEDS ORDERED: Norepinephrine 16MCG/ML BAG NS 4,000 MCG/250 ML BAG IV ONE (00:52)
[2022-03-13] MEDS ORDERED: Norepinephrine 16MCG/ML BAG NS 4,000 MCG/250 ML BAG IV SCH (01:00)
[2022-03-13 01:12] LABS: INR 1.16 (0.86-1.15)
[2022-03-13 01:13] LABS: Hematocrit 44 % (35-47); Hemoglobin 14.4 g/dL (12.0-16.0); Mean Corpuscular HGB Conc 33 g/dL (31-36); Mean Corpuscular Hemoglobin 29 pg (27-31); Mean Corpuscular Volume 90 fL (80-97); Platelet Count 396 10^3/uL (150-450); Red Blood Count 4.88 10^6 /uL (3.70-4.87); Red Cell Distribution Width 14 % (10-15); White Blood Count 24.7 10^3/uL (3.5-10.8)
[2022-03-13 01:21] LABS: ALT 34 U/L (7-52); Acetaminophen < 15 mcg/mL; Albumin 3.9 g/dL (3.2-5.2); Albumin/Globulin Ratio 1.3 (1-3); Alkaline Phosphatase 80 U/L (35-149); Blood Urea Nitrogen 52 mg/dL (6-24); CO2 Carbon Dioxide 29 mmol/L (22-32); Calcium 11.7 mg/dL (8.6-10.3); Chloride 92 mmol/L (101-111); Globulin 2.9 g/dL (2-4); Glucose 122 mg/dL (70-100); Salicylate < 2.50 mg/dL (<30); Sodium 131 mmol/L (135-145); Total Protein 6.8 g/dL (6.4-8.9); eGFR CKD-EPI 35.7 (>60)
[2022-03-13 01:25] LABS: Anion Gap 10 mmol/L (2-11); High Sens Troponin Baseline 5 pg/mL (<15)
[2022-03-13 01:35] LABS: TSH Ultra Thyroid Stim Horm 1.23 mcIU/mL (0.34-5.60)
[2022-03-13 01:41] LABS: Magnesium 6.9 mg/dL (1.9-2.7)
[2022-03-13 01:59] LABS: Urine Appearance Clear; Urine Bilirubin Negative (Negative); Urine Blood Negative (Negative); Urine Color Yellow; Urine Glucose Negative (Negative); Urine Ketones Negative (Negative); Urine Nitrite Negative (Negative); Urine Protein Negative (Negative); Urine Specific Gravity 1.006 (1.002-1.030); Urine Urobilinogen Negative (Negative)
[2022-03-13] MEDS ORDERED: NS 0.9% IV ONE (02:15)
[2022-03-13 02:20] LABS: Toxic Granulation 1+
[2022-03-13 02:21] LABS: ABS Lymphocytes 1.2 10^3/ul (1.0-4.8); ABS Monocytes 1.2 10^3/ul (0-0.8); ABS Neutrophils 22.2 10^3/ul (1.5-7.7); Eosinophil % 0.1 %; Lymphocyte % 4.8 %; RBC Morphology Normal (Normal)
[2022-03-13] MEDS ORDERED: Propofol 10 mg/ml 100 ML BTL 100 ML IV ONE (05:33)
[2022-03-13] MEDS ORDERED: Albuterol HFA INHALER 8 gm MDI INH PRN (05:39)
[2022-03-13] MEDS ORDERED: Naloxone 0.4 mg VIAL 0.4 mg/ml 1 ml VIAL IV PUSH ONE (05:43)
[2022-03-13 05:47] LABS: High Sensitivity Troponin 1 Hr 5 pg/mL (<15)
[2022-03-13 05:48] LABS: Potassium Redraw 4.6 mmol/L (3.5-5.0)
[2022-03-13] MEDS ORDERED: Zosyn per Pharmacy NOTE FOLLOW UP SCH (06:00)
[2022-03-13 06:12] LABS: PCO2 Arterial 38 mmHg (35-45); PO2 Arterial 97 mmHg (80-100)
[2022-03-13 06:24] LABS: Urine Benzodiazepine Screen None Detected (None Detect); Urine Cannabinoids Screen None Detected (None Detect); Urine Opiates Screen None Detected (None Detect)
[2022-03-13] MEDS: Norepinephrine 16MCG/ML BAGD5W 4,000 MCG/250 ML BAG IV SCH ×2 (06:33→13:33)
[2022-03-13] MEDS: Chlorhexidine MOUTHWASH 0.12% 15 ML UDC TOPICAL SCH ×3 (06:46→14:31)
[2022-03-13] MEDS ORDERED: ZOSYN 3.375 GM Q8H per EXTENDED INFUSION IV SCH (07:30)
[2022-03-13] MEDS ORDERED: Lactated Ringers 1000 ml BAG 1,000 ML IV SCH (08:00)
[2022-03-13 08:54] LABS: Urine Appearance Clear; Urine Bilirubin 1+ (Negative); Urine Blood Negative (Negative); Urine Color Amber; Urine Glucose Negative (Negative); Urine Ketones Trace (Negative); Urine Nitrite Negative (Negative); Urine Protein Negative (Negative); Urine Specific Gravity 1.018 (1.002-1.030); Urine Urobilinogen Positive (Negative)
[2022-03-13] MEDS ORDERED: Enoxaparin 40 MG/0.4 ML SYR SUBCUT SCH (09:00)
[2022-03-13] MEDS ORDERED: Pantoprazole VIAL 40 MG VIAL IV SCH (09:00)
[2022-03-13] MEDS ORDERED: Mometasone/Formoter 100/5 MDI INH SCH (09:00)
[2022-03-13 09:02] LABS: Urine Bacteria Absent (Absent); Urine Red Blood Cell Trace(0-2/hpf) (Absent); Urine Squamous Epithelial Cell Present (Absent); Urine White Blood Cell 3+(>20/hpf) (Absent)
[2022-03-13 10:34] LABS: Osmolality Serum 314 mOsm/kg (275-295)
[2022-03-13 10:37] LABS: Potassium 4.4 mmol/L (3.5-5.0)
[2022-03-13 10:42] LABS: eGFR CKD-EPI 35.1 (>60)
[2022-03-13 10:44] LABS: Magnesium 5.2 mg/dL (1.9-2.7)
[2022-03-13] MEDS ORDERED: levETIRAcetam 1000MG IVPREMIX 1,000 MG/100 ML BAG IVPB ONE ×2 (11:35→12:00)
[2022-03-13] MEDS ORDERED: Furosemide 40 mg/4 ml IV VIAL IV SLOW PU ONE (11:58)
[2022-03-13] MEDS ORDERED: NORMOSOL-R pH 7.4 1000 mL BAG 1,000 ML IV SCH (12:00)
[2022-03-13] MEDS ORDERED: Lorazepam PYXIS KEY ONE (12:32)
[2022-03-13] MEDS ORDERED: LORazepam 2 mg VIAL 1 ml ONE (12:33)
[2022-03-13] MEDS ORDERED: Lorazepam PYXIS KEY PRN (12:40)
[2022-03-13] MEDS ORDERED: LORazepam 2 mg VIAL 1 ml IV PUSH ONE (12:40)
[2022-03-13] MEDS ORDERED: Vancomycin per Pharmacy 1 EA NOTE FOLLOW UP PRN (12:54)
[2022-03-13] MEDS ORDERED: cefTRIAXone 2 gm/50 mL D5W 2 GM/50 ML BAG IV SCH (13:00)
[2022-03-13] MEDS ORDERED: Propofol 10 mg/ml 100 ML BTL 100 ML IV SCH (13:00)
[2022-03-13] MEDS ORDERED: Vancomycin 1,250 MG in NS 0.9% 250 ml 250 ML IVPB ONE (13:30)
[2022-03-13] MEDS ORDERED: Acyclovir IV 850 MG in NS 0.9% 250 ml 250 ML IVPB SCH (14:00)
[2022-03-13] MEDS ORDERED: Acyclovir IV 550 MG in NS 0.9% 100 ml BAG 100 ML IVPB SCH (14:19)
[2022-03-13 15:39] LABS: Blood Urea Nitrogen 58 mg/dL (6-24); CO2 Carbon Dioxide 23 mmol/L (22-32); Calcium 7.9 mg/dL (8.6-10.3); Chloride 101 mmol/L (101-111); Glucose 178 mg/dL (70-100); Sodium 135 mmol/L (135-145); eGFR CKD-EPI 35.7 (>60)
[2022-03-13 15:59] LABS: Anion Gap 11 mmol/L (2-11); Magnesium 4.6 mg/dL (1.9-2.7)
[2022-03-13 18:33] VITALS: BP 84/61
[2022-03-13 18:49] LABS: Calcium (PTH Intact) 7.8 mg/dL (8.6-10.3)
[2022-03-14] MEDS ORDERED: cefTRIAXone 2 GM ADDV.VIAL 2 GM in NS 0.9% 100 ml BAG 100 ML IV SCH (01:00)
[2022-03-14] MEDS ORDERED: Vancomycin Random Level NOTE FOLLOW UP ONE (06:00)
== END 2022-03-13 18:00 | disposition short-term general hospital (02) | DRG 720 ==
LOC: ED 00:05 → EDHOLD 05:35 → ICU 07:27
PROVIDERS: ADMIT Student in an Organized Health Care Education/Training Program; ATTEND Student in an Organized Health Care Education/Training Program